=== PATIENT | male | born 1970 | race Caucasian/White ===

== ENCOUNTER 2019-05-23 19:36 | Inpatient (IN) ==
--- NOTE | 2019-05-23 20:34 | Emergency Department Note ---
ED Provider Note CHIEF COMPLAINT: Fall, left hip pain HISTORY OF PRESENT ILLNESS: This 49-year-old male patient presents to the emergency department by private vehicle complaining of pain in the left hip after a fall today around 5 PM. Patient states that he was [place] the [place] lost his footing and fell onto his left side. It was a ground-level fall. He denies hitting his head or loss of consciousness. He denies any other injuries from the fall. The pain has been getting gradually worse, is now constant and worse with movement. He is unable to put weight on the left leg without significant pain and states he has not been able to walk since the fall. The patient notes the pain as aching and throbbing and a 5/10. The patient has taken no medications for relief of the pain. The patient denies any loss of control of their bowel or bladder functions. There has been no leg numbness or weakness, and no change in sensation. No nausea or vomiting or abdominal pain. No chest pain or shortness of breath. No back pain. No dysuria or increased urinary frequency. REVIEW OF SYSTEMS: A complete 10 point review of systems was reviewed with the patient with pertinent positives and negatives as per history of present illness. All else were negative. ALLERGIES: Reviewed in chart MEDICATIONS: Reviewed in chart PMH: DVT, ulcerative colitis, reports total colectomy SOCIAL HISTORY: Lives at home, he denies tobacco use PHYSICAL EXAM: VITALS: Vitals are noted on the nurse's note and reviewed by myself. Vital signs stable. GENERAL: Pleasant and cooperative, in no acute distress, non-diaphoretic, well-developed well-nourished. SKIN: The skin was without rashes, erythema, edema, or bruising. Capillary re fill less than 2 seconds. NECK: Supple without nuchal rigidity. No cervical spine tenderness. No paraspinous muscle tenderness. HEART: Regular rate and rhythm without murmurs gallops or rubs. LUNGS: Clear to auscultation bilaterally without wheezes, rales or rhonchi. ABDOMEN: Positive bowel sounds x 4. Normal tympanic percussion. Soft, nontender, without masses or organomegaly. Mejia sign negative. MUSCULOSKELETAL: Tenderness to palpation directly over the left hip joint in the left lateral hip. No significant ecchymosis or swelling noted. Pain with internal and external rotation of the hip. No obvious shortening of the left leg, normal anatomic position. 2+ distal pulses. Sensation intact to light touch distally. NEURO: Patient was alert and oriented to person place and time. Strength 5/5 and equal in the bilateral lower extremities. ED COURSE AND MEDICAL DECISION MAKING: CC: Patient presenting with complaint of fall, left hip pain DIFFERENTIAL DIAGNOSIS: Includes, but not limited to hip contusion, abrasion, hematoma, sprain/strain, fracture, dislocation, among others. IMAGING: XR hip LT 2-3V w pelvis CLINICAL HISTORY: fall, hip pain COMPARISON: None FINDINGS: There is subtle cortical irregularity of the superior aspect of the left femoral neck within the subcapital region. The sacroiliac joints and symphysis pubis are intact. IMPRESSION: Possible acute nondisplaced left femoral neck fracture. A CT is recommended. ----- CT hip LT wo con CLINICAL HISTORY: eval poss left femoral neck fx COMPARISON STUDY: Pelvis and left femur radiographs performed earlier today. TECHNIQUE: Axial images of the left hip were obtained without IV contrast. Sagittal and coronal reconstructions were viewed. Automated exposure control was utilized for the study. A dose lowering technique was utilized adhering to the principles of ALARA. FINDINGS: Note is made of an acute impacted nondisplaced subcapital left femoral neck fracture. Fracture extends inferiorly through the anterior aspect of the femoral neck to the lesser trochanter. No fracture is identified within visualized portions of the left hemipelvis. This extensive vascular calcificatio n. IMPRESSION: Acute impacted nondisplaced subcapital left femoral neck fracture. Fracture extends inferiorly through the femoral neck into the intertrochanteric region with involvement of the lesser trochanter. MEDICATION RECONCILIATION: I attest that I have personally reviewed the patient's current medication list. INITIAL VITAL SIGNS REVIEW: I reviewed the patient's initial vital signs and interpret them as follows: T: Afebrile; BP: Normotensive; HR: Within normal limits; RR: Within normal limit; Pulse Ox: Within normal limits on room air. Blood pressure screening: The patient was found to have normal blood pressure on screening and does not require follow-up for repeat blood pressure check. MDM SUMMARY: Patient was evaluated at bedside, history and physical exam performed. Patient is alert and oriented, in no acute distress, resting in a wheelchair. The patient declined to get out of the wheelchair or to disrobe for exam. The patient's exam was limited due to his poor cooperation. Patient did have tenderness to palpation over the left hip joint and pain with internal and external rotation of the hip. Orders were placed at bedside for x-ray of the left hip with pelvis and left femur to evaluate for trauma. The patient was offered medication for pain, he declined at this time. Patient discussed with Dr. Patricia, who agrees with my assessment, plan, and disposition. X-ray imaging reviewed as above, concerning for a possible femoral neck fracture, CT recommended. CT imaging was performed of the left hip, reviewed as above and noting an acute impacted nondisplaced left femoral neck fracture. I spoke on the phone with Dr. Massey, orthopedic surgery, regarding the patient's injury. He recommended the patient be admitted to medicine and the patient will be evaluated by orthopedics tomorrow morning for surgical planning. I spoke with Dr. Gray, [facility]ist, who agrees to admit the patient. Patient reassessed multiple times throughout ED stay, he has remained stable and his pain is well controlled. The patient was updated on all results and plan for admission, he verbalized understanding and was agreeable to this plan. The patient was stable at time of admission. The chart was completed utilizing [employer] Speech voice recognition software. Grammatical errors, random word insertions, pronoun errors, and incomplete sentences are an occasional consequence of this system due to software limitations, ambient noise, and hardware issues. Any formal questions or concerns about the content, text, or information contained within the body of this dictation should be directly addressed to the nurse practitioner for clarification. Impression & Plan Closed fracture of neck of left femur Past Med/Surg History Medical History Deep vein thrombosis in leg 15yrs ago On anticoagulant therapy eliquis daily Ulcerative colitis Surgical History History of colectomy History of colonoscopy History of hernia repair Family History Other No family history of adverse response to anesthesia Social History Preferred Language: Omani Communication Ability: Effective Beliefs That Will Affect Care: None Current Living Situation: Spouse Feels Safe at Home: Yes Smoking Status: Never smoker Second Hand Exposure: No Hx Alcohol Use: Yes Alcohol type: beer Hx Substance Use: No Results & Data Vital Signs Vital Signs - 24 hr 05/23/19 19:59 05/23/19 21:55 05/24/19 00:02 Temperature 36.9 C Temperature Source Oral Sepsis Recent Fever Within 48 Hours No Sepsis New/Unexplained Change in Mental Status No Sepsis Action Taken by Nursing No Action Required Pulse Rate 85 Pulse Rate [Right Finger] 84 70 Pulse Rhythm Regular Pulse Rhythm [Right Finger] Regular Pulse Strength Normal Pulse Strength [Right Finger] Normal Respiratory Rate 20 20 18 Respiratory Effort / Characteristics Non-Labored Spontaneous Non-Labored Non-Labored Spontaneous Respiratory Depth Normal Normal Normal Respiratory Pattern Regular Regular Blood Pressure 120/73 Blood Pressure [Right Arm] 94/75 L 126/79 Blood Pressure Mean 88 Blood Pressure Mean [Right Arm] 81 94 Blood Pressure Position Sitting Blood Pressure Position [Right Arm] Lying Pulse Oximetry 98 98 98 Oxygen Delivery Method Room Air Room Air Room Air Laboratory Data Result diagrams: 05/24/19 08:09 05/24/19 08:09 Administered Medications Sodium Chloride (Nss 1000ml) 1,000 mls @ 80 mls/hr IV .[id number] LIDIA Stop: 06/23/19 01:59 Last Admin: 05/24/19 02:49 Dose: 80 mls/hr Documented by: [id number] Discontinued Medications Bupivacaine HCl/Epinephrine Bitart (Sensorcaine/Epinephrine 0.5% Mpf 1:200,000) Confirm Administered Dose 30 ml .ROUTE .STK-MED ONE Stop: 05/24/19 11:54 Last Admin: 05/24/19 14:38 Dose: 30 ml Documented by: [id number] Cefazolin Sodium (Ancef 2000mg) 2,000 mg in 15 mls @ 3.75 mls/min IV PREOP LIDIA Stop: 05/24/19 12:00 Last Admin: 05/24/19 13:35 Dose: 3.75 mls/min Documented by: [id number] Discharge Plan Visit Data *Final* Discharge Date/Time: 05/24/19 01:44 Chief Complaint: Hip Pain Stated Complaint: LEFT HIP PAIN ED Provider: Jason Patricia ED Midlevel Provider: Alisia Cerna Discharge Problem: Closed fracture of neck of left femur Patient Disposition: Admitted As Inpatient Condition: Good Discharge Instructions Interventions: ED Discharge Assessment Last Done: 05/24/19 01:44 Discharge Problem: Closed fracture of neck of left femur Qualifiers: Encounter type: initial encounter Qualified Code(s): S72.002A - Fracture of unspecified part of neck of left femur, initial encounter for closed fracture
--- NOTE | 2019-05-23 21:13 | XRay Report ---
XR hip LT 2-3V w pelvis CLINICAL HISTORY: fall, hip pain COMPARISON: None FINDINGS: There is subtle cortical irregularity of the superior aspect of the left femoral neck with in the subcapital region. The sacroiliac joints and symphysis pubis are intact. IMPRESSION: Possible acute nondisplaced left femoral neck fracture. A CT is recommended. Electronically signed by: Kyle Steve M.D. 05/23/2019 9:11 PM
--- NOTE | 2019-05-23 21:13 | XRay Report ---
XR femur LT 2V routine CLINICAL HISTORY: fall, pain COMPARISON: None FINDINGS: There is subtle cortical irregularity of the left femoral neck within the subcapital regio n. No additional fractures are noted within the left femur. There is extensive vascular calcification . Alignment of the left knee is anatomic. IMPRESSION: Possible acute subcapital left femoral neck fracture. A CT is recommended. Electronically signed by: Kyle Steve M.D. 05/23/2019 9:12 PM
--- NOTE | 2019-05-23 22:22 | CT Scan Report ---
CT hip LT wo con CLINICAL HISTORY: eval poss left femoral neck fx COMPARISON STUDY: Pelvis and left femur radiographs performed earlier today. TECHNIQUE: Axial images of the left hip were obtained without IV contrast. Sagittal and coronal recon structions were viewed. Automated exposure control was utilized for the study. A dose lowering techn ique was utilized adhering to the principles of ALARA. FINDINGS: Note is made of an acute impacted nondisplaced subcapital left femoral neck fracture. Fract ure extends inferiorly through the anterior aspect of the femoral neck to the lesser trochanter. No f racture is identified within visualized portions of the left hemipelvis. This extensive vascular calc ification. IMPRESSION: Acute impacted nondisplaced subcapital left femoral neck fracture. Fracture extends infe riorly through the femoral neck into the intertrochanteric region with involvement of the lesser troc hanter. Electronically signed by: Kyle Steve M.D. 05/23/2019 10:21 PM
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
[2019-05-24] MEDS ORDERED: DICYCLOMINE HCL 10 MG CAP PO PRN (01:58)
[2019-05-24] MEDS ORDERED: DOCUSATE SODIUM 100 MG CAP PO PRN (01:58)
[2019-05-24] MEDS: SODIUM CHLORIDE 0.9% 1000ML 1,000 ML IV SCH ×2 (02:49→18:11)
[2019-05-24 03:12] LABS: Magnesium 2.1 mg/dl (1.8-2.4); Phosphorus 3.2 mg/dl (2.5-4.9)
[2019-05-24] MEDS ORDERED: CEFAZOLIN 2000MG 2,000 MG/15 ML SYR IV SCH (06:00)
[2019-05-24 06:18] LABS: Appearance Urine Clear (Clear); Bilirubin Urine Negative (Negative); Blood Urine Negative (Negative); Color Urine Yellow; Glucose Urine UA Negative (Negative); Ketones Urine Negative (Negative); Leukocyte Esterase Urine Negative (Negative); Nitrite Urine Negative (Negative); Protein Urine Negative (Negative); Specific Gravity Urine 1.023 (1.000-1.030); Urobilinogen Urine Negative (Negative)
--- NOTE | 2019-05-24 08:00 | Anesthesiology Consultation ---
Date of Service May 24, 2019 Assessment & Plan Chart Review Chart Review: Acceptable Risk for Surgery and Patient NOT seen in Pre Admission Testing Consults Requested none History Surgery Operation Date: 05/24/19 14:00 Proposed Procedures p Left Short Troch Nail - Delfino Ordoñez DO Height/Weight Height: 5 ft 10 in Weight: 90 kg Allergies Allergy/AdvReac Type Severity Reaction Status Date / Time infliximab AdvReac Severe body Verified 05/24/19 12:00 aches;couldn't sleep Medications Home Medications Medication Instructions Recorded Confirmed Last Taken Eliquis 2.5 mg PO BID 12/16/18 05/24/19 05/23/19 dicyclomine 10 mg PO TID PRN 12/16/18 05/24/19 12/20/18 ferrous sulfate [iron] 2 tab PO QPM 12/16/18 05/24/19 05/23/19 cholecalciferol (vitamin D3) 2,000 unit PO DAILY 05/24/19 05/24/19 05/24/19 [Vitamin D3] Active Medications Generic Name Dose Route Start Last Admin Trade Name Freq PRN Reason Stop Dose Admin Sodium Chloride 1,000 mls @ 80 mls/hr 05/24/19 02:00 05/24/19 02:49 Nss 1000ml IV 06/23/19 01:59 80 mls/hr .[id number] LIDIA Administration NPO Date Last Intake of Fluids: 05/24/19 Time Last Intake of Fluids: 01:50 Date Last Intake of Solids: 05/24/19 Time Last Intake of Solids: 01:50 Past Medical History Medical History Deep vein thrombosis in leg 15yrs ago On anticoagulant therapy eliquis daily Ulcerative colitis Past Family History Family History Other No family history of adverse response to anesthesia Past Surgical History Surgical History History of colectomy History of colonoscopy History of hernia repair Past Anesthesia History No Hx of Anesthesia Complications and No Family Hx of Anesthesia Complications History of PONV No Hx of PONV and No Hx of Motion Sickness Social History Smoking Status: Never smoker Do You Dip or Chew Tobacco: No Hx Alcohol Use: Yes Alcohol type: beer alcohol intake frequency: holidays/special occasions only Hx Substance Use: No substance use type: does not use Physical Exam Vital Signs Last Vital Signs Temp 36.9 C 05/24/19 07:22 Pulse 84 05/24/19 11:37 Resp 18 05/24/19 11:37 BP 113/77 05/24/19 11:37 Pulse Ox 99 05/24/19 11:37 Testing Laboratory Results 05/24/19 08:09 05/24/19 08:09 PT 11.0 Seconds (9.0-12.0) 05/24/19 08:09 INR 1.1 (0.9-1.1) 05/24/19 08:09 Urine Color Yellow 05/24/19 06:03 Urine Appearance Clear (Clear) 05/24/19 06:03 Urine pH 5.0 (4.5-7.5) 05/24/19 06:03 Ur Specific [place] 1.023 (1.000-1.030) 05/24/19 06:03 Urine Protein Negative (Negative) 05/24/19 06:03 Urine Glucose (UA) Negative (Negative) 05/24/19 06:03 Urine Ketones Negative (Negative) 05/24/19 06:03 Urine Nitrite Negative (Negative) 05/24/19 06:03 Ur Leukocyte Esterase Negative (Negative) 05/24/19 06:03 Electrocardiogram Date: 05/24/19 Findings: + NSR @ (76 bpm)
[2019-05-24 08:21] LABS: Hematocrit (blood only) 36.4 % (42-52); Mean Corpuscular Volume 86.9 fL (80-100); Mean Platelet Volume 9.9 fL (7.4-10.4); Platelet Count 280 K/uL (130-400); RDW Coefficient of Variation 15.1 % (11.5-14.5); RDW Standard Deviation 48.3 fL (36.4-46.3); Red Blood Count 4.19 M/uL (4.7-6.1); White Blood Count 6.94 K/uL (4.8-10.8)
[2019-05-24 08:29] LABS: INR 1.1 (0.9-1.1)
[2019-05-24 08:46] LABS: BUN Creatinine Ratio 15.8 (10-20); Calcium 8.4 mg/dl (8.5-10.1); Creatinine Clr Calc Pharmacy 161.9 ml/min; Est GFR (African American) 135.1; Est GFR (Non-African American) 116.5; Potassium 3.7 mmol/L (3.5-5.1)
--- NOTE | 2019-05-24 11:20 | History & Physical Bridge Note ---
Date of Service May 24, 2019 History & Physical Bridge Note I have examined the patient, reviewed the History & Physical and in the interval since the performance of the History & Physical I have noted the following changes of clinical significance: no changes noted
--- NOTE | 2019-05-24 11:20 | Orthopedic Consultation ---
Date of Consultation May 24, 2019 Assessment & Plan (1) Closed left hip fracture: The patient is a 41yo male with nondisplaced left femoral neck fracture with extension into the lesser trochanter sustained after a fall from standing height. The patient was medically stabilized on 05/24/2019. I indicated the patient for left hip cephalomedullary nail. The patient was informed of the risks and benefits of surgery, which include but not limited to infection, bleeding, blood clots, damage to nerves, vessels, bone and soft tissue, dislocation, leg length discrepancy, malunion, nonunion, failure of the implants, need for additional surgery and . The patient chose to proceed with surgical intervention and informed consent was obtained. N.p.o. Nonweightbearing left lower extrema Hold anticoagulation Antibiotics traffic control signaler the OR History of Present Illness Reason for Consultation: Left hip fracture Attending Physician: Caitlyn Millard MD History of Present Illness The patient is a 49-year-old male who presents to [facility] secondary to left hip pain from a fall from standing height he sustained on 05/23/2019. He reports he was" wrestling with a steer"' subsequently fell onto his left side. Denies hitting head, denies loss of consciousness, denies numbness tingling to left lower extremity. At [facility] he was subsequently diagnosed with left nondisplaced hip fracture and admitted for further inpatient treatments. Allergies Allergy/AdvReac Type Severity Reaction Status Date / Time infliximab AdvReac Severe body Verified 05/24/19 00:04 aches;couldn't sleep Home Medications Home Medications Medication Instructions Recorded Confirmed Type Eliquis 2.5 mg PO BID 12/16/18 05/24/19 History dicyclomine 10 mg PO TID PRN 12/16/18 05/24/19 History ferrous sulfate [iron] 2 tab PO QPM 12/16/18 05/24/19 History cholecalciferol (vitamin D3) 2,000 unit PO DAILY 05/24/19 05/24/19 History [Vitamin D3] Patient History Medical History Deep vein thrombosis in leg 15yrs ago On anticoagulant therapy eliquis daily Ulcerative colitis Surgical History History of colectomy History of colonoscopy History of hernia repair Family History Other No family history of adverse response to anesthesia Social History Preferred Language: Bulgarian Communication Ability: Effective Beliefs That Will Affect Care: None Current Living Situation: Spouse Feels Safe at Home: Yes Smoking Status: Never smoker Second Hand Exposure: No Hx Alcohol Use: Yes Alcohol type: beer Hx Substance Use: No Review of Systems Review of Systems: All systems reviewed & are unremarkable except as noted in HPI & below Constitutional: as per Subjective / HPI Physical Exam Physical Exam: LLE NVSI +EHL/FHL/TA/GS SILT grossly, +2 DP pulse, compartments soft NT, painful logroll. Constitutional: WD/WN, vitals as above Results & Data Vital Signs (Past 12 Hours) Vital Signs Temp Pulse Resp BP Pulse Ox 05/24/19 07:22 36.9 C 70 18 122/82 96 05/24/19 01:50 36.6 C 78 16 135/85 94 05/24/19 01:30 64 18 108/70 98 05/24/19 00:02 70 18 126/79 98 Diagnostic Findings XR hip LT 2-3V w pelvis CLINICAL HISTORY: fall, hip pain COMPARISON: None FINDINGS: There is subtle cortical irregularity of the superior aspect of the left femoral neck within the subcapital region. The sacroiliac joints and symphysis pubis are intact. IMPRESSION: Possible acute nondisplaced left femoral neck fracture. A CT is recommended. XR femur LT 2V routine CLINICAL HISTORY: fall, pain COMPARISON: None FINDINGS: There is subtle cortical irregularity of the left femoral neck within the subcapital region. No additional fractures are noted within the left femur. There is extensive vascular calcification. Alignment of the left knee is anatomic. IMPRESSION: Possible acute subcapital left femoral neck fracture. A CT is recommended. CT hip LT wo con CLINICAL HISTORY: eval poss left femoral neck fx COMPARISON STUDY: Pelvis and left femur radiographs performed earlier today. TECHNIQUE: Axial images of the left hip were obtained without IV contrast. Sagittal and coronal reconstructions were viewed. Automated exposure control was utilized for the study. A dose lowering technique was utilized adhering to the principles of ALARA. FINDINGS: Note is made of an acute impacted nondisplaced subcapital left femoral neck fracture. Fracture extends inferiorly through the anterior aspect of the femoral neck to the lesser trochanter. No fracture is identified within visualized portions of the left hemipelvis. This extensive vascular calcification. IMPRESSION: Acute impacted nondisplaced subcapital left femoral neck fracture. Fracture extends inferiorly through the femoral neck into the intertrochanteric region with involvement of the lesser trochanter. (1) Closed left hip fracture Encounter type: initial encounter Qualified Code(s): S72.002A - Fracture of unspecified part of neck of left femur, initial encounter for closed fracture
[2019-05-24] MEDS ORDERED: MIDAZOLAM HCL 1 MG/ML 2ML VIAL ONE (11:34)
[2019-05-24] MEDS ORDERED: PROPOFOL IV EMULSION 10 MG/ML 20 ML VIAL IV ONE (11:34)
[2019-05-24] MEDS ORDERED: DEXAMETHASONE SOD INJ 4 MG/ML VIAL ONE (11:34)
[2019-05-24] MEDS ORDERED: LIDOCAINE HCL 2% 2 ML VIAL/AMP(20MG/ML) INFIL ONE (11:34)
[2019-05-24] MEDS ORDERED: fentaNYL citrate 100 MCG/2 ML VIAL ONE (11:34)
[2019-05-24] MEDS ORDERED: ONDANSETRON INJ 2 MG/ML 2 ML VIAL ONE (11:34)
[2019-05-24] MEDS ORDERED: CEFAZOLIN 2,000 MG/15 ML IV PUSH IV ONE (11:52)
[2019-05-24] MEDS ORDERED: BUPIVACAINE/EPINEPHRINE 0.5% MPF 1:200,000 30 ML VIAL ONE (11:53)
--- NOTE | 2019-05-24 12:33 | Hospitalist Progress Note ---
Date of Service May 24, 2019 Assessment & Plan (1) Closed left hip fracture: - Acute impacted nondisplaced subcapital left femoral neck fracture with extension into the intertrochanteric region involving the lesser trochanter. - Orthopedics consulted, appreciate input. - Nonweightbearing LLE; plan to go to the OR, currently NPO except meds. - Has not required pain medication. (2) Ulcerative colitis: - S/p laparoscopic colectomy with ileostomy in place. - Planning to have another operation in the future to attach ileum to rectum. - Continue Bentyl prn. (3) History of DVT (deep vein thrombosis): - H/o unprovoked DVT ~15 years ago; had presumed hypercoagulable state in setting of UC. - Currently on Eliquis 2.5 mg BID -- was scheduled for heme referral to discuss d/c'ing anticoagulation. - Holding Eliquis for procedure -- consider inpt heme consult for evaluation. Dispo: Med/surg for ortho consult, will need PT/OT evaluation prior to discharge. Supervising Physician Co-Signing Physician Notes PA Supervision Note: I did not personally see or examine the patient today, but I verified all santillan points of NICHOLE Pacheco's assessment and plan with the following exceptions/additions: None Subjective Pt. is doing well overall. Denies significant left hip pain, chest pain, SOB. Has good colostomy output, denies urinary retention. Orthopedics consulted, appreciate input. Review of Systems Review of Systems: All systems reviewed & are unremarkable except as noted in HPI & below Constitutional: no fever, no chills, no fatigue, no weakness and no anorexia Respiratory: no cough, no dyspnea and no dyspnea on exertion Cardiovascular: no chest pain, no palpitations and no edema Gastrointestinal: no abdominal pain, no nausea, no vomiting and no constipation Genitourinary: no difficulty urinating Musculoskeletal: no back pain and no joint pain Integumentary: no non-healing lesions Physical Exam Physical Exam: General: Resting comfortably in no apparent distress HEENT: NC/AT; PERRLA with EOMI; [place] conjunctiva, MMM. No erythema of posterior pharynx Neck: Supple and nontender Cardiac: RRR Lungs: CTA bilaterally Abdomen: Bowel normoactive X 4; Nontender to palpation Extremities: Warm. No edema present Neuro: No focal weakness Skin: No rash Results & Data Vital Signs (Past 12 Hours) Vital Signs Temp Pulse Resp BP Pulse Ox 05/24/19 11:37 84 18 113/77 99 05/24/19 07:22 36.9 C 70 18 122/82 96 05/24/19 01:50 36.6 C 78 16 135/85 94 05/24/19 01:30 64 18 108/70 98 Laboratory Results 05/24/19 05/24/19 05/24/19 Range/Units 08:09 08:09 08:09 WBC 6.94 (4.8-10.8) K/uL RBC 4.19 L (4.7-6.1) M/uL Hgb 12.0 L (14.0-18.0) g/dL Hct 36.4 L (42-52) % MCV 86.9 (80-100) fL MCH 28.6 (25-34) pg MCHC 33.0 (32-36) g/dL RDW Std Deviation 48.3 H (36.4-46.3) fL RDW Coeff of Asha 15.1 H (11.5-14.5) % Plt Count 280 (130-400) K/uL MPV 9.9 (7.4-10.4) fL PT 11.0 (9.0-12.0) Seconds INR 1.1 (0.9-1.1) Sodium 141 (136-145) mmol/L Potassium 3.7 (3.5-5.1) mmol/L Chloride 112 H (98-107) mmol/L Carbon Dioxide 23 (21-32) mmol/L Anion Gap 6.0 (3-11) BUN 10 (7-18) mg/dl Creatinine 0.63 (0.6-1.4) mg/dl Est Cr Clr Drug Dosing 161.9 ml/min Est GFR ( Amer) 135.1 Est GFR (Non-Af Amer) 116.5 BUN/Creatinine Ratio 15.8 (10-20) Glucose 96 (70-99) mg/dl Calcium 8.4 L (8.5-10.1) mg/dl Phosphorus (2.5-4.9) mg/dl Magnesium (1.8-2.4) mg/dl Urine Color Urine Appearance (Clear) Urine pH (4.5-7.5) Ur Specific Craig (1.000-1.030) Urine Protein (Negative) Urine Glucose (UA) (Negative) Urine Ketones (Negative) Urine Blood (Negative) Urine Nitrite (Negative) Urine Bilirubin (Negative) Urine Urobilinogen (Negative) Ur Leukocyte Esterase (Negative) 05/24/19 05/24/19 Range/Units 06:03 02:25 WBC (4.8-10.8) K/uL RBC (4.7-6.1) M/uL Hgb (14.0-18.0) g/dL Hct (42-52) % MCV (80-100) fL MCH (25-34) pg MCHC (32-36) g/dL RDW Std Deviation (36.4-46.3) fL RDW Coeff of Asha (11.5-14.5) % Plt Count (130-400) K/uL MPV (7.4-10.4) fL PT (9.0-12.0) Seconds INR (0.9-1.1) Sodium (136-145) mmol/L Potassium (3.5-5.1) mmol/L Chloride (98-107) mmol/L Carbon Dioxide (21-32) mmol/L Anion Gap (3-11) BUN (7-18) mg/dl Creatinine (0.6-1.4) mg/dl Est Cr Clr Drug Dosing ml/min Est GFR ( Amer) Est GFR (Non-Af Amer) BUN/Creatinine Ratio (10-20) Glucose (70-99) mg/dl Calcium (8.5-10.1) mg/dl Phosphorus 3.2 (2.5-4.9) mg/dl Magnesium 2.1 (1.8-2.4) mg/dl Urine Color Yellow Urine Appearance Clear (Clear) Urine pH 5.0 (4.5-7.5) Ur Specific Craig 1.023 (1.000-1.030) Urine Protein Negative (Negative) Urine Glucose (UA) Negative (Negative) Urine Ketones Negative (Negative) Urine Blood Negative (Negative) Urine Nitrite Negative (Negative) Urine Bilirubin Negative (Negative) Urine Urobilinogen Negative (Negative) Ur Leukocyte Esterase Negative (Negative) PG Care Time/CCT Total # of Minutes Spent Total Time Spent with Patient: Total time spent is greater than 50% in coordination of care (as documented) at patient's floor/unit and/or counseling patient: (1) Ulcerative colitis Digestive disease complication type: without complication Ulcerative colitis location: ulcerative pancolitis Qualified Code(s): K51.00 - Ulcerative (chronic) pancolitis without complications (2) Closed left hip fracture Encounter type: initial encounter Qualified Code(s): S72.002A - Fracture of unspecified part of neck of left femur, initial encounter for closed fracture
[2019-05-24] MEDS ORDERED: ROCURONIUM BROMIDE 10 MG/ML 5 ML VIAL ONE (12:36)
[2019-05-24] MEDS ORDERED: LARYING-O-JET KIT (LTA) ONE (12:36)
[2019-05-24] MEDS ORDERED: HYDROmorphone INJ 2 MG/ML SYR/VIAL IV PRN (12:37)
[2019-05-24] MEDS ORDERED: ATROPINE SULFATE 0.1 MG/ML 10ML SYR IV PRN (12:37)
[2019-05-24] MEDS ORDERED: ePHEDrine sulfate 50 MG/ML AMP IV PRN (12:37)
[2019-05-24] MEDS ORDERED: fentaNYL citrate 100 MCG/2 ML VIAL IV PRN (12:37)
[2019-05-24] MEDS ORDERED: HYDROmorphone INJ 2 MG/ML SYR/VIAL ONE (13:51)
[2019-05-24] MEDS ORDERED: NEOSTIGMINE METHYLSULFATE 5 MG/5 ML SYR ONE (14:42)
[2019-05-24] MEDS ORDERED: GLYCOPYRROLATE 0.2 MG/ML VIAL ONE (14:42)
[2019-05-24] MEDS ORDERED: COUGH DROP (SUGAR FREE) LOZ 24 LOZ/1 BOX BUCCAL PRN (14:57)
[2019-05-24] MEDS ORDERED: OXYCODONE HCL IR 5 MG TAB (IMMEDIATE RELEASE) PO PRN (14:57)
[2019-05-24] MEDS ORDERED: NALOXONE HCL 0.4 MG/1 ML VIAL/CARP IV PRN (14:57)
[2019-05-24] MEDS ORDERED: HYDROmorphone INJ 0.5 MG/0.5 ML SYR IV PRN (14:57)
--- NOTE | 2019-05-24 15:24 | Fluoroscopy Report ---
FL hip LT 2-3V CLINICAL HISTORY: LEFT TROCH NAIL COMPARISON STUDY: Left hip/femur radiographs and CT of the left hip May 23, 2019. FLUOROSCOPY TIME: 1 minute and 1 second. FLUOROSCOPIC IMAGES: 4 FINDINGS: These images demonstrate placement of a trochanteric nail which fixates the femoral neck/in tertrochanteric fracture. Hardware is intact. Alignment appears anatomic. There are no unexpected rad iopaque foreign bodies. IMPRESSION: Expected findings following internal fixation of the proximal left femoral fracture. Electronically signed by: Kyle Steve M.D. 05/24/2019 3:23 PM
--- NOTE | 2019-05-24 15:42 | Post Operative Brief Note ---
Immediate Post Op Note v1 Date of Surgery May 24, 2019 Pre & Post Diagnosis Operation Date: 05/24/19 14:00 Pre-Op Diagnosis: LEFT HIP FRACTURE Post-Op Diagnosis: LEFT HIP FRACTURE Procedure Operation Date: 05/24/19 14:00 Actual Procedures p Closed Reduction, Left Short Troch Nail(Left) - Delfino Ordoñez DO Surgeon Delfino Ordoñez DO Strategic Sourcing Manager none Estimated Blood Loss 45 Findings Consistent with Post-Op Diagnosis Specimens none Anesthesia Type General Complications none Disposition Disposition: Recovery Room Overlapping Procedure I was present for: the critical portions of procedure. I was immediately available: during the entire case. Back up surgeon: was not required during procedure.
--- NOTE | 2019-05-24 15:42 | Orthopedic Progress Note ---
Date of Service May 24, 2019 Assessment & Plan (1) Closed left hip fracture: Status post left hip short cephalo-medullary nail -Ancef x24 -DVT prophylaxis: SCDs, teds, Lovenox daily -Toe-touch weightbearing left lower extremity -PT /OT -Postoperative x-ray pending -A.m. labs Subjective Post Operative Progress Note Patient seen laying in PACU, comfortable, denies complaints, pain well controlled, no acute issues. Review of Systems Review of Systems: All systems reviewed & are unremarkable except as noted in HPI & below Constitutional: as per Subjective / HPI Physical Exam Physical Exam: LLE NVSI +EHL/FHL/TA/GS SILT grossly, +2 DP pulse, compartments soft NT, dressing cdi. Constitutional: WD/WN, vitals as above Results & Data Vital Signs (Past 12 Hours) Vital Signs Temp Pulse Pulse Resp BP Pulse Ox 05/24/19 15:30 85 124/91 98 05/24/19 15:20 77 14 118/81 100 05/24/19 15:10 88 12 124/83 100 05/24/19 15:03 37.1 C 87 18 128/82 100 05/24/19 11:37 84 18 113/77 99 05/24/19 07:22 36.9 C 70 18 122/82 96 (1) Closed left hip fracture Encounter type: initial encounter Qualified Code(s): S72.002A - Fracture of unspecified part of neck of left femur, initial encounter for closed fracture
--- NOTE | 2019-05-24 15:44 | Operative Report ---
Post Operative Report Pre & Post Diagnosis Operation Date: 05/24/19 14:00 Pre-Op Diagnosis: LEFT HIP FRACTURE Post-Op Diagnosis: LEFT HIP FRACTURE Procedure Operation Date: 05/24/19 14:00 Actual Procedures p Closed Reduction, Left Short Troch Nail(Left) - Delfino Ordoñez DO Surgeon Delfino Ordoñez DO Signal Repairer none Estimated Blood Loss 45 Findings Consistent with Post-Op Diagnosis Specimens none Anesthesia Type General Disposition Disposition: Recovery Room Indications The patient is a 49yo male with nondisplaced femoral neck fracture with extension into the lesser trochanteric region sustained after a fall from standing height. The patient was medically stabilized on 05/24/2019. I indicated the patient for left hip cephalomedullary nail. The patient was informed of the risks and benefits of surgery, which include but not limited to infection, bleeding, blood clots, damage to nerves, vessels, bone and soft tissue, dislocation, leg length discrepancy, malunion, nonunion, failure of the implants, need for additional surgery and . The patient chose to proceed with surgical intervention and informed consent was obtained. Description of Procedure Following induction of adequate general anesthesia, the patient was placed on the fracture table. The right leg was placed in the well leg quinn and the left leg in the traction leg quinn. All bony prominences were protected. Utilizing c-arm fluoroscopy closed reduction of the fracture was performed. Once satisfied with fracture reduction the left hip was prepped and draped in the usual sterile manner. A time out was performed and site verified. The incision was made from the tip of the greater trochanter proximally. Subcutaneous tissue was sharply dissected to the tip of the greater trochanter, electrocautery used for hemostasis. Under fluoroscopic guidance the drill tipped guidewire was inserted at the tip of the greater trochanter and advanced into the medullary canal. Utilizing the intramedullary drill the guidewire was overdrilled with tissue protector attached. A 11 mm short Synthes TFN was inserted and impacted into position and confirmed by c-arm fluoroscopy. Next the aiming arm was attached to the insertion handle. A incision was made and carried down through subcutaneous tissues to bone. The blade guide sleeve was inserted and secured down to bone. The guide wire was passed across the fracture site to the tip of the femoral head, position was confirmed in the AP and lateral planes utilizing c-arm fluoroscopy. The guide pin was measured and the 11.0mm drill bit passed over the guide pin to open lateral cortex followed by a 6.0mm/10.0mm cannulated reamer to a depth of 100 mm. Next the helical blade was inserted and locked proximally. Traction was released and interfragmentary compression applied. Distally a stab incision was made in the skin and carried down to bone. The triple trocar assembly was inserted into the aiming guide to bone. Utilizing a 4.0mm drill, both cortices were drilled. The nail was locked distally using a single 4.9mm x 40 mm locking bolt. The aiming guide was removed at this time and final radiographs were obtained utilizing c-arm fluoroscopy to confirm overall position and fracture reduction. Incisions were irrigated with copious amounts of sterile saline solution. Subcutaneous tissue were injected utilizing .5% marcaine with epi. Deep closure was performed using #1 Vicryl followed by 2-0 Vicryl for subcutaneous tissues and glory in the skin. Sterile dressing, Xeroform gauze, 4x4s and tegaderm were applied. The patient tolerated the procedure well and was transported to the PACU in stable condition. I attest to the content of the Intraoperative Record and any orders documented therein. Any exceptions are noted below.
--- NOTE | 2019-05-24 15:57 | Anesthesiology Progress Note ---
Date of Service May 24, 2019 Anesthesia Post Procedure Vital Signs Vital Signs: Temp Pulse Pulse Pulse Resp BP BP 05/24/19 15:49 37 C 73 16 139/93 05/24/19 15:40 37 C 80 16 123/86 05/24/19 15:30 85 16 124/91 05/24/19 15:20 77 14 118/81 05/24/19 15:10 88 12 124/83 05/24/19 15:03 37.1 C 87 18 128/82 05/24/19 11:37 84 18 113/77 05/24/19 07:22 36.9 C 70 18 122/82 05/24/19 01:50 36.6 C 78 16 135/85 05/24/19 01:30 64 18 108/70 05/24/19 00:02 70 18 126/79 05/23/19 21:55 84 20 94/75 L 05/23/19 19:59 36.9 C 85 20 120/73 Pulse Ox 05/24/19 15:49 95 05/24/19 15:40 97 05/24/19 15:30 98 05/24/19 15:20 100 05/24/19 15:10 100 05/24/19 15:03 100 05/24/19 11:37 99 05/24/19 07:22 96 05/24/19 01:50 94 05/24/19 01:30 98 05/24/19 00:02 98 05/23/19 21:55 98 05/23/19 19:59 98 Pain Intensity Left Hip: Pain Intensity: 0 Transfer of Care Handoff Completed per policy Notes Mental Status: alert / awake / arousable Patient Amnestic to Procedure: Yes Nausea / Vomiting: adequately controlled Pain: adequately controlled Airway Patency, RR, SpO2: stable & adequate BP & HR: stable & adequate Hydration State: stable & adequate Anesthetic Complications: no major complications apparent
--- NOTE | 2019-05-24 15:59 | XRay Report ---
XR hip LT min 2V CLINICAL HISTORY: Post-Operative implant position COMPARISON STUDY: Left hip 05/23/2019. FINDINGS: Patient is status post internal fixation of the left femoral neck fracture with a proximal short intramedullary kamala and interlocking femoral neck pin. The hardware appears intact. The alignmen t appears anatomic. No dislocation. Skin glory are in place. IMPRESSION: Status post internal fixation of a left femoral neck fracture. The hardware appears inta ct. Electronically signed by: Richard Desouza M.D. 05/24/2019 3:58 PM
[2019-05-24] MEDS: FERROUS SULFATE 325 MG TAB PO SCH (18:05)
[2019-05-24] MEDS: CEFAZOLIN 2000MG 2,000 MG/15 ML SYR IV SCH (20:28)
[2019-05-24] MEDS: SENNA 8.6 MG TAB PO SCH (20:28)
[2019-05-25] MEDS: CEFAZOLIN 2000MG 2,000 MG/15 ML SYR IV SCH (03:52)
[2019-05-25] MEDS: SODIUM CHLORIDE 0.9% 1000ML 1,000 ML IV SCH (04:29)
[2019-05-25 07:12] LABS: Basophils # (auto) 0.01 K/uL (0-0.2); Basophils % (auto) 0.1 %; Hematocrit (blood only) 37.2 % (42-52); Hemoglobin 12.2 g/dL (14.0-18.0); Immature Granulocytes # (auto) 0.02 K/uL (0.00-0.02); Immature Granulocytes % (auto) 0.2 %; Lymphocytes % (auto) 6.8 %; Mean Corpuscular Hgb Conc 32.8 g/dL (32-36); Mean Corpuscular Volume 88.4 fL (80-100); Mean Platelet Volume 9.9 fL (7.4-10.4); Monocytes # (auto) 1.41 K/uL (0.11-0.59); Monocytes % (auto) 11.9 %; Neutrophils # (auto) 9.59 K/uL (1.4-6.5); Platelet Count 257 K/uL (130-400); RDW Standard Deviation 48.8 fL (36.4-46.3); Red Blood Count 4.21 M/uL (4.7-6.1); White Blood Count 11.83 K/uL (4.8-10.8)
[2019-05-25 07:46] LABS: BUN Creatinine Ratio 13.1 (10-20); Calcium 8.3 mg/dl (8.5-10.1); Creatinine Clr Calc Pharmacy 132.4 ml/min; Est GFR (African American) 124.4; Est GFR (Non-African American) 107.3; Potassium 4.1 mmol/L (3.5-5.1)
[2019-05-25] MEDS: ENOXAPARIN INJ 40 MG/0.4 ML SYR SQ SCH (08:25)
--- NOTE | 2019-05-25 08:32 | Orthopedic Progress Note ---
Date of Service May 25, 2019 Assessment & Plan (1) Closed left hip fracture: Status post left hip short cephalo-medullary nail POD#1 -Ancef x24 -DVT prophylaxis: SCDs, teds, Lovenox daily -Toe-touch weightbearing left lower extremity -PT /OT -Postoperative x-ray pending -A.m. labs - hgb 12.2 Subjective Post Operative Progress Note Patient seen laying in bed, comfortable, denies complaints, pain well controlled, no acute issues. Review of Systems Review of Systems: All systems reviewed & are unremarkable except as noted in HPI & below Constitutional: as per Subjective / HPI Physical Exam Physical Exam: LLE NVSI +EHL/FHL/TA/GS SILT grossly, +2 DP pulse, compartments soft NT, dressing cdi. Constitutional: WD/WN, vitals as above Results & Data Vital Signs (Past 12 Hours) Vital Signs Temp Pulse Resp BP Pulse Ox 05/25/19 07:29 36.7 C 68 16 117/76 96 05/25/19 03:51 36.7 C 63 14 127/82 96 05/24/19 23:32 36.8 C 73 14 111/70 96 (1) Closed left hip fracture Encounter type: initial encounter Qualified Code(s): S72.002A - Fracture of unspecified part of neck of left femur, initial encounter for closed fracture
--- NOTE | 2019-05-25 12:11 | Hospitalist Progress Note ---
Date of Service May 25, 2019 Assessment & Plan (1) Closed left hip fracture: - Acute impacted nondisplaced subcapital left femoral neck fracture with extension into the intertrochanteric region involving the lesser trochanter. - Orthopedics consulted, appreciate input. S/p left short troch nail on 05/24/19 -- POD#1. - DVT ppx: Lovenox daily. Holding home Eliquis. - PT/OT evaluation for discharge planning. TTWB on LLE. - Monitor CBC qAM to evaluate for acute blood loss. (2) Ulcerative colitis: - S/p laparoscopic colectomy with ileostomy in place. - Planning to have another operation in the future to attach ileum to rectum. - Continue Bentyl prn. (3) Anemia: - Chronic anemia, baseline hgb ~12; may be related to iron deficiency anemia, continue home iron supplementation. - Monitor CBC qAM. (4) History of DVT (deep vein thrombosis): - H/o unprovoked DVT ~15 years ago; had presumed hypercoagulable state in setting of UC. - Currently on Eliquis 2.5 mg BID -- was scheduled for heme referral to discuss d/c'ing anticoagulation. - Holding Eliquis per ortho, currently receiving Lovenox 40 mg subQ q24hr. Dispo: Discharge to home likely on 05/26/19. Supervising Physician Co-Signing Physician Notes PA Supervision Note: I did not personally see or examine the patient today, but I verified all santillan points of NICHOLE Pacheco's assessment and plan with the following exceptions/additions: None Subjective Pt. is doing extremely well post op. He denies pain in left hip, urinary retention, chest pain, SOB. Has not had a BM but is passing gas. Review of Systems Review of Systems: All systems reviewed & are unremarkable except as noted in HPI & below Constitutional: no fever, no chills, no fatigue, no weakness and no anorexia Respiratory: no cough, no dyspnea and no dyspnea on exertion Cardiovascular: no chest pain, no palpitations and no edema Gastrointestinal: + constipation; no abdominal pain, no nausea and no vomiting Genitourinary: no difficulty urinating Musculoskeletal: no back pain and no joint pain Integumentary: no non-healing lesions Physical Exam Physical Exam: General: Resting comfortably in no apparent distress HEENT: NC/AT; PERRLA with EOMI; [place] conjunctiva, MMM. No erythema of posterior pharynx Neck: Supple and nontender Cardiac: RRR Lungs: CTA bilaterally Abdomen: +Ostomy with good output; Bowel normoactive X 4; Nontender to palpation Extremities: Warm. No edema present Neuro: No focal weakness Skin: No rash Results & Data Vital Signs (Past 12 Hours) Vital Signs Temp Pulse Resp BP Pulse Ox 05/25/19 07:29 36.7 C 68 16 117/76 96 05/25/19 03:51 36.7 C 63 14 127/82 96 Laboratory Results 05/25/19 05/25/19 Range/Units 06:56 06:56 WBC 11.83 H (4.8-10.8) K/uL RBC 4.21 L (4.7-6.1) M/uL Hgb 12.2 L (14.0-18.0) g/dL Hct 37.2 L (42-52) % MCV 88.4 (80-100) fL MCH 29.0 (25-34) pg MCHC 32.8 (32-36) g/dL RDW Std Deviation 48.8 H (36.4-46.3) fL RDW Coeff of Asha 15.0 H (11.5-14.5) % Plt Count 257 (130-400) K/uL MPV 9.9 (7.4-10.4) fL Immature Gran % (Auto) 0.2 % Neut % (Auto) 81.0 % Lymph % (Auto) 6.8 % Rice % (Auto) 11.9 % Eos % (Auto) 0.0 % Baso % (Auto) 0.1 % Immature Gran # (Auto) 0.02 (0.00-0.02) K/uL Neut # (Auto) 9.59 H (1.4-6.5) K/uL Lymph # (Auto) 0.80 L (1.2-3.4) K/uL Rice # (Auto) 1.41 H (0.11-0.59) K/uL Eos # (Auto) 0.00 (0-0.5) K/uL Baso # (Auto) 0.01 (0-0.2) K/uL Sodium 139 (136-145) mmol/L Potassium 4.1 (3.5-5.1) mmol/L Chloride 108 H (98-107) mmol/L Carbon Dioxide 25 (21-32) mmol/L Anion Gap 6.0 (3-11) BUN 10 (7-18) mg/dl Creatinine 0.77 (0.6-1.4) mg/dl Est Cr Clr Drug Dosing 132.4 ml/min Est GFR ( Amer) 124.4 Est GFR (Non-Af Amer) 107.3 BUN/Creatinine Ratio 13.1 (10-20) Glucose 110 H (70-99) mg/dl Calcium 8.3 L (8.5-10.1) mg/dl PG Care Time/CCT Total # of Minutes Spent Total Time Spent with Patient: Total time spent is greater than 50% in coordination of care (as documented) at patient's floor/unit and/or counseling patient: (1) Ulcerative colitis Digestive disease complication type: without complication Ulcerative colitis location: ulcerative pancolitis Qualified Code(s): K51.00 - Ulcerative (chronic) pancolitis without complications (2) Closed left hip fracture Encounter type: initial encounter Qualified Code(s): S72.002A - Fracture of unspecified part of neck of left femur, initial encounter for closed fracture
[2019-05-25] MEDS: FERROUS SULFATE 325 MG TAB PO SCH (17:13)
[2019-05-25] MEDS: SENNA 8.6 MG TAB PO SCH (20:22)
[2019-05-26 06:29] LABS: Hematocrit (blood only) 37.5 % (42-52); Hemoglobin 12.1 g/dL (14.0-18.0); Mean Corpuscular Hgb Conc 32.3 g/dL (32-36); Mean Corpuscular Volume 89.1 fL (80-100); Mean Platelet Volume 9.9 fL (7.4-10.4); Platelet Count 246 K/uL (130-400); RDW Coefficient of Variation 15.5 % (11.5-14.5); RDW Standard Deviation 50.4 fL (36.4-46.3); Red Blood Count 4.21 M/uL (4.7-6.1); White Blood Count 7.37 K/uL (4.8-10.8)
[2019-05-26 06:37] LABS: Prothrombin Time 10.6 Seconds (9.0-12.0)
[2019-05-26 07:04] LABS: Albumin Level 2.6 gm/dl (3.4-5.0); Bilirubin Direct 0.1 mg/dl (0-0.2); Bilirubin,Total 0.5 mg/dl (0.2-1); Total Protein 6.7 gm/dl (6.4-8.2)
[2019-05-26] MEDS: ENOXAPARIN INJ 40 MG/0.4 ML SYR SQ SCH (07:25)
--- NOTE | 2019-05-26 07:49 | Orthopedic Progress Note ---
Date of Service May 26, 2019 Assessment & Plan (1) Closed left hip fracture: Status post left hip short cephalo-medullary nail POD#2 -Ancef x24 -DVT prophylaxis: SCDs, teds, Lovenox daily -Toe-touch weightbearing left lower extremity -PT /OT -A.m. labs - hgb 12.1 The patient will need to follow-up in the office in 2 weeks time, [id number]. Discharge recommendations placed. Will sign off. Supervising Physician Co-Signing Physician Notes Patient seen and examined, agree with above assessment plan. Subjective Patient is POD #2. Patient seen up ambulating in room with crutches, comfortable, denies complaints, pain well controlled, no acute issues. Denies chest pain shortness of breath dizziness. Review of Systems Review of Systems: All systems reviewed & are unremarkable except as noted in HPI & below Constitutional: as per Subjective / HPI Physical Exam Physical Exam: Patient A/O x3, dressings are clean dry and intact. No calf tenderness. Toes are mobile. Constitutional: WD/WN, vitals as above Results & Data Vital Signs (Past 12 Hours) Vital Signs Temp Pulse Resp BP Pulse Ox 05/26/19 07:01 36.9 C 70 18 124/74 98 05/25/19 22:21 37.1 C 71 16 120/76 96 (1) Closed left hip fracture Encounter type: initial encounter Qualified Code(s): S72.002A - Fracture of unspecified part of neck of left femur, initial encounter for closed fracture
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
== END 2019-05-26 12:08 | disposition home health service (06) | DRG 536 ==
LOC: ED 19:36 → SUATTDRO 05-24 01:18 → 3E 05-24 01:18
DX: K51.90 Ulcerative colitis, unspecified, without complications; Z86.718 Personal history of other venous thrombosis and embolism; D64.9 Anemia, unspecified; Z79.01 Long term (current) use of anticoagulants; Z90.49 Acquired absence of other specified parts of digestive tract; W55.29XA Other contact with cow, initial encounter; S72.002A Fracture of unspecified part of neck of left femur, initial encounter for closed fracture

== ENCOUNTER 2020-02-04 15:50 | Inpatient (IN) ==
[2020-02-04] MEDS ORDERED: METOCLOPRAMIDE HCL INJ 5 MG/ML 2 ML VIAL IV STA (16:12)
[2020-02-04] MEDS ORDERED: DiphenhydrAMINE HCL 50 MG/ML VIAL IV ONE (16:13)
[2020-02-04] MEDS ORDERED: FAMOTIDINE 20MG/5ML IV PUSH IV STA (16:14)
[2020-02-04] MEDS ORDERED: SODIUM CHLORIDE 0.9% 1000ML 1,000 ML IV ONE (16:14)
--- NOTE | 2020-02-04 16:22 | Emergency Department Note ---
History of Present Illness General Chief complaint: Illness Stated complaint: VOMITING, NOT EATING, NOT DRINKING History of Present Illness Maximum Pain Intensity: 0 HPI Narrative: This patient is a pleasant 49-year-old male who presents to the emergency department with ongoing nausea and vomiting for the last 5 days. The patient reports some dark brown emesis. No hematemesis. He also reports decreased output from his ostomy. The patient has a history of adenocarcinoma in addition to ulcerative colitis. He was given an ileostomy approximately 1 year ago. He follows locally with Dr. Dukes. He denies any fever or chills. No abdominal pain. No sick contacts. No other systemic symptoms such as cough. The patient was seen in the emergency department yesterday. He was feeling better after his emergency department stay. He was discharged home with Asa, which she has been taking with no relief. Home Medications Home Medications Medication Instructions Recorded Confirmed Type apixaban 2.5 mg tablet 2.5 mg PO BID #180 tab 05/31/19 02/04/20 Rx ondansetron 4 mg PO Q6 PRN #14 tab 02/03/20 02/04/20 Rx Allergies Allergy/AdvReac Type Severity Reaction Status Date / Time infliximab AdvReac Severe body Verified 02/04/20 16:54 aches;couldn't sleep Past Med/Surg History Medical History Deep vein thrombosis in leg 15yrs ago DVT (deep venous thrombosis) Dysplastic nevus (Chronic) Hyperlipidemia (Chronic) On anticoagulant therapy eliquis daily Pulmonary embolism Secondary hypercoagulable state (Chronic) Ulcerative colitis Vitamin D deficiency Surgical History History of colectomy History of colonoscopy History of hernia repair Family History Mother Hypertension Bone cancer Amputation below knee Other No family history of adverse response to anesthesia Social History Preferred Language: Sinhala Communication Ability: Effective Cytology Technologist Required: No Beliefs That Will Affect Care: None marital status: Current Living Situation: Spouse Feels Safe at Home: Yes Smoking Status: Never smoker Second Hand Exposure: No ; Hx Alcohol Use: Yes Alcohol type: beer Hx Substance Use: No Review of Systems A total of 10 systems reviewed and were otherwise negative Physical Exam Vital Signs: Vital Signs - 24 hr 02/04/20 15:52 02/04/20 16:43 02/04/20 16:46 Temperature 36.3 C L Temperature Source Oral Pulse Rate 98 H 82 82 Pulse Rate from Sp O2 Sensor 81 83 Respiratory Rate 18 18 18 Respiratory Effort / Characteristics Non-Labored Respiratory Depth Normal Blood Pressure 128/92 142/103 H 147/108 H Blood Pressure Tammy n 104 112 112 Pulse Oximetry 93 93 96 Oxygen Delivery Me thod Room Air Sepsis Recent Feve r Within 48 Hours No Sepsis New/Unexpla ined Change in Men mitesh Status No Sepsis Action Take n by Nursing No Action Required 02/04/20 17:00 02/04/20 17:30 02/04/20 18:00 Temperature Temperature Source Pulse Rate 79 78 91 H Pulse Rate from Sp O2 Sensor 80 80 89 Respiratory Rate 19 19 21 Respiratory Effort / Characteristics Respiratory Depth Blood Pressure 143/104 H 148/112 H 147/103 H Blood Pressure Tammy n 118 131 114 Pulse Oximetry 95 96 97 Oxygen Delivery Me thod Sepsis Recent Feve r Within 48 Hours Sepsis New/Unexpla ined Change in Men mitesh Status Sepsis Action Take n by Nursing 02/04/20 19:26 02/04/20 19:30 Temperature Temperature Source Pulse Rate 86 86 Pulse Rate from Sp O2 Sensor 86 86 Respiratory Rate 19 20 Respiratory Effort / Characteristics Respiratory Depth Blood Pressure 151/92 H 136/93 Blood Pressure Tammy n 107 102 Pulse Oximetry 96 95 Oxygen Delivery Me thod Sepsis Recent Feve r Within 48 Hours Sepsis New/Unexpla ined Change in Men mitesh Status Sepsis Action Take n by Nursing Constitutional: WD/WN, vitals as above Eyes: EOM intact bilaterally ENMT: external ear and nose normal, oropharynx normal Oral mucosa slightly dry. Neck: trachea midline Respiratory: normal respiratory effort, lungs clear to auscultation Cardiovascular: RRR, no murmur, no edema Gastrointestinal (Abdomen): Small amount of stool in a very small amount of gas noted in the ostomy. No abdominal tenderness appreciated. Bowel sounds present, but hypoactive. Guaiac positive. No external hemorrhoids noted. Good sphincter tone. Musculoskeletal: no cyanosis or clubbing, extremities motor strength 5/5 Skin: no rashes, warm and dry Neurologic: Alert and oriented x3. No focal motor deficits. Psychiatric: Acting appropriately Course Course Patient was seen and examined Vital signs including blood pressure were reviewed medications list was verified with patient Labs were obtained, and a saline lock was established Meds and imaging ordered. Case was discussed with the ed case manager and the hospitalist group Pt updated and feeling slightly better Pt will be evaluated for likely inpt management Consultations Consultation #1: hospitalist team Administered Medications Discontinued Medications Apixaban (Eliquis) 2.5 mg PO BID LIDIA Stop: 03/05/20 21:54 Last Admin: 02/05/20 08:00 Dose: 2.5 mg Documented by: [id number] Admin: 02/04/20 22:31 Dose: 2.5 mg Documented by: [id number] Diphenhydramine HCl (Benadryl) 12.5 mg IV ONE ONE Stop: 02/04/20 16:14 Last Admin: 02/04/20 16:39 Dose: 12.5 mg Documented by: [id number] Famotidine (Pepcid 20mg Iv Push) 20 mg IV ONE STA Stop: 02/04/20 16:15 Last Admin: 02/04/20 16:39 Dose: 20 mg Documented by: [id number] Hydromorphone HCl (Dilaudid) Confirm Administered Dose 1 mg .ROUTE .STK-MED ONE Stop: 02/05/20 11:49 Last Admin: 02/05/20 12:38 Dose: 1 mg Documented by: [id number] Sodium Chloride (Nss 1000ml) 1,000 mls @ 999 mls/hr IV .Q1H1M ONE Stop: 02/04/20 17:14 Last Infusion: 02/04/20 17:54 Dose: 0 mls/hr Documented by: [id number] Admin: 02/04/20 16:41 Dose: 999 mls/hr Documented by: [id number] Sodium Chloride (Nss 1000ml) 1,000 mls @ 125 mls/hr IV .Q8H LIDIA Stop: 03/05/20 21:59 Last Infusion: 02/05/20 14:15 Dose: 0 mls/hr Documented by: [id number] Admin: 02/05/20 06:02 Dose: 125 mls/hr Documented by: [id number] Infusion: 02/05/20 06:02 Dose: 125 mls/hr Documented by: [id number] Infusion: 02/05/20 00:31 Dose: 125 mls/hr Documented by: [id number] Admin: 02/04/20 22:06 Dose: 125 mls/hr Documented by: [id number] Potassium Chloride (K Froilan / Wtr) 10 meq in 100 mls @ 100 mls/hr IV Q1H LIDIA Stop: 02/05/20 00:14 Last Infusion: 02/05/20 00:31 Dose: 0 mls/hr Documented by: [id number] Admin: 02/04/20 23:31 Dose: 100 mls/hr Documented by: [id number] Infusion: 02/04/20 23:28 Dose: 100 mls/hr Documented by: [id number] Admin: 02/04/20 22:28 Dose: 100 mls/hr Documented by: [id number] Ioversol (Optiray 320 100ml) 94 ml IV ONCE PRN PRN Reason: Interaction Checking Stop: 02/08/20 19:21 Last Admin: 02/04/20 19:22 Dose: 94 ml Documented by: [id number] Metoclopramide HCl (Reglan) 10 mg IV NOW STA Stop: 02/04/20 16:13 Last Admin: 02/04/20 16:39 Dose: 10 mg Documented by: [id number] Ondansetron HCl (Zofran) 4 mg IV NOW STA Stop: 02/04/20 19:51 Last Admin: 02/04/20 20:00 Dose: 4 mg Documented by: [id number] Ondansetron HCl (Zofran) 4 mg IV Q6H PRN PRN Reason: Nausea Stop: 03/05/20 21:54 Last Admin: 02/05/20 13:49 Dose: 4 mg Documented by: [id number] Admin: 02/05/20 05:03 Dose: 4 mg Documented by: [id number] Vitamin D (Vitamin D3) 2,000 units PO DAILY LIDIA Stop: 03/06/20 08:59 Last Admin: 02/05/20 08:00 Dose: 2,000 units Documented by: [id number] Medical Decision Making Differential Diagnosis Differential diagnosis: GI bleed, viral versus bacterial GI illness, bowel obst ruction, pancreatitis, gallbladder pathology, ischemic bowel disease, inflammatory bowel disease, other viral syndrome such as influenza. Among others Medical Records Attestation: I reviewed the patient's medical records. Home Medications Current Medication List: was personally reviewed by me Laboratory Data Attestation: I reviewed the patient's lab results. Result diagrams: 02/05/20 12:16 02/05/20 12:16 Lab Results 02/04/20 02/04/20 02/04/20 Range/Units 16:25 16:25 16:25 WBC 12.12 H (4.8-10.8) K/uL RBC 5.79 (4.7-6.1) M/uL Hgb 18.4 H (14.0-18.0) g/dL Hct 51.3 (42-52) % MCV 88.6 (80-100) fL MCH 31.8 (25-34) pg MCHC 35.9 (32-36) g/dL RDW Std Deviation 42.8 (36.4-46.3) fL RDW Coeff of Asha 13.2 (11.5-14.5) % Plt Count 331 (130-400) K/uL MPV 10.7 H (7.4-10.4) fL Immature Gran % (Auto) 0.3 % Neut % (Auto) 68.8 % Lymph % (Auto) 18.7 % Pine % (Auto) 12.0 % Eos % (Auto) 0.0 % Baso % (Auto) 0.2 % Immature Gran # (Auto) 0.04 H (0.00-0.02) K/uL Neut # (Auto) 8.34 H (1.4-6.5) K/uL Lymph # (Auto) 2.27 (1.2-3.4) K/uL Pine # (Auto) 1.45 H (0.11-0.59) K/uL Eos # (Auto) 0.00 (0-0.5) K/uL Baso # (Auto) 0.02 (0-0.2) K/uL PT (9.0-12.0) Seconds INR (0.9-1.1) Sodium 132 L (136-145) mmol/L Potassium 3.6 (3.5-5.1) mmol/L Chloride 96 L (98-107) mmol/L Carbon Dioxide 26 (21-32) mmol/L Anion Gap 10.0 (3-11) BUN 52 H D (7-18) mg/dl Creatinine 1.42 H D (0.6-1.4) mg/dl Est Cr Clr Drug Dosing 73.0 ml/min Est GFR ( Amer) 67.2 Est GFR (Non-Af Amer) 58.0 BUN/Creatinine Ratio 36.4 H (10-20) Glucose 140 H (70-99) mg/dl Lactate 1.7 (0.4-2.0) mmol/L Calcium 9.3 (8.5-10.1) mg/dl Phosphorus 4.2 (2.5-4.9) mg/dl Magnesium 2.7 H (1.8-2.4) mg/dl Total Bilirubin 2.1 H (0.2-1) mg/dl AST 34 (15-37) U/L ALT 88 H (12-78) U/L Alkaline Phosphatase 94 (45-117) U/L Total Protein 8.9 H (6.4-8.2) gm/dl Albumin 4.0 (3.4-5.0) gm/dl Globulin 4.9 H (2.5-4.0) gm/dl Albumin/Globulin Ratio 0.8 L (0.9-2) Lipase 73 (73-393) U/L 03/14/20 Range/Units 16:25 WBC (4.8-10.8) K/uL RBC (4.7-6.1) M/uL Hgb (14.0-18.0) g/dL Hct (42-52) % MCV (80-100) fL MCH (25-34) pg MCHC (32-36) g/dL RDW Std Deviation (36.4-46.3) fL RDW Coeff of Asha (11.5-14.5) % Plt Count (130-400) K/uL MPV (7.4-10.4) fL Immature Gran % (Auto) % Neut % (Auto) % Lymph % (Auto) % Pine % (Auto) % Eos % (Auto) % Baso % (Auto) % Immature Gran # (Auto) (0.00-0.02) K/uL Neut # (Auto) (1.4-6.5) K/uL Lymph # (Auto) (1.2-3.4) K/uL Pine # (Auto) (0.11-0.59) K/uL Eos # (Auto) (0-0.5) K/uL Baso # (Auto) (0-0.2) K/uL PT 11.7 (9.0-12.0) Seconds INR 1.1 (0.9-1.1) Sodium (136-145) mmol/L Potassium (3.5-5.1) mmol/L Chloride (98-107) mmol/L Carbon Dioxide (21-32) mmol/L Anion Gap (3-11) BUN (7-18) mg/dl Creatinine (0.6-1.4) mg/dl Est Cr Clr Drug Dosing ml/min Est GFR ( Amer) Est GFR (Non-Af Amer) BUN/Creatinine Ratio (10-20) Glucose (70-99) mg/dl Lactate (0.4-2.0) mmol/L Calcium (8.5-10.1) mg/dl Phosphorus (2.5-4.9) mg/dl Magnesium (1.8-2.4) mg/dl Total Bilirubin (0.2-1) mg/dl AST (15-37) U/L ALT (12-78) U/L Alkaline Phosphatase (45-117) U/L Total Protein (6.4-8.2) gm/dl Albumin (3.4-5.0) gm/dl Globulin (2.5-4.0) gm/dl Albumin/Globulin Ratio (0.9-2) Lipase (73-393) U/L Imaging Data Attestation: I personally reviewed and interpreted this imaging study as follows: Radiologist's Impression: CT abd/pelvis Operative changes consistent with a near complete colectomy with a right anterior ostomy. 2. Immediately proximal to the ostomy is a slightly thickened loop of small bowel with surrounding inflammatory change. 3. This appears to be the leading edge of what is a distal small bowel obstructive pattern. 4. Etiology is unknown, although the inflammatory and/or infiltrative change surrounding the distal small bowel proximal to the ostomy raises the possibility of an inflammatory process 5. The ostomy site itself shows a redundant loop of small bowel within the sub cutaneous fat although this specific site shows no evidence for an obstructive pattern. 6. The overall impression of the study, however is of the distal small bowel obstructive change. ACT 112: Negative or not required by law. The above report was generated using voice recognition software. It may contain grammatical, syntax or spelling errors. Electronically signed by: Demetris Rivera M.D. 02/04/2020 7:38 PM Dictated: 02/04/201932 Transcribed: 02/04/20 193 [facility] Narrative This pt is a 49 y/o male that presents to the ED with persistent vomiting and decreased output from his ostomy. Brown emesis reported. Guaiac positive. H&H stable now. He was still nauseated in the ED. Failed outpt therapy with zofran. Concern for a GI bleed; therefore, hospitalist consultation was felt to be appropriate. He will likely be managed as an inpatient. Impression & Plan GI bleed, Vomiting Discharge Plan Visit Data *Final* Discharge Date/Time: 02/04/20 21:46 Chief Complaint: Illness Stated Complaint: VOMITING, NOT EATING, NOT DRINKING ED Provider: Jose Frank ED Midlevel Provider: Agustina Fisher Discharge Problem: GI bleed, Vomiting Patient Disposition: Admitted As Inpatient Condition: Fair Discharge Instructions Interventions: ED Discharge Assessment Last Done: 02/04/20 21:46
[2020-02-04 16:42] LABS: Hematocrit (blood only) 51.3 % (42-52); Hemoglobin 18.4 g/dL (14.0-18.0); Mean Corpuscular Hemoglobin 31.8 pg (25-34); Mean Corpuscular Hgb Conc 35.9 g/dL (32-36); Mean Corpuscular Volume 88.6 fL (80-100); Mean Platelet Volume 10.7 fL (7.4-10.4); Platelet Count 331 K/uL (130-400); RDW Coefficient of Variation 13.2 % (11.5-14.5); RDW Standard Deviation 42.8 fL (36.4-46.3); Red Blood Count 5.79 M/uL (4.7-6.1); White Blood Count 12.12 K/uL (4.8-10.8)
[2020-02-04 16:52] LABS: INR 1.1 (0.9-1.1); Prothrombin Time 11.7 Seconds (9.0-12.0)
[2020-02-04 17:00] LABS: BUN Creatinine Ratio 36.4 (10-20); Calcium 9.3 mg/dl (8.5-10.1); Est GFR (African American) 67.2; Potassium 3.6 mmol/L (3.5-5.1)
[2020-02-04 17:02] LABS: Albumin Globulin Ratio 0.8 (0.9-2); Bilirubin,Total 2.1 mg/dl (0.2-1); Globulin 4.9 gm/dl (2.5-4.0); Total Protein 8.9 gm/dl (6.4-8.2)
[2020-02-04 17:08] LABS: Basophils # (auto) 0.02 K/uL (0-0.2); Basophils % (auto) 0.2 %; Immature Granulocytes # (auto) 0.04 K/uL (0.00-0.02); Immature Granulocytes % (auto) 0.3 %; Lymphocytes # (auto) 2.27 K/uL (1.2-3.4); Lymphocytes % (auto) 18.7 %; Monocytes # (auto) 1.45 K/uL (0.11-0.59); Neutrophils # (auto) 8.34 K/uL (1.4-6.5); Neutrophils % (auto) 68.8 %
[2020-02-04] MEDS ORDERED: IOVERSOL 100ml IV PRN (19:22)
--- NOTE | 2020-02-04 19:39 | CT Scan Report ---
CT abd pelvis oral and IV con CT DOSE: 947.11 mGy.cm HISTORY: Nausea. Vomiting. n/v hx sx TECHNIQUE: Multiaxial CT images of the abdomen and pelvis were performed following the use of intrave nous and oral contrast. A dose lowering technique was utilized adhering to the principles of ALARA. COMPARISON STUDY: None. FINDINGS: Bibasilar atelectasis. The liver spleen and pancreas appear unremarkable. Stomach is disten ded. The small bowel is distended. There is a right anterior ostomy site. There appears to be evidenc e for a near-total colectomy. The small bowel is again distended throughout. There appears to be a change in lumen immediately prox imal to the right anterior ostomy site. There is infiltrative changes surrounding the distal small esteban wel at this site raising the possibility of an inflammatory process. A well-defined mass is not seen. There is a short segment of redundant small bowel within the subcutaneous fat. It shows no evidence f or distention. Kidneys negative for hydronephrosis. There does not appear to be significant component of abdominal o r pelvic adenopathy. IMPRESSION: 1. Operative changes consistent with a near complete colectomy with a right anterior ostomy. 2. Immediately proximal to the ostomy is a slightly thickened loop of small bowel with surrounding in flammatory change. 3. This appears to be the leading edge of what is a distal small bowel obstructive pattern. 4. Etiology is unknown, although the inflammatory and/or infiltrative change surrounding the distal s mall bowel proximal to the ostomy raises the possibility of an inflammatory process 5. The ostomy site itself shows a redundant loop of small bowel within the subcutaneous fat although this specific site shows no evidence for an obstructive pattern. 6. The overall impression of the study, however is of the distal small bowel obstructive change. ACT 112: Negative or not required by law. The above report was generated using voice recognition software. It may contain grammatical, syntax or spelling errors. Electronically signed by: Demetris Rivera M.D. 02/04/2020 7:38 PM
[2020-02-04] MEDS ORDERED: ONDANSETRON INJ 2 MG/ML 2 ML VIAL IV STA (19:50)
--- NOTE | 2020-02-04 20:20 | History & Physical Report ---
Date of Service February 04, 2020 Assessment & Plan (1) Small bowel obstruction: Ollie Mittal is a 49-year-old gentleman with past medical history ulcerative colitis led to DVT and adenocarcinoma, who is status post complete colectomy who presents today with repeated episodes of nonbloody nonbilious vomiting and evidence of small bowel obstruction Vomiting Non bloody non bilious Appears to be secondary to small bowel obstruction with obstruction located just proximal to ileus With patient's history of UC and evidence of inflammatory changes on CT, this could be secondary to inflammation, though patient's history of colectomy for adenocarcinoma adhesions or surgical changes well Patient comfortable and only mildly distended at present we will make n.p.o. and defer NG tube at this time Gastroenterology consulted for further recommendations on whether or not we need to treat UC versus whether or not this might be a surgical problem Magnesium and phosphorus levels ordered Zofran IV as needed as maintenance fluids ordered After bowel rest if patient is doing better we will slowly resume diet if patient not doing well, may need to decompress by inserting NG tube Elevated hemoglobin Secondary to hemoconcentration and profound dehydration Received one liter of fluid in ED, will continue IV fluid for maintenance. History of VTE disease Patient chronically on apixaban, was diagnosed with DVT shortly after diagnosis several years ago. Will continue patient's apixaban, no evidence of bleeding currently F/E/N: Normal saline at 120 mils per hour and 20 mEq KCl DVT prophylaxis: Apixaban Dispo: MedSurg for bowel rest rehydration, will consult GI for further recommendations this patient with a history of UC (2) Dehydration: History of Present Illness Primary Care Provider: Harsha Omer MD Mr. Levin is a 49 year old man who has a history of UC and DVT on eliquis has been feeling sick for the last 3.5 days. Has been trying to drink just water, just ice chips but continues to vomit. Started Thursday morning with mild abdominal pain and vomiting since then. Everything he eats or drinks he tells me he throws up including water Within a few hours of eating or drinking he will vomit. He thinks he has had at least ten episodes of vomiting. Vomit is typically brown, no blood nonbilious. Patient with history of UC, has ostomy in place. He hasn't had any output in his ostomy today. He has only had ice chips and a freeze pop since he was in ED yesterday. Has been taking zofran, but as soon as he puts it in his mouth he throws up about 20 minutes later. Denies any abdominal pain currently, no fevers, no chills, no diaphoresis. no chest pain, no breathing difficulties, no ostomy output. Non smoker, drinks alochol occasionally maybe three drinks a week, No drug use. On admission to emergency department patient was afebrile vital signs within normal limits, no longer having any abdominal pain elevated white count and elevated hemoglobin patient with elevated creatinine and BUN as well as hyponatremia. Abdominal CT ordered showing likely small bowel obstruction with distended small bowel and distended stomach with slightly thickened loop of small bowel immediately proximal to his ostomy with surrounding inflammatory change unknown etiology though concerning for inflammatory process Allergies Allergy/AdvReac Type Severity Reaction Status Date / Time infliximab AdvReac Severe body Verified 02/04/20 16:54 aches;couldn't sleep Home Medications Home Medications Medication Instructions Recorded Confirmed Type ferrous sulfate [iron] 2 tab PO QPM 12/16/18 02/04/20 History cholecalciferol (vitamin D3) 2,000 unit PO DAILY 05/24/19 02/04/20 History [Vitamin D3] apixaban 2.5 mg tablet 2.5 mg PO BID #180 tab 05/31/19 02/04/20 Rx miscellaneous medical supply #1 ea 10/05/19 10/05/19 Rx ondansetron 4 mg PO Q6 PRN #14 tab 02/03/20 02/04/20 Rx Past Med/Surg History Medical History (Updated 02/04/20 @ 22:27 by Juan Bee MD) Deep vein thrombosis in leg 15yrs ago DVT (deep venous thrombosis) Dysplastic nevus (Chronic) Hyperlipidemia (Chronic) On anticoagulant therapy eliquis daily Pulmonary embolism Secondary hypercoagulable state (Chronic) Ulcerative colitis Vitamin D deficiency Surgical History History of colectomy History of colonoscopy History of hernia repair Family History Mother Hypertension Bone cancer Amputation below knee Other No family history of adverse response to anesthesia Social History Preferred Language: Citizen Of [place] Communication Ability: Effective Head Baker Required: No Beliefs That Will Affect Care: None marital status: Current Living Situation: Spouse Feels Safe at Home: Yes Safety Concerns: Feels Safe At This Time Smoking Status: Never smoker Second Hand Exposure: No ; Hx Alcohol Use: Yes Alcohol type: beer Hx Substance Use: No Review of Systems Review of Systems: Constitutional: No fevers chills sweats Eyes: No vision changes ENMT: No rhinorrhea, no sore throat, no URI symptoms Respiratory: No breathing difficulty no cough Cardiology: No chest pain no shortness of breath no leg swelling GI: Patient has had off-and-on abdominal pain though none now, patient has noticed markedly decreased ostomy output, multiple episodes of nonbloody nonbilious vomiting as above Physical Exam Physical Exam: Constitutional: Slightly uncomfortable 49-year-old gentleman lying in bed in no acute distress, Eyes: Pupils equal round reactive to light, extraocular muscle motion intact bilaterally ENMT: External appearance normal Neck: External appearance normal, no visible JVP Respiratory: Lung sounds equal and vesicular bilaterally chest expansion normal, no increased work of breathing Cardiovascular: Regular rate regular rhythm, S1-S2 normal, no murmurs rubs skips or gallops, no lower limb edema peripheral pulses intact and equal GI: Abdomen soft nontender ostomy in place on right side, minimal ostomy output patient says he has not changed back since yesterday normal-appearing ostomy output, no blood no mucus Skin: Skin around ostomy appears intact, no rashes or lesions detected, surgical scars on abdomen from colectomy Results & Data Vital Signs (Past 12 Hours) Vital Signs Temp Pulse Resp BP Pulse Ox 02/04/20 20:00 89 17 138/92 95 02/04/20 19:30 86 20 136/93 95 02/04/20 19:26 86 19 151/92 H 96 02/04/20 18:00 91 H 21 147/103 H 97 02/04/20 17:30 78 19 148/112 H 96 02/04/20 17:00 79 19 143/104 H 95 02/04/20 16:46 82 18 147/108 H 96 02/04/20 16:43 82 18 142/103 H 93 03/14/20 15:52 36.3 C L 98 H 18 128/92 93 Supervising Physician Co-Signing Physician Notes 49yo C male with history of UC s/p colectomy presenting with SBO - abdominal pain, nausea/vomiting, ongoing for the last 3-4 days. PO intolerant On exam he is afebrile, HD stable, NAD HEENT - NC/AT, PERRL, EOMI, Dry MM Heart - +S1/S2, regular, no m/r/g Lungs - CTA Abd - +BS diminished, soft, NT/ND, ostomy in place with healthy appearing stoma, no output at present Ext - warm, 2+ pulses, no edema Labs and images reviewed. Significant for WBC=12.12, Hgb elevated at 18.4, Oc=265, Cl=96, BUN=52, Cr=1.42, T-bili =2.1 CT Abd with post-op changes consistent with near complete colectomy with right anterior ostomy. Thickened loop of small bowel with inflammatory changes, distal SBO Assessment/Plan -Symptomatic care with IVF, Zofran -GI consultation. -IV hydration -Remainder of plan as above Resident Activity Tracking Resident Involvement: Resident Care Provided Care Provided: Adult Hospital Medicine
[2020-02-04] MEDS ORDERED: ACETAMINOPHEN 325 MG TAB PO PRN (21:55)
[2020-02-04] MEDS: SODIUM CHLORIDE 0.9% 1000ML 1,000 ML IV SCH (22:06)
[2020-02-04 22:18] LABS: Magnesium 2.7 mg/dl (1.8-2.4); Phosphorus 4.2 mg/dl (2.5-4.9)
[2020-02-04] MEDS: POTASSIUM CHLORIDE / WTR 10 MEQ/100 ML PLCT IV SCH ×2 (22:28→23:31)
[2020-02-04] MEDS: APIXABAN 2.5 MG TAB PO SCH (22:31)
--- NOTE | 2020-02-05 01:16 | Billing Data ---
Date of Service February 05, 2020 Coding Level of Care Code 65400 Initial Inpt Care Lvl 3
[2020-02-05] MEDS: ONDANSETRON INJ 2 MG/ML 2 ML VIAL IV PRN ×2 (05:03→13:49)
[2020-02-05] MEDS: SODIUM CHLORIDE 0.9% 1000ML 1,000 ML IV SCH (06:02)
[2020-02-05] MEDS: APIXABAN 2.5 MG TAB PO SCH (08:00)
[2020-02-05] MEDS ORDERED: CHOLECALCIFEROL 1,000 UNITS 25 MCG TAB PO SCH (09:00)
[2020-02-05] MEDS ORDERED: HYDROmorphone INJ 1 MG/ML SYRINGE ONE (11:48)
[2020-02-05] MEDS ORDERED: HYDROmorphone INJ 1 MG/ML SYRINGE IV STA (11:49)
--- NOTE | 2020-02-05 12:06 | Surgery Consultation ---
Date of Consultation February 05, 2020 Assessment & Plan (1) Small bowel obstruction: pt is a 49 year-old male who is S/ P colectomy with ostomy, vomiting for 4 days, Plan, I try to place NG tube in, but pt could not tolerated it, consult GI, I recommend to transfer to [facility] for further diagnosis and treatment, I do not recommend to place NG tube under sedation, it is high risk for aspiration. Supervising Physician Co-Signing Physician Notes 49yo C male with history of UC s/p colectomy presenting with SBO - abdominal pain, nausea/vomiting, ongoing for the last 3-4 days. PO intolerant On exam he is afebrile, HD stable, NAD HEENT - NC/AT, PERRL, EOMI, Dry MM Heart - +S1/S2, regular, no m/r/g Lungs - CTA Abd - +BS diminished, soft, NT/ND, ostomy in place with healthy appearing stoma, no output at present Ext - warm, 2+ pulses, no edema Labs and images reviewed. Significant for WBC=12.12, Hgb elevated at 18.4, Jg=695, Cl=96, BUN=52, Cr=1.42, T-bili =2.1 CT Abd with post-op changes consistent with near complete colectomy with right anterior ostomy. Thickened loop of small bowel with inflammatory changes, distal SBO Assessment/Plan -Symptomatic care with IVF, Zofran -GI consultation. -IV hydration -Remainder of plan as above History of Present Illness Attending Physician: Edwige Melton MD History of Present Illness Primary Care Provider: Harsha Omer MD Mr. Levin is a 49 year old man who has a history of UC and DVT on eliquis has been feeling sick for the last 3.5 days. Has been trying to drink just water, just ice chips but continues to vomit. Started Thursday morning with mild abdominal pain and vomiting since then. Everything he eats or drinks he tells me he throws up including water Within a few hours of eating or drinking he will vomit. He thinks he has had at least ten episodes of vomiting. Vomit is typically brown, no blood nonbilious. Patient with history of UC, has ostomy in place. He hasn't had any output in his ostomy today. He has only had ice chips and a freeze pop since he was in ED yesterday. Has been taking zofran, but as soon as he puts it in his mouth he throws up about 20 minutes later. Denies any abdominal pain currently, no fevers, no chills, no diaphoresis. no chest pain, no breathing difficulties, no ostomy output. Non smoker, drinks alcohol occasionally maybe three drinks a week, No drug use. On admission to emergency department patient was afebrile vital signs within normal limits, no longer having any abdominal pain elevated white count and elevated hemoglobin patient with elevated creatinine and BUN as well as hyponatremia. Abdominal CT ordered showing likely small bowel obstruction with distended small bowel and distended stomach with slightly thickened loop of small bowel immediately proximal to his ostomy with surrounding inflammatory change unknown etiology though concerning for inflammatory process I ( Christy Sims MD ) reviewed pt's H/P labs, CT scan with pt, pt denies abdominal pain, only vomiting, pt had colectomy ileostomy for UC/colon cancer in 03/2019 at [facility]. pt saw his surgeon last week, surgeon plan to remove pt's rectum next month. Allergies Allergy/AdvReac Type Severity Reaction Status Date / Time infliximab AdvReac Severe body Verified 02/04/20 16:54 aches;couldn't sleep Home Medications Home Medications Medication Instructions Recorded Confirmed Type ferrous sulfate [iron] 2 tab PO QPM 12/16/18 02/04/20 History cholecalciferol (vitamin D3) 2,000 unit PO DAILY 05/24/19 02/04/20 History [Vitamin D3] apixaban 2.5 mg tablet 2.5 mg PO BID #180 tab 05/31/19 02/04/20 Rx miscellaneous medical supply #1 ea 10/05/19 10/05/19 Rx ondansetron 4 mg PO Q6 PRN #14 tab 02/03/20 02/04/20 Rx Past Med/Surg History Medical History (Updated 02/04/20 @ 22:27 by Juan Bee MD) Deep vein thrombosis in leg 15yrs ago DVT (deep venous thrombosis) Dysplastic nevus (Chronic) Hyperlipidemia (Chronic) On anticoagulant therapy eliquis daily Pulmonary embolism Secondary hypercoagulable state (Chronic) Ulcerative colitis Vitamin D deficiency Surgical History History of colectomy History of colonoscopy History of hernia repair Family History Mother Hypertension Bone cancer Amputation below knee Other No family history of adverse response to anesthesia Social History Preferred Language: Togolese Communication Ability: Effective Legal Administrative Secretary Required: No Beliefs That Will Affect Care: None marital status: Current Living Situation: Spouse Feels Safe at Home: Yes Safety Concerns: Feels Safe At This Time Smoking Status: Never smoker Second Hand Exposure: No ; Hx Alcohol Use: Yes Alcohol type: beer Hx Substance Use: No Review of Systems Review of Systems: Constitutional: No fevers chills sweats Eyes: No vision changes ENMT: No rhinorrhea, no sore throat, no URI symptoms Respiratory: No breathing difficulty no cough Cardiology: No chest pain no shortness of breath no leg swelling GI: Patient has had off-and-on abdominal pain though none now, patient has noticed markedly decreased ostomy output, multiple episodes of nonbloody nonbilious vomiting as above Allergies Allergy/AdvReac Type Severity Reaction Status Date / Time infliximab AdvReac Severe body Verified 02/04/20 16:54 aches;couldn't sleep Home Medications Home Medications Medication Instructions Recorded Confirmed Type ferrous sulfate [iron] 2 tab PO QPM 12/16/18 02/04/20 History cholecalciferol (vitamin D3) 2,000 unit PO DAILY 05/24/19 02/04/20 History [Vitamin D3] apixaban 2.5 mg tablet 2.5 mg PO BID #180 tab 05/31/19 02/04/20 Rx miscellaneous medical supply #1 ea 10/05/19 10/05/19 Rx ondansetron 4 mg PO Q6 PRN #14 tab 02/03/20 02/04/20 Rx Patient History Medical History (Updated 02/04/20 @ 22:27 by Juan Bee MD) Deep vein thrombosis in leg 15yrs ago DVT (deep venous thrombosis) Dysplastic nevus (Chronic) Hyperlipidemia (Chronic) On anticoagulant therapy eliquis daily Pulmonary embolism Secondary hypercoagulable state (Chronic) Ulcerative colitis Vitamin D deficiency Surgical History History of colectomy History of colonoscopy History of hernia repair Family History Mother Hypertension Bone cancer Amputation below knee Other No family history of adverse response to anesthesia Social History Preferred Language: Togolese Communication Ability: Effective Legal Administrative Secretary Required: No Beliefs That Will Affect Care: None marital status: Current Living Situation: Spouse Feels Safe at Home: Yes Smoking Status: Never smoker Second Hand Exposure: No ; Hx Alcohol Use: Yes Alcohol type: beer Hx Substance Use: No Physical Exam Constitutional: WD/WN, vitals as above well developed and well nourished Eyes: PERRL, conjunctivae normal, anicteric sclerae ENMT: external ear and nose normal, oropharynx normal Neck: trachea midline, no thyromegaly Respiratory: normal respiratory effort, lungs clear to auscultation normal respiratory effort Cardiovascular: RRR, no murmur, no edema Rate/Rhythm: regular rate and regular rhythm Heart Sounds: normal S1 and normal S2 Gastrointestinal (Abdomen): normal bowel sounds, soft, nontender, no hepatosplenomegaly Percussion/Palpation: abdomen soft NT, ND BS +ostomy- minimal stool in bag, Musculoskeletal: no cyanosis or clubbing, extremities motor strength 5/5 Skin: no rashes, warm and dry Neurologic: patellar DTR's 2+ bilat, sensation intact Psychiatric: A+Ox3, euthymic affect Orientation: alert and oriented x 3 Results & Data Vital Signs (Past 12 Hours) Vital Signs Pulse Resp BP Pulse Ox 02/05/20 07:16 84 18 135/95 94 Laboratory Results Abnormal lab results 02/04/20 02/04/20 Range/Units 16:25 16:25 WBC 12.12 H (4.8-10.8) K/uL Hgb 18.4 H (14.0-18.0) g/dL MPV 10.7 H (7.4-10.4) fL Immature Gran # (Auto) 0.04 H (0.00-0.02) K/uL Neut # (Auto) 8.34 H (1.4-6.5) K/uL Slope # (Auto) 1.45 H (0.11-0.59) K/uL Sodium 132 L (136-145) mmol/L Chloride 96 L (98-107) mmol/L BUN 52 H D (7-18) mg/dl Creatinine 1.42 H D (0.6-1.4) mg/dl BUN/Creatinine Ratio 36.4 H (10-20) Glucose 140 H (70-99) mg/dl Magnesium 2.7 H (1.8-2.4) mg/dl Total Bilirubin 2.1 H (0.2-1) mg/dl ALT 88 H (12-78) U/L Total Protein 8.9 H (6.4-8.2) gm/dl Globulin 4.9 H (2.5-4.0) gm/dl Albumin/Globulin Ratio 0.8 L (0.9-2) Diagnostic Findings CT abd pelvis oral and IV con CT DOSE: 947.11 mGy.cm HISTORY: Nausea. Vomiting. n/v hx sx TECHNIQUE: Multiaxial CT images of the abdomen and pelvis were performed following the use of intravenous and oral contrast. A dose lowering technique was utilized adhering to the principles of ALARA. COMPARISON STUDY: None. FINDINGS: Bibasilar atelectasis. The liver spleen and pancreas appear unremarkable. Stomach is distended. The small bowel is distended. There is a right anterior ostomy site. There appears to be evidence for a near-total colectomy. The small bowel is again distended throughout. There appears to be a change in lumen immediately proximal to the right anterior ostomy site. There is infiltrative changes surrounding the distal small bowel at this site raising the possibility of an inflammatory process. A well-defined mass is not seen. There is a short segment of redundant small bowel within the subcutaneous fat. It shows no evidence for distention. Kidneys negative for hydronephrosis. There does not appear to be significant component of abdominal or pelvic adenopathy. IMPRESSION: 1. Operative changes consistent with a near complete colectomy with a right anterior ostomy. 2. Immediately proximal to the ostomy is a slightly thickened loop of small bowel with surrounding inflammatory change. 3. This appears to be the leading edge of what is a distal small bowel obstructive pattern. 4. Etiology is unknown, although the inflammatory and/or infiltrative change surrounding the distal small bowel proximal to the ostomy raises the possibility of an inflammatory process 5. The ostomy site itself shows a redundant loop of small bowel within the subcutaneous fat although this specific site shows no evidence for an obstructive pattern. 6. The overall impression of the study, however is of the distal small bowel obstructive change.
[2020-02-05 12:29] LABS: Hematocrit (blood only) 49.2 % (42-52); Hemoglobin 17.6 g/dL (14.0-18.0); Mean Corpuscular Hemoglobin 31.7 pg (25-34); Mean Corpuscular Hgb Conc 35.8 g/dL (32-36); Mean Corpuscular Volume 88.5 fL (80-100); Mean Platelet Volume 10.7 fL (7.4-10.4); Platelet Count 343 K/uL (130-400); RDW Coefficient of Variation 13.1 % (11.5-14.5); RDW Standard Deviation 42.4 fL (36.4-46.3); Red Blood Count 5.56 M/uL (4.7-6.1); White Blood Count 13.82 K/uL (4.8-10.8)
--- NOTE | 2020-02-05 12:45 | Discharge Summary ---
Date of Service February 05, 2020 Admission HPI Per Admitting Provider Mr. Levin is a 49 year old man who has a history of UC and DVT on eliquis has been feeling sick for the last 3.5 days. Has been trying to drink just water, just ice chips but continues to vomit. Started Thursday morning with mild abdominal pain and vomiting since then. Everything he eats or drinks he tells me he throws up including water Within a few hours of eating or drinking he will vomit. He thinks he has had at least ten episodes of vomiting. Vomit is typically brown, no blood nonbilious. Patient with history of UC, has ostomy in place. He hasn't had any output in his ostomy today. He has only had ice chips and a freeze pop since he was in ED yesterday. Has been taking zofran, but as soon as he puts it in his mouth he throws up about 20 minutes later. Denies any abdominal pain currently, no fevers, no chills, no diaphoresis. no chest pain, no breathing difficulties, no ostomy output. Non smoker, drinks alochol occasionally maybe three drinks a week, No drug use. On admission to emergency department patient was afebrile vital signs within normal limits, no longer having any abdominal pain elevated white count and elevated hemoglobin patient with elevated creatinine and BUN as well as hypo natremia. Abdominal CT ordered showing likely small bowel obstruction with distended small bowel and distended stomach with slightly thickened loop of small bowel immediately proximal to his ostomy with surrounding inflammatory change unknown etiology though concerning for inflammatory process Admission Exam Per Admitting Provider Constitutional: Slightly uncomfortable 49-year-old gentleman lying in bed in no acute distress, Eyes: Pupils equal round reactive to light, extraocular muscle motion intact bilaterally ENMT: External appearance normal Neck: External appearance normal, no visible JVP Respiratory: Lung sounds equal and vesicular bilaterally chest expansion normal, no increased work of breathing Cardiovascular: Regular rate regular rhythm, S1-S2 normal, no murmurs rubs skips or gallops, no lower limb edema peripheral pulses intact and equal GI: Abdomen soft nontender ostomy in place on right side, minimal ostomy output patient says he has not changed back since yesterday normal-appearing ostomy output, no blood no mucus Skin: Skin around ostomy appears intact, no rashes or lesions detected, surgical scars on abdomen from colectomy Principal Diagnosis Small bowel Obstruction Discharge Exam General: Alert, oriented. Skin: No noted rashes or bruises Psych: Appropriate mood and affect Neuro: No gross deficits HEENT: NC/AT Chest: Nontender to palpation. CV: RRR, Normal s1, s2. No murmurs appreciated Resp: Breath sounds clear bilaterally, no increased effort of breathing. No crackles/rhonchi/rales. Abdomen: nontender, distended. No guarding. No organomegaly appreciated. Extremities: No edema in lower extremities bilaterally. Discharge Data Allergies Allergy/AdvReac Type Severity Reaction Status Date / Time infliximab AdvReac Severe body Verified 02/04/20 16:54 aches;couldn't sleep Consultations 02/04/20 20:00 ED Decision to Admit Stat 02/04/20 21:55 Consult Gastroenterology Routine 02/05/20 11:08 Consult General Surgery Routine Ordered Studies 02/04/20 16:12 CT abd pelvis oral and IV con Stat Hospital Course (1) Small bowel obstruction: Ollie Mittal is a 49-year-old gentleman with past medical history of ulcerative colitis with adenocarcinoma of the colon, who is s/p total abdominal colectomy with ileostomy who presented with repeated episodes of nonbloody nonbilious vomiting and evidence of small bowel obstruction. Small bowel obstruction - thickened loop of small bowel and surrounding inflammation. -Appears to be secondary to small bowel obstruction with obstruction located just proximal to ileus -CT 02/03: "Operative changes consistent with a near complete colectomy with a right anterior ostomy. 2. Immediately proximal to the ostomy is a slightly thickened loop of small bowel with surrounding inflammatory change. 3. This appears to be the leading edge of what is a distal small bowel obstructive pattern. 4. Etiology is unknown, although the inflammatory and/or infiltrative change surrounding the distal small bowel proximal to the ostomy raises the possibility of an inflammatory process 5. The ostomy site itself shows a redundant loop of small bowel within the subcutaneous fat although this specific site shows no evidence for an obstructive pattern. 6. The overall impression of the study, however is of the distal small bowel obstructive change -With patient's history of UC and evidence of inflammatory changes on CT, this could be secondary to inflammation -NPO, IVF. -Persistent emesis - Non bloody non bilious, currently smells like stool. -Unable to place NGT. Difficulty by general surgery placing NG tube -Gastroenterology consulted for further recommendations-recommended transfer to original surgeon at [facility] -Pt transferred to [facility] for further evaluation by his original surgeon Dr. Agrawal. History of VTE disease -Patient chronically on apixaban, was diagnosed with DVT shortly after diagnosis several years ago. -Will continue patient's apixaban, no evidence of bleeding currently F/E/N: Normal saline at 120 mls per hour and 20 mEq KCl DVT prophylaxis: Apixaban Dispo: Transferred to [facility] for further evaluation by his colorectal surgeon Dr. Agrawal. (2) Dehydration: Total Time Total Time Spent Total Time Spent (In Minutes): See attending attestation Discharge Plan Discharge Items Patient Disposition: Transfer Acute [facility] Reason For Visit: SMALL BOWEL OBSTRUCTION Discharge Diagnosis: SBO Activity: Per Instructions section Non-emergency contact: Primary Care Provider and Surgeon Call non-emergency contact if: your symptoms worsen Follow-up/Referrals: Harsha Omer MD [Primary Care Provider] - Diet: Other - See Diet Comment Diet Comment: NPO Addtl Attending Provider Instructions: Facility discharge instructions Ollie Mittal is a 49-year-old gentleman with past medical history of ulcerative colitis with adenocarcinoma of the colon, who is s/p total abdominal colectomy with ileostomy who presented with repeated episodes of nonbloody nonbilious vomiting and evidence of small bowel obstruction. Emesis has now become foul-smelling and an NG tube could not be placed. Transferred to [facility] [place] for further evaluation by his colorectal surgeon Dr. Agrawal and his team. Emesis -Non bloody non bilious, currently smells like stool. -Appears to be secondary to small bowel obstruction with obstruction located just proximal to ileus -CT 02/03: "Operative changes consistent with a near complete colectomy with a right anterior ostomy. 2. Immediately proximal to the ostomy is a slightly thickened loop of small bowel with surrounding inflammatory change. 3. This appears to be the leading edge of what is a distal small bowel obstructive pattern. 4. Etiology is unknown, although the inflammatory and/or infiltrative change surrounding the distal small bowel proximal to the ostomy raises the possibility of an inflammatory process 5. The ostomy site itself shows a redundant loop of small bowel within the subcutaneous fat although this specific site shows no evidence for an obstructive pattern. 6. The overall impression of the study, however is of the distal small bowel obstructive change -With patient's history of UC and evidence of inflammatory changes on CT, this could be secondary to inflammation -Patient comfortable and only mildly distended at present we will keep n.p.o. -Difficulty by general surgery placing NG tube-recommended transfer to [facility] to be evaluated by his colorectal surgeon -Gastroenterology consulted for further recommendations-recommended transfer to original surgeon at [facility] -Zofran IV as needed -was on maintenance fluids -Transferred to [facility] for further evaluation by Dr. Agrawal and his team. History of VTE disease -Patient chronically on apixaban, was diagnosed with DVT shortly after diagnosis several years ago. -Will continue patient's apixaban, no evidence of bleeding currently Pending Studies at Discharge: No Stand-Alone Forms: My [facility] Skilled Items Patient informed of condition?: Yes DNR: No Discharge Level of Care: Other Communicable Disease: No Discharge Prognosis: Stable Lines: None Urinary Catheter: No Medications and DC Order Prescriptions: Continued Eliquis 2.5 mg tablet 2.5 mg PO BID Qty: 180 RF: 2 ondansetron 4 mg tablet,disintegrating 4 mg PO Q6 PRN (Reason: nausea and vomiting) Qty: 14 RF: 0 Discontinued (DME) Cock-Up Wrist Splint Misc See Rx Instructions .ROUTE .MEDSUPPLY Qty: 1 RF: 0 cholecalciferol (vitamin D3) [Vitamin D3] 2,000 unit Tablet 2,000 unit PO DAILY RF: 0 ferrous sulfate [iron] 325 mg (65 mg iron) Tablet 2 tab PO QPM RF: 0 Discharge Orders: Discharge Order (Routine); Ordered 02/05/20 Ordered By: Cindy Leblanc Admission Data Admit Date/Time: 02/04/20 21:21 Attending Provider: Edwige Melton Admit Provider: Silvia Gray Primary Care Provider: Harsha Omer Other Providers: Waldemar Dukes ; Silvia Gray ; Liseth Carroll Supervising Physician Co-Signing Physician Notes Resident Physician Supervision Note: I independently interviewed and examined the patient and verified the santillan history and physical, reviewed labs and image studies, discussed the case with the resident Dr. Leblanc and agree with the findings and care plan. Time spent in discharge 40 min Resident Activity Tracking Resident Involvement: Resident Care Provided Care Provided: Adult Hospital Medicine
[2020-02-05 12:52] LABS: BUN Creatinine Ratio 43.6 (10-20); Calcium 8.6 mg/dl (8.5-10.1); Creatinine Clr Calc Pharmacy 84.7 ml/min; Potassium 3.7 mmol/L (3.5-5.1)
[2020-02-05 13:03] LABS: Basophils # (auto) 0.02 K/uL (0-0.2); Basophils % (auto) 0.1 %; Immature Granulocytes # (auto) 0.06 K/uL (0.00-0.02); Immature Granulocytes % (auto) 0.4 %; Lymphocytes # (auto) 2.72 K/uL (1.2-3.4); Lymphocytes % (auto) 19.7 %; Monocytes # (auto) 1.53 K/uL (0.11-0.59); Monocytes % (auto) 11.1 %; Neutrophils # (auto) 9.49 K/uL (1.4-6.5); Neutrophils % (auto) 68.7 %
--- NOTE | 2020-02-05 13:05 | Gastrointestinal Consultation ---
Date of Consultation February 05, 2020 Assessment & Plan (1) Small bowel obstruction: (2) Abnormal CT scan: hx UC, but this in fact could have been Crohns disease all along. now with SBO and inflammatory change Recs: 1. NPO 2. [facility] ([facility]) for further care 3. replete lytes prn supportive care thank you for allowing me to participate in the care of this patient History of Present Illness Attending Physician: Edwige Melton MD 49 yo male with hx UC previously on remicade and entyvio and failed them, s/p colectomy here with SBO. Notes persistent n/v last few days with some small volume liquid stool in his ostomy. normally has 3-4 solid BMs daily. Notes abdominal distention as well. Denies fevers. both primary team and surgery unable to place NG tube. CT showed: 1. Operative changes consistent with a near complete colectomy with a right anterior ostomy. 2. Immediately proximal to the ostomy is a slightly thickened loop of small bowel with surrounding inflammatory change. 3. This appears to be the leading edge of what is a distal small bowel obstructive pattern. 4. Etiology is unknown, although the inflammatory and/or infiltrative change surrounding the distal small bowel proximal to the ostomy raises the possibility of an inflammatory process 5. The ostomy site itself shows a redundant loop of small bowel within the subcutaneous fat although this specific site shows no evidence for an obstructive pattern. 6. The overall impression of the study, however is of the distal small bowel obstructive change. Labs reviewed. Allergies Allergy/AdvReac Type Severity Reaction Status Date / Time infliximab AdvReac Severe body Verified 02/04/20 16:54 aches;couldn't sleep Home Medications Home Medications Medication Instructions Recorded Confirmed Type ferrous sulfate [iron] 2 tab PO QPM 12/16/18 02/04/20 History cholecalciferol (vitamin D3) 2,000 unit PO DAILY 05/24/19 02/04/20 History [Vitamin D3] apixaban 2.5 mg tablet 2.5 mg PO BID #180 tab 05/31/19 02/04/20 Rx miscellaneous medical supply #1 ea 10/05/19 10/05/19 Rx ondansetron 4 mg PO Q6 PRN #14 tab 02/03/20 02/04/20 Rx Patient History Medical History (Updated 02/05/20 @ 13:06 by Timmy Murray MD) Deep vein thrombosis in leg 15yrs ago DVT (deep venous thrombosis) Dysplastic nevus (Chronic) Hyperlipidemia (Chronic) On anticoagulant therapy eliquis daily Pulmonary embolism Secondary hypercoagulable state (Chronic) Ulcerative colitis Vitamin D deficiency Surgical History History of colectomy History of colonoscopy History of hernia repair Family History Mother Hypertension Bone cancer Amputation below knee Other No family history of adverse response to anesthesia Social History Preferred Language: Bulgarian Communication Ability: Effective [employer]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 Beliefs That Will Affect Care: None marital status: Current Living Situation: Spouse Feels Safe at Home: Yes Smoking Status: Never smoker Second Hand Exposure: No ; Hx Alcohol Use: Yes Alcohol type: beer Hx Substance Use: No Review of Systems Constitutional: no fever, no chills and no weight loss Eyes: as per Subjective / HPI Ear, Nose, Mouth, Throat: as per Subjective / HPI Respiratory: no dyspnea and no dyspnea on exertion Cardiovascular: no chest pain and no palpitations Gastrointestinal: as per Subjective / HPI Musculoskeletal: no joint pain and no swelling Integumentary: no rash and no lesions Neurologic: no numbness and no paresthesia Psychiatric: no depression and no anxiety Endocrine: no fatigue Hematologic / Lymphatic: no easy bleeding and no easy bruising Physical Exam Constitutional: WD/WN, vitals as above Eyes: EOM intact bilaterally Neck: normal visual inspection Respiratory: normal respiratory effort, lungs clear to auscultation Cardiovascular: RRR, no murmur, no edema Gastrointestinal (Abdomen): Inspection/Auscultation: abdomen normal to inspection; abdomen not distended Percussion/Palpation: abdomen soft; abdomen nontender and no hepatosplenomegaly Musculoskeletal: Extremities: no cyanosis Gait: normal gait Skin: no rashes, warm and dry Neurologic: moves all extremities Psychiatric: A+Ox3, euthymic affect Results & Data ([facility]) Vital Signs (Past 12 Hours) Vital Signs Pulse Resp BP Pulse Ox 02/05/20 07:16 84 18 135/95 94 PG Care Time/CCT Total # of Minutes Spent Total Time Spent with Patient: Total time spent is greater than 50% in coordination of care (as documented) at patient's floor/unit and/or counseling patient: Coding Level of Care Code 19506 Inpt Consult Level 3 Diagnoses Small bowel obstruction K56.[address] scan R93.89
[2020-02-05] MEDS ORDERED: FERROUS SULFATE 325 MG TAB PO SCH (17:00)
== END 2020-02-05 15:37 | disposition short-term general hospital (02) | DRG 390 ==
LOC: ED 15:50 → SUATTDRO 21:21 → 3N 21:21

== ENCOUNTER 2021-05-22 13:18 | Inpatient (IN) ==
[2021-05-22] MEDS ORDERED: CALCIUM GLUCONATE 1,000 MG/60 ML BAG IV STA ×2 (13:46)
[2021-05-22] MEDS ORDERED: SODIUM CHLORIDE 0.9% 1000ML 1,000 ML IV ONE (13:47)
[2021-05-22 14:10] LABS: Basophils # (auto) 0.04 K/uL (0-0.2); Basophils % (auto) 0.6 %; Eosinophils # (auto) 0.29 K/uL (0-0.5); Eosinophils % (auto) 4.1 %; Hemoglobin 8.9 g/dL (14.0-18.0); Immature Granulocytes # (auto) 0.01 K/uL (0.00-0.02); Immature Granulocytes % (auto) 0.1 %; Lymphocytes # (auto) 1.19 K/uL (1.2-3.4); Lymphocytes % (auto) 16.7 %; Mean Corpuscular Hemoglobin 30.1 pg (25-34); Mean Corpuscular Volume 91.2 fL (80-100); Mean Platelet Volume 10.2 fL (7.4-10.4); Monocytes # (auto) 1.15 K/uL (0.11-0.59); Monocytes % (auto) 16.2 %; Neutrophils # (auto) 4.44 K/uL (1.4-6.5); Neutrophils % (auto) 62.3 %; Platelet Count 265 K/uL (130-400); RDW Coefficient of Variation 14.2 % (11.5-14.5); RDW Standard Deviation 47.5 fL (36.4-46.3); Red Blood Count 2.96 M/uL (4.7-6.1); White Blood Count 7.12 K/uL (4.8-10.8)
[2021-05-22 14:26] LABS: Magnesium 1.6 mg/dl (1.8-2.4); Phosphorus 4.8 mg/dl (2.5-4.9)
[2021-05-22 14:28] LABS: INR 3.8 (0.9-1.1); Prothrombin Time 34.8 Seconds (9.0-12.0)
[2021-05-22] MEDS ORDERED: MAGNESIUM SULFATE / D5W 1 GM/100 ML BAG IV STA (14:51)
--- NOTE | 2021-05-22 14:51 | Emergency Department Note ---
Impression & Plan MARK (acute kidney injury), Anemia, Hypocalcemia, Hypomagnesemia, Electrolyte abnormality ED Provider Note NAME: LYNETTE CEDILLO II AGE: 51 SEX: M : 1970 ARRIVES VIA: Walk-In INFORMANT: Patient ED PROVIDER(S): Liam Hebert DO CHIEF COMPLAINT: abnormal labs HPI: Patient is a 51-year-old male with a past medical history of A. fib on Coumadin, DVTs, renal failure on dialysis previously as well as adenocarcinoma of the colon with resection and ileostomy. 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 He had a blood work performed as an outpatient was found to have acute kidney injury with elevation in his creatinine as well as a significantly low calcium. He does feel little weak and tired. He denies any headache or change in vision. No chest pain or shortness of breath. No nausea vomiting diarrhea. Admits to having normal output through the ostomy. Denies any dysuria urgency or frequency. 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 ROS: See above HPI for pertinent positives & negatives. A total of 10 systems reviewed and were otherwise negative. PAST MEDICAL HISTORY:See Below PAST SURGICAL HISTORY:See Below FAMILY HISTORY:See Below SOCIAL HISTORY:See Below HOME MEDICATIONS:See Below ALLERGIES:See Below VITALS:See Below PHYSICAL EXAMINATION: GENERAL: Sitting up in bed, alert, covered in cough/pain EYE EXAM: normal conjunctiva. PERRL and EOM's grossly intact. OROPHARYNX: mucous membranes are dry NECK: supple, no nuchal rigidity, no adenopathy, non-tender LUNGS: Clear to auscultation. Normal chest wall mechanics HEART: no murmurs, S1 normal and S2 normal ABDOMEN: abdomen soft, non-tender, normo-active bowel sounds, no masses, no rebound or guarding. Ostomy in right lower quadrant with brown stool UPPER EXTREMITIES: upper extremities are grossly normal. LOWER EXTREMITIES: No pitting edema. NEURO EXAM: Normal sensorium, cranial nerves II-XII grossly intact, normal speech, no gross weakness of arms, no gross weakness of legs. MEDICAL DECISION MAKING: Patient is a 51-year-old male who presents ER for the above-stated complaint. IV was established blood work was obtained. Labs were reviewed. CBC was drawn today in the ER and showed no significant leukocytosis and mild anemia at 8.9 down from baseline about 9.5. INR was slightly elevated at 3.8 and magnesium was low at 1.6. Phosphorus normal at 4.8. BMP performed as an outpatient showed a calcium of 5.6 and creatinine of 4.5 up from a baseline of which appears to be 3.3-3.5. Patient was given IV fluids while in the ER. Patient was given IV magnesium and IV calcium x2 g. He was updated bedside. Discussed with the hospitalist Dr. Caitlyn Millard patient will be admitted for further work-up. He denies all other complaints. Triage Nursing notes reviewed. Limited review of prior medical records performed Vital Signs: reviewed and remarkable for HTN Differential diagnosis: Infection, dehydration, metabolic abnormality, hypo/hyperglycemia, electrolyte disturbance, anemia, hypoxia, cardiac sources, intracerebral event, toxicologic, neurologic, as well as other pathologies. ER treatment provided: See below Diagnostics interpreted by me: ECG: none Cardiac Monitoring: An order was placed for continuous cardiac monitoring. The monitor shows a rate of 72 with sinus rhythm. Laboratory studies: As stated above and show below. Imaging studies: See below Consultation(s): Discussed with Dr. Caitlyn Millard for further evaluation Procedures: none Critical Care: None Past Med/Surg History Medical History Carpal tunnel syndrome on both sides Closed fracture of neck of left femur Closed left hip fracture Deep vein thrombosis DVT (deep venous thrombosis) Dysplastic nevus GI bleed History of DVT (deep vein thrombosis) Hyperlipidemia On anticoagulant therapy Pulmonary embolism Secondary hypercoagulable state Small bowel obstruction Ulcerative colitis Vitamin D deficiency Surgical History History of colectomy History of colonoscopy History of hernia repair Family History Mother Hypertension Bone cancer Amputation below knee Other No family history of adverse response to anesthesia Social History Smoking Status: Never smoker Second Hand Exposure: No; Hx Alcohol Use: Yes Alcohol type: beer Hx Substance Use: No Preferred Language: Egyptian Communication Ability: Effective Visual Impairment: No Limitations Hearing Ability: Normal 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 Beliefs That Will Affect Care: None marital status: Current Living Situation: Spouse current occupational status: employed Feels Safe at Home: Yes Childhood Exposure to Second-Hand Smoke: Yes caffeine: Yes Dental Care, Regularly: Yes Seatbelt Use: always Sunscreen Use: No Assistive Devices: None Allergies Allergies Allergy/AdvReac Type Severity Reaction Status Date / Time infliximab AdvReac Severe body Verified 05/22/21 14:10 aches;couldn't sleep Home Meds Home Medications Medication Instructions Recorded Confirmed amlodipine 5 mg PO QAM 05/22/21 05/22/21 ferrous sulfate 325 mg PO QAM 05/22/21 05/22/21 warfarin 10 mg PO 5XWK 05/22/21 05/22/21 warfarin 15 mg PO WK 05/22/21 05/22/21 warfarin [Coumadin] 6 mg PO WK 05/22/21 05/22/21 Previous Rx's Medication Instructions Recorded fluocinonide 0.05 % topical 1 applic TOPICAL BID #15 g 04/11/21 ointment Results & Data (ED) Vital Signs Vital Signs - 24 hr 05/22/21 13:21 05/22/21 14:14 05/22/21 14:15 Temperature 37.1 C Temperature Source Temporal Artery Scan Pulse Rate 91 H 73 Pulse Rate from SpO2 Sensor 73 Respiratory Rate 18 20 Respiratory Effort / Characteristics Non-Labored Respiratory Depth Normal Blood Pressure 143/82 H Blood Pressure Mean 102 Pulse Oximetry 97 99 Oxygen Delivery Method Room Air Room Air Sepsis Recent Fever Within 48 Hours No Sepsis New/Unexplained Change in Mental Status No Sepsis Action Taken by Nursing No Action Required 05/22/21 14:30 Temperature Temperature Source Pulse Rate 76 Pulse Rate from SpO2 Sensor 76 Respiratory Rate 16 Respiratory Effort / Characteristics Respiratory Depth Blood Pressure Blood Pressure Mean Pulse Oximetry 100 Oxygen Delivery Method Sepsis Recent Fever Within 48 Hours Sepsis New/Unexplained Change in Mental Status Sepsis Action Taken by Nursing Laboratory Data Result diagrams: 05/22/21 13:57 Lab Results 05/22/21 05/22/21 05/22/21 Range/Units 13:57 13:57 13:57 WBC 7.12 (4.8-10.8) K/uL RBC 2.96 L (4.7-6.1) M/uL Hgb 8.9 L (14.0-18.0) g/dL Hct 27.0 L (42-52) % MCV 91.2 (80-100) fL MCH 30.1 (25-34) pg MCHC 33.0 (32-36) g/dL RDW Std Deviation 47.5 H (36.4-46.3) fL RDW Coeff of Asha 14.2 (11.5-14.5) % Plt Count 265 (130-400) K/uL MPV 10.2 (7.4-10.4) fL Immature Gran % (Auto) 0.1 % Neut % (Auto) 62.3 % Lymph % (Auto) 16.7 % Geary % (Auto) 16.2 % Eos % (Auto) 4.1 % Baso % (Auto) 0.6 % Neut # (Auto) 4.44 (1.4-6.5) K/uL Lymph # (Auto) 1.19 L (1.2-3.4) K/uL Geary # (Auto) 1.15 H (0.11-0.59) K/uL Eos # (Auto) 0.29 (0-0.5) K/uL Baso # (Auto) 0.04 (0-0.2) K/uL Immature Gran # (Auto) 0.01 (0.00-0.02) K/uL PT 34.8 H (9.0-12.0) Seconds INR 3.8 H (0.9-1.1) Phosphorus 4.8 (2.5-4.9) mg/dl Magnesium 1.6 L (1.8-2.4) mg/dl COVID-19 Eval Order 05/22/21 Range/Units 14:23 WBC (4.8-10.8) K/uL RBC (4.7-6.1) M/uL Hgb (14.0-18.0) g/dL Hct (42-52) % MCV (80-100) fL MCH (25-34) pg MCHC (32-36) g/dL RDW Std Deviation (36.4-46.3) fL RDW Coeff of Asha (11.5-14.5) % Plt Count (130-400) K/uL MPV (7.4-10.4) fL Immature Gran % (Auto) % Neut % (Auto) % Lymph % (Auto) % Geary % (Auto) % Eos % (Auto) % Baso % (Auto) % Neut # (Auto) (1.4-6.5) K/uL Lymph # (Auto) (1.2-3.4) K/uL Geary # (Auto) (0.11-0.59) K/uL Eos # (Auto) (0-0.5) K/uL Baso # (Auto) (0-0.2) K/uL Immature Gran # (Auto) (0.00-0.02) K/uL PT (9.0-12.0) Seconds INR (0.9-1.1) Phosphorus (2.5-4.9) mg/dl Magnesium (1.8-2.4) mg/dl COVID-19 Eval Order Covid19 at [facility] Administered Medications Sodium Chloride (Nss 1000ml) 1,000 mls @ 999 mls/hr IV .Q1H1M ONE Stop: 05/22/21 14:47 Last Admin: 05/22/21 14:08 Dose: 999 mls/hr Documented by: [id number] Discontinued Medications Calcium Gluconate () 1,000 mg in 60 mls @ 240 mls/hr IV NOW STA Stop: 05/22/21 14:00 Last Infusion: 05/22/21 14:22 Dose: 0 mls/hr Documented by: [id number] Admin: 05/22/21 14:07 Dose: 240 mls/hr Documented by: [id number] Calcium Gluconate () 1,000 mg in 60 mls @ 240 mls/hr IV NOW STA Stop: 05/22/21 14:00 Last Admin: 05/22/21 14:08 Dose: 240 mls/hr Documented by: [id number] Discharge Plan Visit Data Chief Complaint: Abnormal Labs/Diagnostic Testing Stated Complaint: ABN LAB WORK,CALCIUM LOW,REF BY DOC FOR IV ED Provider: Liam Hebert Discharge Problem: MARK (acute kidney injury), Anemia, Hypocalcemia, Hypomagnesemia, Electrolyte abnormality Forms Stand Alone Forms: My [facility] Prescriptions Prescriptions: No Action fluocinonide 0.05 % ointment 1 applic topical BID Qty: 15 RF: 0 warfarin 10 mg tablet 15 mg PO WK RF: 0 warfarin 10 mg tablet 10 mg PO 5XWK RF: 0 warfarin [Coumadin] 6 mg Tablet 6 mg PO WK RF: 0 ferrous sulfate 325 mg (65 mg iron) tablet 325 mg PO QAM RF: 0 amlodipine 5 mg tablet 5 mg PO QAM RF: 0 Discharge Problem: Anemia Qualifiers: Anemia type: unspecified type Qualified Code(s): D64.9 - Anemia, unspecified
--- NOTE | 2021-05-22 15:30 | History & Physical Report ---
Date of Service May 22, 2021 Assessment & Plan (1) MARK (acute kidney injury): With acute kidney injury in the setting of CKD stage V, with a previous history of need for hemodialysis after a critical care stay in [facility] 01/2020. He has been off hemodialysis since 07/2020. Creatinine 4.47 upon admission up from baseline of 3.5, with significant hypocalcemia, also with hypomagnesemia, and nonanion gap metabolic acidosis He is making urine, blood pressures are only mildly elevated. He has chronic lower extremity edema which he says is no worse than usual, potassium is normal, and with chronic metabolic acidosis which is not worse than previous. Could be secondary to some mild dehydration, but also need to rule out obstruction Urinalysis with trace blood but 0 RBCs, 2+ leukocyte esterase, greater than 30 WBCs, but also with 20-30 epithelial cells and negative for bacteria -Admit to medical floor telemetry -Check renal ultrasound and Place Silverman catheter if signs of obstruction -Start sodium bicarbonate drip and monitor serial BMP -Consult nephrology -Monitor volume status, blood pressures -Renal diet (2) Hypocalcemia: Severely low at 5.6 on admission but corrected calcium 6.2. Was given IV calcium gluconate 2 g in the ER Vitamin D level normal at 56.5, intact PTH elevated at 374 This is most likely secondary to renal failure He is prescribed vitamin D2 50,000 units once a week although this is not on his home medication reconciliation-unclear if he is taking this? His phosphorus level here is normal -Recommend starting calcitriol, however will defer to nephrology in the morning -Follow ionized calcium this evening and replace with more IV calcium gluconate as needed Follow ionized calcium in the morning (3) Hypomagnesemia: Replaced with IV magnesium Follow levels in the morning (4) Metabolic acidosis: As above, secondary to chronic kidney disease Started on bicarbonate drip as above Follow BMP (5) Anemia: Almost certainly secondary to anemia of chronic kidney disease Continue ferrous sulfate Hemoglobin is down to 8.9 Is on Coumadin but no evidence of bleeding from anywhere Follow CBC Check iron studies as well as B12 and folate in the morning-replace as needed, may need erythropoietin (6) Episodic atrial fibrillation: With a history of such setting of critical illness as per history Monitor on telemetry here, is in sinus rhythm Is on Coumadin for history of DVT-holding for supratherapeutic INR (7) Ulcerative colitis: Status post colectomy and was also found to have adenocarcinoma of the colon at the time of colectomy With ileostomy with good output (8) HTN (hypertension), benign: Blood pressure is mildly elevated Continue home amlodipine (9) DVT, bilateral lower limbs: With a history of lower extremity DVT on Coumadin INR is supratherapeutic today at 3.8 Hold Coumadin Follow INR in the morning Also with severe hypocalcemia which makes him more likely to bleed Disposition-admit to medical floor with telemetry History of Present Illness Chief Complaint: Abnormal labs Primary Care Provider: Harsha Omer MD This patient is a 51-year-old male with a history of colon cancer and ulcerative colitis status post total colectomy, anemia of chronic kidney disease, left lower extremity DVT on Coumadin, paroxysmal atrial fibrillation on the setting of septic shock and renal failure requiring hemodialysis after an ICU stay for small bowel obstruction in 01/2020. He has been off hemodialysis since 07/2020 and follows with nephrology Dr. Rodriguez cOampo in [place]. He presents to the ER today after being called by his special order jeweler office after having blood work which showed acute kidney injury with elevation in his creatinine as well as hypocalcemia. He feels little bit weak and tired but denies any nausea/v omiting/diarrhea. He has been having normal output through his ostomy. Denies any urinary symptoms and reports he has been making good urine. 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 He did have some cramping in his calf last night but otherwise no muscle pains. His denies any seizure activity or tremors. He denies any recent changes in medications. He denies bleeding from anywhere. His creatinine upon arrival was 4.47 up from 3.58 two months ago. His corrected calcium was 6.2 and he was given 2 g of IV calcium gluconate and IV fluids in the ER as well as 1 g of IV magnesium. Allergies Allergy/AdvReac Type Severity Reaction Status Date / Time infliximab AdvReac Severe body Verified 05/22/21 14:10 aches;couldn't sleep Home Medications Medication Instructions Recorded Confirmed Type fluocinonide 0.05 % topical 1 applic TOPICAL BID #15 g 04/11/21 05/22/21 Rx ointment amlodipine 5 mg PO QAM 05/22/21 05/22/21 History ferrous sulfate 325 mg PO QAM 05/22/21 05/22/21 History warfarin 10 mg PO 5XWK 05/22/21 05/22/21 History warfarin 15 mg PO WK 05/22/21 05/22/21 History warfarin [Coumadin] 6 mg PO WK 05/22/21 05/22/21 History Past Med/Surg History Medical History (Updated 05/22/21 @ 23:18 by Caitlyn Millard MD) Carpal tunnel syndrome on both sides Closed fracture of neck of left femur Closed left hip fracture Deep vein thrombosis in leg 15yrs ago DVT (deep venous thrombosis) Dysplastic nevus GI bleed History of DVT (deep vein thrombosis) HTN (hypertension), benign Hyperlipidemia On anticoagulant therapy eliquis daily Pulmonary embolism Secondary hypercoagulable state Small bowel obstruction Ulcerative colitis Vitamin D deficiency Surgical History History of colectomy History of colonoscopy History of hernia repair Family History Mother Hypertension Bone cancer Amputation below knee Other No family history of adverse response to anesthesia Social History Smoking Status: Never smoker Second Hand Exposure: No; Hx Alcohol Use: No Hx Substance Use: No Preferred Language: Tristanian Communication Ability: Effective Visual Impairment: No Limitations Hearing Ability: Normal Production Machine Tender Required: No Beliefs That Will Affect Care: None marital status: Current Living Situation: Spouse current occupational status: employed Feels Safe at Home: Yes Safety Concerns: Feels Safe At This Time Childhood Exposure to Second-Hand Smoke: Yes caffeine: Yes Dental Care, Regularly: Yes Seatbelt Use: always Sunscreen Use: No Assistive Devices: Glasses Review of Systems Review of Systems: All systems reviewed & are unremarkable except as noted in HPI & below Has chronic lower extremity edema left greater than right No fevers or chills No cough or shortness of breath No chest pain No nausea or vomiting, no abdominal pains, no diarrhea or constipation Physical Exam Constitutional: WD/WN, vitals as above Eyes: PERRL, conjunctivae normal, anicteric sclerae ENMT: external ear and nose normal, oropharynx normal Neck: trachea midline, no thyromegaly Respiratory: normal respiratory effort, lungs clear to auscultation Cardiovascular: Rate/Rhythm: regular rate and regular rhythm Heart Sounds: no murmur Extremities: + edema (2+ pitting edema of the legs to the knees bilaterally) Chest (Breasts): Chest: normal inspection of chest Gastrointestinal (Abdomen): Inspection/Auscultation: normal bowel sounds; + abdomen abnormal to inspection (With ileostomy bag full of stool and gas) and abdomen not distended Percussion/Palpation: abdomen soft; abdomen nontender Musculoskeletal: Extremities: extremities normal to inspection; no cyanosis and no clubbing Skin: no rashes, warm and dry Neurologic: moves all extremities and awake; no focal motor deficits Psychiatric: A+Ox3, euthymic affect Results & Data Results & Data ([facility]) Vital Signs (Past 12 Hours) Vital Signs Temp Pulse Resp BP Pulse Ox 05/22/21 14:30 76 16 100 05/22/21 14:15 73 20 99 05/22/21 13:21 37.1 C 91 H 18 143/82 H 97 Laboratory Results 05/22/21 05/22/21 05/22/21 Range/Units 14:23 14:23 13:57 WBC (4.8-10.8) K/uL RBC (4.7-6.1) M/uL Hgb (14.0-18.0) g/dL Hct (42-52) % MCV (80-100) fL MCH (25-34) pg MCHC (32-36) g/dL RDW Std Deviation (36.4-46.3) fL RDW Coeff of Asha (11.5-14.5) % Plt Count (130-400) K/uL MPV (7.4-10.4) fL Immature Gran % (Auto) % Neut % (Auto) % Lymph % (Auto) % Meigs % (Auto) % Eos % (Auto) % Baso % (Auto) % Neut # (Auto) (1.4-6.5) K/uL Lymph # (Auto) (1.2-3.4) K/uL Meigs # (Auto) (0.11-0.59) K/uL Eos # (Auto) (0-0.5) K/uL Baso # (Auto) (0-0.2) K/uL Immature Gran # (Auto) (0.00-0.02) K/uL PT (9.0-12.0) Seconds INR (0.9-1.1) Phosphorus 4.8 (2.5-4.9) mg/dl Magnesium 1.6 L (1.8-2.4) mg/dl COVID-19 Eval Order Covid19 at [facility] SARS-CoV-2 (PCR) NEGATIVE (Negative) 05/22/21 05/22/21 Range/Units 13:57 13:57 WBC 7.12 (4.8-10.8) K/uL RBC 2.96 L (4.7-6.1) M/uL Hgb 8.9 L (14.0-18.0) g/dL Hct 27.0 L (42-52) % MCV 91.2 (80-100) fL MCH 30.1 (25-34) pg MCHC 33.0 (32-36) g/dL RDW Std Deviation 47.5 H (36.4-46.3) fL RDW Coeff of Asha 14.2 (11.5-14.5) % Plt Count 265 (130-400) K/uL MPV 10.2 (7.4-10.4) fL Immature Gran % (Auto) 0.1 % Neut % (Auto) 62.3 % Lymph % (Auto) 16.7 % Meigs % (Auto) 16.2 % Eos % (Auto) 4.1 % Baso % (Auto) 0.6 % Neut # (Auto) 4.44 (1.4-6.5) K/uL Lymph # (Auto) 1.19 L (1.2-3.4) K/uL Meigs # (Auto) 1.15 H (0.11-0.59) K/uL Eos # (Auto) 0.29 (0-0.5) K/uL Baso # (Auto) 0.04 (0-0.2) K/uL Immature Gran # (Auto) 0.01 (0.00-0.02) K/uL PT 34.8 H (9.0-12.0) Seconds INR 3.8 H (0.9-1.1) Phosphorus (2.5-4.9) mg/dl Magnesium (1.8-2.4) mg/dl COVID-19 Eval Order SARS-CoV-2 (PCR) (Negative) Code Status & VTE Plan Code Status Full code VTE Prophylaxis Plan VTE Prophylaxis will be ordered: Yes PG Care Time/CCT Total # of Minutes Spent Total Time Spent with Patient: Total time spent is greater than 50% in emergency medical service coordinator rdination of care (as documented) at patient's floor/unit and/or counseling patient: Coding Level of Care Code 94740 Initial Inpt Care Lvl 3 Diagnoses MARK (acute kidney injury) N17.9 Hypocalcemia E83.51 Hypomagnesemia E83.42 Metabolic acidosis E87.2 Anemia D64.9 Episodic atrial fibrillation I48.0 Ulcerative colitis K51.00 Digestive disease complication type: without complication Ulcerative colitis location: ulcerative pancolitis HTN (hypertension), benign I10 DVT, bilateral lower limbs I82.403 (1) Ulcerative colitis Digestive disease complication type: without complication Ulcerative colitis location: ulcerative pancolitis Qualified Code(s): K51.00 - Ulcerative (chronic) pancolitis without complications
[2021-05-22] MEDS ORDERED: ACETAMINOPHEN 325 MG TAB PO PRN (16:43)
[2021-05-22] MEDS: SODIUM BICARBONATE 8.4% 100 MEQ in DEXTROSE 5% 1,000 ML IV SCH (17:31)
[2021-05-22 19:18] LABS: BUN Creatinine Ratio 12.5 (10-20); Creatinine Clr Calc Pharmacy 22.9 ml/min; Est GFR (African American) 15.7 ml/min; Est GFR (Non-African American) 13.5 ml/min; Potassium 4.3 mmol/L (3.5-5.1)
[2021-05-22] MEDS ORDERED: CALCIUM GLUCONATE 10% 2,000 MG in SODIUM CHLORIDE 0.9% 50 ML IV ONE (19:30)
--- NOTE | 2021-05-22 20:31 | Ultrasound Report ---
ULTRASOUND KIDNEYS AND BLADDER CLINICAL HISTORY: Acute renal insufficiency. COMPARISON STUDY: Abdominal CT dated 02/04/2020. TECHNIQUE: Real-time, grayscale, and color flow sonography of the kidneys and bladder is performed. I mages are reviewed in the transverse and longitudinal planes. FINDINGS: Kidneys: The kidneys are normal in size and echotexture. The right kidney measures 12.2 cm in length and the left kidney measures 13.8 cm in length. There is severe bilateral hydroureteronephrosis. Uret ers are distended to the level of the bladder. No shadowing renal calculi are identified. There is no sonographic evidence of contour deforming renal mass lesion. No perinephric fluid is identified. Bladder: Bladder is markedly distended and contains intraluminal debris. Only the right ureteral jet was identified. IMPRESSION: 1. The bladder is markedly distended and there is moderate to severe bilateral hydroureteronephrosis. The appearance suggests bladder outlet obstruction. 2. Intraluminal debris is noted within the bladder. Correlate with urinalysis. ACT 112: Negative or not required by law. Electronically signed by: Tevin Lozada M.D. 05/22/2021 8:30 PM
[2021-05-22] MEDS ORDERED: LORazepam 0.5 MG/1 ML VIAL IV STA (23:24)
[2021-05-23] MEDS: TAMSULOSIN HCL 0.4 MG CAP PO SCH ×2 (00:16→20:48)
--- NOTE | 2021-05-23 01:51 | Communication Note ---
Date of Service: May 23, 2021 Night team was asked to return a stat page from nursing regarding patient at 12:37 am. I spoke with nurse who stated renal ultrasound returned showing a kimi dder outlet obstruction. Patient was voiding on his own, but only minimally. First bladder scan showed > 1900ml. Next scan showed > 2100ml. Two floor nurses had already attempted to place a beltran catheter but were unsuccessful. I asked an ICU nurse to attempt placement - he used a coude tip and was unsuccessful as well. I placed a stat urology consult and spoke with Dr. Remy about the patient. He stated that he would begin by reviewing imaging studies.
[2021-05-23 06:32] LABS: Basophils # (auto) 0.04 K/uL (0-0.2); Basophils % (auto) 0.6 %; Eosinophils # (auto) 0.27 K/uL (0-0.5); Eosinophils % (auto) 4.4 %; Hematocrit (blood only) 26.7 % (42-52); Hemoglobin 8.8 g/dL (14.0-18.0); Immature Granulocytes # (auto) 0.01 K/uL (0.00-0.02); Immature Granulocytes % (auto) 0.2 %; Lymphocytes # (auto) 0.99 K/uL (1.2-3.4); Mean Corpuscular Hemoglobin 30.1 pg (25-34); Mean Corpuscular Volume 91.4 fL (80-100); Mean Platelet Volume 10.1 fL (7.4-10.4); Monocytes # (auto) 0.99 K/uL (0.11-0.59); Neutrophils # (auto) 3.87 K/uL (1.4-6.5); Neutrophils % (auto) 62.8 %; Platelet Count 240 K/uL (130-400); RDW Coefficient of Variation 14.1 % (11.5-14.5); RDW Standard Deviation 47.6 fL (36.4-46.3); Red Blood Count 2.92 M/uL (4.7-6.1); White Blood Count 6.17 K/uL (4.8-10.8)
[2021-05-23 06:40] LABS: INR 3.4 (0.9-1.1); Prothrombin Time 31.5 Seconds (9.0-12.0)
[2021-05-23] MEDS: SODIUM BICARBONATE 8.4% 100 MEQ in DEXTROSE 5% 1,000 ML IV SCH ×2 (06:45→20:52)
[2021-05-23 07:28] LABS: Albumin Globulin Ratio 0.7 (0.9-2); Albumin Level 3.1 gm/dl (3.4-5.0); BUN Creatinine Ratio 12.3 (10-20); Bilirubin,Total 0.8 mg/dl (0.2-1); Calcium 5.9 mg/dl (8.5-10.1); Creatinine Clr Calc Pharmacy 22.6 ml/min; Est GFR (African American) 15.7 ml/min; Est GFR (Non-African American) 13.5 ml/min; Ferritin 220.6 ng/ml (8-388); Globulin 4.3 gm/dl (2.5-4.0); Magnesium 1.7 mg/dl (1.8-2.4); Phosphorus 5.3 mg/dl (2.5-4.9); Potassium 4.2 mmol/L (3.5-5.1); Total Protein 7.4 gm/dl (6.4-8.2)
--- NOTE | 2021-05-23 07:52 | Hospitalist Progress Note ---
Date of Service May 23, 2021 Assessment & Plan (1) MARK (acute kidney injury): With acute kidney injury in the setting of CKD stage V, with a previous history of need for hemodialysis after a critical care stay in [facility] 01/2020. He has been off hemodialysis since 07/2020. Creatinine 4.47 upon admission up from baseline of 3.5, with significant hypocalcemia, also with hypomagnesemia, and non-anion gap metabolic acidosis He is making urine, blood pressures are only mildly elevated. He has chronic lower extremity edema which he says is no worse than usual, potassium is normal, and with chronic metabolic acidosis which is not worse than previous. Could be secondary to some mild dehydration, but also need to rule out obstruction Urinalysis with trace blood but 0 RBCs, 2+ leukocyte esterase, greater than 30 WBCs, but also with 20-30 epithelial cells and negative for bacteria 05/23 Renal US c/w bladder outlet obstruction CTAP c/w the same, bilateral hydroureteronephrosis (severe) Cr 4.67 from 4.47 on admission (baseline 3.5) -- secondary to outlet obstruction On bicarb gtt Replacing calcium -- additional 2gm IV this morning and repeating labs at noon to see if additional needed (bicarb will move Ca intracellularly and suspect needs further replacement. could hold bicarb gtt until replacement complete but will wait for repeat labs) --> Additional 3gm ordered for this afternoon for Ca 6.6 from 5.9 Mag 1.7 -- ordered 2gm IV. Repeat afternoon -- wnl 2.4 Nephrology on consult Urology on consult Urine cx pending -- afebrile, no WBC Silverman attempted x 3 Remains NPO for possible Silverman in OR vs at bedside this afternoon with Dr. Jeremias blevins. 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 Given 2gm IV Vit D wnl 56.5 but intact PTH elevated to 374 -- likely secondary to renal failure To be on D2 50,000 weekly although not on home med rec. Will start calcitriol 0.25mcg daily Phos elevated 5.3 -- repeat 5.1 and will continue to trend Repeat Ca 5.9 and given 3gm IV this morning Repeat 6.6 and will give additional 3mg IV and hold bicarb gtt until replacement given Bicarb 18 (not worse that prior values) Will repeat BMP, Albumin, Mag, Phos this evening --> additional electrolyte replacement as needed Nephrology on consult -- appreciate recs (3) Hypomagnesemia: Replaced with IV magnesium Repeat 1.7 this AM and given additional 2gm IV and will follow labs evening (4) Metabolic acidosis: As above, secondary to chronic kidney disease Non-anion gap Nephrology consult as above Started on bicarbonate drip as above -- bicarb same on repeat (will hold, replace calcium and then resume gtt) Follow BMP (5) Anemia: Almost certainly secondary to anemia of chronic kidney disease Continue ferrous sulfate Hemoglobin is down to 8.8 Is on Coumadin but no evidence of bleeding from anywhere Iron studies c/w chronic disease --> Iron 49 wnl, TIBC low 166, Transferrin 140L, trans % sat 25, ferritin 220 B12, Folate pending Nephrology on consult -- ?consider epo Follow CBC (6) Episodic atrial fibrillation: With a history of such setting of critical illness as per history Monitor on telemetry here, is in sinus rhythm Is on Coumadin for history of DVT-holding for supratherapeutic INR (7) Ulcerative colitis: Status post colectomy and was also found to have adenocarcinoma of the colon at the time of colectomy With ileostomy with good output (8) HTN (hypertension), benign: Blood pressure is mildly elevated 147/81 Continue home amlodipine (9) DVT, bilateral lower limbs: With a history of lower extremity DVT on Coumadin INR is supratherapeutic today at 3.4 (from 3.8) Continue to hold Coumadin Follow INR in the morning Also with severe hypocalcemia which makes him more likely to bleed Disposition- continued inpatient stay Admission and Anticipated Discharge Date Admission Date: May 22, 2021 Subjective Patient evaluated this afternoon. Feeling alright but getting hungry. Attempted at Silverman x 3 unsuccessful. Seen by [employer] by Urology and Dr Remy to possibly place at bedside vs OR this afternoon. He states he would prefer OR and to be put out. No other issues, no fever, chills, chest pain, shortness of breath, abdominal pain, nausea or vomiting. Does continue to urinate but not much. Has had a Silverman in the past when he had a TURP done and is aware he may need this at discharge and we would arrange for home health in that event. Questions/concerns. Review of Systems Review of Systems: All systems reviewed & are unremarkable except as noted in HPI & below Physical Exam Constitutional: WD/WN, vitals as above Eyes: PERRL, conjunctivae normal, anicteric sclerae ENMT: external ear and nose normal, oropharynx normal Neck: trachea midline, no thyromegaly Respiratory: normal respiratory effort, lungs clear to auscultation Cardiovascular: Rate/Rhythm: regular rate and regular rhythm Heart Sounds: no murmur Extremities: + edema (2+ pitting edema of the legs to the knees b/l L>R) Chest (Breasts): Chest: normal inspection of chest Gastrointestinal (Abdomen): Inspection/Auscultation: + abdomen distended and normal bowel sounds; + abdomen abnormal to inspection (With ileostomy bag full of stool and gas) Percussion/Palpation: abdomen soft; abdomen nontender Musculoskeletal: Extremities: extremities normal to inspection; no cyanosis and no clubbing Skin: no rashes, warm and dry Neurologic: moves all extremities and awake; no focal motor deficits Psychiatric: Orientation: alert and oriented x 3 Results & Data Results & Data ([facility]) Vital Signs (Past 12 Hours) Vital Signs Temp Pulse Pulse Resp BP Pulse Ox 05/23/21 03:46 36.5 C 76 16 129/80 98 05/23/21 01:23 71 05/22/21 22:39 36.6 C 72 18 150/84 H 97 05/22/21 20:34 36.9 C 67 18 157/83 H 93 Laboratory Results 05/23/21 05/23/21 05/23/21 Range/Units 06:02 06:02 06:02 WBC (4.8-10.8) K/uL RBC (4.7-6.1) M/uL Hgb (14.0-18.0) g/dL Hct (42-52) % MCV (80-100) fL MCH (25-34) pg MCHC (32-36) g/dL RDW Std Deviation (36.4-46.3) fL RDW Coeff of Asha (11.5-14.5) % Plt Count (130-400) K/uL MPV (7.4-10.4) fL Immature Gran % (Auto) % Neut % (Auto) % Lymph % (Auto) % [place] % (Auto) % Eos % (Auto) % Baso % (Auto) % Neut # (Auto) (1.4-6.5) K/uL Lymph # (Auto) (1.2-3.4) K/uL [place] # (Auto) (0.11-0.59) K/uL Eos # (Auto) (0-0.5) K/uL Baso # (Auto) (0-0.2) K/uL Immature Gran # (Auto) (0.00-0.02) K/uL PT 31.5 H (9.0-12.0) Seconds INR 3.4 H (0.9-1.1) Sodium 140 (136-145) mmol/L Potassium 4.2 (3.5-5.1) mmol/L Chloride 115 H (98-107) mmol/L Carbon Dioxide 18 L (21-32) mmol/L Anion Gap 7.0 (3-11) BUN 57 H (7-18) mg/dl Creatinine 4.68 H* (0.6-1.4) mg/dl Est Cr Clr Drug Dosing 22.6 ml/min Est GFR ( Amer) 15.7 ml/min Est GFR (Non-Af Amer) 13.5 ml/min BUN/Creatinine Ratio 12.3 (10-20) Glucose 88 (70-99) mg/dl Calcium 5.9 L* (8.5-10.1) mg/dl Ionized Calcium (1.12-1.32) mmol/L Phosphorus 5.3 H (2.5-4.9) mg/dl Magnesium 1.7 L (1.8-2.4) mg/dl Iron 49 (35-175) mcg/dl TIBC 166 L (250-450) mcg/dl Transferrin 140 L (200-360) mg/dl Transferrin % Sat 25 (20-50) % Ferritin 220.6 (8-388) ng/ml Total Bilirubin 0.8 (0.2-1) mg/dl AST 20 (15-37) U/L ALT 23 (12-78) U/L Alkaline Phosphatase 65 (45-117) U/L Total Protein 7.4 (6.4-8.2) gm/dl Albumin 3.1 L (3.4-5.0) gm/dl Globulin 4.3 H (2.5-4.0) gm/dl Albumin/Globulin Ratio 0.7 L (0.9-2) Vitamin B12 Pending Folate Pending COVID-19 Eval Order SARS-CoV-2 (PCR) (Negative) 05/23/21 05/23/21 05/22/21 Range/Units 06:02 06:02 18:36 WBC 6.17 (4.8-10.8) K/uL RBC 2.92 L (4.7-6.1) M/uL Hgb 8.8 L (14.0-18.0) g/dL Hct 26.7 L (42-52) % MCV 91.4 (80-100) fL MCH 30.1 (25-34) pg MCHC 33.0 (32-36) g/dL RDW Std Deviation 47.6 H (36.4-46.3) fL RDW Coeff of Asha 14.1 (11.5-14.5) % Plt Count 240 (130-400) K/uL MPV 10.1 (7.4-10.4) fL Immature Gran % (Auto) 0.2 % Neut % (Auto) 62.8 % Lymph % (Auto) 16.0 % [place] % (Auto) 16.0 % Eos % (Auto) 4.4 % Baso % (Auto) 0.6 % Neut # (Auto) 3.87 (1.4-6.5) K/uL Lymph # (Auto) 0.99 L (1.2-3.4) K/uL [place] # (Auto) 0.99 H (0.11-0.59) K/uL Eos # (Auto) 0.27 (0-0.5) K/uL Baso # (Auto) 0.04 (0-0.2) K/uL Immature Gran # (Auto) 0.01 (0.00-0.02) K/uL PT (9.0-12.0) Seconds INR (0.9-1.1) Sodium 139 (136-145) mmol/L Potassium 4.3 (3.5-5.1) mmol/L Chloride 112 H (98-107) mmol/L Carbon Dioxide 18 L (21-32) mmol/L Anion Gap 9.0 (3-11) BUN 59 H (7-18) mg/dl Creatinine 4.68 H* (0.6-1.4) mg/dl Est Cr Clr Drug Dosing 22.9 ml/min Est GFR ( Amer) 15.7 ml/min Est GFR (Non-Af Amer) 13.5 ml/min BUN/Creatinine Ratio 12.5 (10-20) Glucose 88 (70-99) mg/dl Calcium 6.0 L (8.5-10.1) mg/dl Ionized Calcium 0.75 L* (1.12-1.32) mmol/L Phosphorus (2.5-4.9) mg/dl Magnesium (1.8-2.4) mg/dl Iron (35-175) mcg/dl TIBC (250-450) mcg/dl Transferrin (200-360) mg/dl Transferrin % Sat (20-50) % Ferritin (8-388) ng/ml Total Bilirubin (0.2-1) mg/dl AST (15-37) U/L ALT (12-78) U/L Alkaline Phosphatase (45-117) U/L Total Protein (6.4-8.2) gm/dl Albumin (3.4-5.0) gm/dl Globulin (2.5-4.0) gm/dl Albumin/Globulin Ratio (0.9-2) Vitamin B12 Folate COVID-19 Eval Order SARS-CoV-2 (PCR) (Negative) 05/22/21 05/22/21 05/22/21 Range/Units 18:36 14:23 14:23 WBC (4.8-10.8) K/uL RBC (4.7-6.1) M/uL Hgb (14.0-18.0) g/dL Hct (42-52) % MCV (80-100) fL MCH (25-34) pg MCHC (32-36) g/dL RDW Std Deviation (36.4-46.3) fL RDW Coeff of Asha (11.5-14.5) % Plt Count (130-400) K/uL MPV (7.4-10.4) fL Immature Gran % (Auto) % Neut % (Auto) % Lymph % (Auto) % [place] % (Auto) % Eos % (Auto) % Baso % (Auto) % Neut # (Auto) (1.4-6.5) K/uL Lymph # (Auto) (1.2-3.4) K/uL [place] # (Auto) (0.11-0.59) K/uL Eos # (Auto) (0-0.5) K/uL Baso # (Auto) (0-0.2) K/uL Immature Gran # (Auto) (0.00-0.02) K/uL PT (9.0-12.0) Seconds INR (0.9-1.1) Sodium (136-145) mmol/L Potassium (3.5-5.1) mmol/L Chloride (98-107) mmol/L Carbon Dioxide (21-32) mmol/L Anion Gap (3-11) BUN (7-18) mg/dl Creatinine (0.6-1.4) mg/dl Est Cr Clr Drug Dosing ml/min Est GFR ( Amer) ml/min Est GFR (Non-Af Amer) ml/min BUN/Creatinine Ratio (10-20) Glucose (70-99) mg/dl Calcium (8.5-10.1) mg/dl Ionized Calcium 0.74 L* (1.12-1.32) mmol/L Phosphorus (2.5-4.9) mg/dl Magnesium (1.8-2.4) mg/dl Iron (35-175) mcg/dl TIBC (250-450) mcg/dl Transferrin (200-360) mg/dl Transferrin % Sat (20-50) % Ferritin (8-388) ng/ml Total Bilirubin (0.2-1) mg/dl AST (15-37) U/L ALT (12-78) U/L Alkaline Phosphatase (45-117) U/L Total Protein (6.4-8.2) gm/dl Albumin (3.4-5.0) gm/dl Globulin (2.5-4.0) gm/dl Albumin/Globulin Ratio (0.9-2) Vitamin B12 Folate COVID-19 Eval Order Covid19 at [facility] SARS-CoV-2 (PCR) NEGATIVE (Negative) 05/22/21 05/22/21 05/22/21 Range/Units 13:57 13:57 13:57 WBC 7.12 (4.8-10.8) K/uL RBC 2.96 L (4.7-6.1) M/uL Hgb 8.9 L (14.0-18.0) g/dL Hct 27.0 L (42-52) % MCV 91.2 (80-100) fL MCH 30.1 (25-34) pg MCHC 33.0 (32-36) g/dL RDW Std Deviation 47.5 H (36.4-46.3) fL RDW Coeff of Asha 14.2 (11.5-14.5) % Plt Count 265 (130-400) K/uL MPV 10.2 (7.4-10.4) fL Immature Gran % (Auto) 0.1 % Neut % (Auto) 62.3 % Lymph % (Auto) 16.7 % [place] % (Auto) 16.2 % Eos % (Auto) 4.1 % Baso % (Auto) 0.6 % Neut # (Auto) 4.44 (1.4-6.5) K/uL Lymph # (Auto) 1.19 L (1.2-3.4) K/uL [place] # (Auto) 1.15 H (0.11-0.59) K/uL Eos # (Auto) 0.29 (0-0.5) K/uL Baso # (Auto) 0.04 (0-0.2) K/uL Immature Gran # (Auto) 0.01 (0.00-0.02) K/uL PT 34.8 H (9.0-12.0) Seconds INR 3.8 H (0.9-1.1) Sodium (136-145) mmol/L Potassium (3.5-5.1) mmol/L Chloride (98-107) mmol/L Carbon Dioxide (21-32) mmol/L Anion Gap (3-11) BUN (7-18) mg/dl Creatinine (0.6-1.4) mg/dl Est Cr Clr Drug Dosing ml/min Est GFR ( Amer) ml/min Est GFR (Non-Af Amer) ml/min BUN/Creatinine Ratio (10-20) Glucose (70-99) mg/dl Calcium (8.5-10.1) mg/dl Ionized Calcium (1.12-1.32) mmol/L Phosphorus 4.8 (2.5-4.9) mg/dl Magnesium 1.6 L (1.8-2.4) mg/dl Iron (35-175) mcg/dl TIBC (250-450) mcg/dl Transferrin (200-360) mg/dl Transferrin % Sat (20-50) % Ferritin (8-388) ng/ml Total Bilirubin (0.2-1) mg/dl AST (15-37) U/L ALT (12-78) U/L Alkaline Phosphatase (45-117) U/L Total Protein (6.4-8.2) gm/dl Albumin (3.4-5.0) gm/dl Globulin (2.5-4.0) gm/dl Albumin/Globulin Ratio (0.9-2) Vitamin B12 Folate COVID-19 Eval Order SARS-CoV-2 (PCR) (Negative) Diagnostic Findings Renal Ultrasound 05/22/21 16:43 ULTRASOUND KIDNEYS AND BLADDER CLINICAL HISTORY: Acute renal insufficiency. COMPARISON STUDY: Abdominal CT dated 02/04/2020. TECHNIQUE: Real-time, grayscale, and color flow sonography of the kidneys and bladder is performed. Images are reviewed in the transverse and longitudinal planes. FINDINGS: Kidneys: The kidneys are normal in size and echotexture. The right kidney measures 12.2 cm in length and the left kidney measures 13.8 cm in length. There is severe bilateral hydroureteronephrosis. Ureters are distended to the level of the bladder. No shadowing renal calculi are identified. There is no sonographic evidence of contour deforming renal mass lesion. No perinephric fluid is identified. Bladder: Bladder is markedly distended and contains intraluminal debris. Only the right ureteral jet was identified. IMPRESSION: 1. The bladder is markedly distended and there is moderate to severe bilateral hydroureteronephrosis. The appearance suggests bladder outlet obstruction. 2. Intraluminal debris is noted within the bladder. Correlate with urinalysis. ACT 112: Negative or not required by law. Electronically signed by: Tevin Lozada M.D. 05/22/2021 8:30 PM Abdomen/Pelvis CT 05/23/21 07:04 CT SCAN OF THE ABDOMEN AND PELVIS WITHOUT IV CONTRAST CLINICAL HISTORY: Urinary retention. Acute renal insufficiency. COMPARISON STUDY: Abdominal CT dated 02/04/2020. Renal ultrasound dated 05/22/2021. TECHNIQUE: CT scan of the abdomen and pelvis is performed from the lung bases to the proximal femora. Images are reviewed in the axial, sagittal, and coronal planes. IV contrast was not administered for this examination. A dose lowering technique was utilized adhering to the principles of ALARA. CT DOSE: 952.90 mGycm FINDINGS: Lung bases: The heart is normal in size and without pericardial effusion. The lung bases are clear noting bibasilar atelectasis. Liver: The unenhanced liver is normal in size, contour, and attenuation. There is no intrahepatic biliary ductal dilatation. Gallbladder: Unremarkable. Spleen: Normal in size and attenuation. Pancreas: Unremarkable. Adrenal glands: Unremarkable. Kidneys: The unenhanced kidneys are normal in size. There is severe bilateral hydroureteronephrosis. The ureters are dilated to the level of the markedly distended bladder, with no obstructing stone or mass lesion identified. No renal calculi are seen in. There is no evidence of contour deforming renal mass lesion. There is bilateral perinephric stranding and trace fluid. Abdominal vasculature: The abdominal aorta is normal in course and caliber. Bowel: There is postoperative change from right-sided colon resection with right lower quadrant ileostomy. A parastomal hernia contains nonobstructed small bowel. No obstruction is identified. A colonic stump terminates in the ventral pelvis. Peritoneum: There is no intraperitoneal free air or abdominal ascites. There is a small fat-containing umbilical hernia. Lymphadenopathy: None. Pelvic viscera: The bladder is markedly distended measuring 27 cm in length. There is no gallbladder wall thickening. The prostate gland is mildly enlarged and heterogeneous. A central defect suggests previous TURP. The seminal vesicles are normal as imaged. Skeletal structures: The skeletal structures appear osteopenic. Mild to moderate lumbosacral spondylosis is observed. There is a subacute/healing left transverse process fracture of L3. No lytic or blastic lesions are seen. Postoperative change is noted in the left proximal femur. IMPRESSION: 1. Markedly distended and mildly thick-walled bladder, with severe bilateral hydroureteronephrosis. The appearance is typical for bladder outlet obstruction and this is unchanged from yesterday's ultrasound. 2. There is postoperative change from right colon resection with right lower quadrant ileostomy. No bowel obstruction is seen. 3. A parastomal hernia contains nonobstructed small bowel. 4. There is a subacute/healing left transverse process fracture of L3. 5. Additional findings as above. ACT 112: Negative or not required by law. Electronically signed by: Tevin Lozada M.D. 05/23/2021 8:22 AM PG Care Time/CCT Total # of Minutes Spent Total Time Spent with Patient: Total time spent is greater than 50% in coordination of care (as documented) at patient's floor/unit and/or counseling patient: Coding Level of Care Code 89480 Subseq Hosp Care Lvl 3 Diagnoses MARK (acute kidney injury) N17.9 Hypocalcemia E83.51 Hypomagnesemia E83.42 Metabolic acidosis E87.2 Anemia D64.9 Episodic atrial fibrillation I48.0 Ulcerative colitis K51.00 Digestive disease complication type: without complication Ulcerative colitis location: ulcerative pancolitis HTN (hypertension), benign I10 DVT, bilateral lower limbs I82.403 (1) Ulcerative colitis Digestive disease complication type: without complication Ulcerative colitis location: ulcerative pancolitis Qualified Code(s): K51.00 - Ulcerative (chronic) pancolitis without complications
[2021-05-23] MEDS ORDERED: CALCIUM GLUCONATE 10% 3,000 MG in 0.9 % SODIUM CHLORIDE 100 ML IV ONE ×2 (08:00→13:30)
[2021-05-23 08:18] LABS: Folate (Folic Acid) 18.9 ng/ml (>5.38)
--- NOTE | 2021-05-23 08:23 | CT Scan Report ---
CT SCAN OF THE ABDOMEN AND PELVIS WITHOUT IV CONTRAST CLINICAL HISTORY: Urinary retention. Acute renal insufficiency. COMPARISON STUDY: Abdominal CT dated 02/04/2020. Renal ultrasound dated 05/22/2021. TECHNIQUE: CT scan of the abdomen and pelvis is performed from the lung bases to the proximal femora. Images are reviewed in the axial, sagittal, and coronal planes. IV contrast was not administered for this examination. A dose lowering technique was utilized adhering to the principles of ALARA. CT DOSE: 952.90 mGycm FINDINGS: Lung bases: The heart is normal in size and without pericardial effusion. The lung bases are clear no ting bibasilar atelectasis. Liver: The unenhanced liver is normal in size, contour, and attenuation. There is no intrahepatic leia iary ductal dilatation. Gallbladder: Unremarkable. Spleen: Normal in size and attenuation. Pancreas: Unremarkable. Adrenal glands: Unremarkable. Kidneys: The unenhanced kidneys are normal in size. There is severe bilateral hydroureteronephrosis. The ureters are dilated to the level of the markedly distended bladder, with no obstructing stone or mass lesion identified. No renal calculi are seen in. There is no evidence of contour deforming renal mass lesion. There is bilateral perinephric stranding and trace fluid. Abdominal vasculature: The abdominal aorta is normal in course and caliber. Bowel: There is postoperative change from right-sided colon resection with right lower quadrant ileos siak. A parastomal hernia contains nonobstructed small bowel. No obstruction is identified. A colonic stump terminates in the ventral pelvis. Peritoneum: There is no intraperitoneal free air or abdominal ascites. There is a small fat-containin g umbilical hernia. Lymphadenopathy: None. Pelvic viscera: The bladder is markedly distended measuring 27 cm in length. There is no gallbladder wall thickening. The prostate gland is mildly enlarged and heterogeneous. A central defect suggests p revious TURP. The seminal vesicles are normal as imaged. Skeletal structures: The skeletal structures appear osteopenic. Mild to moderate lumbosacral spondylo sis is observed. There is a subacute/healing left transverse process fracture of L3. No lytic or lalo tic lesions are seen. Postoperative change is noted in the left proximal femur. IMPRESSION: 1. Markedly distended and mildly thick-walled bladder, with severe bilateral hydroureteronephrosis. T he appearance is typical for bladder outlet obstruction and this is unchanged from yesterday's ultras ound. 2. There is postoperative change from right colon resection with right lower quadrant ileostomy. No b owel obstruction is seen. 3. A parastomal hernia contains nonobstructed small bowel. 4. There is a subacute/healing left transverse process fracture of L3. 5. Additional findings as above. ACT 112: Negative or not required by law. Electronically signed by: Tevin Lozada M.D. 05/23/2021 8:22 AM
[2021-05-23] MEDS: MAGNESIUM SULFATE / D5W 1 GM/100 ML BAG IV SCH ×2 (08:41→11:00)
--- NOTE | 2021-05-23 08:48 | Urology Consultation ---
Date of Consultation May 23, 2021 Assessment & Plan (1) MARK (acute kidney injury): (2) Bilateral hydronephrosis: 51 year-old male patient, with multiple comorbidities, admitted with MARK and hypocalcemia, found to have b/l hydronephrosis secondary to bladder outlet obstruction. - Plan of care reviewed with Dr. Remy. - Patient afebrile. - Labs reviewed - wbc normal, hgb 8.8, creatinine 4.68. - Urine culture ordered. - Imaging reviewed - consistent with bladder distention and bilateral hydroureteronephrosis typical for bladder outlet obstruction. - Prior attempts for beltran insertion by nursing staff x3 were unsuccessful. - Plan for Dr. Remy to attempt beltran catheter insertion at bedside. - Keep NPO for now in the event catheter insertion requires placement in OR. - Continue supportive care and close monitoring. - Will continue to follow while inpatient. ATTENDING NOTE: Agree with note as above. Independently evaluated, examined, and discussed at length with different options and concerns. Also attempted catheter placement. Patient to be prepped and draped in the usual sterile fashion and a 16 [place] coud catheter was attempted to be placed. Patient had a considerable blockage within the region of the bulbar urethra. As it was quite uncomfortable a attempt was made but once it was clear he was not going to pass this was ceased. Patient has previously had strictures and had undergone intervention with the surgical team in [place] in the past for severe stricture disease and inability to pass catheter. Risks and benefits discussed at length for procedure. These include bleeding, infection, injury to surrounding tissues or organs, and risks associated with anesthesia. Patient states understanding and agrees to proceed. Will sign consent and proceed. Plan cysto, dilation, and catheter placement. We will likely plan to maintain catheter for few weeks and then remove after adequate time for healing. History of Present Illness Reason for Consultation: MARK, bilateral hydro, bladder outlet obstruction Attending Physician: Ivan De Leon MD History of Present Illness 51-year-old male patient, with history of colon cancer and ulcerative colitis status post colectomy, anemia of chronic kidney disease, left lower extremity DVT on Coumadin, paroxysmal atrial fibrillation, and renal failure requiring hemodialysis after an ICU stay for small bowel obstruction in 01/2020, presented to the ER due to being referred from his business education instructor due to MARK and hypocalcemia. Patient reports he has been off hemodialysis since 07/2020 and follows with nephrology Dr. Rodriguez Ocampo in [place]. Was admitted by hospital team for continued intervention. Urology consulted for bilateral hydronephrosis, MARK, and bladder outlet obstruction. Patient reports he followed with Dr. Lizarraga roughly 15 years ago. Does have a remote history of urethral stricture, requiring surgical procedure. He is currently not on any home medications for urinary pattern. Chart review: Afebrile Wbc 6.17 Hgb 8.8 Creatinine 4.68 (per chart, was 3.58 two months ago) Urinalysis +2 leukocytes, >30 wbc, 0-4 rbc, negative bacteria, negative nitrates Renal ultrasound - IMPRESSION: 1. The bladder is markedly distended and there is moderate to severe bilateral hydroureteronephrosis. The appearance suggests bladder outlet obstruction. 2. Intraluminal debris is noted within the bladder. Correlate with urinalysis CT abd/pelvis - IMPRESSION: 1. Markedly distended and mildly thick-walled bladder, with severe bilateral hydroureteronephrosis. The appearance is typical for bladder outlet obstruction and this is unchanged from yesterday's ultrasound. 2. There is postoperative change from right colon resection with right lower quadrant ileostomy. No bowel obstruction is seen. 3. A parastomal hernia contains non-obstructed small bowel. 4. There is a subacute/healing left transverse process fracture of L3. Patient examined at bedside. He is alert, awake, and comfortable. Reports he feels "fine". Currently denies abdominal or flank pain. Denies bladder pain or pressure. Denies dysuria or hematuria. Baseline urination includes urinary frequency/urgency. Daytime frequency every 2-3 hours on average. Nocturia 3 times per night. As previously mentioned, no prior history of hematuria at baseline. Does note he does not feel like he empties his bladder well. No incontinence. Denies fevers or chills. Denies nausea or vomiting. Has been NPO since midnight. Denies additional urologic concerns today. Allergies Allergy/AdvReac Type Severity Reaction Status Date / Time infliximab AdvReac Severe body Verified 05/23/21 17:38 aches;couldn't sleep Home Medications Medication Instructions Recorded Confirmed Type fluocinonide 0.05 % topical 1 applic TOPICAL BID #15 g 04/11/21 05/22/21 Rx ointment amlodipine 5 mg PO QAM 05/22/21 05/22/21 History ferrous sulfate 325 mg PO QAM 05/22/21 05/22/21 History warfarin 10 mg PO 5XWK 05/22/21 05/22/21 History warfarin 15 mg PO WK 05/22/21 05/22/21 History warfarin [Coumadin] 6 mg PO WK 05/22/21 05/22/21 History Patient History Medical History Carpal tunnel syndrome on both sides Closed fracture of neck of left femur Closed left hip fracture Deep vein thrombosis in leg 15yrs ago DVT (deep venous thrombosis) Dysplastic nevus GI bleed History of DVT (deep vein thrombosis) HTN (hypertension), benign Hyperlipidemia On anticoagulant therapy eliquis daily Pulmonary embolism Secondary hypercoagulable state Small bowel obstruction Ulcerative colitis Vitamin D deficiency Surgical History History of colectomy History of colonoscopy History of hernia repair Family History Mother Hypertension Bone cancer Amputation below knee Other No family history of adverse response to anesthesia Social History Smoking Status: Never smoker Second Hand Exposure: No; Hx Alcohol Use: No Hx Substance Use: No Preferred Language: Maldivian Communication Ability: Effective Visual Impairment: No Limitations Hearing Ability: Normal Pt Escort Required: No Beliefs That Will Affect Care: None marital status: Current Living Situation: Spouse current occupational status: employed Feels Safe at Home: Yes Safety Concerns: Feels Safe At This Time Childhood Exposure to Second-Hand Smoke: Yes caffeine: Yes Dental Care, Regularly: Yes Seatbelt Use: always Sunscreen Use: No Assistive Devices: None Review of Systems Constitutional: as per Subjective / HPI; no fever and no chills Eyes: no problem reported Ear, Nose, Mouth, Throat: no dizziness Respiratory: no cough and no dyspnea Cardiovascular: no chest pain and no edema Gastrointestinal: as per Subjective / HPI Genitourinary: + as per Subjective / HPI Musculoskeletal: as per Subjective / HPI Neurologic: no dizziness Endocrine: no fatigue Hematologic / Lymphatic: no easy bleeding and no easy bruising Physical Exam Constitutional: well developed and well nourished; no acute distress and not ill appearing ENMT: Ears: no external ear abnormality Nose: no external nose abnormality Neck: normal visual inspection and trachea midline Respiratory: normal respiratory effort and able to speak in complete sentences; no respiratory distress and no audible wheezes Cardiovascular: Extremities: + edema (+1 pitting edema to b/l lower extremities.); no calf tenderness Gastrointestinal (Abdomen): Inspection/Auscultation: abdomen normal to inspection and + abdomen distended (Mildly distended ) Percussion/Palpation: abdomen soft; abdomen nontender and no guarding Ileostomy intact and functioning to RLQ. Musculoskeletal: Moves all extremities without difficulty. Skin: No visible rashes, lesions, or wounds noted. Neurologic: moves all extremities and awake Psychiatric: Orientation: alert, oriented x 3 and cooperative Genitourinary: no CVA tenderness Urine in urinal clear yellow. Results & Data ([facility] [place]) Vital Signs (Past 12 Hours) Vital Signs Temp Pulse Pulse Resp BP Pulse Ox 05/23/21 07:41 36.7 C 67 18 152/70 H 93 05/23/21 03:46 36.5 C 76 16 129/80 98 05/23/21 01:23 71 05/22/21 22:39 36.6 C 72 18 150/84 H 97 PG Care Time/CCT Total # of Minutes Spent Total Time Spent with Patient: Total time spent is greater than 50% in coordination of care (as documented) at patient's floor/unit and/or counseling patient: Coding Level of Care Code 05199 Inpt Consult Level 4 Diagnoses MARK (acute kidney injury) N17.9 Bilateral hydronephrosis N13.30
--- NOTE | 2021-05-23 12:41 | Nephrology Consultation ---
Date of Consultation May 23, 2021 Assessment & Plan (1) MARK (acute kidney injury): * MARK related to bilateral ureteral obstruction (2) Hypocalcemia: * Asymptomatic. Agree w/ IV Ca supplementation (3) Metabolic acidosis: * Recommend correcting serum Ca before adding NaHCO3 to IVF. Ca will shift intracellular as serum pH rises (4) Hypomagnesemia: * Agree w/ cautious supplementation (2 g IV x1) * Monitor serum Mg levels (5) Bilateral hydronephrosis: * Likely BPH * Await Urology evaluation * Recommend checking PSA History of Present Illness Reason for Consultation: MARK/CKD Attending Physician: Ivan De Leon MD History of Present Illness Mr. Ortiz is a 51 year old white male (resident of [place], [place] near [place]) who is seen at the request of Dr. Millard for evaluation of MARK/CKD. Medical records in the EMR were reviewed today and are summarized as follows: Mr. Ortiz denies any h/o CKD. His baseline Cr had been 0.9. His medical history is significant for inflammatory bowel disease. 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 This was performed at [facility]. 140 lymph nodes were removed and found to be negative for metastatic disease. In 02/09 Mr Ortiz was again hospitalized at [facility] for management of SBO. 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 At the time of discharge his kidneys did not recover and he was maintained on HD at [facility] in [place], [place]. In 08/12 Mr. Ortiz reports that he regained sufficient kidney function to stop dialysis. His Cr stabilized at ~ 3.[address] Barker recommended initiating transplant evaluation. Recently Mr. Ortiz completed blood work for Dr. Barker. Cr had risen to 4.4. [facility] ED evaluation was advised. Renal US revealed bladder distention w/ moderate to severe bilateral hydronephrosis. staff readiness officer was unable to place Silverman catheter. Urology has been consulted. Allergies Allergy/AdvReac Type Severity Reaction Status Date / Time infliximab AdvReac Severe body Verified 05/22/21 14:10 aches;couldn't sleep Home Medications Medication Instructions Recorded Confirmed Type fluocinonide 0.05 % topical 1 applic TOPICAL BID #15 g 04/11/21 05/22/21 Rx ointment amlodipine 5 mg PO QAM 05/22/21 05/22/21 History ferrous sulfate 325 mg PO QAM 05/22/21 05/22/21 History warfarin 10 mg PO 5XWK 05/22/21 05/22/21 History warfarin 15 mg PO WK 05/22/21 05/22/21 History warfarin [Coumadin] 6 mg PO WK 05/22/21 05/22/21 History Patient History Medical History Carpal tunnel syndrome on both sides Closed fracture of neck of left femur Closed left hip fracture Deep vein thrombosis in leg 15yrs ago DVT (deep venous thrombosis) Dysplastic nevus GI bleed History of DVT (deep vein thrombosis) HTN (hypertension), benign Hyperlipidemia On anticoagulant therapy eliquis daily Pulmonary embolism Secondary hypercoagulable state Small bowel obstruction Ulcerative colitis Vitamin D deficiency Surgical History History of colectomy History of colonoscopy History of hernia repair Family History Mother Hypertension Bone cancer Amputation below knee Other No family history of adverse response to anesthesia Social History Smoking Status: Never smoker Second Hand Exposure: No; Hx Alcohol Use: No Hx Substance Use: No Preferred Language: Nigerien Communication Ability: Effective Visual Impairment: No Limitations Hearing Ability: Normal 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 Beliefs That Will Affect Care: None marital status: Current Living Situation: Spouse current occupational status: employed Feels Safe at Home: Yes Safety Concerns: Feels Safe At This Time Childhood Exposure to Second-Hand Smoke: Yes caffeine: Yes Dental Care, Regularly: Yes Seatbelt Use: always Sunscreen Use: No Assistive Devices: None Review of Systems Constitutional: no fever Eyes: no problem reported Ear, Nose, Mouth, Throat: no problem reported Respiratory: no dyspnea Cardiovascular: no chest pain Gastrointestinal: no abdominal pain and no nausea Genitourinary: + urinary hesitancy Musculoskeletal: no back pain Integumentary: no rash Neurologic: no falls and no confusion Physical Exam Constitutional: not in distress Eyes: PERRL, conjunctivae normal, anicteric sclerae ENMT: external ear and nose normal, oropharynx normal Neck: trachea midline, no thyromegaly Respiratory: normal respiratory effort, lungs clear to auscultation Cardiovascular: RRR, no murmur, no edema Gastrointestinal (Abdomen): normal bowel sounds, soft, nontender, no hepatosplenomegaly (RLQ ileostomy) Musculoskeletal: Extremities: no cyanosis Skin: no rashes, warm and dry Neurologic: awake; not confused Results & Data ([facility]) Vital Signs (Past 12 Hours) Vital Signs Temp Pulse Pulse Resp BP Pulse Ox 05/23/21 11:08 36.5 C 65 18 147/81 H 99 05/23/21 07:41 36.7 C 67 18 152/70 H 93 05/23/21 03:46 36.5 C 76 16 129/80 98 05/23/21 01:23 71 Laboratory Tests 05/22/21 05/23/21 05/23/21 07:04 06:02 06:02 WBC 6.17 Hgb 8.8 L Hct 26.7 L Plt Count 240 Sodium 140 Potassium 4.2 Chloride 115 H Carbon Dioxide 18 L BUN 57 H Creatinine 4.68 H* Calcium 5.9 L* Magnesium 1.7 L Albumin 3.1 L Urine Color Yellow Urine Appearance Clear Urine pH 5.5 Ur Specific [place] 1.008 Urine Protein Negative Urine Glucose (UA) Negative Urine Blood Trace H Urine RBC (Auto) 0-4 PG Care Time/CCT Total # of Minutes Spent Total Time Spent with Patient: Total time spent is greater than 50% in coordination of care (as documented) at patient's floor/unit and/or counseling patient: Coding Level of Care Code 20956 Inpt Consult Level 5 Diagnoses MARK (acute kidney injury) N17.9 Hypocalcemia E83.51 Metabolic acidosis E87.2 Hypomagnesemia E83.42 Bilateral hydronephrosis N13.30
[2021-05-23 13:01] LABS: BUN Creatinine Ratio 11.8 (10-20); Calcium 6.6 mg/dl (8.5-10.1); Creatinine Clr Calc Pharmacy 22.6 ml/min; Est GFR (African American) 15.7 ml/min; Est GFR (Non-African American) 13.6 ml/min; Magnesium 2.4 mg/dl (1.8-2.4); Phosphorus 5.1 mg/dl (2.5-4.9); Potassium 4.2 mmol/L (3.5-5.1)
[2021-05-23] MEDS: amLODIPine BESYLATE 5 MG TAB PO SCH (13:15)
[2021-05-23] MEDS: FERROUS SULFATE 325 MG TAB PO SCH (13:15)
--- NOTE | 2021-05-23 14:40 | Electrocardiogram Report ---
Test Reason : Blood Pressure : / mmHG Vent. Rate : 077 BPM Atrial Rate : 077 BPM P-R Int : 178 ms QRS Dur : 098 ms QT Int : 400 ms P-R-T Axes : 031 016 031 degrees QTc Int : 453 ms Normal sinus rhythm Normal ECG When compared with ECG of 24-MAY-2019 02:21, No significant change was found Confirmed by Santiago Romero ([id number]) on 05/23/2021 2:40:03 PM Referred By: Rodriguez Ocampo Confirmed By:Santiago Romero
[2021-05-23] MEDS: CALCITRIOL 0.25 MCG CAPSULE PO SCH (14:52)
[2021-05-23] MEDS ORDERED: DEXAMETHASONE SOD INJ 4 MG/ML VIAL ONE (17:22)
[2021-05-23] MEDS ORDERED: LIDOCAINE 2% 2 ML VIAL/AMP(20MG/ML) INFIL ONE (17:22)
[2021-05-23] MEDS ORDERED: ONDANSETRON INJ 2 MG/ML 2 ML VIAL ONE (17:22)
[2021-05-23] MEDS ORDERED: PROPOFOL IV EMULSION 10 MG/ML 20 ML VIAL IV ONE (17:22)
[2021-05-23] MEDS ORDERED: fentaNYL citrate 100 MCG/2 ML VIAL ONE (17:23)
[2021-05-23] MEDS ORDERED: MIDAZOLAM HCL 1 MG/ML 2ML VIAL ONE (17:23)
--- NOTE | 2021-05-23 17:44 | Anesthesiology Consultation ---
Date of Service May 23, 2021 Assessment & Plan (1) Encounter for pre-operative examination: Chart Review Chart Review: Acceptable Risk for Surgery and Patient NOT seen in Pre Admission Testing Consults Requested none History Surgery Operation Date: 05/23/21 14:30 Proposed Procedures p Cystoscopy Uretheral Dilation , Catheter Placement - Bradley Remy DO Height/Weight Height: 5 ft 11 in Weight: 98.5 kg Allergies Allergy/AdvReac Type Severity Reaction Status Date / Time infliximab AdvReac Severe body Verified 05/23/21 17:38 aches;couldn't sleep Medications Home Medications Medication Instructions Recorded Confirmed Last Taken fluocinonide 0.05 % topical 1 applic TOPICAL BID #15 g 04/11/21 05/22/21 Unknown ointment amlodipine 5 mg PO QAM 05/22/21 05/22/21 05/22/21 ferrous sulfate 325 mg PO QAM 05/22/21 05/22/21 05/22/21 warfarin 10 mg PO 5XWK 05/22/21 05/22/21 05/21/21 warfarin 15 mg PO WK 05/22/21 05/22/21 05/19/21 warfarin [Coumadin] 6 mg PO WK 05/22/21 05/22/21 05/18/21 Active Medications Generic Name Dose Route Start Last Admin Trade Name Freq PRN Reason Stop Dose Admin Amlodipine Besylate 5 mg 05/23/21 09:00 05/23/21 13:15 Amlodipine Besylate 5 Mg Tab PO 06/22/21 08:59 Not Given QAM LIDIA Calcitriol 0.25 mcg 05/23/21 14:00 05/23/21 14:52 Calcitriol 0.25 Mcg Capsule PO 06/22/21 13:59 0.25 mcg QAM LIDIA Administration Ferrous Sulfate 325 mg 05/23/21 09:00 05/23/21 13:15 Ferrous Sulfate 325 Mg Tab PO 06/22/21 08:59 Not Given QAM LIDIA Sodium Bicarbonate 100 meq/ 1,100 mls @ 80 mls/hr 05/22/21 17:15 05/23/21 15:04 Dextrose IV 06/21/21 17:14 Infused .[id number] LIDIA Infusion Tamsulosin HCl 0.4 mg 05/22/21 23:40 05/23/21 00:16 Tamsulosin Hcl 0.4 Mg Cap PO 06/21/21 23:39 0.4 mg HS LIDIA Administration NPO Date Last Intake of Fluids: 05/22/21 Date Last Intake of Solids: 05/22/21 Past Medical History Medical History Carpal tunnel syndrome on both sides Closed fracture of neck of left femur Closed left hip fracture Deep vein thrombosis in leg 15yrs ago DVT (deep venous thrombosis) Dysplastic nevus GI bleed History of DVT (deep vein thrombosis) HTN (hypertension), benign Hyperlipidemia On anticoagulant therapy eliquis daily Pulmonary embolism Secondary hypercoagulable state Small bowel obstruction Ulcerative colitis Vitamin D deficiency Past Family History Family History Mother Hypertension Bone cancer Amputation below knee Other No family history of adverse response to anesthesia Past Surgical History Surgical History History of colectomy History of colonoscopy History of hernia repair Social History Smoking Status: Never smoker Hx Alcohol Use: No Alcohol type: beer alcohol intake frequency: holidays/special occasions only Hx Substance Use: No substance use type: does not use Physical Exam Vital Signs Last Vital Signs Temp 36.6 C 05/23/21 17:39 Pulse 77 05/23/21 17:39 Resp 18 05/23/21 17:39 BP 159/95 H 05/23/21 17:39 Pulse Ox 100 05/23/21 17:39 Testing Laboratory Results 05/23/21 06:02 PT 31.5 Seconds (9.0-12.0) H 05/23/21 06:02 INR 3.4 (0.9-1.1) H 05/23/21 06:02 05/22/21 16:47 POC Glucose 88
[2021-05-23] MEDS ORDERED: ONDANSETRON INJ 2 MG/ML 2 ML VIAL IV PRN (17:46)
[2021-05-23] MEDS ORDERED: LABETALOL HCL IV 5 MG/ML 20ML IV PRN (17:46)
[2021-05-23] MEDS ORDERED: PHENYLEPHRINE 100MCG/ML 5ML SYR IV PRN (17:46)
[2021-05-23] MEDS ORDERED: ATROPINE SULFATE 0.1 MG/ML 10ML SYR IV PRN (17:46)
[2021-05-23] MEDS ORDERED: ePHEDrine sulfate 50 MG/ML AMP IV PRN (17:46)
[2021-05-23] MEDS ORDERED: fentaNYL citrate 100 MCG/2 ML VIAL IV PRN (17:46)
[2021-05-23] MEDS ORDERED: KETAMINE 50 MG/5 ML SYRINGE ONE (17:56)
[2021-05-23 18:17] LABS: BUN Creatinine Ratio 11.7 (10-20); Calcium 7.4 mg/dl (8.5-10.1); Creatinine Clr Calc Pharmacy 22.8 ml/min; Est GFR (African American) 15.8 ml/min; Est GFR (Non-African American) 13.7 ml/min; Potassium 4.1 mmol/L (3.5-5.1)
--- NOTE | 2021-05-23 18:25 | Operative Report ---
PG Post Operative Report Pre & Post Diagnosis Operation Date: 05/23/21 14:30 Pre-Op Diagnosis: urethral stricture, acute on chronic retention, MARK Post-Op Diagnosis: urethral stricture, acute on chronic retention, MARK I identified the patient and participated in the time-out.: Yes Procedure Operation Date: 05/23/21 14:30 Actual Procedures p Cystoscopy, Urethral Dilation , Catheter Placement(Not Applicable) - Bradley Remy DO Surgeon Bradley Remy, II, DO Broadcast Systems Engineer None Estimated Blood Loss 1 Findings Consistent with Post-Op Diagnosis Pinpoint urethral stricture of the bulbar urethra. Area was cannulated, dilated, and bypassed. Specimens None Drains 22 Fr [place] Tip Anesthesia Type MAC Complications none Disposition Disposition: Recovery Room Indications Patient with concern for urethral stricture. Acute on chronic retention with severe MARK. Risks and benefits discussed at length. Description of Procedure Patient was consented and brought back to the operating room. Patient was placed under anesthesia in the supine position and moved to the dorsal lithotomy position. Patient was prepped and draped in the regular sterile fashion. A time out was completed. A 30 degree Cystoscope was placed into the urethra. The scope was advanced and a significant narrowing/stricture was discovered in the urethra. A pinpoint stricture at the bulbar urethra. A flexible wire was able to be manipulated into the opening. Sequentially with Akin Dilators, the stricture was dilated from 14 fr to 24 fr. This opened the stricture significantly. The scope was then advanced past the stricture. The area was inspected. The scope was then advanced to the bladder and the entire bladder was examined. The bladder was immediately emptied. Over 3600cc of urine was drained from the bladder on initial placement of the scope in the bladder. The UO's were identified as well as the bladder neck, trigone, dome, and the other important landmarks. No lesions/suspicious areas were identified. Moderate irritation throughout. Blood clots in bladder were irrigated and removed. No significant bleeding at sight of dilation. The bladder was inspected a final time. The scope was removed. No considerable bleeding from the dilated area. The wire remained in placed. A 22 Fr alutiiq tip catheter was placed over the wire and positioned into the bladder and set to drainage. The patient was cleaned, aroused from anesthesia, and transferred to the pacu in stable condition having tolerated the procedure well with no complications. I was present and participated in all aspects of the procedure. The patient will be monitored in the PACU until transferred. Catheter will remain until followup for removal. Likely 2-3 weeks. Will monitor for improvement. Will check blood work in 1-2 hours and may need to work with hospitalist/medicine to monitor electrolytes with possibility of post-obstructive diuresis. I attest to the content of the Intraoperative Record and any orders documented therein. Any exceptions are noted below.
[2021-05-23] MEDS ORDERED: CALCIUM GLUCONATE 10% 1,000 MG in SODIUM CHLORIDE 0.9% 50 ML IV ONE (19:00)
--- NOTE | 2021-05-23 19:01 | Anesthesiology Progress Note ---
Date of Service May 23, 2021 Anesthesia Post Procedure Vital Signs Vital Signs: Temp Pulse Pulse Pulse Resp BP Pulse Ox 05/23/21 18:45 36.4 C L 82 17 149/84 H 99 05/23/21 18:35 79 13 152/86 H 100 05/23/21 18:26 36.4 C L 82 12 145/88 H 100 05/23/21 17:39 36.6 C 77 18 159/95 H 100 05/23/21 15:05 36.6 C 63 18 148/82 H 99 05/23/21 11:08 36.5 C 65 18 147/81 H 99 05/23/21 07:41 36.7 C 67 18 152/70 H 93 05/23/21 03:46 36.5 C 76 16 129/80 98 05/23/21 01:23 71 05/22/21 22:39 36.6 C 72 18 150/84 H 97 05/22/21 20:34 36.9 C 67 18 157/83 H 93 Transfer of Care Handoff Completed per policy Notes Mental Status: alert / awake / arousable Patient Amnestic to Procedure: Yes Nausea / Vomiting: adequately controlled Pain: adequately controlled Airway Patency, RR, SpO2: stable & adequate BP & HR: stable & adequate Hydration State: stable & adequate Anesthetic Complications: no major complications apparent and Pt Satisfied with anesthetic care
[2021-05-23 20:14] LABS: Albumin Globulin Ratio 0.7 (0.9-2); Albumin Level 3.2 gm/dl (3.4-5.0); BUN Creatinine Ratio 12.2 (10-20); Bilirubin,Total 0.9 mg/dl (0.2-1); Calcium 7.3 mg/dl (8.5-10.1); Creatinine Clr Calc Pharmacy 23.4 ml/min; Est GFR (African American) 16.4 ml/min; Est GFR (Non-African American) 14.1 ml/min; Globulin 4.5 gm/dl (2.5-4.0); Magnesium 2.2 mg/dl (1.8-2.4); Phosphorus 5.2 mg/dl (2.5-4.9); Potassium 3.9 mmol/L (3.5-5.1); Total Protein 7.7 gm/dl (6.4-8.2)
[2021-05-24] MEDS ORDERED: CALCIUM GLUCONATE 10% 1,000 MG in SODIUM CHLORIDE 0.9% 50 ML IV ONE (06:30)
[2021-05-24] MEDS: amLODIPine BESYLATE 5 MG TAB PO SCH (07:24)
[2021-05-24] MEDS: FERROUS SULFATE 325 MG TAB PO SCH (07:24)
[2021-05-24] MEDS: CALCITRIOL 0.25 MCG CAPSULE PO SCH (07:24)
[2021-05-24 07:38] LABS: BUN Creatinine Ratio 12.1 (10-20); Calcium 6.8 mg/dl (8.5-10.1); Creatinine Clr Calc Pharmacy 24.5 ml/min; Est GFR (Non-African American) 15.5 ml/min; Magnesium 2.1 mg/dl (1.8-2.4); Potassium 4.2 mmol/L (3.5-5.1)
--- NOTE | 2021-05-24 07:56 | Urology Progress Note ---
Date of Service May 24, 2021 Assessment & Plan (1) MARK (acute kidney injury): (2) Bilateral hydronephrosis: 51 year-old male patient, with multiple comorbidities, admitted with MARK and hypocalcemia, found to have b/l hydronephrosis secondary to bladder outlet obstruction. - POD#1 cystoscopy, urethral dilation, and beltran catheter placement - found to have urethral stricture of the bulbar urethra. - Patient doing well post procedure. - Remains afebrile. - Labs reviewed - creatinine remains elevated however improved to 4.18 (previously 4.51). - Urine culture pending, treat if indicated. - Recommend maintaining beltran catheter for a total of 2-3 weeks. - Continue supportive care and monitoring of electrolytes given possibility of post-obstructive diuresis. - Will arrange outpatient follow-up with urology service for continued follow-up and voiding trial. - Expected clinical course reviewed with patient, all questions answered. - Will continue to follow peripherally. Please contact us with any additional questions/concerns. Admission and Anticipated Discharge Date Admission Date: May 22, 2021 Subjective POD#1 cystoscopy, urethral dilation, and beltran catheter placement with Dr. Remy - found to have urethral stricture of the bulbar urethra. Patient feeling well this morning. Feels his abdomen is less distended. Tolerating beltran catheter which is patent and draining clear yellow/pink urine. Denies dysuria. Denies abdominal/flank pain. Denies nausea or vomiting. Denies fevers or chills. He would like to go home today. Chart review: Afebrile. Labs 05/23 reviewed - Wbc 6.17 Hgb 8.8 Creatinine today 4.18 (previously 4.51) Urine culture pending. Denies additional urologic concerns today. Review of Systems Constitutional: as per Subjective / HPI; no fever and no chills Gastrointestinal: as per Subjective / HPI; no nausea and no vomiting Genitourinary: + as per Subjective / HPI Physical Exam Constitutional: well developed and well nourished; no acute distress and not ill appearing Respiratory: normal respiratory effort and able to speak in complete sentences; no respiratory distress and no audible wheezes Gastrointestinal (Abdomen): Inspection/Auscultation: abdomen normal to inspection; abdomen not distended Percussion/Palpation: abdomen soft; abdomen nontender and no guarding Colostomy intact and functioning to RLQ. Psychiatric: Orientation: alert, oriented x 3 and cooperative Affect: euthymic affect Genitourinary: no CVA tenderness Beltran catheter intact, draining clear ye llow/pink urine. Results & Data ([facility]) Vital Signs (Past 12 Hours) Vital Signs Temp Pulse Pulse Resp BP Pulse Ox 05/23/21 23:47 72 05/23/21 22:55 36.5 C 81 18 126/75 99 05/23/21 20:22 36.4 C L 67 18 133/75 99 PG Care Time/CCT Total # of Minutes Spent Total Time Spent with Patient: Total time spent is greater than 50% in coordination of care (as documented) at patient's floor/unit and/or counseling patient: Coding Level of Care Code 46583 Subseq Hosp Care Lvl 2 Diagnoses MARK (acute kidney injury) N17.9 Bilateral hydronephrosis N13.30
[2021-05-24] MEDS ORDERED: CALCIUM GLUCONATE 10% 2,000 MG in SODIUM CHLORIDE 0.9% 50 ML IV ONE (08:15)
--- NOTE | 2021-05-24 08:49 | Discharge Summary ---
Date of Service May 24, 2021 Admission HPI Per Admitting Provider This patient is a 51-year-old male with a history of colon cancer and ulcerative colitis status post total colectomy, anemia of chronic kidney disease, left lower extremity DVT on Coumadin, paroxysmal atrial fibrillation on the setting of septic shock and renal failure requiring hemodialysis after an ICU stay for small bowel obstruction in 01/2020. He has been off hemodialysis since 07/2020 and follows with nephrology Dr. Rodriguez Ocampo in [place]. He presents to the ER today after being called by his fixed income portfolio manager office after having blood work which showed acute kidney injury with elevation in his creatinine as well as hypocalcemia. He feels little bit weak and tired but denies any nausea/vomiting/diarrhea. He has been having normal output through his ostomy. Denies any urinary symptoms and reports he has been making good urine. He does work outside as a construction supervisor/carpenter and has been very hot and may be a little bit dehydrated he reports. He did have some cramping in his calf last night but otherwise no muscle pains. His denies any seizure activity or tremors. He denies any recent changes in medications. He denies bleeding from anywhere. His creatinine upon arrival was 4.47 up from 3.58 two months ago. His corrected calcium was 6.2 and he was given 2 g of IV calcium gluconate and IV fluids in the ER as well as 1 g of IV magnesium. Admission Exam Per Admitting Provider Constitutional: WD/WN, vitals as above Eyes: PERRL, conjunctivae normal, anicteric sclerae ENMT: external ear and nose normal, oropharynx normal Neck: trachea midline, no thyromegaly Respiratory: normal respiratory effort, lungs clear to auscultation Cardiovascular: Rate/Rhythm: regular rate and regular rhythm Heart Sounds: no murmur Extremities: + edema (2+ pitting edema of the legs to the knees bilaterally) Chest (Breasts): Chest: normal inspection of chest Gastrointestinal (Abdomen): Inspection/Auscultation: normal bowel sounds; + abdomen abnormal to inspection (With ileostomy bag full of stool and gas) and abdomen not distended Percussion/Palpation: abdomen soft; abdomen nontender Musculoskeletal: Extremities: extremities normal to inspection; no cyanosis and no clubbing Skin: no rashes, warm and dry Neurologic: moves all extremities and awake; no focal motor deficits Psychiatric: A+Ox3, euthymic affect Principal Diagnosis MARK, Bladder Outlet Obstruction Discharge Exam Constitutional WD/WN, vitals as above Eyes PERRL, conjunctivae normal, anicteric sclerae ENMT external ear and nose normal, oropharynx normal Neck trachea midline, no thyromegaly Respiratory normal respiratory effort, lungs clear to auscultation Cardiovascular Rate/Rhythm: regular rate and regular rhythm Heart Sounds: no murmur Extremities: + edema (2+ pitting edema of the legs to the knees b/l L>R) Chest (Breasts) Chest: normal inspection of chest Gastrointestinal (Abdomen) Inspection/Auscultation: normal bowel sounds; + abdomen abnormal to inspection (With ileostomy bag full of stool and gas) Percussion/Palpation: abdomen soft; abdomen nontender Musculoskeletal Extremities: extremities normal to inspection; no cyanosis and no clubbing Skin no rashes, warm and dry Neurologic moves all extremities and awake; no focal motor deficits Psychiatric A+Ox3, euthymic affect Orientation: alert and oriented x 3 Genitourinary Beltran draining blood tinged urine Discharge Data Allergies Allergy/AdvReac Type Severity Reaction Status Date / Time infliximab AdvReac Severe body Verified 05/23/21 17:38 aches;couldn't sleep Consultations 05/22/21 13:47 ED Decision to Admit Stat 05/22/21 16:04 Consult Nephrology Routine 05/22/21 22:41 Consult Urology Routine 05/23/21 01:12 Consult Urology Stat Procedures Performed Operation Date: 05/23/21 14:30 Actual Procedures p Cystoscopy,. Urethral Dilation , Catheter Placement(Not Applicable) - Bradley Remy DO Ordered Studies 05/22/21 16:43 US renal/blad retro comp Urgent 05/23/21 07:04 CT abd pelvis wo con Stat Hospital Course (1) MARK (acute kidney injury): With acute kidney injury in the setting of CKD stage V, with a previous history of need for hemodialysis after a critical care stay in [facility] 01/2020. He has been off hemodialysis since 07/2020. Creatinine 4.47 upon admission up from baseline of 3.5, with significant hypocalcemia, also with hypomagnesemia, and non-anion gap metabolic acidosis He is making urine, blood pressures are only mildly elevated. He has chronic lower extremity edema which he says is no worse than usual, potassium is normal, and with chronic metabolic acidosis which is not worse than previous. Could be secondary to some mild dehydration, but also need to rule out obstruction Urinalysis with trace blood but 0 RBCs, 2+ leukocyte esterase, greater than 30 WBCs, but also with 20-30 epithelial cells and negative for bacteria Renal US c/w bladder outlet obstruction CTAP c/w the same, bilateral hydroureteronephrosis (severe) Was placed on bicarb gtt and electrolyte replacement for most notable for hypocalcemia and hypomagnesemia Nephrology on consult -- felt stable for d/c and to have close f/u with usual [employer] in [place]. Call to office and they will be ordering repeat labs prior to f/u appt next week and plans to get him set up for transplant list Beltran attempted x 3, unsuccessful Urology consulted s/p cystoscopy and urethral dilation for stricture (had one in past) and placement of Beltran which drained >3000mL urine per OP report as they were unable to place one at bedside Placed and continued on flomax and to have f/u with Urology in 2-3 weeks for voiding trial. Prior hx TURP. PSA was normal at 3.54 UA without obv infection, no elevation in WBC or fevers. Urine cx without growth at time of discharge but pin-point on recheck re-incubating and will need follow up Cr improved to 4.18 prior to discharge and making LOTS of urine Repeat labs outpt as above (2) Hypocalcemia: Severely low at 5.6 on admission but corrected calcium 6.2. Copious calcium replacement with repeat Ca 6.8 and albumin 3.2 with corrected Ca 7.6 and given additional IV replacement prior to d/c (noted can increase risk of bleeding and likely combination of blood tinged urine from this in combination with dilation for stricture as above) Vit D wnl 56.5 but intact PTH elevated to 374 -- likely secondary to renal failure/disease To be on Vit D 50,000 weekly but does not appear to have been taking this --> added to med rec and instructed to continue this. Can consider calcitriol as was placed while inpatient but will leave up to primary fixed income portfolio manager per conversation with Dr. Roly Thompson elevated 5.1 but per nephro, likely to acute issue with obstruction and no medications at this time Bicarb wnl at dc F/u Nephrology as above (3) Hypomagnesemia: 1.6 on admission --> IV replacement and stayed stable on repeat x3 (4) Metabolic acidosis: As above, secondary to chronic kidney disease Non-anion gap Nephrology consult as above Bicarb gtt, electrolyte replacement Bicarb wnl prior to d/c F/u nephro as above (5) Anemia: Almost certainly secondary to anemia of chronic kidney disease Continued ferrous sulfate Hemoglobin is down to 8.8 Is on Coumadin but no evidence of bleeding from anywhere (except post-op with dilation of stricture but decreased since placement) Iron studies c/w chronic disease --> Iron 49 wnl, TIBC low 166, Transferrin 140L, trans % sat 25, ferritin 220 B12/folate wnl Nephrology on consult -- no need for EPO during hospitalization noted and he can f/u with primary nephro as above (6) Episodic atrial fibrillation: With a history of such setting of critical illness as per history Monitor on telemetry here, is in sinus rhythm Is on Coumadin for history of DVT-holding for supratherapeutic INR which was 3.4 prior to d/c and coumadin continued to be held but expect to decrease as was held for prior 2 days and was 3.7 on admission (7) Ulcerative colitis: Status post colectomy and was also found to have adenocarcinoma of the colon at the time of colectomy With ileostomy with good output (8) HTN (hypertension), benign: Blood pressure is elevated 153/76 but anxious to leave Continue home amlodipine (9) DVT, bilateral lower limbs: With a history of lower extremity DVT on Coumadin INR is supratherapeutic but decreased and coumadin was held. pink tinged urine decreasing since placement Also with severe hypocalcemia which makes him more likely to bleed To resume coumadin tomorrow if bleeding decreases Discharged home. He declined any home health for beltran as he has had one int he past and did not need any help per patient and confirmed with CM that he did not want HH services Total Time Total Time Spent Total Time Spent (In Minutes): 65 Discharge Plan Discharge Items Patient Disposition: Home - Self-Care Reason For Visit: MARK, HYPOCALCEMIA Discharge Diagnosis: MARK, Hypocalcemia, Bladder Outlet Obstruction, Urethral Stricture Goals: You have been hospitalized for an urgent problem which required surgery. During your stay at [facility], we have made an effort to correct the problem that brought you to the hospital while keeping you as comfortable as possible. Surgery and medications were used to bring your condition under control and your discharge instructions will include directions for any medications you should take after leaving the hospital. Please make sure to follow the advice of your surgeon regarding follow up with the surgeon and with your primary care provider. Activity: Resume your previous activity Non-emergency contact: Primary Care Provider, [employer] and Urologist Call non-emergency contact if: you have any medication questions, your symptoms worsen and your pain is not controlled Follow-up/Referrals: Harsha Omer MD [Primary Care Provider] - 05/29/21 3:30 pm (If you have any questions or need to change this appointment, please call [phone].) Bradley Remy DO [Physician] - (Appointment for with 2-3 weeks. Please call the Urology office and make an appointment if they do not contact you within the next few days, their number is [phone]. ) Arianna Ocampo MD [Outside Practitioners] - 05/31/21 10:00 am (Your appointment with Dr Ocampo is in the [place] office. They will mail you a lab order with instructions to be done May 29 or . If you have any questions or need to change this appointment, please call [phone].) Rodriguez Ocampo MD [Staff Physician] - (within 1 week) Diet: Heart Healthy and Low Potassium (2gm) Ambulatory Orders: Basic Metabolic Panel (Routine) Timeframe: 2 Days Location: Determined by Patient Ordered By: Yareli Jimenes Phosphorus (Routine) Timeframe: 2 Days Location: Determined by Patient Ordered By: Yareli Jimenes Addtl Attending Provider Instructions: You have been hospitalized for elevated creatinine and electrolyte abnormalities. Imaging was performed and was consistent with a bladder outlet obstruction, secondary to urethral stricture. Urology was consulted and you were taken to the OR for dilation of stricture and placement of Beltran catheter, which allowed urine to be drained from your urine and your kidney function has improved. We expect continued improvement given obstruction has been addressed. Per Urology, you will continue to have catheter for 2-3 weeks until seen in follow up and should continue Flomax daily until that time, which may be continued further once Beltran is removed. Your urine was collected but you did not have elevated white count and no feve rs, and likely not infected, but you will be called if culture grows any bacteria. Nephrology was consulted and your electrolytes were corrected however some derangements due to acute obstruction and should improve as above. You should continue your vitamin D supplementation and discuss possible need for phosphate binder or calcitriol for low calcium at follow up, which should be with your usual fixed income portfolio manager within the next week as he plans on getting you set up for possible transplant in the future. You should continue your Vitamin D2 as prescribed by Dr. Ocampo's office. You should have repeat labs prior to your appointment. Nephrology office is sending in labs to be drawn before your appointment. Please follow up with Urology, Nephrology, and your primary care provider to monitor your progress post-hospitalization. Please return to the emergency department with any increased bleeding, decreased urine output, fever, chills, or for any other symptoms that are concerning for you. Pending Studies at Discharge: Yes Studies:: Urine culture Stand-Alone Forms: My [facility] [employer], Smoking Cessation Medications and DC Order Prescriptions: New tamsulosin 0.4 mg Capsule 0.4 mg PO HS Qty: 30 RF: 0 Continued fluocinonide 0.05 % ointment 1 applic topical BID Qty: 15 RF: 0 warfarin 10 mg tablet 15 mg PO WK RF: 0 warfarin 10 mg tablet 10 mg PO 5XWK RF: 0 warfarin 6 mg Tablet 6 mg PO WK RF: 0 ferrous sulfate 325 mg (65 mg iron) tablet 325 mg PO QAM RF: 0 amlodipine 5 mg tablet 5 mg PO QAM RF: 0 Changed ergocalciferol (vitamin D2) 1,250 mcg (50,000 unit) capsule 1,250 mcg PO Q7D Qty: 4 RF: 0 Discharge Orders: Discharge Order (Routine); Ordered 05/24/21 Ordered By: Yareli Jimenes Admission Data Admit Date/Time: 05/22/21 16:04 Attending Provider: Ivan De Leon Admit Provider: Caitlyn Millard Primary Care Provider: Harsha Omer Other Providers: Caitlyn Millard ; Dayne Juan ; Shar Chopra ; Bradley Remy Other Interventions: Discharge Summary Assessment (RN) Last Done: 05/24/21 10:34 Coding Level of Care Code D/C Day Management >30 mins Diagnoses MARK (acute kidney injury) N17.9 Hypocalcemia E83.51 Hypomagnesemia E83.42 Metabolic acidosis E87.2 Anemia D64.9 Episodic atrial fibrillation I48.0 Ulcerative colitis K51.00 Digestive disease complication type: without complication Ulcerative colitis location: ulcerative pancolitis HTN (hypertension), benign I10 DVT, bilateral lower limbs I82.403
--- NOTE | 2021-05-24 10:05 | Nephrology Progress Note ---
Date of Service May 24, 2021 Assessment & Plan (1) MARK (acute kidney injury): * MARK related to bilateral ureteral obstruction * Cr has improved from 4.68 to 4.1 following Silverman catheter insertion * Volume status and electrolyte balance are acceptable * If discharge is planned, patient has established Nephrology care w/ Dr. Barker in [place], [place] . Please schedule Nephrology follow up w/ Dr. Barker within the next 7 days (2) Hypocalcemia: * Corrected Ca 7.6. Patient is asymptomatic (3) Metabolic acidosis: * Resolved (4) Hypomagnesemia: * Corrected (5) Bilateral hydronephrosis: * BPH. PSA within acceptable limits * Keep Silverman in and await Urology recommendations Admission and Anticipated Discharge Date Admission Date: May 22, 2021 Subjective Mr. Ortiz was seen & examined in his hospital room this morning. He has a Silverman catheter in place draining bloody urine. He reports that he has been eating well, moving his bowels and ambulating without difficulty. He is anxious to return home. Review of Systems Constitutional: no fever Eyes: no problem reported Ear, Nose, Mouth, Throat: no problem reported Respiratory: no dyspnea Cardiovascular: no chest pain Gastrointestinal: no abdominal pain and no nausea Genitourinary: + urinary hesitancy Musculoskeletal: no back pain Integumentary: no rash Neurologic: no falls and no confusion Physical Exam Constitutional: not in distress Eyes: PERRL, conjunctivae normal, anicteric sclerae ENMT: external ear and nose normal, oropharynx normal Neck: trachea midline, no thyromegaly Respiratory: normal respiratory effort, lungs clear to auscultation Cardiovascular: RRR, no murmur, no edema Gastrointestinal (Abdomen): normal bowel sounds, soft, nontender, no hepatosplenomegaly (RLQ ileostomy) Musculoskeletal: Extremities: no cyanosis Skin: no rashes, warm and dry Neurologic: awake; not confused Results & Data ([facility]) Vital Signs (Past 12 Hours) Vital Signs Temp Pulse Pulse Pulse Resp BP Pulse Ox 05/24/21 07:38 36.6 C 73 20 153/76 H 97 05/23/21 23:47 72 05/23/21 22:55 36.5 C 81 18 126/75 99 Laboratory Tests 05/23/21 05/23/21 05/24/21 19:00 Unknown 05:59 Sodium 143 Potassium 4.2 Chloride 115 H Carbon Dioxide 22 BUN 51 H Creatinine 4.18 H D Glucose 145 H Calcium 6.8 L Magnesium 2.1 Albumin 3.2 L Prostate Specific Ag 3.570 PG Care Time/CCT Total # of Minutes Spent Total Time Spent with Patient: Total time spent is greater than 50% in coordination of care (as documented) at patient's floor/unit and/or counseling patient: Coding Level of Care Code 07924 Subseq Hosp Care Lvl 3 Diagnoses MARK (acute kidney injury) N17.9 Hypocalcemia E83.51 Metabolic acidosis E87.2 Hypomagnesemia E83.42 Bilateral hydronephrosis N13.30
== END 2021-05-24 11:35 | disposition home or self-care (01) | DRG 699 ==
LOC: ED 13:18 → 2N 16:04 → SUATTDRO 16:04 → 2N 16:20

== ENCOUNTER 2022-04-18 16:28 | Inpatient (IN) ==
[2022-04-18 17:14] LABS: Basophils # (auto) 0.02 K/uL (0-0.2); Basophils % (auto) 0.1 %; Eosinophils # (auto) 0.01 K/uL (0-0.5); Eosinophils % (auto) 0.1 %; Hematocrit (blood only) 41.1 % (42-52); Hemoglobin 14.2 g/dL (14.0-18.0); Immature Granulocytes # (auto) 0.05 K/uL (0.00-0.02); Immature Granulocytes % (auto) 0.3 %; Lymphocytes # (auto) 1.61 K/uL (1.2-3.4); Lymphocytes % (auto) 9.8 %; Mean Corpuscular Hemoglobin 31.3 pg (25-34); Mean Corpuscular Hgb Conc 34.5 g/dL (32-36); Mean Corpuscular Volume 90.5 fL (80-100); Mean Platelet Volume 10.4 fL (7.4-10.4); Monocytes # (auto) 2.37 K/uL (0.11-0.59); Monocytes % (auto) 14.4 %; Neutrophils # (auto) 12.41 K/uL (1.4-6.5); Neutrophils % (auto) 75.3 %; Platelet Count 423 K/uL (130-400); RDW Coefficient of Variation 14.8 % (11.5-14.5); RDW Standard Deviation 49.5 fL (36.4-46.3); Red Blood Count 4.54 M/uL (4.7-6.1); White Blood Count 16.47 K/uL (4.8-10.8)
[2022-04-18] MEDS ORDERED: PROMETHAZINE 6.25 MG/50.25 ML BAG IV STA (17:20)
[2022-04-18] MEDS ORDERED: SODIUM CHLORIDE 0.9% 1000ML 2,000 ML IV ONE (17:20)
[2022-04-18] MEDS ORDERED: ONDANSETRON INJ 2 MG/ML 2 ML VIAL IV STA (17:20)
--- NOTE | 2022-04-18 17:32 | Emergency Department Note ---
Impression & Plan Diffuse abdominal pain, SBO (small bowel obstruction), Vomiting, Leukocytosis ED Provider Note NAME: LYNETTE CEDILLO II AGE: 51 SEX: M : 1970 ARRIVES VIA: Walk-In INFORMANT: [Patient] ED PROVIDER(S): [Tevin Mcelroy MD] CHIEF COMPLAINT: Vomiting HISTORY OF PRESENT ILLNESS: The patient is a 51-year-old male with an ileostomy. He presents with 2 days of vomiting and some loose, watery stool into the ileostomy bag. He has no abdominal pain, he has not had fever, cough, congestion or shortness of breath. He thought he might have food poisoning. The patient admits that last week, his entire family had the "stomach bug. They got better much faster than he. Patient is worried about the possibility of dehydration as well as bowel obstruction, he has had a bowel obstruction before. REVIEW OF SYSTEMS: See HPI for pertinent positives and negatives. A total of ten systems were reviewed and were otherwise negative. PMHx/PSHx: See Below SOCIAL HISTORY: See Below. PHYSICAL EXAM: GENERAL: Patient is in no acute distress. HEENT: No acute trauma, normocephalic atraumatic, mucous membranes moist, no nasal congestion, no scleral icterus. NECK: No stridor, no adenopathy, no meningismus, trachea is midline. LUNGS: Clear to auscultation bilaterally, no wheeze, no rhonchi, breath sounds equal. HEART: Without murmurs gallops or rubs, regular rate and rhythm. ABDOMEN: Soft, nontender, bowel sounds positive, no peritonitis. There is ileostomy on the right, there is liquidy stool in the bag. EXTREMITIES: No cyanosis or edema, full range of motion of all the joints without pain or difficulty, no signs for acute trauma. NEUROLOGIC: Oriented x 3, no acute motor or sensory deficits, no focal weakness. SKIN: No rash, no jaundice, no diaphoresis. DIFFERENTIAL DIAGNOSIS: Dehydration, electrolyte imbalance, anemia, GI bleeding, foodborne or viral illness, bacterial intestinal infection, viral intestinal infection, bowel obstruction, among others. EMERGENCY DEPARTMENT COURSE/PROCEDURES: MEDICAL DECISION MAKING: There is a moderate leukocytosis, this could be consistent with infection or just his vomiting. There was a normal hemoglobin. Platelet count very slightly elevated. INR was 1.8 consistent with his Coumadin use. Creatinine was above his baseline at 3.02, this is consistent with some dehydration. No concerning liver enzyme elevation. No evidence for pancreatitis. Stool testing via [facility] returned completely negative. COVID test returned negative. Abdominal series suggest a small bowel obstruction. Abdominal CT does show a small bowel obstruction. On exam, there is no peritonitis. The patient was not toxic or febrile. Patient received IV saline, 2 L. He was given IV Phenergan and IV Zofran, he did not require anything for pain. I talked the patient about his findings. I discussed his case with on-call general surgery, Dr. Lugo. The patient is to be admitted to the medical service as emergent surgery is not indicated. I discussed placing an NG tube, the patient refused the tube, he has not been able to have a NG tube passed before, he had to be put asleep before the tube could be placed. I spoke with the on-call medical service. The patient is resting comfortably. I did speak with case management. The patient has been kept NPO. Past Med/Surg History Medical History Carpal tunnel syndrome on both sides Closed fracture of neck of left femur Closed left hip fracture Deep vein thrombosis in leg 15yrs ago DVT (deep venous thrombosis) Dysplastic nevus GI bleed History of DVT (deep vein thrombosis) HTN (hypertension), benign Hyperlipidemia On anticoagulant therapy eliquis daily Pulmonary embolism Secondary hypercoagulable state Small bowel obstruction Ulcerative colitis Vitamin D deficiency Surgical History History of colectomy History of colonoscopy History of hernia repair Family History (Updated 04/10/22 @ 10:22 by José Manuel May LPN) Mother Hypertension Bone cancer Amputation below knee Other No family history of adverse response to anesthesia Denies family history of Ovarian cancer Prostate cancer Myocardial infarction Breast cancer Colorectal cancer Social History Smoking Status: Never smoker Second Hand Exposure: No; Hx Alcohol Use: Yes Alcohol type: beer Alcohol Intake Frequency: Monthly or Less Hx Substance Use: No Preferred Language: Norwegian Communication Ability: Effective Visual Impairment: Limited Hearing Ability: Normal [employer] Specialist Required: No Beliefs That Will Affect Care: None marital status: Current Living Situation: Spouse current occupational status: employed How many Children do You have: 1 How many Children do You have Comment: step daughter Feels Safe at Home: Yes Childhood Exposure to Second-Hand Smoke: No caffeine: Yes (soda sometimes ) Dental Care, Regularly: Yes Physical Activity Frequency: Daily 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 Use: always Sunscreen Use: Yes (sometimes) Assistive Devices: None Allergies Allergies Allergy/AdvReac Type Severity Reaction Status Date / Time infliximab AdvReac Severe body Verified 04/18/22 17:40 aches;couldn't sleep Home Meds Home Medications Medication Instructions Recorded Confirmed ferrous sulfate 325 mg (65 mg 325 mg PO QAM 05/22/21 04/18/22 iron) tablet cholecalciferol (vitamin D3) 50 50 mcg PO DAILY 12/11/21 04/18/22 mcg (2,000 unit) capsule calcitriol 0.5 mcg capsule 0.5 mcg PO DAILY 04/18/22 04/18/22 losartan 25 mg tablet 25 mg PO DAILY 04/18/22 04/18/22 warfarin 1 mg tablet 0.5 mg PO 3XWK 04/18/22 04/18/22 warfarin 10 mg tablet 10 mg PO 4XWK 04/18/22 04/18/22 warfarin 6 mg tablet 12 mg PO 3XWK 04/18/22 04/18/22 Results & Data (ED) Vital Signs Vital Signs - 24 hr 04/18/22 16:34 04/18/22 17:14 04/18/22 17:30 Temperature 36.6 C Temperature Source Temporal Artery Scan Pulse Rate 94 H 79 77 Pulse Rate from SpO2 Sensor 79 77 Respiratory Rate 16 Blood Pressure 118/77 130/82 Blood Pressure Mean 90 98 Pulse Oximetry 96 94 95 Oxygen Delivery Method Room Air Sepsis Recent Fever Within 48 Hours No Sepsis New/Unexplained Change in Mental Status No Sepsis Action Taken by Nursing No Action Required 04/18/22 18:00 04/18/22 18:30 04/18/22 19:00 Temperature Temperature Source Pulse Rate 75 73 Pulse Rate from SpO2 Sensor 75 72 80 Respiratory Rate 15 23 Blood Pressure Blood Pressure Mean Pulse Oximetry 98 98 98 Oxygen Delivery Method Sepsis Recent Fever Within 48 Hours Sepsis New/Unexplained Change in Mental Status Sepsis Action Taken by Nursing 04/18/22 19:51 04/18/22 19:52 04/18/22 20:00 Temperature Temperature Source Pulse Rate 81 86 Pulse Rate from SpO2 Sensor 73 81 85 Respiratory Rate 14 17 14 Blood Pressure 124/81 124/81 Blood Pressure Mean 95 95 Pulse Oximetry 95 96 95 Oxygen Delivery Method Sepsis Recent Fever Within 48 Hours Sepsis New/Unexplained Change in Mental Status Sepsis Action Taken by Nursing 04/18/22 21:00 04/18/22 21:30 04/18/22 22:00 Temperature Temperature Source Pulse Rate 71 80 73 Pulse Rate from SpO2 Sensor 71 81 73 Respiratory Rate 13 Blood Pressure Blood Pressure Mean Pulse Oximetry 97 94 97 Oxygen Delivery Method Sepsis Recent Fever Within 48 Hours Sepsis New/Unexplained Change in Mental Status Sepsis Action Taken by Nursing 04/18/22 22:30 04/18/22 22:59 04/18/22 23:00 Temperature Temperature Source Pulse Rate 72 77 Pulse Rate from SpO2 Sensor 70 76 Respiratory Rate Blood Pressure 117/80 114/77 Blood Pressure Mean 92 89 Pulse Oximetry 97 97 Oxygen Delivery Method Sepsis Recent Fever Within 48 Hours Sepsis New/Unexplained Change in Mental Status Sepsis Action Taken by Half-Way Medications Current Medication List: was personally reviewed by me Laboratory Data Attestation: I reviewed the patient's lab results. Result diagrams: 04/18/22 16:55 04/18/22 16:55 Lab Results 04/18/22 04/18/22 04/18/22 Range/Units 16:55 16:55 16:55 WBC 16.47 H (4.8-10.8) K/uL RBC 4.54 L (4.7-6.1) M/uL Hgb 14.2 (14.0-18.0) g/dL Hct 41.1 L (42-52) % MCV 90.5 (80-100) fL MCH 31.3 (25-34) pg MCHC 34.5 (32-36) g/dL RDW Std Deviation 49.5 H (36.4-46.3) fL RDW Coeff of Asha 14.8 H (11.5-14.5) % Plt Count 423 H (130-400) K/uL MPV 10.4 (7.4-10.4) fL Immature Gran % (Auto) 0.3 % Neut % (Auto) 75.3 % Lymph % (Auto) 9.8 % [place] % (Auto) 14.4 % Eos % (Auto) 0.1 % Baso % (Auto) 0.1 % Neut # (Auto) 12.41 H (1.4-6.5) K/uL Lymph # (Auto) 1.61 (1.2-3.4) K/uL [place] # (Auto) 2.37 H (0.11-0.59) K/uL Eos # (Auto) 0.01 (0-0.5) K/uL Baso # (Auto) 0.02 (0-0.2) K/uL Immature Gran # (Auto) 0.05 H (0.00-0.02) K/uL PT 18.8 H (9.0-12.0) Seconds INR 1.8 H (0.9-1.1) Sodium 136 (136-145) mmol/L Potassium 3.9 (3.5-5.1) mmol/L Chloride 102 (98-107) mmol/L Carbon Dioxide 23 (21-32) mmol/L Anion Gap 11 (3-11) BUN 62 H (6-23) mg/dl Creatinine 3.02 H (0.6-1.4) mg/dl Est Cr Clr Drug Dosing 32.7 ml/min Est GFR ( Amer) 26.6 ml/min Est GFR (Non-Af Amer) 23.0 ml/min BUN/Creatinine Ratio 20.5 H (10-20) Glucose 128 H (70-99(Fasting)) mg/dl Calcium 9.8 (8.5-10.1) mg/dl Total Bilirubin 1.0 (0.2-1.0) mg/dl AST 15 (13-39) U/L ALT 16 (7-52) U/L Alkaline Phosphatase 55 (34-104) U/L Total Protein 9.3 H (6.0-8.3) gm/dl Albumin 4.6 (3.4-5.0) gm/dl Globulin 4.7 H (2.5-4.0) gm/dl Albumin/Globulin Ratio 1.0 (0.9-2) Lipase 16 (11-82) U/L Stl C. cayetanensis PCR (NotDetected) Stool Rotavirus A PCR (NotDetected) Stl Adenov F 40/41 PCR (NotDetected) Stool Astrovirus (PCR) (NotDetected) Stool Campylobacter PCR (NotDetected) Stl C. diff Tox A/B PCR (NotDetected) Stool Cryptosporidium PCR (NotDetected) Stl E.coli Shiga Tox PCR (NotDetected) Stl Enterotoxigenic E PCR (NotDetected) Stool EPEC (PCR) (NotDetected) Stool EAEC (PCR) (NotDetected) Stl E. histolytica PCR (NotDetected) Stool Giardia Lamblia PCR (NotDetected) Stool Salmonella PCR (NotDetected) Stool Sapovirus (PCR) (NotDetected) Stl P. shigelloides PCR (NotDetected) Stl Shigella/EIEC PCR (NotDetected) St Y.enterocolitica PCR (NotDetected) Stool Vibrio (PCR) (NotDetected) Stl Vibrio cholerae PCR (NotDetected) Stl Norovirus GI/GII PCR (NotDetected) SARS-CoV-2, RNA, NAAT (NEGATIVE) 04/18/22 04/18/22 Range/Units 18:43 Unknown WBC (4.8-10.8) K/uL RBC (4.7-6.1) M/uL Hgb (14.0-18.0) g/dL Hct (42-52) % MCV (80-100) fL MCH (25-34) pg MCHC (32-36) g/dL RDW Std Deviation (36.4-46.3) fL RDW Coeff of Asha (11.5-14.5) % Plt Count (130-400) K/uL MPV (7.4-10.4) fL Immature Gran % (Auto) % Neut % (Auto) % Lymph % (Auto) % [place] % (Auto) % Eos % (Auto) % Baso % (Auto) % Neut # (Auto) (1.4-6.5) K/uL Lymph # (Auto) (1.2-3.4) K/uL [place] # (Auto) (0.11-0.59) K/uL Eos # (Auto) (0-0.5) K/uL Baso # (Auto) (0-0.2) K/uL Immature Gran # (Auto) (0.00-0.02) K/uL PT (9.0-12.0) Seconds INR (0.9-1.1) Sodium (136-145) mmol/L Potassium (3.5-5.1) mmol/L Chloride (98-107) mmol/L Carbon Dioxide (21-32) mmol/L Anion Gap (3-11) BUN (6-23) mg/dl Creatinine (0.6-1.4) mg/dl Est Cr Clr Drug Dosing ml/min Est GFR ( Amer) ml/min Est GFR (Non-Af Amer) ml/min BUN/Creatinine Ratio (10-20) Glucose (70-99(Fasting)) mg/dl Calcium (8.5-10.1) mg/dl Total Bilirubin (0.2-1.0) mg/dl AST (13-39) U/L ALT (7-52) U/L Alkaline Phosphatase (34-104) U/L Total Protein (6.0-8.3) gm/dl Albumin (3.4-5.0) gm/dl Globulin (2.5-4.0) gm/dl Albumin/Globulin Ratio (0.9-2) Lipase (11-82) U/L Stl C. cayetanensis PCR Not Detected (NotDetected) Stool Rotavirus A PCR Not Detected (NotDetected) Stl Adenov F 40/41 PCR Not Detected (NotDetected) Stool Astrovirus (PCR) Not Detected (NotDetected) Stool Campylobacter PCR Not Detected (NotDetected) Stl C. diff Tox A/B PCR Not Detected (NotDetected) Stool Cryptosporidium PCR Not Detected (NotDetected) Stl E.coli Shiga Tox PCR Not Detected (NotDetected) Stl Enterotoxigenic E PCR Not Detected (NotDetected) Stool EPEC (PCR) Not Detected (NotDetected) Stool EAEC (PCR) Not Detected (NotDetected) Stl E. histolytica PCR Not Detected (NotDetected) Stool Giardia Lamblia PCR Not Detected (NotDetected) Stool Salmonella PCR Not Detected (NotDetected) Stool Sapovirus (PCR) Not Detected (NotDetected) Stl P. shigelloides PCR Not Detected (NotDetected) Stl Shigella/EIEC PCR Not Detected (NotDetected) St Y.enterocolitica PCR Not Detected (NotDetected) Stool Vibrio (PCR) Not Detected (NotDetected) Stl Vibrio cholerae PCR Not Detected (NotDetected) Stl Norovirus GI/GII PCR Not Detected (NotDetected) SARS-CoV-2, RNA, NAAT NEGATIVE (NEGATIVE) Administered Medications Discontinued Medications Sodium Chloride (Nss 1000ml) 2,000 mls @ 999 mls/hr IV .Q2H1M ONE Stop: 04/18/22 19:20 Last Infusion: 04/18/22 19:27 Dose: 0 mls/hr Documented by: [id number] Admin: 04/18/22 17:46 Dose: 999 mls/hr Documented by: [id number] Promethazine HCl (Phenergan) 6.25 mg in 50.25 mls @ 201 mls/hr IV NOW STA Stop: 04/18/22 17:34 Last Infusion: 04/18/22 18:48 Dose: 0 mls/hr Documented by: [id number] Admin: 04/18/22 17:44 Dose: 201 mls/hr Documented by: [id number] Ondansetron HCl (Ondansetron Inj 2 Mg/Ml 2 Ml Vial) 4 mg IV NOW STA Stop: 04/18/22 17:21 Last Admin: 04/18/22 17:44 Dose: 4 mg Documented by: [id number] Imaging Data Radiologist's Impression: Chest/Abdomen X-ray 04/18/22 17:20 PA CHEST RADIOGRAPH AND UPRIGHT AND SUPINE AP RADIOGRAPHS OF THE ABDOMEN CLINICAL HISTORY: Nausea, vomiting and diarrhea. COMPARISON STUDY: Chest radiograph February 19, 2009. CT of the abdomen and pelvis May 23, 2021. FINDINGS: Lung volumes are mildly diminished. There is no pneumothorax or pleural effusion. There is no evidence for pulmonary edema. No consolidation to suggest pneumonia is present. Minimal left basilar opacity favors atelectasis. Cardiac size is within normal limits. No free air is present. Multiple loops of markedly dilated small bowel are noted. Small bowel loops measure up to 7.8 cm in caliber. There is a right lower quadrant ostomy. Left femoral internal fixation is partially imaged. IMPRESSION: 1. Findings suggestive of a high-grade small bowel obstruction. 2. No free air. 3. No acute cardiopulmonary findings. ACT 112: Negative or not required by law. Electronically signed by: Kyle Steve M.D. 04/18/2022 6:25 PM Abdomen/Pelvis CT 04/18/22 18:32 CT OF THE ABDOMEN AND PELVIS WITHOUT CONTRAST CLINICAL HISTORY: sbo, noted on plain film COMPARISON STUDY: CT of the abdomen and pelvis May 23, 2021. Abdominal series performed earlier today. TECHNIQUE: Axial images of the abdomen and pelvis were obtained without IV contrast. Images were reviewed in the axial, sagittal, and coronal planes. Automated exposure control was utilized for the study. A dose lowering technique was utilized adhering to the principles of ALARA. FINDINGS: No pneumatosis, free air or portal venous gas is present. Evaluation of the abdomen and pelvis is suboptimal on this unenhanced exam. Unenhanced images of liver, spleen, adrenal glands and pancreas are unremarkable. There is no biliary or pancreatic ductal dilatation. There is mild bilateral collecting system dilatation, significantly improved when compared to CT of May 23, 2021. Urothelial thickening is noted within the collecting systems. Bladder wall thickening is noted. This is probably chronic. No abdominal or pelvic lymphaden opathy is present. Left femoral internal fixation is partially imaged. Partial colonic resection is noted with right lower quadrant ileostomy. There is a parastomal hernia which contains multiple small bowel loops. Note is made of multiple loops of moderately dilated fluid-filled proximal to mid small bowel. Transition point is within the right upper quadrant on axial image 165 of 471. Distal small bowel is decompressed. Parastomal hernia does not appear to result in the bowel obstruction. Submucosal fat deposition within the rectum is chronic. There is possible mucosal lesion within the right lateral wall of the rectum on axial image 367 of 471. Submucosal fat appears disrupted. This could be artifactual. IMPRESSION: 1. Findings consistent with a small bowel obstruction. Moderately dilated fluid- filled proximal to mid small bowel with transition point within the right upper quadrant. Decompressed distal small bowel. 2. Status post partial colectomy with right lower quadrant ileostomy. Parastomal hernia contains multiple small bowel loops which does not appear to result in a bowel obstruction. 3. Possible mucosal lesion within the right lateral wall the rectum, as described above. GI consultation for consideration for colonoscopy is recommended. 4. Mild bilateral collecting system dilatation, significantly improved since prior CT. Urothelial thickening. Although nonspecific, this is likely chronic. Bladder wall thickening, likely chronic. ACT 112: Positive. There are findings on this exam that require communication between the performing entity and the patient following Patient Test Result Information Act ([place] Act 112) guidelines. Electronically signed by: Kyle Steve M.D. 04/18/2022 7:45 PM Discharge Plan Visit Data Chief Complaint: Vomiting Stated Complaint: VOMITING, SUSPECT POISIONING ED Provider: Tevin Mcelroy Patient Disposition: Admitted As Inpatient Condition: Fair Prescriptions Prescriptions: No Action cholecalciferol (vitamin D3) 50 mcg (2,000 unit) capsule 50 mcg PO DAILY RF: 0 ferrous sulfate 325 mg (65 mg iron) tablet 325 mg PO QAM RF: 0 warfarin 10 mg tablet 10 mg PO 4XWK RF: 0 warfarin 6 mg tablet 12 mg PO 3XWK RF: 0 warfarin 1 mg tablet 0.5 mg PO 3XWK RF: 0 calcitriol 0.5 mcg capsule 0.5 mcg PO DAILY RF: 0 losartan 25 mg tablet 25 mg PO DAILY RF: 0
[2022-04-18 17:52] LABS: Albumin Level 4.6 gm/dl (3.4-5.0); BUN Creatinine Ratio 20.5 (10-20); Calcium 9.8 mg/dl (8.5-10.1); Creatinine Clr Calc Pharmacy 32.7 ml/min; Est GFR (African American) 26.6 ml/min; Globulin 4.7 gm/dl (2.5-4.0); Potassium 3.9 mmol/L (3.5-5.1); Total Protein 9.3 gm/dl (6.0-8.3)
--- NOTE | 2022-04-18 18:26 | XRay Report ---
PA CHEST RADIOGRAPH AND UPRIGHT AND SUPINE AP RADIOGRAPHS OF THE ABDOMEN CLINICAL HISTORY: Nausea, vomiting and diarrhea. COMPARISON STUDY: Chest radiograph February 19, 2009. CT of the abdomen and pelvis May 23, 2021. FINDINGS: Lung volumes are mildly diminished. There is no pneumothorax or pleural effusion. There is no evidence for pulmonary edema. No consolidation to suggest pneumonia is present. Minimal left basi lar opacity favors atelectasis. Cardiac size is within normal limits. No free air is present. Multipl e loops of markedly dilated small bowel are noted. Small bowel loops measure up to 7.8 cm in caliber. There is a right lower quadrant ostomy. Left femoral internal fixation is partially imaged. IMPRESSION: 1. Findings suggestive of a high-grade small bowel obstruction. 2. No free air. 3. No acute cardiopulmonary findings. ACT 112: Negative or not required by law. Electronically signed by: Kyle Steve M.D. 04/18/2022 6:25 PM
--- NOTE | 2022-04-18 19:48 | CT Scan Report ---
CT OF THE ABDOMEN AND PELVIS WITHOUT CONTRAST CLINICAL HISTORY: sbo, noted on plain film COMPARISON STUDY: CT of the abdomen and pelvis May 23, 2021. Abdominal series performed earlier toda y. TECHNIQUE: Axial images of the abdomen and pelvis were obtained without IV contrast. Images were revi ewed in the axial, sagittal, and coronal planes. Automated exposure control was utilized for the starla dy. A dose lowering technique was utilized adhering to the principles of ALARA. FINDINGS: No pneumatosis, free air or portal venous gas is present. Evaluation of the abdomen and pel vis is suboptimal on this unenhanced exam. Unenhanced images of liver, spleen, adrenal glands and rodney creas are unremarkable. There is no biliary or pancreatic ductal dilatation. There is mild bilateral collecting system dilatation, significantly improved when compared to CT of May 23, 2021. Urothelial thickening is noted within the collecting systems. Bladder wall thickening is noted. This is probably chronic. No abdominal or pelvic lymphadenopathy is present. Left femoral internal fixation is partia lly imaged. Partial colonic resection is noted with right lower quadrant ileostomy. There is a parast omal hernia which contains multiple small bowel loops. Note is made of multiple loops of moderately d ilated fluid-filled proximal to mid small bowel. Transition point is within the right upper quadrant on axial image 165 of 471. Distal small bowel is decompressed. Parastomal hernia does not appear to r esult in the bowel obstruction. Submucosal fat deposition within the rectum is chronic. There is poss ible mucosal lesion within the right lateral wall of the rectum on axial image 367 of 471. Submucosal fat appears disrupted. This could be artifactual. IMPRESSION: 1. Findings consistent with a small bowel obstruction. Moderately dilated fluid-filled proximal to mi d small bowel with transition point within the right upper quadrant. Decompressed distal small bowel. 2. Status post partial colectomy with right lower quadrant ileostomy. Parastomal hernia contains mult iple small bowel loops which does not appear to result in a bowel obstruction. 3. Possible mucosal lesion within the right lateral wall the rectum, as described above. GI consultat ion for consideration for colonoscopy is recommended. 4. Mild bilateral collecting system dilatation, significantly improved since prior CT. Urothelial thi ckening. Although nonspecific, this is likely chronic. Bladder wall thickening, likely chronic. ACT 112: Positive. There are findings on this exam that require communication between the performing entity and the patient following Patient Test Result Information Act ([place] Act 112) guidelines. Electronically signed by: Kyle Steve M.D. 04/18/2022 7:45 PM
--- NOTE | 2022-04-18 20:59 | History & Physical Report ---
Date of Service April 18, 2022 Assessment & Plan (1) Small bowel obstruction: Plan: This is a 51-year-old male with a history of ulcerative colitis w/ invasive well differentiated adenocarcinoma status post colectomy with ileostomy 03/2019 ([facility]), history of hernia repair, CKD III/IV, nephrolithiasis, severe stricture of bulbar urethra c/b bilateral hydronephrosis requiring intermittent self- catheterization, hypertension, atrial fibrillation on warfarin who presented to [facility] for evaluation of vomiting, subsequently found to have evidence of SBO on CT-A/P. Small Bowel Obstruction Patient with surgical history including colectomy and ileostomy placement in setting of previous well-differentiated colonic adenocarcinoma, previous hernia repair Patient has history of SBO in 2019 requiring transfer to [place]; NG tube placement was very difficult during that time With good ileostomy output, suspect this is likely a partial small bowel obstruction CT: "Findings consistent with a small bowel obstruction. Moderately dilated fluid-filled proximal to mid small bowel with transition point within the right upper quadrant. Decompressed distal small bowel ... 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 Consult general surgery: Appreciate input on need for NG tube, indications for surgery --> On further discussion with patient, he is not amenable at this time to placing NG tube. We will continue discussion. Manage nausea with Zofran and Phenergan as needed Acetaminophen for pain, morphine for breakthrough No indication for antibiotics at this time -- will monitor. (2) MARK (acute kidney injury): Plan: 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 3. Follows with Anabell Johnson, and [facility] Baseline appears to be 1.9 - 2.3 BUN 62/creatinine 3.02 on arrivalsuspect acute changes due to prerenal changes in setting of poor p.o. intake and frequent vomiting Status post receipt of 2 L normal saline in the ED Careful hydration with history of CKD, post renal issues -- Reassess labs in a.m. and consider initiation of IV fluids if inappropriate for PO trial (3) Urethral stenosis: Plan: Ureteral Stenosis / Bilateral Hydronephrosis History noted. History of severe stricture bulbar urethra that has been complicated by bilateral hydronephrosis (voids freely, intermittent cath once a week) Follows with [facility] -- most recent not reviewed, bilateral hydronephrosis has been improving on serial imaging CT abdomen pelvis demonstrating "mild bilateral collecting system dilation, significantly improved compared to prior CT." Continue hydration as appropriate (4) HTN (hypertension), benign: Plan: Hold home losartan in the setting of MARK on CKD (5) Episodic atrial fibrillation: Plan: Noted history of episodic atrial fibrillation, previously in setting of critical illness In sinus rhythm on arrival. On Coumadin chronically for history of VTE. Continue anticoagulation (6) Adenocarcinoma, colon: Plan: History of ulcerative colitis w/ invasive well differentiated adenocarcinoma status post colectomy with ileostomy 03/2019 ([facility]) Adhesions likely playing a role with current SBO (7) DVT, bilateral lower limbs: Plan: History of DVT and PEs requiring lifelong anticoagulation Home Coumadin: T-F 10mg/d, Sa-Mon 12.5mg/day INR goal 2-3 -- monitor Initiate low-dose heparin gtt while NPO (8) Ulcerative colitis: Plan: s/p colectomy (during colectomy, found to have adenocarcinoma) Ileostomy draining appropriately. Monitor. No sxs of flare at present -- hold on immunosuppressants / steroids (9) Diarrhea: Plan: In context of SBO and recent h/o "family stomach flu" at home over the last week Patient reporting more watery ileostomy output on arrival -- suspect secondary to enteritis, also noted in context of SBO Await stool PCR (10) Rectal lesion: Plan: Admission CT demonstrating incidentally noted "possible mucosal lesion within the right lateral wall of the rectum." Will require consideration of colonoscopy as outpatient Plan: Code: Full code Dispo: MS PPX: Heparin gtt for h/o DVTs when subtherapeutic Diet: NPO History of Present Illness Primary Care Provider: Harsha Omer MD This is a 51-year-old male with a history of ulcerative colitis w/ invasive well differentiated adenocarcinoma status post colectomy with ileostomy 03/2019 ([facility]), history of hernia repair, CKD III/IV, nephrolithiasis, severe stricture of bulbar urethra c/b bilateral hydronephrosis requiring intermittent self- catheterization, hypertension, atrial fibrillation on warfarin who presented to [facility] for evaluation of vomiting. Per report, patient has been vomiting over the last 2 days alongside loose, watery stools in ileostomy bag. He says that last week, he and his family got some sort of gastroenteritis but resolved quite quickly. He denies any pain over this time. He does say that he has had poor p.o. intake as a result of the frequent nausea.Denies any fever, chills, night sweats. At baseline, patient does report being able to void freely, but does self catheterize once a week. He denies any changes with this recently or issues with this. Medications reviewed and include calcitriol, vitamin D, ferrous sulfate, losartan 25 daily, warfarin 10mg T-F, 12.5mg Sa/Sun/M. In the ED, patient was found to have largely normal vital signs and was afebrile. Labs revealing of leukocytosis to 16.5 with left shift, BUN 62/creatinine 3.02 (baseline appears to be 1.9 - 2.3), largely normal electrolytes. CT demonstrating Findings consistent with small bowel obstruction (moderately dilated fluid-filled proximal to mid small bowel with transition point in the right upper quadrant), Status post partial colectomy with parastomal hernia (contains multiple small bowel loops and radiologically does not appear to be resulting in bowel obstruction), possible mucosal lesion within the right lateral wall of the rectum, mild bilateral collecting system dilation, significantly improved compared to prior CT. In the ED, patient was given 2L NSS, Zofran, Phenergan. ED physician spoke w/ on-call general surgeon to discuss case - no acute indication for surgical intervention. Patient declined NGT placement. Allergies Allergy/AdvReac Type Severity Reaction Status Date / Time infliximab AdvReac Severe body Verified 04/18/22 17:40 aches;couldn't sleep Home Medications Medication Instructions Recorded Confirmed Type ferrous sulfate 325 mg (65 mg 325 mg PO QAM 05/22/21 04/18/22 History iron) tablet cholecalciferol (vitamin D3) 50 50 mcg PO DAILY 12/11/21 04/18/22 History mcg (2,000 unit) capsule calcitriol 0.5 mcg capsule 0.5 mcg PO DAILY 04/18/22 04/18/22 History losartan 25 mg tablet 25 mg PO DAILY 04/18/22 04/18/22 History warfarin 1 mg tablet 0.5 mg PO 3XWK 04/18/22 04/18/22 History warfarin 10 mg tablet 10 mg PO 4XWK 04/18/22 04/18/22 History warfarin 6 mg tablet 12 mg PO 3XWK 04/18/22 04/18/22 History Past Med/Surg History Medical History Carpal tunnel syndrome on both sides Closed fracture of neck of left femur Closed left hip fracture Deep vein thrombosis in leg 15yrs ago DVT (deep venous thrombosis) Dysplastic nevus GI bleed History of DVT (deep vein thrombosis) HTN (hypertension), benign Hyperlipidemia On anticoagulant therapy eliquis daily Pulmonary embolism Secondary hypercoagulable state Small bowel obstruction Ulcerative colitis Vitamin D deficiency Surgical History History of colectomy History of colonoscopy History of hernia repair Family History Mother Hypertension Bone cancer Amputation below knee Other No family history of adverse response to anesthesia Denies family history of Ovarian cancer Prostate cancer Myocardial infarction Breast cancer Colorectal cancer Social History Smoking Status: Never smoker Second Hand Exposure: No; Do You Dip or Chew Tobacco: No; Hx Alcohol Use: Yes Alcohol type: beer Alcohol Intake Frequency: Monthly or Les s Hx Substance Use: No Preferred Language: Czech Communication Ability: Effective Visual Impairment: Limited Hearing Ability: Normal It Infrastructure Engineer Required: No Beliefs That Will Affect Care: None marital status: Current Living Situation: Spouse current occupational status: employed How many Children do You have: 1 How many Children do You have Comment: step daughter Other Information That Helps Us Care for You: No Feels Safe at Home: Yes Safety Concerns: Feels Safe At This Time Childhood Exposure to Second-Hand Smoke: No caffeine: Yes (soda sometimes ) Dental Care, Regularly: Yes Physical Activity Frequency: Daily 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 HEENT: NCAT. - Eyes - Sclera are white, anicteric, and without injection. - Mouth - MMM - Neck - supple, no appreciable JVD Cardiac: Normal rate and regular rhythm; S1 and S2 present with no murmurs, rubs, or gallops. Pulmonary: Good respiratory effort with symmetric expansion of the chest. No use of accessory muscles. Lungs were clear to auscultation bilaterally with no crackles or wheezes. Abdominal: Normoactive bowel sounds. Abdomen was soft, nondistended, and non- tender to palpation. Ileostomy bag noted and in-place. Extremities: Upper and lower extremities are warm and well perfused. No peripheral edema in the lower extremities bilaterally Psych: Well-developed, well-nourished, appropriately dressed for occasion. Behavior is cooperative and appropriate. Affect is WNL. Insight is appropriate. Results & Data Results & Data ([facility]) Vital Signs (Past 12 Hours) Vital Signs Temp Pulse Resp BP Pulse Ox 04/18/22 19:51 14 124/81 95 04/18/22 19:00 98 04/18/22 18:30 73 23 98 04/18/22 18:00 75 15 98 04/18/22 17:30 77 95 04/18/22 17:14 79 130/82 94 04/18/22 16:34 36.6 C 94 H 16 118/77 96 Supervising Physician Co-Signing Physician Notes Attending addendum: I have physically seen this patient, have supervised the medical residents activities, and agree with the H&P unless as otherwise noted. Assessment and Plan: Small bowel obstruction- NPO Transition point right upper quadrant Zofran 4 mg IV every 6 hours as needed Phenergan 12.5 mg IV every 6 hours as needed Famotidine 20 mg IV every 12 hours IV fluids Pain management as noted Consult gastroenterology Ureteral stenosis/bilateral hydronephrosis- Follows with urology as outpatient Remaining orders and notations as noted Resident Activity Tracking Resident Involvement: Resident Care Provided Care Provided: Adult Hospital Medicine (1) Ulcerative colitis Digestive disease complication type: without complication Ulcerative colitis location: ulcerative pancolitis Qualified Code(s): K51.00 - Ulcerative (chronic) pancolitis without complications
[2022-04-18 21:46] LABS: INR 1.8 (0.9-1.1); Prothrombin Time 18.8 Seconds (9.0-12.0)
[2022-04-18 21:52] LABS: Adenovirus F 40/41 PCR Not Detected (NotDetected); Astrovirus PCR Not Detected (NotDetected); Campylobacter PCR Not Detected (NotDetected); Clostridium diff Toxin A/B PCR Not Detected (NotDetected); Cryptosporidium PCR Not Detected (NotDetected); Cyclospora cayetanensis PCR Not Detected (NotDetected); Entamoeba histolytica PCR Not Detected (NotDetected); Enteroaggregative E.coli(EAEC) Not Detected (NotDetected); Enteropathogenic E.coli (EPEC) Not Detected (NotDetected); Enterotoxigenic E.coli (ETEC) Not Detected (NotDetected); Giardia lamblia PCR Not Detected (NotDetected); Norovirus GI/GII PCR Not Detected (NotDetected); Plesiomonas shigelloides PCR Not Detected (NotDetected); Rotavirus A PCR Not Detected (NotDetected); Salmonella PCR Not Detected (NotDetected); Sapovirus PCR Not Detected (NotDetected); Shiga-like Toxin E.coli (STEC) Not Detected (NotDetected); Shigella/Enteroinvasive E.coli Not Detected (NotDetected); Vibrio cholerae PCR Not Detected (NotDetected); Vibrio species PCR Not Detected (NotDetected); Yersinia enterocolitica PCR Not Detected (NotDetected)
[2022-04-18] MEDS ORDERED: WARFARIN SOD 10 MG TAB PO SCH (23:27)
[2022-04-19] MEDS ORDERED: Heparin IV Adult Wt-Based Low-Dose *NO* Bolus Protocol ONE (00:41)
[2022-04-19] MEDS ORDERED: HEPARIN SODIUM/DEXTROSE 25,000 UNITS/500 ML BAG IV SCH (00:45)
[2022-04-19] MEDS: Heparin IV Adult Wt-Based Low-Dose *NO* Bolus Protocol IV SCH ×2 (02:12→02:13)
[2022-04-19 07:11] LABS: Basophils # (auto) 0.01 K/uL (0-0.2); Basophils % (auto) 0.1 %; Eosinophils # (auto) 0.06 K/uL (0-0.5); Eosinophils % (auto) 0.5 %; Hematocrit (blood only) 38.8 % (42-52); Hemoglobin 12.9 g/dL (14.0-18.0); Immature Granulocytes # (auto) 0.04 K/uL (0.00-0.02); Immature Granulocytes % (auto) 0.3 %; Lymphocytes # (auto) 1.64 K/uL (1.2-3.4); Lymphocytes % (auto) 13.8 %; Mean Corpuscular Hgb Conc 33.2 g/dL (32-36); Mean Corpuscular Volume 90.2 fL (80-100); Mean Platelet Volume 10.3 fL (7.4-10.4); Monocytes # (auto) 2.16 K/uL (0.11-0.59); Monocytes % (auto) 18.2 %; Neutrophils # (auto) 7.94 K/uL (1.4-6.5); Neutrophils % (auto) 67.1 %; Platelet Count 372 K/uL (130-400); RDW Standard Deviation 49.2 fL (36.4-46.3); White Blood Count 11.85 K/uL (4.8-10.8)
[2022-04-19] MEDS: CHOLECALCIFEROL 1,000 UNITS 25 MCG TAB PO SCH (07:12)
[2022-04-19] MEDS: CALCITRIOL 0.25 MCG CAPSULE PO SCH (07:12)
[2022-04-19] MEDS: FERROUS SULFATE 325 MG TAB PO SCH (07:13)
[2022-04-19 07:18] LABS: INR 1.6 (0.9-1.1); Prothrombin Time 16.7 Seconds (9.0-12.0)
[2022-04-19 07:38] LABS: BUN Creatinine Ratio 22.4 (10-20); Bilirubin,Total 1.1 mg/dl (0.2-1.0); Calcium 8.7 mg/dl (8.5-10.1); Creatinine Clr Calc Pharmacy 39.1 ml/min; Est GFR (African American) 32.8 ml/min; Est GFR (Non-African American) 28.3 ml/min; Globulin 3.9 gm/dl (2.5-4.0); Total Protein 7.9 gm/dl (6.0-8.3)
[2022-04-19] MEDS ORDERED: LOSARTAN POTASSIUM 25 MG TAB PO SCH (09:00)
--- NOTE | 2022-04-19 09:59 | Surgery Consultation ---
Date of Consultation April 19, 2022 Assessment & Plan (1) Small bowel obstruction: 51 yr old man with complicated abdominal history and symptoms/ imaging suggestive of partial small bowel obstruction. Clinically, this appears to be resolving with improvement of his symptoms. He has a parastomal hernia but this is not causing the obstruction. Would recommend checking abdominal xray. If improved, can start clear liquids today and advance diet as tolerated. No indication for surgical intervention as he is likely to have a complicated abdomen. (2) Ulcerative colitis: s/p total colectomy. Rectum still in place - declined proctectomy. F/u with his surgeon as outpatient for screening. (3) On anticoagulant therapy: on coumadin. History of Present Illness Reason for Consultation: small bowel obstruction Requesting Physician: Donnie Diamond Attending Physician: Donnie Diamond History of Present Illness 51 yr old man with complicated abdominal history here with partial small bowel obstruction presenting as nausea and vomiting, minimal abdominal pain. Developed nausea and vomiting 2 days ago. No change in ostomy output that he noted, except stool was looser than typical. Vomiting was only if ate anything. Entire family had a "stomach bug". He thinks it may have been food poisoning. Came to ER as he was worried about dehydration or obstruction. Notes no further vomiting since in the ER. Feels back to normal without any nausea. Has been sipping on water. Ostomy has gas and stool in bag. Patient with longstanding history ulcerative colitis refractory to therapy. On multiple medications without improvement. Eventually underwent total abdominal colectomy 04/11/2019 at [facility]. Pathology revealed active ulcerative colitis but also an area of invasive well differentiated adenocarcinoma (T2N0) in the ascending colon. His rectum was left in place and proctectomy has been recommended - he has declined. In January 2020, presented to [facility] with complete bowel obstruction. States he was seen in the ER on two occasions and sent home. Ultimately, admitted and required transfer to [facility] where he required intubation for aspiration pneumonia. Was critically ill with septic shock, darin course, renal failure on dialysis. Needed tracheostomy, removed 03/13/2020. NG placement was unsuccessful. Had a fib with rvr. SBO resolved on its own. Needed rehab. He also has a hypercoagulable state presumably secondary to ulcerative colitis suffering pulmonary embolism 11/2004. Initially treated for 1 year with anticoagulation. Off of anticoagulation he had recurrent DVT and was placed on anticoagulation for life. Allergies Allergy/AdvReac Type Severity Reaction Status Date / Time infliximab AdvReac Severe body Verified 04/18/22 17:40 aches;couldn't sleep Home Medications Medication Instructions Recorded Confirmed Type ferrous sulfate 325 mg (65 mg 325 mg PO QAM 05/22/21 04/18/22 History iron) tablet cholecalciferol (vitamin D3) 50 50 mcg PO DAILY 12/11/21 04/18/22 History mcg (2,000 unit) capsule calcitriol 0.5 mcg capsule 0.5 mcg PO DAILY 04/18/22 04/18/22 History losartan 25 mg tablet 25 mg PO DAILY 04/18/22 04/18/22 History warfarin 1 mg tablet 0.5 mg PO 3XWK 04/18/22 04/18/22 History warfarin 10 mg tablet 10 mg PO 4XWK 04/18/22 04/18/22 History warfarin 6 mg tablet 12 mg PO 3XWK 04/18/22 04/18/22 History Patient History Medical History Carpal tunnel syndrome on both sides Closed fracture of neck of left femur Closed left hip fracture Deep vein thrombosis in leg 15yrs ago DVT (deep venous thrombosis) Dysplastic nevus GI bleed History of DVT (deep vein thrombosis) HTN (hypertension), benign Hyperlipidemia On anticoagulant therapy eliquis daily Pulmonary embolism Secondary hypercoagulable state Small bowel obstruction Ulcerative colitis Vitamin D deficiency Surgical History History of colectomy History of colonoscopy History of hernia repair Family History Mother Hypertension Bone cancer Amputation below knee Other No family history of adverse response to anesthesia Denies family history of Ovarian cancer Prostate cancer Myocardial infarction Breast cancer Colorectal cancer Social History Smoking Status: Never smoker Second Hand Exposure: No; Do You Dip or Chew Tobacco: No; Hx Alcohol Use: Yes Alcohol type: beer Alcohol Intake Frequency: Monthly or Less Hx Substance Use: No Preferred Language: Norwegian Communication Ability: Effective Visual Impairment: Limited Hearing Ability: Normal Night Shift Supervisor Required: No Beliefs That Will Affect Care: None marital status: Current Living Situation: Spouse current occupational status: employed How many Children do You have: 1 How many Children do You have Comment: step daughter Other Information That Helps Us Care for You: No Feels Safe at Home: Yes Safety Concerns: Feels Safe At This Time Childhood Exposure to Second-Hand Smoke: No caffeine: Yes (soda sometimes ) Dental Care, Regularly: Yes Physical Activity Frequency: Daily 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 Use: always Sunscreen Use: Yes (sometimes) Assistive Devices: Contacts Review of Systems Review of Systems: All systems reviewed & are unremarkable except as noted in HPI & below Genitourinary: + problem reported (off dialysis now) Physical Exam Constitutional: WD/WN, vitals as above Eyes: PERRL, conjunctivae normal, anicteric sclerae ENMT: external ear and nose normal, oropharynx normal Neck: normal visual inspection and trachea midline Respiratory: normal respiratory effort, lungs clear to auscultation Cardiovascular: RRR, no murmur, no edema Gastrointestinal (Abdomen): normal bowel sounds, soft, nontender, no hepatosplenomegaly Percussion/Palpation: no guarding ostomy with gas and stool in bag, well healed midline incision Musculoskeletal: no cyanosis or clubbing, extremities motor strength 5/5 Neurologic: moves all extremities and awake Psychiatric: A+Ox3, euthymic affect Results & Data ([facility]) Vital Signs (Past 12 Hours) Vital Signs Temp Pulse Pulse Resp BP BP Pulse Ox 04/19/22 07:24 36.6 C 75 14 117/78 95 04/18/22 23:30 36.8 C 72 16 136/75 95 04/18/22 23:00 114/77 04/18/22 22:59 77 117/80 97 04/18/22 22:30 72 97 04/18/22 22:00 73 97 Laboratory Results Abnormal lab results 04/18/22 04/18/22 04/18/22 Range/Units 16:55 16:55 16:55 WBC 16.47 H (4.8-10.8) K/uL RBC 4.54 L (4.7-6.1) M/uL Hgb (14.0-18.0) g/dL Hct 41.1 L (42-52) % RDW Std Deviation 49.5 H (36.4-46.3) fL RDW Coeff of Asha 14.8 H (11.5-14.5) % Plt Count 423 H (130-400) K/uL Neut # (Auto) 12.41 H (1.4-6.5) K/uL Waldo # (Auto) 2.37 H (0.11-0.59) K/uL Immature Gran # (Auto) 0.05 H (0.00-0.02) K/uL PT 18.8 H (9.0-12.0) Seconds INR 1.8 H (0.9-1.1) Chloride (98-107) mmol/L Carbon Dioxide (21-32) mmol/L BUN 62 H (6-23) mg/dl Creatinine 3.02 H (0.6-1.4) mg/dl BUN/Creatinine Ratio 20.5 H (10-20) Glucose 128 H (70-99(Fasting)) mg/dl Total Bilirubin (0.2-1.0) mg/dl Total Protein 9.3 H (6.0-8.3) gm/dl Globulin 4.7 H (2.5-4.0) gm/dl 04/19/22 04/19/22 04/19/22 Range/Units 06:27 06:27 06:27 WBC 11.85 H (4.8-10.8) K/uL RBC 4.30 L (4.7-6.1) M/uL Hgb 12.9 L (14.0-18.0) g/dL Hct 38.8 L (42-52) % RDW Std Deviation 49.2 H (36.4-46.3) fL RDW Coeff of Asha 15.0 H (11.5-14.5) % Plt Count (130-400) K/uL Neut # (Auto) 7.94 H (1.4-6.5) K/uL Waldo # (Auto) 2.16 H (0.11-0.59) K/uL Immature Gran # (Auto) 0.04 H (0.00-0.02) K/uL PT 16.7 H (9.0-12.0) Seconds INR 1.6 H (0.9-1.1) Chloride 109 H (98-107) mmol/L Carbon Dioxide 20 L (21-32) mmol/L BUN 57 H (6-23) mg/dl Creatinine 2.54 H D (0.6-1.4) mg/dl BUN/Creatinine Ratio 22.4 H (10-20) Glucose 103 H (70-99(Fasting)) mg/dl Total Bilirubin 1.1 H (0.2-1.0) mg/dl Total Protein (6.0-8.3) gm/dl Globulin (2.5-4.0) gm/dl Diagnostic Findings CT OF THE ABDOMEN AND PELVIS WITHOUT CONTRAST CLINICAL HISTORY: sbo, noted on plain film COMPARISON STUDY: CT of the abdomen and pelvis May 23, 2021. Abdominal series performed earlier today. TECHNIQUE: Axial images of the abdomen and pelvis were obtained without IV contrast. Images were reviewed in the axial, sagittal, and coronal planes. Automated exposure control was utilized for the study. A dose lowering technique was utilized adhering to the principles of ALARA. FINDINGS: No pneumatosis, free air or portal venous gas is present. Evaluation of the abdomen and pelvis is suboptimal on this unenhanced exam. Unenhanced images of liver, spleen, adrenal glands and pancreas are unremarkable. There is no biliary or pancreatic ductal dilatation. There is mild bilateral collecting system dilatation, significantly improved when compared to CT of May 23, 2021. Urothelial thickening is noted within the collecting systems. Bladder wall thickening is noted. This is probably chronic. No abdominal or pelvic lymphadenopathy is present. Left femoral internal fixation is partially imaged. Partial colonic resection is noted with right lower quadrant ileostomy. There is a parastomal hernia which contains multiple small bowel loops. Note is made of multiple loops of moderately dilated fluid-filled proximal to mid small bowel. Transition point is within the right upper quadrant on axial image 165 of 471. Distal small bowel is decompressed. Parastomal hernia does not appear to result in the bowel obstruction. Submucosal fat deposition within the rectum is chronic. There is possible mucosal lesion within the right lateral wall of the rectum on axial image 367 of 471. Submucosal fat appears disrupted. This could be artifactual. IMPRESSION: 1. Findings consistent with a small bowel obstruction. Moderately dilated fluid- filled proximal to mid small bowel with transition point within the right upper quadrant. Decompressed distal small bowel. 2. Status post partial colectomy with right lower quadrant ileostomy. Parastomal hernia contains multiple small bowel loops which does not appear to result in a bowel obstruction. 3. Possible mucosal lesion within the right lateral wall the rectum, as described above. GI consultation for consideration for colonoscopy is recommended. 4. Mild bilateral collecting system dilatation, significantly improved since prior CT. Urothelial thickening. Although nonspecific, this is likely chronic. Bladder wall thickening, likely chronic. (1) Ulcerative colitis Ulcerative colitis location: ulcerative pancolitis Digestive disease complication type: without complication Qualified Code(s): K51.00 - Ulcerative (chronic) pancolitis without complications
--- NOTE | 2022-04-19 10:57 | XRay Report ---
ABDOMEN 2 VIEWS HISTORY: assess obstruction, symptoms improved COMPARISON: Abdomen and pelvis CT 04/18/2022. FINDINGS: Multiple dilated gas-filled loops of small bowel are again noted within the upper abdomen. These have slightly improved in the interval. These measure up to 7 cm in diameter previous measuring 7.8 cm. This right lower quadrant ostomy. Postoperative changes again noted within the left hip. No pneumoperitoneum. No pneumatosis. Vascular calcifications are present. IMPRESSION: Redemonstration of a small bowel obstruction pattern. This has slightly improved in the interval. ACT 112: Negative or not required by law. Electronically signed by: Richard Desouza M.D. 04/19/2022 10:55 AM
--- NOTE | 2022-04-19 12:07 | Hospitalist Progress Note ---
Date of Service April 19, 2022 Assessment & Plan (1) Small bowel obstruction: Plan: partial SBO likely on basis of adhesions has a parastomal hernia but it does not appear to be the cause of his presentation pSBO improving stool via ostomy this am KUB x-ray improving albeit mildly ok from gen surg standpoint to start clears repeat exam, labs, etc in am appreciate gen surg consultation (2) MARK (acute kidney injury): Plan: improving s/p IV fluids overnight cont NS BMP am Baseline creatinine appears to be 1.9 - 2.3 (3) Urethral stenosis: Plan: Ureteral Stenosis / Bilateral Hydronephrosis History of severe stricture bulbar urethra that has been complicated by bilateral hydronephrosis (voids freely, intermittent cath at home) Follows with [facility] (4) HTN (hypertension), benign: Plan: Hold home losartan in the setting of MARK on CKD (5) Episodic atrial fibrillation: Plan: PAF examines in NSR at this time cont coumadin (6) Adenocarcinoma, colon: Plan: History of ulcerative colitis w/ invasive well differentiated colonic adenocarcinoma status post colectomy with ileostomy 03/[address]) (7) DVT, bilateral lower limbs: Plan: History of DVT and PEs requiring lifelong anticoagulation Home Coumadin regimen -- T-F 10mg/d, Sa-Mon 12.5mg/day INR goal 2-3 Cont coumadin; INR am (8) Ulcerative colitis: Plan: s/p colectomy (during colectomy, found to have adenocarcinoma) Ileostomy functioning well (9) Rectal lesion: Plan: Admission CT demonstrating incidentally noted "possible mucosal lesion within the right lateral wall of the rectum GI f/u post-d/c Will make patient aware (10) Chronic renal failure, stage 3b: Plan: 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 Follows with [facility], and [facility] Superimposed MARK but improving Cont IV fluids repeat BMP am Plan: progressing Admission and Anticipated Discharge Date Admission Date: April 18, 2022 Subjective pt feeling much better plenty of stool output via ileostomy "I feel normal" no nausea/emesis took some clear liquids this am - requests a formal clear liquid tray ambulating was at bedside - I updated her Review of Systems Review of Systems: gen - no fevers cv - no chest pain pulm - no cough, no dyspnea GI - no pain; bloating resolved Physical Exam Physical Exam: gen - looks well, NAD mouth - MMM neck - no JVD heart - RRR, s1 s2 lungs - CTA b/l abd - mild distension, BS+, NT, parastomal hernia present; ileostomy present with liquid stool in bag ext - no edema, pulses 2+ b/l psych - a/o x 3 Results & Data Results & Data ([facility]) Vital Signs (Past 12 Hours) Vital Signs Temp Pulse Resp BP Pulse Ox 04/19/22 07:24 36.6 C 75 14 117/78 95 Laboratory Results Laboratory Results - last 24 hr 04/18/22 04/18/22 04/18/22 16:55 16:55 16:55 WBC 16.47 H RBC 4.54 L Hgb 14.2 Hct 41.1 L MCV 90.5 MCH 31.3 MCHC 34.5 RDW Std Deviation 49.5 H RDW Coeff of Asha 14.8 H Plt Count 423 H MPV 10.4 Immature Gran % (Auto) 0.3 Neut % (Auto) 75.3 Lymph % (Auto) 9.8 [place] % (Auto) 14.4 Eos % (Auto) 0.1 Baso % (Auto) 0.1 Neut # (Auto) 12.41 H Lymph # (Auto) 1.61 [place] # (Auto) 2.37 H Eos # (Auto) 0.01 Baso # (Auto) 0.02 Immature Gran # (Auto) 0.05 H PT 18.8 H INR 1.8 H Sodium 136 Potassium 3.9 Chloride 102 Carbon Dioxide 23 Anion Gap 11 BUN 62 H Creatinine 3.02 H Est Cr Clr Drug Dosing 32.7 Est GFR ( Amer) 26.6 Est GFR (Non-Af Amer) 23.0 BUN/Creatinine Ratio 20.5 H Glucose 128 H Calcium 9.8 Total Bilirubin 1.0 AST 15 ALT 16 Alkaline Phosphatase 55 Total Protein 9.3 H Albumin 4.6 Globulin 4.7 H Albumin/Globulin Ratio 1.0 Lipase 16 Stl C. cayetanensis PCR Stool Rotavirus A PCR Stl Adenov F 40/41 PCR Stool Astrovirus (PCR) Stool Campylobacter PCR Stl C. diff Tox A/B PCR Stool Cryptosporidium PCR Stl E.coli Shiga Tox PCR Stl Enterotoxigenic E PCR Stool EPEC (PCR) Stool EAEC (PCR) Stl E. histolytica PCR Stool Giardia Lamblia PCR Stool Salmonella PCR Stool Sapovirus (PCR) Stl P. shigelloides PCR Stl Shigella/EIEC PCR St Y.enterocolitica PCR Stool Vibrio (PCR) Stl Vibrio cholerae PCR Stl Norovirus GI/GII PCR SARS-CoV-2, RNA, NAAT 04/18/22 04/18/22 04/19/22 18:43 Unknown 06:27 WBC 11.85 H RBC 4.30 L Hgb 12.9 L Hct 38.8 L MCV 90.2 MCH 30.0 MCHC 33.2 RDW Std Deviation 49.2 H RDW Coeff of Asha 15.0 H Plt Count 372 MPV 10.3 Immature Gran % (Auto) 0.3 Neut % (Auto) 67.1 Lymph % (Auto) 13.8 [place] % (Auto) 18.2 Eos % (Auto) 0.5 Baso % (Auto) 0.1 Neut # (Auto) 7.94 H Lymph # (Auto) 1.64 [place] # (Auto) 2.16 H Eos # (Auto) 0.06 Baso # (Auto) 0.01 Immature Gran # (Auto) 0.04 H PT INR Sodium Potassium Chloride Carbon Dioxide Anion Gap BUN Creatinine Est Cr Clr Drug Dosing Est GFR ( Amer) Est GFR (Non-Af Amer) BUN/Creatinine Ratio Glucose Calcium Total Bilirubin AST ALT Alkaline Phosphatase Total Protein Albumin Globulin Albumin/Globulin Ratio Lipase Stl C. cayetanensis PCR Not Detected Stool Rotavirus A PCR Not Detected Stl Adenov F 40/41 PCR Not Detected Stool Astrovirus (PCR) Not Detected Stool Campylobacter PCR Not Detected Stl C. diff Tox A/B PCR Not Detected Stool Cryptosporidium PCR Not Detected Stl E.coli Shiga Tox PCR Not Detected Stl Enterotoxigenic E PCR Not Detected Stool EPEC (PCR) Not Detected Stool EAEC (PCR) Not Detected Stl E. histolytica PCR Not Detected Stool Giardia Lamblia PCR Not Detected Stool Salmonella PCR Not Detected Stool Sapovirus (PCR) Not Detected Stl P. shigelloides PCR Not Detected Stl Shigella/EIEC PCR Not Detected St Y.enterocolitica PCR Not Detected Stool Vibrio (PCR) Not Detected Stl Vibrio cholerae PCR Not Detected Stl Norovirus GI/GII PCR Not Detected SARS-CoV-2, RNA, NAAT NEGATIVE 04/19/22 04/19/22 06:27 06:27 WBC RBC Hgb Hct MCV MCH MCHC RDW Std Deviation RDW Coeff of Asha Plt Count MPV Immature Gran % (Auto) Neut % (Auto) Lymph % (Auto) [place] % (Auto) Eos % (Auto) Baso % (Auto) Neut # (Auto) Lymph # (Auto) [place] # (Auto) Eos # (Auto) Baso # (Auto) Immature Gran # (Auto) PT 16.7 H INR 1.6 H Sodium 138 Potassium 4.0 Chloride 109 H Carbon Dioxide 20 L Anion Gap 9 BUN 57 H Creatinine 2.54 H D Est Cr Clr Drug Dosing 39.1 Est GFR ( Amer) 32.8 Est GFR (Non-Af Amer) 28.3 BUN/Creatinine Ratio 22.4 H Glucose 103 H Calcium 8.7 Total Bilirubin 1.1 H AST 13 ALT 13 Alkaline Phosphatase 49 Total Protein 7.9 Albumin 4.0 Globulin 3.9 Albumin/Globulin Ratio 1.0 Lipase Stl C. cayetanensis PCR Stool Rotavirus A PCR Stl Adenov F 40/41 PCR Stool Astrovirus (PCR) Stool Campylobacter PCR Stl C. diff Tox A/B PCR Stool Cryptosporidium PCR Stl E.coli Shiga Tox PCR Stl Enterotoxigenic E PCR Stool EPEC (PCR) Stool EAEC (PCR) Stl E. histolytica PCR Stool Giardia Lamblia PCR Stool Salmonella PCR Stool Sapovirus (PCR) Stl P. shigelloides PCR Stl Shigella/EIEC PCR St Y.enterocolitica PCR Stool Vibrio (PCR) Stl Vibrio cholerae PCR Stl Norovirus GI/GII PCR SARS-CoV-2, RNA, NAAT PG Care Time/CCT Total # of Minutes Spent Total Time Spent with Patient: Total time spent is greater than 50% in coordination of care (as documented) at patient's floor/unit and/or counseling patient: Coding Level of Care Code 33299 Subseq Hosp Care Lvl 2 Diagnoses Small bowel obstruction K56.609 MARK (acute kidney injury) N17.9 Urethral stenosis HTN (hypertension), benign I10 Episodic atrial fibrillation I48.0 Adenocarcinoma, colon C18.9 DVT, bilateral lower limbs I82.403 Ulcerative colitis K51.00 Ulcerative colitis location: ulcerative pancolitis Digestive disease complication type: without complication Rectal lesion K62.9 Chronic renal failure, stage 3b N18.32 (1) Ulcerative colitis Ulcerative colitis location: ulcerative pancolitis Digestive disease complication type: without complication Qualified Code(s): K51.00 - Ulcerative (chronic) pancolitis without complications
[2022-04-19] MEDS: SODIUM CHLORIDE 0.9% 1000ML 1,000 ML IV SCH ×2 (12:54→22:49)
[2022-04-19] MEDS ORDERED: WARFARIN SOD 6 MG TAB PO SCH (16:00)
[2022-04-19] MEDS ORDERED: WARFARIN SOD 0.5 MG TAB PO SCH (16:00)
[2022-04-19] MEDS ORDERED: WARFARIN SOD 2.5 MG TAB PO ONE (21:45)
[2022-04-19] MEDS ORDERED: WARFARIN SOD 10 MG TAB PO ONE (21:45)
--- NOTE | 2022-04-20 05:37 | Billing Data ---
Date of Service April 20, 2022 Coding Level of Care Code 71865 Initial Inpt Care Lvl 3
[2022-04-20 07:33] LABS: INR 1.9 (0.9-1.1); Prothrombin Time 19.5 Seconds (9.0-12.0)
[2022-04-20] MEDS: FERROUS SULFATE 325 MG TAB PO SCH (08:53)
[2022-04-20] MEDS: CALCITRIOL 0.25 MCG CAPSULE PO SCH (08:54)
[2022-04-20] MEDS: CHOLECALCIFEROL 1,000 UNITS 25 MCG TAB PO SCH (08:54)
[2022-04-20] MEDS: SODIUM CHLORIDE 0.9% 1000ML 1,000 ML IV SCH (08:58)
[2022-04-20 10:58] LABS: BUN Creatinine Ratio 21.6 (10-20); Calcium 8.4 mg/dl (8.5-10.1); Creatinine Clr Calc Pharmacy 43.8 ml/min; Est GFR (African American) 37.6 ml/min; Est GFR (Non-African American) 32.4 ml/min; Potassium 3.9 mmol/L (3.5-5.1)
--- NOTE | 2022-04-20 13:59 | Discharge Summary ---
Date of Service April 20, 2022 Admission HPI Per Admitting Provider This is a 51-year-old male with a history of ulcerative colitis w/ invasive well differentiated adenocarcinoma status post colectomy with ileostomy 03/2019 ([facility]), history of hernia repair, CKD III/IV, nephrolithiasis, severe stricture of bulbar urethra c/b bilateral hydronephrosis requiring intermittent self- catheterization, hypertension, atrial fibrillation on warfarin who presented to [facility] for evaluation of vomiting. Per report, patient has been vomiting over the last 2 days alongside loose, watery stools in ileostomy bag. He says that last week, he and his family got some sort of gastroenteritis but resolved quite quickly. He denies any pain over this time. He does say that he has had poor p.o. intake as a result of the frequent nausea.Denies any fever, chills, night sweats. At baseline, patient does report being able to void freely, but does self catheterize once a week. He denies any changes with this recently or issues with this. Medications reviewed and include calcitriol, vitamin D, ferrous sulfate, losartan 25 daily, warfarin 10mg T-F, 12.5mg Sa/Thu/M. In the ED, patient was found to have largely normal vital signs and was afebrile. Labs revealing of leukocytosis to 16.5 with left shift, BUN 62/creatinine 3.02 (baseline appears to be 1.9 - 2.3), largely normal electrolytes. CT demonstrating Findings consistent with small bowel obstruction (moderately dilated fluid-filled proximal to mid small bowel with transition point in the right upper quadrant), Status post partial colectomy with parastomal hernia (contains multiple small bowel loops and radiologically does not appear to be resulting in bowel obstruction), possible mucosal lesion within the right lateral wall of the rectum, mild bilateral collecting system dilation, significantly improved compared to prior CT. In the ED, patient was given 2L NSS, Zofran, Phenergan. ED physician spoke w/ on-call general surgeon to discuss case - no acute indication for surgical intervention. Patient declined NGT placement. Discharge Exam gen - looks well, NAD mouth - MMM neck - no JVD heart - RRR, s1 s2 lungs - CTA b/l abd - mild distension, BS+, NT, parastomal hernia present; ileostomy present with liquid stool in bag ext - no edema, pulses 2+ b/l psych - a/o x 3 Discharge Data Allergies Allergy/AdvReac Type Severity Reaction Status Date / Time infliximab AdvReac Severe body Verified 04/18/22 17:40 aches;couldn't sleep Consultations 04/18/22 20:07 ED Decision to Admit Stat 04/18/22 21:41 Consult General Surgery Routine Ordered Studies 04/18/22 18:32 CT abd pelvis wo con Stat Hospital Course (1) Small bowel obstruction: partial SBO likely on basis of adhesions has a parastomal hernia but it does not appear to be the cause of his presentation pSBO improving stool via ostomy this am KUB x-ray improving albeit mildly ok from gen surg standpoint to start clears repeat exam, labs, etc in am appreciate gen surg consultation (2) MARK (acute kidney injury): improving s/p IV fluids overnight cont NS BMP am Baseline creatinine appears to be 1.9 - 2.3 (3) Urethral stenosis: Ureteral Stenosis / Bilateral Hydronephrosis History of severe stricture bulbar urethra that has been complicated by bilateral hydronephrosis (voids freely, intermittent cath at home) Follows with [facility] (4) HTN (hypertension), benign: Hold home losartan in the setting of MARK on CKD (5) Episodic atrial fibrillation: PAF examines in NSR at this time cont coumadin (6) Adenocarcinoma, colon: History of ulcerative colitis w/ invasive well differentiated colonic adenocarcinoma status post colectomy with ileostomy 03/2019 ([facility]) (7) DVT, bilateral lower limbs: History of DVT and PEs requiring lifelong anticoagulation Home Coumadin regimen -- T-F 10mg/d, Sa-Mon 12.5mg/day INR goal 2-3 Cont coumadin; INR am (8) Ulcerative colitis: s/p colectomy (during colectomy, found to have adenocarcinoma) Ileostomy functioning well (9) Rectal lesion: Admission CT demonstrating incidentally noted "possible mucosal lesion within the right lateral wall of the rectum GI f/u post-d/c Will make patient aware (10) Chronic renal failure, stage 3b: 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 Follows with [facility], and [facility] Superimposed MARK but improving Cont IV fluids repeat BMP am progressing Discharge Plan Discharge Items Patient Disposition: Home - Self-Care Reason For Visit: SBO (SMALL BOWEL OBSTRUCTION) Discharge Diagnosis: SBO - resolving Activity: As commented below Activity Comment: take it easy the next 2-3 days then gradually resume normal activities Sexual Activity: Wait until after follow-up appointment Exercise/Sports: Wait until after follow-up appointment Driving/Machine Use: No limitations Non-emergency contact: Primary Care Provider Call non-emergency contact if: you have any medication questions, your symptoms worsen, your pain is worsening, your pain is concerning for you and you have a fever Follow-up/Referrals: Harsha Omer MD [Primary Care Provider] - (5-7 days ) Waldemar Dukes DO [Physician] - (Dr Dukes or one of his partners - 2-3 weeks - dx, rectal abnormality on CT scan ) Diet: Full liquid Addtl Attending Provider Instructions: Mr Ortiz, You were hospitalized for a small bowel obstruction (SBO). The most common cause of a SBO is scar tissue within the abdominal cavity. Scar tissue is also known as "adhesions." Most scar tissue is due to prior operations within the abdomen. The SBO quickly improved with IV fluids, bowel rest, and time. Your abdominal bloating/distension improved, and your ostomy output returned to normal. [facility] saw you in consult and was pleased with your improvement. A clear liquid diet was resumed on 04/19, and advanced to full liquids on 04/20. You are tolerating diet nicely at this time. Recommendations - 1. For another 24-36 hours please follow a "FULL LIQUIDS" diet (see handout). Full liquids is all liquids including dairy (milk, cream-based soup, yogurt, ice cream). 2. Starting late tomorrow night and into Thursday morning you can gradually transition over to a LOW FIBER diet (see handout). Try to avoid fast foods, fried foods, frozen goods. Go slowly with the low fiber diet. 3. Follow a LOW FIBER diet for at least 7-10 days. 4. Avoid alcohol over the next 1-2 weeks. 5. Your discharge INR is 1.9. Please continue your usual coumadin regimen upon return home. Follow-up with your coumadin provider as previously directed. 6. The CT scan of the abdomen that was taken in the ER showed an abnormality in the rectum. It is uncertain what this is. Please follow-up with [facility] as they may want to investigate this further with additional tests. Follow-up - see separate section Return to [facility] if - * you have a sudden drop off in ostomy output * you have worsening abdominal pain * you have worsening abdominal bloating/distension * you are vomiting * any other concerns It was our pleasure to care for you at [facility]! Dr Diamond Pending Studies at Discharge: No Stand-Alone Forms: My [facility], Smoking Cessation Medications and DC Order Prescriptions: Continued cholecalciferol (vitamin D3) 50 mcg (2,000 unit) capsule 50 mcg PO DAILY RF: 0 ferrous sulfate 325 mg (65 mg iron) tablet 325 mg PO QAM RF: 0 warfarin 10 mg tablet 10 mg PO 4XWK RF: 0 warfarin 6 mg tablet 12 mg PO 3XWK RF: 0 warfarin 1 mg tablet 0.5 mg PO 3XWK RF: 0 calcitriol 0.5 mcg capsule 0.5 mcg PO DAILY RF: 0 losartan 25 mg tablet 25 mg PO DAILY RF: 0 Discharge Orders: Discharge Order (Routine); Ordered 04/20/22 Ordered By: Donnie Lennon/Other Patient Handouts: Small Bowel Obstruction, Low-Fiber Diet, ED Full Liquid Diet Admission Data Admit Date/Time: 04/18/22 21:05 Attending Provider: Donnie Diamond Admit Provider: [place] Primary Care Provider: Harsha Omer Other Providers: [place] ; Ilya Chacon ; Peter Leonard ; Fahad Morales ; Michael Akbar Jr ; Abram Ga ; Luis Ge ; Swetha Murphy ; Mp Nesbitt ; Alexander Saldana Coding Diagnoses Small bowel obstruction K56.609 MARK (acute kidney injury) N17.9 Urethral stenosis HTN (hypertension), benign I10 Episodic atrial fibrillation I48.0 Adenocarcinoma, colon C18.9 DVT, bilateral lower limbs I82.403 Ulcerative colitis K51.00 Ulcerative colitis location: ulcerative pancolitis Digestive disease complication type: without complication Rectal lesion K62.9 Chronic renal failure, stage 3b N18.32
== END 2022-04-20 14:33 | disposition home or self-care (01) | DRG 389 ==
LOC: ED 16:28 → SUATTDRO 21:05 → 3W 21:05

== ENCOUNTER 2022-04-27 22:32 | Inpatient (IN) ==
[2022-04-27] MEDS ORDERED: SODIUM CHLORIDE 0.9% 1000ML 1,000 ML IV ONE (22:46)
--- NOTE | 2022-04-27 22:51 | Emergency Department Note ---
History of Present Illness General Chief complaint: Dehydration Stated complaint: DOESN'T FEEL WELL, DEHYDRATED Time Seen by Provider: 04/27/22 22:42 Source: patient History of Present Illness Provider complaint: Dehydration Onset (ago): day(s) 2 Location: abdomen Pain Consistency: + constant Quality: + other (Does not feel "peppy") Relieved By: + none Associated symptoms: no chest pain, no cough, no fever/chills, no nausea/vomit ing or no shortness of breath This is a 52-year-old male who presents with what he feels is dehydration for the past 2 days. He was just hospitalized for a partial bowel obstruction and w as discharged home. He felt fine but then over the past 2 days he started eating and as soon as he ate anything it went right through him into his colostomy bag. He states that he feels he is dehydrated and does not feel "peppy.". He denies any shortness of breath or chest pain. He has no abdominal pain. He denies fever, cough or cold symptoms, vomiting or black or bloody stools. He is urinating normally. He had spaghetti today and he felt like it just went right through him. Home Medications Medication Instructions Recorded Confirmed Type ferrous sulfate 325 mg (65 mg 325 mg PO QAM 05/22/21 04/27/22 History iron) tablet cholecalciferol (vitamin D3) 50 50 mcg PO DAILY 12/11/21 04/27/22 History mcg (2,000 unit) capsule calcitriol 0.5 mcg capsule 0.5 mcg PO DAILY 04/18/22 04/27/22 History losartan 25 mg tablet 25 mg PO DAILY 04/18/22 04/27/22 History warfarin 1 mg tablet 0.5 mg PO 3XWK 04/18/22 04/27/22 History warfarin 10 mg tablet 10 mg PO 4XWK 04/18/22 04/27/22 History warfarin 6 mg tablet 12 mg PO 3XWK 04/18/22 04/27/22 History Allergies Allergy/AdvReac Type Severity Reaction Status Date / Time infliximab [From Remicade] AdvReac Severe BODY Verified 04/27/22 23:23 ACHES, COULDN'T SLEEP Past Med/Surg History Medical History Carpal tunnel syndrome on both sides Closed fracture of neck of left femur Closed left hip fracture Deep vein thrombosis in leg 15yrs ago DVT (deep venous thrombosis) Dysplastic nevus GI bleed History of DVT (deep vein thrombosis) HTN (hypertension), benign Hyperlipidemia On anticoagulant therapy eliquis daily Pulmonary embolism Secondary hypercoagulable state Small bowel obstruction Ulcerative colitis Vitamin D deficiency Surgical History History of colectomy History of colonoscopy History of hernia repair Family History Mother Hypertension Bone cancer Amputation below knee Other No family history of adverse response to anesthesia Denies family history of Ovarian cancer Prostate cancer Myocardial infarction Breast cancer Colorectal cancer Social History Smoking Status: Never smoker Second Hand Exposure: No; Hx Alcohol Use: Yes Alcohol type: beer Alcohol Intake Frequency: Monthly or Less Hx Substance Use: No Preferred Language: Urdu Communication Ability: Effective Visual Impairment: Limited Hearing Ability: Normal 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 and A total of 10 systems reviewed and were otherwise negative Physical Exam Vital Signs Vital Signs - 24 hr 04/27/22 22:35 04/27/22 23:31 04/27/22 23:37 Temperature 36.7 C Temperature Source Temporal Artery Scan Pulse Rate 86 73 Pulse Rate [Finger] 79 Pulse Rhythm Regular Pulse Rhythm [Finger] Regular Pulse Strength Normal Pulse Strength [Finger] Normal Respiratory Rate 18 20 20 Respiratory Effort / Characteristics Non-Labored Spontaneous Respiratory Depth Normal Respiratory Pattern Regular Blood Pressure 89/59 L 87/57 L Blood Pressure [Right Arm] 87/57 L Blood Pressure Mean 69 67 Blood Pressure Mean [Right Arm] 67 Blood Pressure Position Sitting Blood Pressure Position [Right Arm] Sitting Pulse Oximetry 98 98 98 Oxygen Delivery Method Room Air Room Air Room Air Sepsis Recent Fever Within 48 Hours No Sepsis New/Unexplained Change in Mental Status N/A Sepsis Action Taken by Nursing No Action Required Constitutional: Vital signs reviewed. Eyes: Pupils are equal round reactive to light. Conjunctiva are noninjected. ENT: Pharynx is clear without erythema or exudate. Mucous membranes are dry. Neck supple without meningeal signs. Respiratory: Clear to auscultation bilaterally. Breath sounds are equal bilaterally. Cardiovascular: Regular rate and rhythm. No rubs or gallops. GI: Soft, nondistended colostomy right lower quadrant with brown liquidy stool. Bowel sounds are present. Musculoskeletal: No peripheral edema. No lower extremity tenderness. Integumentary: No cyanosis. or jaundice. Neurological: The patient is awake and alert. No focal deficits. Psychiatric: Normal affect. Not anxious appearing. Course Administered Medications Discontinued Medications Sodium Chloride (Nss 1000ml) 1,000 mls @ 999 mls/hr IV .Q1H1M ONE Stop: 04/27/22 23:46 Last Infusion: 04/27/22 23:58 Dose: 0 mls/hr Documented by: [id number] Admin: 04/27/22 23:02 Dose: 999 mls/hr Documented by: [id number] Sodium Chloride (Nss 1000ml) 500 mls @ 999 mls/hr IV .Q31M ONE Stop: 04/28/22 00:21 Last Admin: 04/27/22 23:58 Dose: 999 mls/hr Documented by: [id number] Critical Care Time Critical Care Time: Yes Total Critical Care Time: 35 I have personally spent approximately 35 minutes of critical care time in the direct management of this patient. This includes bedside care, interpretation of diagnostic studies, and testing, discussion with consultants, patient, and family members, and other required patient management activities. These minutes are in excess of all separately billable procedures. Medical Decision Making Differential Diagnosis Dehydration, diarrhea, dumping syndrome, hypotension, metabolic derangement, anemia, MARK Medical Records Attestation: I reviewed the patient's medical records. I did perform a limited focused review of portions of the patient's old chart on the electronic medical record. The patient was admitted to the hospital last month for partial small bowel obstruction as well as MARK. Home Medications Current Medication List: was personally reviewed by me Laboratory Data Attestation: I reviewed the patient's lab results. Result diagrams: 04/27/22 23:00 04/27/22 23:00 Lab Results 04/27/22 04/27/22 04/27/22 Range/Units 23:00 23:00 Unknown WBC 13.56 H (4.8-10.8) K/uL RBC 4.16 L (4.7-6.1) M/uL Hgb 12.8 L (14.0-18.0) g/dL Hct 36.9 L (42-52) % MCV 88.7 (80-100) fL MCH 30.8 (25-34) pg MCHC 34.7 (32-36) g/dL RDW Std Deviation 47.6 H (36.4-46.3) fL RDW Coeff of Asha 14.6 H (11.5-14.5) % Plt Count 396 (130-400) K/uL MPV 10.5 H (7.4-10.4) fL Immature Gran % (Auto) 1.1 % Neut % (Auto) 61.7 % Lymph % (Auto) 20.1 % [place] % (Auto) 15.0 % Eos % (Auto) 1.9 % Baso % (Auto) 0.2 % Neut # (Auto) 8.36 H (1.4-6.5) K/uL Lymph # (Auto) 2.73 (1.2-3.4) K/uL [place] # (Auto) 2.03 H (0.11-0.59) K/uL Eos # (Auto) 0.26 (0-0.5) K/uL Baso # (Auto) 0.03 (0-0.2) K/uL Immature Gran # (Auto) 0.15 H (0.00-0.02) K/uL Sodium 129 L (136-145) mmol/L Potassium 4.0 (3.5-5.1) mmol/L Chloride 100 (98-107) mmol/L Carbon Dioxide 16 L (21-32) mmol/L Anion Gap 13 H (3-11) BUN 57 H (6-23) mg/dl Creatinine 4.34 H (0.6-1.4) mg/dl Est Cr Clr Drug Dosing 22.4 ml/min Est GFR ( Amer) 17.0 ml/min Est GFR (Non-Af Amer) 14.7 ml/min BUN/Creatinine Ratio 13.1 (10-20) Glucose 91 (70-99(Fasting)) mg/dl Calcium 8.9 (8.5-10.1) mg/dl Total Bilirubin 0.7 (0.2-1.0) mg/dl AST 14 (13-39) U/L ALT 17 (7-52) U/L Alkaline Phosphatase 44 (34-104) U/L Troponin I High Sens 29.4 H (0-20) pg/ml Total Protein 7.7 (6.0-8.3) gm/dl Albumin 3.9 (3.4-5.0) gm/dl Globulin 3.8 (2.5-4.0) gm/dl Albumin/Globulin Ratio 1.0 (0.9-2) SARS-CoV-2, RNA, NAAT NEGATIVE (NEGATIVE) ECG Data Attestation: I personally reviewed and interpreted this ECG as follows: Indication: + weakness Rate (beats per minute): 79 Rhythm: + normal sinus ECG Intervals/blocks: + Normal QT ECG [place]: + Normal ECG ST segments: no ST elevation ECG Findings: no PVCs Comparison ECG Date: from (May 22, 2021) Change: no significant change MDM Narrative I did evaluate the patient as noted above. He is presenting with decreased energy and dehydration for the past 2 days. He is hypotensive in triage with a BP of 89/59. IV access was established. I did treat him with a liter normal saline IV. I did place an order for continuous cardiac monitoring. The monitor showed normal sinus rhythm at a rate of 78 bpm. I did order and personally review the patient's 12-lead EKG as described above. He has no acute ischemic changes. I did order a urine analysis. I did order and review the patient's blood work as noted in the electronic medical record. CBC demonstrates a white count of 13.5. He denies any fever or infectious symptoms. His hemoglobin is 12.8 with a platelet count of 396. Chemistries are remarkable for sodium of 129. His CO2 was 16 with an anion gap at 13. BUN and creatinine are elevated at 57 and 4.34. He has a minimal elevation of his high-sensitivity troponin at 29. This is likely due to his renal failure. He denies having any chest discomfort or shortness of breath. I did reassess the patient. His blood pressure is now 99/61. I did discuss the test results with him. He will be hospitalized for further care and evaluation. I did discuss case with Dr. Gray and the hospitalist. I did give an additional bolus of normal saline 500 cc. I did order a COVID test which is pending. Impression & Plan Acute hypotension, Acute kidney injury superimposed on chronic kidney disease, Acute hyponatremia, Chronic anemia Discharge Plan Visit Data Chief Complaint: Dehydration Stated Complaint: DOESN'T FEEL WELL, DEHYDRATED ED Provider: Ivan Morrissey Discharge Problem: Acute hypotension, Acute kidney injury superimposed on chronic kidney disease, Acute hyponatremia, Chronic anemia Patient Disposition: Being Evaluated by Hospitalist Forms Stand Alone Forms: My [facility] Prescriptions Prescriptions: No Action cholecalciferol (vitamin D3) 50 mcg (2,000 unit) capsule 50 mcg PO DAILY RF: 0 ferrous sulfate 325 mg (65 mg iron) tablet 325 mg PO QAM RF: 0 warfarin 10 mg tablet 10 mg PO 4XWK RF: 0 warfarin 6 mg tablet 12 mg PO 3XWK RF: 0 warfarin 1 mg tablet 0.5 mg PO 3XWK RF: 0 calcitriol 0.5 mcg capsule 0.5 mcg PO DAILY RF: 0 losartan 25 mg tablet 25 mg PO DAILY RF: 0 Referrals Referrals: Harsha Omer MD [Primary Care Provider] -
[2022-04-27 23:26] LABS: Basophils # (auto) 0.03 K/uL (0-0.2); Basophils % (auto) 0.2 %; Eosinophils # (auto) 0.26 K/uL (0-0.5); Eosinophils % (auto) 1.9 %; Hematocrit (blood only) 36.9 % (42-52); Hemoglobin 12.8 g/dL (14.0-18.0); Immature Granulocytes # (auto) 0.15 K/uL (0.00-0.02); Immature Granulocytes % (auto) 1.1 %; Lymphocytes # (auto) 2.73 K/uL (1.2-3.4); Lymphocytes % (auto) 20.1 %; Mean Corpuscular Hemoglobin 30.8 pg (25-34); Mean Corpuscular Hgb Conc 34.7 g/dL (32-36); Mean Corpuscular Volume 88.7 fL (80-100); Mean Platelet Volume 10.5 fL (7.4-10.4); Monocytes # (auto) 2.03 K/uL (0.11-0.59); Neutrophils # (auto) 8.36 K/uL (1.4-6.5); Neutrophils % (auto) 61.7 %; Platelet Count 396 K/uL (130-400); RDW Coefficient of Variation 14.6 % (11.5-14.5); RDW Standard Deviation 47.6 fL (36.4-46.3); Red Blood Count 4.16 M/uL (4.7-6.1); White Blood Count 13.56 K/uL (4.8-10.8)
[2022-04-27 23:44] LABS: Albumin Level 3.9 gm/dl (3.4-5.0); BUN Creatinine Ratio 13.1 (10-20); Bilirubin,Total 0.7 mg/dl (0.2-1.0); Calcium 8.9 mg/dl (8.5-10.1); Creatinine Clr Calc Pharmacy 22.4 ml/min; Est GFR (Non-African American) 14.7 ml/min; Globulin 3.8 gm/dl (2.5-4.0); Total Protein 7.7 gm/dl (6.0-8.3)
[2022-04-27 23:50] LABS: Troponin I High Sensitivity 29.4 pg/ml (0-20)
[2022-04-27] MEDS ORDERED: SODIUM CHLORIDE 0.9% 1000ML 500 ML IV ONE (23:51)
--- NOTE | 2022-04-28 00:26 | History & Physical Report ---
Date of Service April 28, 2022 Assessment & Plan (1) Acute kidney injury superimposed on chronic kidney disease: Plan: Ollie Ortiz II is a 51-year-old male with a history of ulcerative colitis w/ invasive well differentiated adenocarcinoma status post colectomy with ileostomy 03/[address]), history of hernia repair, CKD III/IV, nephrolithiasis, severe stricture of bulbar urethra c/b bilateral hydronephrosis requiring intermittent self-catheterization, hypertension, atrial fibrillation on warfarin who presented to [facility] for evaluation ofnonspecific generalized malaise and Gi symptoms. MARK on CKD creatinine 4.34 on admission with baseline creatinine of 1.9-2.3 Likely multifactorial due to combination of fluid losses with GI symptoms and poor oral intake; does take losartan as well Hold losartan, avoid nephrotoxins UA with reflex culture ordered and pending Check FENa, CK Renal ultrasound ordered Maintenance IV fluids Monitor I's and O's Monitor creatinine, BUN, electrolytes Consider nephrology consult if worsening kidney function Hyponatremia Likely secondary to above We will manage underlying etiology as above Monitor sodium levels and fluid status Ureteral Stenosis / Bilateral Hydronephrosis History noted. History of severe stricture bulbar urethra that has been complicated by bilateral hydronephrosis (voids freely, intermittent cath once a week) Follows with [facility] -- most recent not reviewed, bilateral hydronephrosis has been improving on serial imaging Continue hydration as appropriate HTN (hypertension) Hold home losartan in the setting of MARK on CKD Atrial fibrillation Noted history of episodic atrial fibrillation, previously in setting of critical illness In sinus rhythm on arrival. On Coumadin chronically for history of VTE. Continue anticoagulation Adenocarcinoma, colon History of ulcerative colitis w/ invasive well differentiated adenocarcinoma status post colectomy with ileostomy 03/[address]) DVT, bilateral lower limbs History of DVT and PEs requiring lifelong anticoagulation Home Coumadin: T-F 10mg/d, Sa-Mon 12.5mg/day INR goal 2-3 -- monitor CODE STATUS: Full Diet: Heart healthy Dispo: Med telemetry DVT prophylaxis: On warfarin due to history of DVT/PE (2) Acute hypotension: (3) Acute hyponatremia: (4) HTN (hypertension), benign: (5) On anticoagulant therapy: History of Present Illness Primary Care Provider: Harsha Omer MD Ollie Ortiz II is a 51-year-old male with a history of ulcerative colitis w/ invasive well differentiated adenocarcinoma status post colectomy with ileostomy 03/[address]), history of hernia repair, CKD III/IV, nephrolithiasis, severe stricture of bulbar urethra c/b bilateral hydronephrosis requiring intermittent self-catheterization, hypertension, atrial fibrillation on warfarin who presented to [facility] for evaluation ofnonspecific generalized malaise. He was admitted to [facility] from 04/18-04/20 for partial SBO, which was managed conservatively. At that time he also had what seemed to be a prerenal MARK on CKD His losartan was held at that time and creatinine improved back to baseline with IV hydration. On discharge losartan was restarted. Today, patient states that after discharge from the hospital, he did feel better for a few days but as of the past 2 days started to "not feel like himself". He also noticed loose, watery output through his ileostomy bag and states that food has been going "right through him". He states that at the time of his ileostomy procedure he was instructed to eat peanut butter if he ever had this happen. He had peanut butter on toast earlier today but felt no better afterwards. He does feel somewhat bloated as well. Denies any other associated symptoms, including fever, chills, nausea, vomiting, abdominal pain, chest pain, palpitations, shortness of breath, coughing, nasal congestion, rashes, headaches, dizziness or any known sick contacts. In the emergency department, patient was found to be hypotensive to 80s over 50s, for which he was given a total of 2 L NSS via bolus. His blood pressure did improve to low 100s over 60s. Lab work showed a white count of 13.56, hemoglobin of 12.8, hyponatremia of 129, anion gap of 13, BUN 57, creatinine 4.34, troponin of 29.4. Allergies Allergy/AdvReac Type Severity Reaction Status Date / Time infliximab [From Remicade] AdvReac Severe BODY Verified 04/27/22 23:23 ACHES, COULDN'T SLEEP Home Medications Medication Instructions Recorded Confirmed Type ferrous sulfate 325 mg (65 mg 325 mg PO QAM 05/22/21 04/27/22 History iron) tablet cholecalciferol (vitamin D3) 50 50 mcg PO DAILY 12/11/21 04/27/22 History mcg (2,000 unit) capsule calcitriol 0.5 mcg capsule 0.5 mcg PO DAILY 04/18/22 04/27/22 History losartan 25 mg tablet 25 mg PO DAILY 04/18/22 04/27/22 History warfarin 1 mg tablet 0.5 mg PO 3XWK 04/18/22 04/27/22 History warfarin 10 mg tablet 10 mg PO 4XWK 04/18/22 04/27/22 History warfarin 6 mg tablet 12 mg PO 3XWK 04/18/22 04/27/22 History Past Med/Surg History Medical History (Updated 04/28/22 @ 01:33 by Garfield Montes MD) Carpal tunnel syndrome on both sides Closed fracture of neck of left femur Closed left hip fracture Deep vein thrombosis in leg 15yrs ago DVT (deep venous thrombosis) Dysplastic nevus GI bleed History of DVT (deep vein thrombosis) HTN (hypertension), benign Hyperlipidemia On anticoagulant therapy on warfarin Pulmonary embolism Secondary hypercoagulable state Small bowel obstruction Ulcerative colitis Vitamin D deficiency Surgical History History of colectomy History of colonoscopy History of hernia repair Family History Mother Hypertension Bone cancer Amputation below knee Other No family history of adverse response to anesthesia Denies family history of Ovarian cancer Prostate cancer Myocardial infarction Breast cancer Colorectal cancer Social History Smoking Status: Never smoker Second Hand Exposure: No; Hx Alcohol Use: Yes Alcohol type: beer Alcohol Intake Frequency: Monthly or Less Hx Substance Use: No Preferred Language: British Communication Ability: Effective Visual Impairment: Limited Hearing Ability: Normal 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 Beliefs That Will Affect Care: None marital status: Current Living Situation: Spouse current occupational status: employed How many Children do You have: 1 How many Children do You have Comment: step daughter Feels Safe at Home: Yes Childhood Exposure to Second-Hand Smoke: No caffeine: Yes (soda sometimes ) Dental Care, Regularly: Yes Physical Activity Frequency: Daily 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 NAD. HEENT: PERRL, EOMI. Moist mucous membranes. NECK: No JVD. No lymphadenopathy. CHEST/LUNGS: CTAB A/P. No crackles, wheezes, rales, rhonchi. HEART: RRR. No m/g/r. No carotid bruits. ABDOMEN: NT/ND, soft. BS+ x4, ileostomy with brown liquid stool EXTREMITIES: No cyanosis, no clubbing, no edema SKIN: Warm and dry. No rashes or lesions. PSYCHIATRIC: Euthymic affect, no SI, no pressured speech, no hallucinations NEUROLOGIC: No FND. CN II-XII grossly intact. Results & Data Results & Data ([facility]) Vital Signs (Past 12 Hours) Vital Signs Temp Pulse Pulse Resp BP BP Pulse Ox 04/27/22 23:37 73 20 87/57 L 98 04/27/22 23:31 79 20 87/57 L 98 04/27/22 22:35 36.7 C 86 18 89/59 L 98 Supervising Physician Co-Signing Physician Notes Patient seen and examined, chart reviewed, case discussed with Dr. Rosmery Blanton and I agree with the assessment and plan. In brief, patient is a 51yo male with history of, HTN, HLP, hypercoagulability with prior VTE on Coumadin anticoagulation. Patient was recently admitted to [facility] from 04/18/22 - 04/20/22 with SBO which was managed conservatively. He has CKD with baseline Cr of 1.9- 2.3. Last hospitalization his Cr on presentation was 3. Losartan was held. His discharge Cr was 2.27 on 04/20/22. Patient resumed his Losartan as instructed on discharge. He reports copious watery ileostomy output over the last two days as well as poor appetite and decreased oral intake. His UOP has been normal until today when it decreased. He does self-catheterize weekly due to history of severe stricture of the bulbar urethra and did so yesterday without difficulty. Also with acute hyponatremia - Ha=326 - no symptoms Patient was briefly on HD in the past 01/2020 during a critical care hospitalization at [facility] On exam he is afebrile, hypotensive on arrival with BP of 87/57 now improved after IVF Skin - intact, no rash HEENT - MMM, neck supple Heart - +S1/S2, regular Lungs - CTA Abd- ileostomy with liquid output, BS normal, abdomen soft/NT/ND Ext - warm, well perfused Labs and images reviewed - significant for MARK on CKD with BUN of 57 and Cr of 4.34. HCO3 low at 16. K is within normal limits. Also with WBC=13.56 Assessment/Plan - 52yo male with history of HTN, HLP, Colon CA, recently admitted with SBO returning with MARK on CKD Suspect multifactorial etiology - volume depletion in setting of poor oral intake as well as GI losses. Patient on Losartan as well. -Check UA with culture as indicated -Check renal US -Bladder Scan PRN -Check FeNA and total CK -Continue IVF maintenance -Avoid nephrotoxic agents -Renal dosing where needed -Monitor BUN, Cr, electrolytes and UOP - if patient worsens would consult Nephrology -Bicarbonate drip if metabolic profile worsens -Monitor Na -Check INR - patient is on Coumadin for history of VTE, hypercoagulability -Repeat troponin x 1 - mild elevation at 29.4 in setting of MARK on CKD. No chest pain. No acute EKG changes suggestive of ischemia Resident Activity Tracking Resident Involvement: Resident Care Provided Care Provided: Adult [facility]
--- NOTE | 2022-04-28 01:06 | Billing Data ---
Date of Service April 28, 2022 Coding Level of Care Code 29590 Initial Inpt Care Lvl 3
[2022-04-28 01:26] LABS: INR 2.7 (0.9-1.1); Prothrombin Time 27.2 Seconds (9.0-12.0)
[2022-04-28] MEDS ORDERED: ACETAMINOPHEN 325 MG TAB PO PRN (01:57)
[2022-04-28] MEDS ORDERED: ONDANSETRON INJ 2 MG/ML 2 ML VIAL IV PRN (01:57)
[2022-04-28] MEDS: SODIUM CHLORIDE 0.9% 1000ML 1,000 ML IV SCH ×2 (02:06→09:54)
[2022-04-28 03:26] LABS: BUN Creatinine Ratio 14.5 (10-20); Calcium 7.7 mg/dl (8.5-10.1); Creatinine Clr Calc Pharmacy 25.5 ml/min; Est GFR (Non-African American) 17.3 ml/min; Potassium 4.3 mmol/L (3.5-5.1)
[2022-04-28 06:00] LABS: Appearance Urine Turbid (Clear); Bacteria Urine Automated 4+ (Negative); Bilirubin Urine Negative (Negative); Blood Urine 1+ (Negative); Color Urine Yellow; Glucose Urine UA Negative (Negative); Ketones Urine Trace (Negative); Leukocyte Esterase Urine 3+ (Negative); Nitrite Urine Negative (Negative); Protein Urine 1+ (Negative); RBC Urine Automated 0-4 /hpf (0-4); Specific Gravity Urine 1.011 (1.000-1.030); Urobilinogen Urine Negative (Negative); WBC Urine Automated >30 /hpf (0-5); pH Urine 5.5 (4.5-7.5)
[2022-04-28 07:07] LABS: BUN Creatinine Ratio 15.1 (10-20); Calcium 7.7 mg/dl (8.5-10.1); Creatinine Clr Calc Pharmacy 27.4 ml/min; Est GFR (African American) 21.6 ml/min; Est GFR (Non-African American) 18.6 ml/min; Potassium 3.7 mmol/L (3.5-5.1)
--- NOTE | 2022-04-28 07:47 | Ultrasound Report ---
US renal/blad retro comp CLINICAL HISTORY: acute kidney failure TECHNIQUE: Multiple sonographic real-time images of the kidneys and bladder were obtained. COMPARISON: Comparison is made to CT abdomen pelvis 04/18/2022 FINDINGS: The right kidney measures 11.4 cm in length, and the left kidney measures 10.2 cm in length. There is bilateral hydronephrosis. Questionable degenerative foci in the bilateral calyces. Right pro ximal ureter measures up to 9 mm. Multiple debris is noted in the bladder. Only the right jet is noted. The anterior wall measures 8 mm in diameter, thickened. IMPRESSION: Bilateral hydronephrosis with mobile debris in the bladder as well as questionable echogenic foci in the calyces. Bladder wall thickening. Findings may represent chronic obstruction, cystitis, and/or ch ronic nephrolithiasis. ACT 112: Negative or not required by law. Electronically signed by: Ponce Coello M.D. 04/28/2022 7:46 AM
[2022-04-28] MEDS: CALCITRIOL 0.25 MCG CAPSULE PO SCH (08:44)
[2022-04-28] MEDS: CHOLECALCIFEROL 1,000 UNITS 25 MCG TAB PO SCH (08:45)
[2022-04-28] MEDS: FERROUS SULFATE 325 MG TAB PO SCH (08:45)
[2022-04-28] MEDS ORDERED: WARFARIN SOD 6 MG TAB PO SCH (16:00)
[2022-04-28] MEDS ORDERED: WARFARIN SOD 0.5 MG TAB PO SCH (16:00)
[2022-04-28] MEDS: DIPHENOXYLATE/ATROPINE 2.5/0.025MG TAB PO SCH ×2 (17:18→20:15)
[2022-04-29] MEDS: DIPHENOXYLATE/ATROPINE 2.5/0.025MG TAB PO SCH ×4 (04:11→20:22)
[2022-04-29 07:28] LABS: BUN Creatinine Ratio 15.4 (10-20); Creatinine Clr Calc Pharmacy 37.5 ml/min; Est GFR (African American) 31.7 ml/min; Est GFR (Non-African American) 27.3 ml/min; Potassium 3.7 mmol/L (3.5-5.1)
[2022-04-29] MEDS: CALCITRIOL 0.25 MCG CAPSULE PO SCH (08:19)
[2022-04-29] MEDS: FERROUS SULFATE 325 MG TAB PO SCH (08:19)
[2022-04-29] MEDS: CHOLECALCIFEROL 1,000 UNITS 25 MCG TAB PO SCH (08:19)
[2022-04-29] MEDS ORDERED: WARFARIN SOD 10 MG TAB PO SCH (16:00)
--- NOTE | 2022-04-29 19:13 | Electrocardiogram Report ---
Test Reason : Blood Pressure : / mmHG Vent. Rate : 079 BPM Atrial Rate : 079 BPM P-R Int : 162 ms QRS Dur : 088 ms QT Int : 368 ms P-R-T Axes : 022 024 017 degrees QTc Int : 421 ms Normal sinus rhythm Normal ECG When compared with ECG of 22-MAY-2021 23:58, QT has shortened Confirmed by Power Hernandez ([id number]) on 04/29/2022 7:12:54 PM Referred By: REFERRED SELF Confirmed By:Power Hernandez
--- NOTE | 2022-04-29 19:19 | Hospitalist Progress Note ---
Date of Service April 29, 2022 Assessment & Plan (1) Acute kidney injury superimposed on chronic kidney disease: Plan: Ollie Ortiz II is a 51-year-old male with a history of ulcerative colitis w/ invasive well differentiated adenocarcinoma status post colectomy with ileostomy 03/2019 ([facility]), history of hernia repair, CKD III/IV, nephrolithiasis, severe stricture of bulbar urethra c/b bilateral hydronephrosis requiring intermittent self-catheterization, hypertension, atrial fibrillation on warfarin who presented to [facility] for evaluation ofnonspecific generalized malaise and Gi symptoms. MARK on CKD creatinine 4.34 on admission with baseline creatinine of 1.9-2.3, -Doing better today creatinine dropped to 2.6 yesterday was 3.57 Likely multifactorial due to combination of high output through the ileostomy which recently has been getting worse possibly secondary to viral infection and poor oral intake; and UTI does take losartan as well. 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 History of severe stricture bulbar urethra that has been complicated by bilateral hydronephrosis (voids freely, intermittent cath once a week) [place]s with [facility] -- most recent not reviewed, bilateral hydronephrosis has been improving on serial imaging Ultrasound of the kidneys shows bilateral hydronephrosis with mobile debris's in the bladder as well as questionable echogenic foci the finding may represent chronic obstruction, will proceed with bladder scan and if is necessar y urology consult HTN (hypertension) Hold home losartan in the setting of MARK on CKD Atrial fibrillation Noted history of episodic atrial fibrillation, previously in setting of critical illness In sinus rhythm on arrival. On Coumadin chronically for history of VTE. Continue anticoagulation Adenocarcinoma, colon History of ulcerative colitis w/ invasive well differentiated adenocarcinoma status post colectomy with ileostomy 03/2019 ([facility]) DVT, bilateral lower limbs History of DVT and PEs requiring lifelong anticoagulation Home Coumadin: T-F 10mg/d, Sa-Mon 12.5mg/day INR in therapeutic range CODE STATUS: Full Diet: Heart healthy Dispo: Med telemetry DVT prophylaxis: On warfarin due to history of DVT/PE (2) Acute hypotension: (3) Acute hyponatremia: (4) HTN (hypertension), benign: (5) On anticoagulant therapy: Admission and Anticipated Discharge Date Admission Date: April 28, 2022 Subjective Feels significantly better Review of Systems Review of Systems: General: No malaise no weakness Neck: No tenderness no pain HEENT: No eye discharge no ear discharge Chest: No chest pain, no palpitation GI: Not distended, no nausea no vomiting Extremities: No edema no tenderness Neurology: No headache no weakness Psychiatric: No depression no anxiety Physical Exam Physical Exam: GENERAL: A&Ox3. NAD. HEENT: PERRL, EOMI. Moist mucous membranes. NECK: No JVD. No lymphadenopathy. CHEST/LUNGS: CTAB A/P. No crackles, wheezes, rales, rhonchi. HEART: RRR. No m/g/r. No carotid bruits. ABDOMEN: NT/ND, soft. BS+ x4, ileostomy with brown liquid stool EXTREMITIES: No cyanosis, no clubbing, no edema SKIN: Warm and dry. No rashes or lesions. PSYCHIATRIC: Euthymic affect, no SI, no pressured speech, no hallucinations NEUROLOGIC: No FND. CN II-XII grossly intact. Results & Data Results & Data ([facility]) Vital Signs (Past 12 Hours) Vital Signs Temp Pulse Pulse Resp BP Pulse Ox 04/29/22 16:01 36.9 C 63 18 125/81 99 04/29/22 15:27 65 04/29/22 11:52 36.8 C 68 20 104/68 100 04/29/22 07:53 36.8 C 71 19 102/64 98 04/29/22 07:46 85 PG Care Time/CCT Total # of Minutes Spent Total Time Spent with Patient: Total time spent is greater than 50% in coordination of care (as documented) at patient's floor/unit and/or counseling patient: Coding Level of Care Code 71128 Subseq Hosp Care Lvl 3 Diagnoses Acute kidney injury superimposed on chronic kidney disease N17.9; N18.9 Acute hypotension I95.9 Acute hyponatremia E87.1 HTN (hypertension), benign I10 On anticoagulant therapy Z79.01
[2022-04-29] MEDS ORDERED: cefTRIAXone SODIUM 2,000 MG in DEXTROSE 5% 50 ML IV SCH (20:00)
[2022-04-30] MEDS: DIPHENOXYLATE/ATROPINE 2.5/0.025MG TAB PO SCH ×3 (03:03→16:27)
[2022-04-30 07:03] LABS: BUN Creatinine Ratio 15.1 (10-20); Calcium 8.4 mg/dl (8.5-10.1); Creatinine Clr Calc Pharmacy 45.8 ml/min; Est GFR (African American) 40.5 ml/min; Potassium 3.8 mmol/L (3.5-5.1)
[2022-04-30] MEDS: CALCITRIOL 0.25 MCG CAPSULE PO SCH (08:29)
[2022-04-30] MEDS: CHOLECALCIFEROL 1,000 UNITS 25 MCG TAB PO SCH (08:29)
[2022-04-30] MEDS: FERROUS SULFATE 325 MG TAB PO SCH (08:29)
[2022-04-30 11:37] LABS: Prothrombin Time 39.2 Seconds (9.0-12.0)
--- NOTE | 2022-04-30 14:34 | Hospitalist Progress Note ---
Date of Service April 30, 2022 Assessment & Plan (1) Partial small bowel obstruction: Plan: recent pSBO - clinically resolved, but radiographically still has such despite the CT today he is eating/drinking w/o difficulty, no GI symptoms, and ostomy output is normal I spoke both with GI and gen surg - both will consult hold off on d/c today to allow both consults to occur re-eval in am of note - CT today without signs of any IBD or other acute process (2) Acute kidney injury superimposed on chronic kidney disease: Plan: creatinine 4.34 on admission with baseline creatinine of 1.9-2.3 creatinine today now 2.1 repeat BMP in am (3) Acute hypotension: Plan: present on admission 2nd to volume depletion resolved (4) Acute hyponatremia: Plan: 135 today resolved was 2nd to volume depletion at time of admission (5) HTN (hypertension), benign: Plan: controlled (6) On anticoagulant therapy: Plan: INR 4 today hold coumadin repeat INR am (7) Abnormal CT scan, colon: Plan: see #1 above also with ?rectal lesion on previous CT - will need outpatient endoscopy to eval this patient is aware (8) Chronic renal failure, stage 3b: Plan: baseline CrCl 30-45 (9) Obstructive uropathy: (10) Urethral stenosis: Plan: patient self-caths once/week to maintain patency of urethra (11) Bilateral hydronephrosis: Plan: chronic (12) Episodic atrial fibrillation: Plan: none seen while here (13) DVT, bilateral lower limbs: Plan: on chronic coumadin INR high today - hold coumadin; repeat INR am (14) Ulcerative colitis: Plan: h/o colectomy due to such during colectomy discovered to have colon ca needs repeat colonoscopy due to ? rectal lesion on recent CT scan (15) Catheter-associated urinary tract infection: Plan: 2nd klebsiella change rocephin to keflex Rx 10-14 days prostate normal on CT scan today; would defer on Rx for prostatitis Plan: updated at bedside hopefully can d/c home tomorrow Admission and Anticipated Discharge Date Admission Date: April 28, 2022 Subjective pt feels very well asks for d/c home stool via ostomy is "forming up" - previously was pure liquid and copious usually empties his ostomy bag 4-5x's each day I saw him following breakfast - has only emptied the bag 1x since midnight CT enterography obtained this afternoon per GI recs shows possible ongoing pSBO despite eating and drinking, despite passing stool -- and no abd pain Review of Systems Review of Systems: gen - no fever cv - no cp pulm - no cough or dyspnea GI - denies pain or nausea or emesis Physical Exam Physical Exam: gen - looks good, nad mouth - MMM heart - RRR, s1 s2, no murmur lungs - CTA b/l abd - mildly distended but NT, BS+, parastomal hernia, ileostomy with slightly formed stool in ostomy bag, no HSM ext - no edema, pulses 2+ b/l psych - a/o x 3 Results & Data Results & Data ([facility]) Vital Signs (Past 12 Hours) Vital Signs Temp Pulse Pulse Resp BP Pulse Ox 04/30/22 11:44 36.7 C 74 20 107/64 95 04/30/22 07:49 36.8 C 79 18 124/76 100 04/30/22 07:28 81 04/30/22 03:21 36.6 C 74 16 108/69 96 Laboratory Results BMP with stable Cr 2.1 INR 4 Diagnostic Findings Abdomen/Pelvis CT 04/30/22 14:33 CT SCAN OF THE ABDOMEN AND PELVIS WITHOUT IV CONTRAST CLINICAL HISTORY: Recent small bowel obstruction. History of ulcerative colitis. COMPARISON STUDY: Abdominal CT dated 04/18/2022. TECHNIQUE: The small bowel was distended by having the patient consume negative enteric contrast. CT scan of the abdomen and pelvis is performed from the lung bases to the proximal femora. Images are reviewed in the axial, sagittal, and coronal planes. IV contrast was not administered for this examination. A dose lowering technique was utilized adhering to the principles of ALARA. CT DOSE: 689.31 mGy.cm FINDINGS: Lung bases: The heart is normal in size and without pericardial effusion. There is diminished attenuation of the cardiac blood pool as compared to the myocardium suggesting anemia. A small hiatal hernia is noted. The lung bases are clear noting bibasilar atelectasis. Liver: The unenhanced liver is normal in size, contour, and attenuation. There is no intrahepatic biliary ductal dilatation. There are scattered calcified hepatic granulomas. Gallbladder: Unremarkable. Spleen: Normal in size and attenuation. There are calcified splenic granulomas. Pancreas: The unenhanced pancreas is grossly unremarkable. Adrenal glands: Unremarkable. Kidneys: The unenhanced kidneys demonstrate cortical atrophy and are without hydronephrosis. There are no renal calculi identified. There is no evidence of contour deforming renal mass lesion. The right ureter appears patulous, which is similar to previous. Urothelial thickening is noted in both renal pelvises. Abdominal vasculature: The abdominal aorta is normal in course and caliber. Bowel: There is postoperative change from subtotal colectomy with Rivas pouch formation and right lower quadrant ileostomy. A parastomal hernia contains small bowel loops. The proximal small bowel loops are distended and fluid-filled measuring up to 4.3 cm in diameter. Several air-fluid levels are noted. A transition point is suggested in the right lower quadrant on axial image #265, and the distal small bowel is relatively decompressed to the ileostomy. The appearance suggests at least partial small bowel obstruction. No focally thick walled bowel loops are identified. There is no pneumatosis intestinalis or portal venous gas. No interloop fluid is identified. Peritoneum: There is no intraperitoneal free air or abdominal ascites. There is a fat-containing supraumbilical hernia. Lymphadenopathy: None. Pelvic viscera: The bladder wall is significantly thickened and trabeculated, similar in appearance to previous. The prostate gland end seminal vesicles are normal as visualized. Skeletal structures: The skeletal structures are osteopenic. No lytic or blastic lesions are seen. There is moderate lumbosacral spondylosis and mild scoliosis. Postoperative change is noted in the left proximal femur. IMPRESSION: 1. There is postoperative change from subtotal colectomy with right lower quadrant ileostomy and Rivas pouch formation. 2. Findings suggest at least partial small bowel obstruction with a transition point identified in the right lower quadrant. This may be related to adhesions and clinical correlation will be essential. 3. A parastomal hernia contains bowel loops. 4. The bladder wall is markedly thickened and trabeculated, which is similar appearance to previous. Correlate with clinical findings and urinalysis. 5. The right ureter is patulous, and this is also unchanged. Urothelial thickening is again seen in the renal pelvis bilaterally. 6. Additional findings as above. ACT 112: Negative or not required by law. Electronically signed by: Tevin Lozada M.D. 04/30/2022 4:26 PM PG Care Time/CCT Total # of Minutes Spent Total Time Spent with Patient: Total time spent is greater than 50% in coordination of care (as documented) at patient's floor/unit and/or counseling patient: Coding Level of Care Code 13471 Subseq Hosp Care Lvl 3 Diagnoses Acute kidney injury superimposed on chronic kidney disease N17.9; N18.9 Acute hypotension I95.9 Acute hyponatremia E87.1 HTN (hypertension), benign I10 On anticoagulant therapy Z79.01 Partial small bowel obstruction K56.[address] scan, colon R93.3 Chronic renal failure, stage 3b N18.32 Obstructive uropathy N13.9 Urethral stenosis Bilateral hydronephrosis N13.30 Episodic atrial fibrillation I48.0 DVT, bilateral lower limbs I82.403 Ulcerative colitis K51.00 Ulcerative colitis location: ulcerative pancolitis Digestive disease complication type: without complication Catheter-associated urinary tract infection T83.511A; N39.0 (1) Ulcerative colitis Ulcerative colitis location: ulcerative pancolitis Digestive disease complication type: without complication Qualified Code(s): K51.00 - Ulcerative (chronic) pancolitis without complications
--- NOTE | 2022-04-30 16:28 | CT Scan Report ---
CT SCAN OF THE ABDOMEN AND PELVIS WITHOUT IV CONTRAST CLINICAL HISTORY: Recent small bowel obstruction. History of ulcerative colitis. COMPARISON STUDY: Abdominal CT dated 04/18/2022. TECHNIQUE: The small bowel was distended by having the patient consume negative enteric contrast. CT scan of the abdomen and pelvis is performed from the lung bases to the proximal femora. Images are re viewed in the axial, sagittal, and coronal planes. IV contrast was not administered for this examinat ion. A dose lowering technique was utilized adhering to the principles of ALARA. CT DOSE: 689.31 mGy.cm FINDINGS: Lung bases: The heart is normal in size and without pericardial effusion. There is diminished attenua tion of the cardiac blood pool as compared to the myocardium suggesting anemia. A small hiatal hernia is noted. The lung bases are clear noting bibasilar atelectasis. Liver: The unenhanced liver is normal in size, contour, and attenuation. There is no intrahepatic leia iary ductal dilatation. There are scattered calcified hepatic granulomas. Gallbladder: Unremarkable. Spleen: Normal in size and attenuation. There are calcified splenic granulomas. Pancreas: The unenhanced pancreas is grossly unremarkable. Adrenal glands: Unremarkable. Kidneys: The unenhanced kidneys demonstrate cortical atrophy and are without hydronephrosis. There ar e no renal calculi identified. There is no evidence of contour deforming renal mass lesion. The right ureter appears patulous, which is similar to previous. Urothelial thickening is noted in both renal pelvises. Abdominal vasculature: The abdominal aorta is normal in course and caliber. Bowel: There is postoperative change from subtotal colectomy with Rivas pouch formation and right l ower quadrant ileostomy. A parastomal hernia contains small bowel loops. The proximal small bowel loo ps are distended and fluid-filled measuring up to 4.3 cm in diameter. Several air-fluid levels are no angela. A transition point is suggested in the right lower quadrant on axial image #265, and the distal small bowel is relatively decompressed to the ileostomy. The appearance suggests at least partial sma ll bowel obstruction. No focally thick walled bowel loops are identified. There is no pneumatosis int estinalis or portal venous gas. No interloop fluid is identified. Peritoneum: There is no intraperitoneal free air or abdominal ascites. There is a fat-containing supr aumbilical hernia. Lymphadenopathy: None. Pelvic viscera: The bladder wall is significantly thickened and trabeculated, similar in appearance t o previous. The prostate gland end seminal vesicles are normal as visualized. Skeletal structures: The skeletal structures are osteopenic. No lytic or blastic lesions are seen. Th ere is moderate lumbosacral spondylosis and mild scoliosis. Postoperative change is noted in the left proximal femur. IMPRESSION: 1. There is postoperative change from subtotal colectomy with right lower quadrant ileostomy and Fox man pouch formation. 2. Findings suggest at least partial small bowel obstruction with a transition point identified in th e right lower quadrant. This may be related to adhesions and clinical correlation will be essential. 3. A parastomal hernia contains bowel loops. 4. The bladder wall is markedly thickened and trabeculated, which is similar appearance to previous. Correlate with clinical findings and urinalysis. 5. The right ureter is patulous, and this is also unchanged. Urothelial thickening is again seen in t he renal pelvis bilaterally. 6. Additional findings as above. ACT 112: Negative or not required by law. Electronically signed by: Tevin Lozada M.D. 04/30/2022 4:26 PM
[2022-04-30] MEDS: cephALEXin 500 MG CAP PO SCH (20:17)
--- NOTE | 2022-04-30 20:19 | Surgery Consultation ---
Date of Consultation April 30, 2022 Assessment & Plan (1) Partial small bowel obstruction: Concerning patient's CT scan findings the patient has no clinical evidence of a partial small bowel obstruction as he has no abdominal pain, normal ileostomy output, and is tolerating solid food without any nausea or vomiting. From a surgical perspective the patient's diet can be advanced as tolerated. If patient develops symptomatology that would raise concern for recurrence of his small bowel obstruction additional imaging can be pursued Would recommend following the patient's ileostomy may output if concern continues for high output from his ileostomy. Supervising Physician Co-Signing Physician Notes I personally saw and evaluated the patient with Peter Leonard PA-C and agree with the assessment and plan. 52-year-old male with CT scan findings concerning for partial small bowel obstruction CT images and results reviewed personally by me, he does have some generalized dilated loops of small bowel However he is without abdominal pain and has been tolerating a diet without nausea and vomiting and has had continual ileostomy output so clinically he has no signs of any bowel obstruction No plans or reason for any surgical intervention He can be discharged home from a surgical standpoint Surgery will sign off at this time, please call with any questions or concerns History of Present Illness Reason for Consultation: Partial small bowel obstruction Attending Physician: Donnie Diamond History of Present Illness This is a 52-year-old male with a history of ulcerative colitis. Patient has had abdominal surgery in the form of a proctocolectomy in 2019 at [facility]. With this surgery the patient has had an ileostomy placed. There is no other mention that the patient does have a parastomal herni a noted following the surgery. In addition he has had to have a ventral herniorrhaphy after the surgery. The patient reported that he no longer follows with his surgical team but merely follows with his steffen house supervisor concerning his ulcerative colitis. He also notes that he does not take any medicines for this problem. Is also noted to mention that the patient does have a history of paroxysmal atrial fibrillation for which she takes Coumadin. Patient was admitted to [facility] on 04/18/2022 through 04/20/2022 secondary to nausea and vomiting and a small bowel obstruction. The patient was seen by general surgery during this admission and the patient's small bowel obstruction resolved without any surgical intervention. Patient was admitted to [facility] On 04/28/2022 secondary to generalized malaise.He was found to have acute kidney injury on chronic kidney disease. This is felt to be multifactorial due to combination of high ileostomy output with concomitant use of an ARB. 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 General surgery was asked to see this patient because there was concern that he may have a partial small bowel obstruction on CT scan performed today. The CT scan was performed as it was felt that the patient had some abdominal distention. The CT scan was performed today 04/30/2022 which showed postoperative changes consistent with a subtotal colectomy and a right lower quadrant ileostomy. There were findings suggestive of a partial small bowel obstruction with a transition point in the right lower quadrant. Parastomal hernia containing bowel loops was also noted. Patient's most recent labs were from today which revealed an INR of 4.0. His sodium was 135 with a potassium of 3.8. BUN and creatinine were 32 and 2.1. Question the patient about a possibility of a partial small bowel obstruction and he reports he feels fine. At the time of my interview the patient said that his abdomen was not distended. He says that his ileostomy output is normal. He notes that he is tolerating a diet. He did have a diet consisting of solid food approximately 2 hours prior to my visit with him. He denies any nausea or vomiting. He also denies any abdominal pain. At the time of my interview he was resting comfortably in bed and he was in no distress. Allergies Allergy/AdvReac Type Severity Reaction Status Date / Time infliximab [From Remicade] AdvReac Severe BODY Verified 04/27/22 23:23 ACHES, COULDN'T SLEEP Home Medications Medication Instructions Recorded Confirmed Type ferrous sulfate 325 mg (65 mg 325 mg PO QAM 05/22/21 04/27/22 History iron) tablet cholecalciferol (vitamin D3) 50 50 mcg PO DAILY 12/11/21 04/27/22 History mcg (2,000 unit) capsule calcitriol 0.5 mcg capsule 0.5 mcg PO DAILY 04/18/22 04/27/22 History losartan 25 mg tablet 25 mg PO DAILY 04/18/22 04/27/22 History warfarin 1 mg tablet 0.5 mg PO 3XWK 04/18/22 04/27/22 History warfarin 10 mg tablet 10 mg PO 4XWK 04/18/22 04/27/22 History warfarin 6 mg tablet 12 mg PO 3XWK 04/18/22 04/27/22 History Patient History Medical History Carpal tunnel syndrome on both sides Closed fracture of neck of left femur Closed left hip fracture Deep vein thrombosis in leg 15yrs ago DVT (deep venous thrombosis) Dysplastic nevus GI bleed History of DVT (deep vein thrombosis) HTN (hypertension), benign Hyperlipidemia On anticoagulant therapy on warfarin Pulmonary embolism Secondary hypercoagulable state Small bowel obstruction Ulcerative colitis Vitamin D deficiency Surgical History History of colectomy History of colonoscopy History of hernia repair Family History Mother Hypertension Bone cancer Amputation below knee Other No family history of adverse response to anesthesia Denies family history of Ovarian cancer Prostate cancer Myocardial infarction Breast cancer Colorectal cancer Social History Smoking Status: Never smoker Second Hand Exposure: No; Hx Alcohol Use: Yes Alcohol type: beer Alcohol Intake Frequency: Monthly or Less Hx Substance Use: No Preferred Language: German Communication Ability: Effective Visual Impairment: Limited Hearing Ability: Normal Manager Progressive Care Required: No Beliefs That Will Affect Care: None marital status: Current Living Situation: Spouse current occupational status: employed How many Children do You have: 1 How many Children do You have Comment: step daughter Feels Safe at Home: Yes Childhood Exposure to Second-Hand Smoke: No caffeine: Yes (soda sometimes ) Dental Care, Regularly: Yes Physical Activity Frequency: Daily 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 Use: always Sunscreen Use: Yes (sometimes) Assistive Devices: None Review of Systems Constitutional: no fever and no chills Eyes: no diplopia Ear, Nose, Mouth, Throat: no ear pain Respiratory: no cough and no dyspnea Cardiovascular: no chest pain Gastrointestinal: no abdominal pain, no nausea and no vomiting Genitourinary: no dysuria Musculoskeletal: no back pain Integumentary: no rash Neurologic: no localized weakness Physical Exam Constitutional: WD/WN, vitals as above Eyes: no conjunctival abnormality ENMT: Ears: no hearing impairment and no external ear abnormality Mouth: no oropharynx abnormality Neck: trachea midline Respiratory: normal respiratory effort; no respiratory distress and no labored breathing Cardiovascular: Rate/Rhythm: regular rate and regular rhythm Gastrointestinal (Abdomen): Abdomen is soft and nondistended. Bowel sounds are present. Patient has an ileostomy noted in the right lower quadrant of his abdomen. The ostomy appeared pink and viable. There is a small amount of liquid output in the collection bag. There is no pain with palpation of the abdomen. There is no rebound tenderness or guarding. Musculoskeletal: No calf tenderness Skin: no rashes Neurologic: moves all extremities Psychiatric: A+Ox3, euthymic affect Results & Data ([facility]) Vital Signs (Past 12 Hours) Vital Signs Temp Pulse Pulse Resp BP Pulse Ox 04/30/22 19:53 36.8 C 80 18 117/75 99 04/30/22 15:50 36.5 C 93 H 20 110/80 99 04/30/22 15:10 81 04/30/22 11:44 36.7 C 74 20 107/64 95 PG Care Time/CCT Total # of Minutes Spent Total Time Spent with Patient: Total time spent is greater than 50% in coordination of care (as documented) at patient's floor/unit and/or counseling patient: Coding Level of Care Code 70589 Inpt Consult Level 5 Diagnoses Partial small bowel obstruction K56.600
[2022-05-01 06:20] LABS: BUN Creatinine Ratio 12.6 (10-20); Creatinine Clr Calc Pharmacy 46.9 ml/min; Est GFR (African American) 41.7 ml/min
[2022-05-01 06:32] LABS: INR 3.1 (0.9-1.1)
--- NOTE | 2022-05-01 08:30 | Gastrointestinal Consultation ---
Date of Consultation May 01, 2022 Assessment & Plan (1) Partial small bowel obstruction: -Treatment per general surgery (2) Abnormal CT scan, colon: -Patient can have an outpatient colonoscopy for further assessment when acute issues resolve, though two separate CT scans have conflicting findings. Supervising Physician Co-Signing Physician Notes patient was discharged before I could see him. History of Present Illness Reason for Consultation: Ileostomy status, possible rectal lesion, partial small bowel obstruction Attending Physician: Donnie Diamond History of Present Illness Patient is a 52 yo male with PMH of Ulcerative Pancolitis with dysplasia s/p proctocolectomy with ileostomy at [facility] in [place]. Patient was admitted for malaise, but GI & surgery were consulted for concerns of partial small bowel obstruction based on imaging findings. There appeared to be a transition point in the RLQ. General surgery evaluated and noted that the patient is tolerating solid foods and can advance diet as tolerated. A CT scan on 04/18 questioned a rectal lesion, but a CT from 04/30/22 failed to redemonstrate this finding. Patient is feeling well. He denies abdominal pain. He moved his bowels yesterday and is passing gas. He is comfortable and without nausea/vomiting. Last colonoscopy was on 12/21/18 where he was noted to have dysplastic changes of the colon which prompted the proctocolectomy. Prior to this, the patient was a long-term patient of [facility]. Allergies Allergy/AdvReac Type Severity Reaction Status Date / Time infliximab [From Remicade] AdvReac Severe BODY Verified 04/27/22 23:23 ACHES, COULDN'T SLEEP Home Medications Medication Instructions Recorded Confirmed Type ferrous sulfate 325 mg (65 mg 325 mg PO QAM 05/22/21 04/27/22 History iron) tablet cholecalciferol (vitamin D3) 50 50 mcg PO DAILY 12/11/21 04/27/22 History mcg (2,000 unit) capsule calcitriol 0.5 mcg capsule 0.5 mcg PO DAILY 04/18/22 04/27/22 History warfarin 1 mg tablet 0.5 mg PO 3XWK 04/18/22 04/27/22 History warfarin 10 mg tablet 10 mg PO 4XWK 04/18/22 04/27/22 History warfarin 6 mg tablet 12 mg PO 3XWK 04/18/22 04/27/22 History cephalexin 500 mg capsule 500 mg PO BID 7 Days #14 cap 05/01/22 Rx Patient History Medical History Carpal tunnel syndrome on both sides Closed fracture of neck of left femur Closed left hip fracture Deep vein thrombosis in leg 15yrs ago DVT (deep venous thrombosis) Dysplastic nevus GI bleed History of DVT (deep vein thrombosis) HTN (hypertension), benign Hyperlipidemia On anticoagulant therapy on warfarin Pulmonary embolism Secondary hypercoagulable state Small bowel obstruction Ulcerative colitis Vitamin D deficiency Surgical History History of colectomy History of colonoscopy History of hernia repair Family History Mother Hypertension Bone cancer Amputation below knee Other No family history of adverse response to anesthesia Denies family history of Ovarian cancer Prostate cancer Myocardial infarction Breast cancer Colorectal cancer Social History Smoking Status: Never smoker Second Hand Exposure: No; Hx Alcohol Use: Yes Alcohol type: beer Alcohol Intake Frequency: Monthly or Less Hx Substance Use: No Preferred Language: Wallisian Communication Ability: Effective Visual Impairment: Limited Hearing Ability: Normal Weaver Hand Loom Required: No Beliefs That Will Affect Care: None marital status: Current Living Situation: Spouse current occupational status: employed How many Children do You have: 1 How many Children do You have Comment: step daughter Feels Safe at Home: Yes Childhood Exposure to Second-Hand Smoke: No caffeine: Yes (soda sometimes ) Dental Care, Regularly: Yes Physical Activity Frequency: Daily 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 Use: always Sunscreen Use: Yes (sometimes) Assistive Devices: None Review of Systems Constitutional: no fever and no chills Respiratory: no cough and no dyspnea Cardiovascular: no chest pain Gastrointestinal: no abdominal pain, no nausea and no vomiting Integumentary: no rash Psychiatric: no problem reported Hematologic / Lymphatic: no unexplained weight loss Physical Exam Constitutional: well developed Respiratory: normal respiratory effort Gastrointestinal (Abdomen): Inspection/Auscultation: + abdomen distended Percussion/Palpation: abdomen nontender Musculoskeletal: Head/Neck/Chest: normocephalic Psychiatric: Orientation: alert and oriented x 3 Results & Data ([facility]) Vital Signs (Past 12 Hours) Vital Signs Temp Pulse Pulse Resp BP Pulse Ox 05/01/22 07:33 36.5 C 70 17 115/68 99 05/01/22 07:29 68 05/01/22 02:53 36.7 C 66 16 110/70 96 04/30/22 23:43 70 04/30/22 23:24 36.7 C 75 18 108/69 96 PG Care Time/CCT Total # of Minutes Spent Total Time Spent with Patient: Total time spent is greater than 50% in coordination of care (as documented) at patient's floor/unit and/or counseling patient: Coding Level of Care Code 16963 Inpt Consult Level 4 Diagnoses Partial small bowel obstruction K56.[address] scan, colon R93.3
[2022-05-01] MEDS: FERROUS SULFATE 325 MG TAB PO SCH (08:59)
[2022-05-01] MEDS: CALCITRIOL 0.25 MCG CAPSULE PO SCH (08:59)
[2022-05-01] MEDS: cephALEXin 500 MG CAP PO SCH (08:59)
[2022-05-01] MEDS: CHOLECALCIFEROL 1,000 UNITS 25 MCG TAB PO SCH (08:59)
--- NOTE | 2022-05-01 12:00 | Discharge Summary ---
Date of Service date of admission - April 28, 2022 date of discharge - May 01, 2022 Admission HPI Per Admitting Provider Ollie Ortiz II is a 51-year-old male with a history of ulcerative colitis w/ invasive well differentiated adenocarcinoma status post colectomy with ileostomy creation 03/2019 ([facility]), history of hernia repair, CKD III/IV, nephrolithiasis, severe stricture of bulbar urethra c/b bilateral hydronephrosis requiring intermittent self-catheterization, hypertension, atrial fibrillation on warfarin who presented to [facility] for evaluation ofnonspecific generalized malaise. He was admitted to [facility] from 04/18-04/20 for partial SBO, which was managed conservatively. At that time he also had what seemed to be a prerenal MARK on CKD His losartan was held at that time and creatinine improved back to baseline with IV hydration. On discharge losartan was restarted. Today, patient states that after discharge from the hospital, he did feel better for a few days but as of the past 2 days started to "not feel like himself". He also noticed loose, watery output through his ileostomy bag and states that food has been going "right through him". He states that at the time of his ileostomy procedure he was instructed to eat peanut butter if he ever had this happen. He had peanut butter on toast earlier today but felt no better afterwards. He does feel somewhat bloated as well. Denies any other associated symptoms, including fever, chills, nausea, vomiting, abdominal pain, chest pain, palpitations, shortness of breath, coughing, nasal congestion, rashes, headaches, dizziness or any known sick contacts. In the emergency department, patient was found to be hypotensive to 80s over 50s, for which he was given a total of 2 L NSS via bolus. His blood pressure did improve to low 100s over 60s. Lab work showed a white count of 13.56, hemo globin of 12.8, hyponatremia of 129, anion gap of 13, BUN 57, creatinine 4.34, troponin of 29.4. Principal Diagnosis 1. acute kidney injury - resolved 2. catheter-associated klebsiella UTI 3. CKD stage 3a 4. ileostomy status 5. recent pSBO - resolved Discharge Exam gen - looks good, nad mouth - MMM heart - RRR, s1 s2, no murmur lungs - CTA b/l abd - mildly distended but NT, BS+, parastomal hernia, ileostomy with slightly formed stool in ostomy bag, no HSM ext - no edema, pulses 2+ b/l psych - a/o x 3 Discharge Data Allergies Allergy/AdvReac Type Severity Reaction Status Date / Time infliximab [From Remicade] AdvReac Severe BODY Verified 04/27/22 23:23 ACHES, COULDN'T SLEEP Consultations [facility] General Surgery [facility] Gastroenterology Ordered Studies Renal Ultrasound 04/28/22 00:59 US renal/blad retro comp CLINICAL HISTORY: acute kidney failure TECHNIQUE: Multiple sonographic real-time images of the kidneys and bladder were obtained. COMPARISON: Comparison is made to CT abdomen pelvis 04/18/2022 FINDINGS: The right kidney measures 11.4 cm in length, and the left kidney measures 10.2 cm in length. There is bilateral hydronephrosis. Questionable degenerative foci in the bilateral calyces. Right proximal ureter measures up to 9 mm. Multiple debris is noted in the bladder. Only the right jet is noted. The anterior wall measures 8 mm in diameter, thickened. IMPRESSION: Bilateral hydronephrosis with mobile debris in the bladder as well as questionable echogenic foci in the calyces. Bladder wall thickening. Findings may represent chronic obstruction, cystitis, and/or chronic nephrolithiasis. ACT 112: Negative or not required by law. Electronically signed by: Ponce Coello M.D. 04/28/2022 7:46 AM Abdomen/Pelvis CT 04/30/22 14:33 CT SCAN OF THE ABDOMEN AND PELVIS WITHOUT IV CONTRAST CLINICAL HISTORY: Recent small bowel obstruction. History of ulcerative colitis. COMPARISON STUDY: Abdominal CT dated 04/18/2022. TECHNIQUE: The small bowel was distended by having the patient consume negative enteric contrast. CT scan of the abdomen and pelvis is performed from the lung bases to the proximal femora. Images are reviewed in the axial, sagittal, and coronal planes. IV contrast was not administered for this examination. A dose lowering technique was utilized adhering to the principles of ALARA. CT DOSE: 689.31 mGy.cm FINDINGS: Lung bases: The heart is normal in size and without pericardial effusion. There is diminished attenuation of the cardiac blood pool as compared to the myocardium suggesting anemia. A small hiatal hernia is noted. The lung bases are clear noting bibasilar atelectasis. Liver: The unenhanced liver is normal in size, contour, and attenuation. There is no intrahepatic biliary ductal dilatation. There are scattered calcified hepatic granulomas. Gallbladder: Unremarkable. Spleen: Normal in size and attenuation. There are calcified splenic granulomas. Pancreas: The unenhanced pancreas is grossly unremarkable. Adrenal glands: Unremarkable. Kidneys: The unenhanced kidneys demonstrate cortical atrophy and are without hydronephrosis. There are no renal calculi identified. There is no evidence of contour deforming renal mass lesion. The right ureter appears patulous, which is similar to previous. Urothelial thickening is noted in both renal pelvises. Abdominal vasculature: The abdominal aorta is normal in course and caliber. Bowel: There is postoperative change from subtotal colectomy with Rivas pouch formation and right lower quadrant ileostomy. A parastomal hernia contains small bowel loops. The proximal small bowel loops are distended and fluid-filled measuring up to 4.3 cm in diameter. Several air-fluid levels are noted. A transition point is suggested in the right lower quadrant on axial image #265, and the distal small bowel is relatively decompressed to the ileostomy. The appearance suggests at least partial small bowel obstruction. No focally thick walled bowel loops are identified. There is no pneumatosis intestinalis or portal venous gas. No interloop fluid is identified. Peritoneum: There is no intraperitoneal free air or abdominal ascites. There is a fat-containing supraumbilical hernia. Lymphadenopathy: None. Pelvic viscera: The bladder wall is significantly thickened and trabeculated, similar in appearance to previous. The prostate gland end seminal vesicles are normal as visualized. Skeletal structures: The skeletal structures are osteopenic. No lytic or blastic lesions are seen. There is moderate lumbosacral spondylosis and mild scoliosis. Postoperative change is noted in the left proximal femur. IMPRESSION: 1. There is postoperative change from subtotal colectomy with right lower quadrant ileostomy and Rivas pouch formation. 2. Findings suggest at least partial small bowel obstruction with a transition point identified in the right lower quadrant. This may be related to adhesions and clinical correlation will be essential. 3. A parastomal hernia contains bowel loops. 4. The bladder wall is markedly thickened and trabeculated, which is similar appearance to previous. Correlate with clinical findings and urinalysis. 5. The right ureter is patulous, and this is also unchanged. Urothelial thickening is again seen in the renal pelvis bilaterally. 6. Additional findings as above. ACT 112: Negative or not required by law. Electronically signed by: Tevin Lozada M.D. 04/30/2022 4:26 PM Hospital Course (1) Acute kidney injury superimposed on chronic kidney disease: Creatinine 4.34 on admission with baseline creatinine of 1.9-2.3 (CKD stage 3b). Creatinine 2 on discharge. Creatinine improved with IV fluids & supportive care. MARK was 2nd to prerenal causes (poor oral intake, dumping of liquid stool via ileostomy). Given the patient's fluctuating creatinine and his relatively normal BPs throughout the stay his losartan was STOPPED during this hospitalization. (2) Partial small bowel obstruction: Recent hospitalization for pSBO - clinically resolved with no nausea/emesis and plenty of gas/stool via ileostomy. His CT scan during this stay, however, continued to show radiographic findings suggestive of low-grade pSBO. Again, despite the CT, he was eating/drinking w/o difficulty, no GI symptoms, and ostomy output was normal. Both [facility] GI and general surgery saw him in consult because of the abnormal CT scan. Both felt that indeed the recent pSBO was fully resolved clinically. We did advise ongoing use of low fiber diet. Of note - CT abd/pelvis did NOT show signs of any IBD or other inflammatory process. On CT scan during the previous hospitalization there was mention of a potential rectal lesion. We did not see this on this admission's CT. [id number] he will need to f/u with [facility] to have endoscopic evaluation of the rectum. (3) Acute hypotension: present on admission 2nd to volume depletion resolved losartan has been discontinued (4) Acute hyponatremia: Sodium level was 129 upon admission. 135 upon discharge. was 2nd to volume depletion at time of admission and resolved with IV fluids. (5) HTN (hypertension), benign: controlled without use of losartan during the stay. (6) On anticoagulant therapy: INR 3.1 at time of discharge. continue coumadin per previous dosing regimen (10mg four times/week; 12.5mg three times/week). recommended a repeat INR in about 3 days post-discharge to ensure INR remains 2 to 3 (as he will be on antibiotics at home for UTI). (7) Abnormal CT scan, colon: Patient with CT abd/pelvis on April 18 that showed ?rectal lesion. Will need outpatient endoscopy to evaluate this. [facility] to perform. (8) Chronic renal failure, stage 3b: baseline CrCl 30-45 (9) Obstructive uropathy: (10) Urethral stenosis: patient self-caths once/week to maintain patency of his urethra (11) Bilateral hydronephrosis: chronic follows with [facility]rology (12) Episodic atrial fibrillation: none seen while here on telemetry (13) DVT, bilateral lower limbs: on chronic coumadin INR at discharge 3.1 continue usual coumadin regimen (14) Ulcerative colitis: h/o colectomy due to such with ileostomy formation. during colectomy discovered to have colon ca. needs repeat colonoscopy due to ? rectal lesion as seen on CT abd/pelvis dated 04/18/22. (15) Catheter-associated urinary tract infection: 2nd klebsiella. received several days of rocephin IV, then changed to oral keflex. his prostate appeared normal on CT scan during the visit. thus, would defer on Rx for prostatitis. he will complete 7 days of keflex post-discharge. Total Time Total Time Spent Total Time Spent (In Minutes): 40 Discharge Plan Discharge Items Patient Disposition: Home - Self-Care Reason For Visit: Dehydration Discharge Diagnosis: 1. dehydration - resolved 2. recent partial small bowel obstruction - resolved; eating well, passing normal stool via ostomy 3. elevated creatinine (kidney) number to peak of 4.3 - resolved; creatinine at discharge 2 4. ileostomy 5. chronic coumadin use; discharge INR 3.1 6. question of abnormality of rectum - follow-up with [facility] needed for endoscopy 7. urinary tract infection Activity: Resume your previous activity Non-emergency contact: Primary Care Provider and Blanket Winder Helper Call non-emergency contact if: you have any medication questions and your symptoms worsen Follow-up/Referrals: Harsha Omer MD [Primary Care Provider] - 05/13/22 3:45 pm (see Dr Omer Thursday of this coming week; you will need a repeat INR at that time ) Timmy Murray MD [Physician] - Diet: Low Fiber Addtl Attending Provider Instructions: Mr Ortiz - You were hospitalized for the problems listed above in "discharge diagnoses." When you came back to [facility] you were dehydrated. This led to low blood pressure early on, and your creatinine (kidney number) was high. With IV fluids and time your dehydration resolved, your creatinine improved back to your typical level of about 2, and you felt better. A diet was resumed and you tolerated this without difficulty. A urine culture did show bacteria consistent with a urinary tract infection. This was treated with IV then oral antibiotics. Both general surgery and gastroenterology saw you in consult due to your recent partial small bowel obstruction (blockage). Although your CT scan on 04/30/22 showed some ongoing abnormalities related to the recent obstruction both felt that the blockage was resolved. Both felt you could continue to eat a low fiber diet as tolerated. No surgery was advised. On your prior CT scan on April 18 there was a question of an abnormality in the rectum. You will need to follow-up with [facility] - they plan to perform an endoscopy to look in the rectum. At this time please do not take any medication to either slow down or speed up the amount of stool in your ostomy. In the future, if you do have instances of large amounts of stool via the ostomy, you can take [id number] imodium as needed. If you ever have to take imodium please let your doctors know. Recommendations - 1. cephalexin 500mg twice daily x 7 days - this is for your urinary tract infection; first dose TONIGHT 2. resume your usual coumadin regimen upon return home today 3. have your INR checked THIS 05/05/22, by Dr Omer's office 4. STOP your losartan at this time; your blood pressures have been normal without it 5. follow-up with [facility] for the endoscopy 6. follow a low-fiber diet for at least 10 days; it is ok to continue low fiber beyond that time period if desired - see handout Return to [facility] if - * you have fevers over 100 degrees * you have severe, large amounts of stool output via the ostomy * you have severe abdominal pain * you have vomiting * your ostomy stops working - that is, the amount of stool via the ostomy either slows down considerably or stops entirely * any other concerns It was our pleasure to care for you! Dr Diamond Pending Studies at Discharge: No Stand-Alone Forms: My [facility] Eachbaby, Smoking Cessation Medications and DC Order Prescriptions: New cephalexin 500 mg Capsule 500 mg PO BID 7 Days Qty: 14 RF: 0 Continued cholecalciferol (vitamin D3) 50 mcg (2,000 unit) capsule 50 mcg PO DAILY RF: 0 ferrous sulfate 325 mg (65 mg iron) tablet 325 mg PO QAM RF: 0 warfarin 10 mg tablet 10 mg PO 4XWK RF: 0 warfarin 6 mg tablet 12 mg PO 3XWK RF: 0 warfarin 1 mg tablet 0.5 mg PO 3XWK RF: 0 calcitriol 0.5 mcg capsule 0.5 mcg PO DAILY RF: 0 Discontinued losartan 25 mg tablet 25 mg PO DAILY RF: 0 Discharge Orders: Discharge Order (Routine); Ordered 05/01/22 Ordered By: Donnie Lennon/Other Patient Handouts: Keflex Oral Capsule 500 mg, Low-Fiber Diet Admission Data Admit Date/Time: 04/28/22 00:59 Attending Provider: Donnie Diamond Admit Provider: Garfield Montes Primary Care Provider: Harsha Omer Other Providers: Silvia Gray ; Mp Nesbitt ; Timmy Murray Other Interventions: Discharge Summary Assessment (RN) Last Done: 05/01/22 09:50 Coding Level of Care Code D/C DAY MANAGEMENT >30 MINS Diagnoses Partial small bowel obstruction K56.600 Acute kidney injury superimposed on chronic kidney disease N17.9; N18.9 Acute hypotension I95.9 Acute hyponatremia E87.1 HTN (hypertension), benign I10 On anticoagulant therapy Z79.[address] scan, colon R93.3 Chronic renal failure, stage 3b N18.32 Obstructive uropathy N13.9 Urethral stenosis Bilateral hydronephrosis N13.30 Episodic atrial fibrillation I48.0 DVT, bilateral lower limbs I82.403 Ulcerative colitis K51.00 Digestive disease complication type: without complication Ulcerative colitis location: ulcerative pancolitis Catheter-associated urinary tract infection T83.511A; N39.0
== END 2022-05-01 13:00 | disposition home or self-care (01) | DRG 699 ==
LOC: ED 22:32 → 2S 04-28 00:59 → SUATTDRO 04-28 00:59 → 2S 04-28 01:44
DX: I95.9 Hypotension, unspecified; E86.9 Volume depletion, unspecified; D63.1 Anemia in chronic kidney disease; I82.503 Chronic embolism and thrombosis of unspecified deep veins of lower extremity, bilateral; E78.5 Hyperlipidemia, unspecified; Z90.49 Acquired absence of other specified parts of digestive tract; Z79.01 Long term (current) use of anticoagulants; E87.1 Hypo-osmolality and hyponatremia; I48.91 Unspecified atrial fibrillation; N13.1 Hydronephrosis with ureteral stricture, not elsewhere classified; I12.9 Hypertensive chronic kidney disease with stage 1 through stage 4 chronic kidney disease, or unspecified chronic kidney disease; N17.9 Acute kidney failure, unspecified; K51.00 Ulcerative (chronic) pancolitis without complications; B96.1 Klebsiella pneumoniae [K. pneumoniae] as the cause of diseases classified elsewhere; N18.32 Chronic kidney disease, stage 3b; Y84.6 Urinary catheterization as the cause of abnormal reaction of the patient, or of later complication, without mention of misadventure at the time of the procedure; Z86.711 Personal history of pulmonary embolism; K56.600 Partial intestinal obstruction, unspecified as to cause; N39.0 Urinary tract infection, site not specified; Z85.038 Personal history of other malignant neoplasm of large intestine; T83.511A Infection and inflammatory reaction due to indwelling urethral catheter, initial encounter; Z88.8 Allergy status to other drugs, medicaments and biological substances; K43.5 Parastomal hernia without obstruction or gangrene

== ENCOUNTER 2022-12-12 19:19 | Inpatient (IN) ==
[2022-12-12] MEDS ORDERED: SODIUM CHLORIDE 0.9% 1000ML 1,000 ML IV ONE (19:58)
--- NOTE | 2022-12-12 20:35 | Emergency Department Note ---
Impression & Plan Small bowel obstruction Admit to the [facility] ED Provider Note NAME: LYNETTE CEDILLO II AGE: 52 SEX: M ARRIVES VIA: Walk-In INFORMANT: Patient and his ED PROVIDER(S): Angelica Colunga DO CHIEF COMPLAINT: Fever and vomiting PLAN: Disposition: Admit to the [facility] with plans to transfer to [place] Condition: Guarded MEDICAL DECISION MAKING: This is a 52-year-old male patient who presents to the emergency department tonight with fever and vomiting. The patient underwent a peristomal hernia repair on Thursday at [place]. He had a normal postsurgical course and was discharged today at 11 AM. Approximately 20 minutes after leaving the hospital, he had an episode of vomiting while driving home and then developed a fever shortly thereafter. He continued to vomit throughout the day and his fever went higher. He presents back here to the local emergency department for evaluation. CT scan of the abdomen/pelvis shows evidence of a high-grade small bowel obstruction. I discussed the case with the colorectal surgeon on-call in [place] who reviewed the patient's case and has accepted the patient back there but they are unable to take him until Thursday at the earliest and asked that we admit him here until that time with an NG tube in place. I discussed the case with the [facility] Hospitalist as well as the surgeon on-call. The NG tube was placed and the stomach was decompressed. Patient's pain is controlled with IV analgesia. Patient's white blood cell count had increased from 8 earlier yesterday to 17 at this time. Patient was treated with IV Zosyn. Patient's BUN creatinine ratio went from 16/1.7-24/1.9. Patient received IV crystalloid therapy here in the ER. I was able to access some outside records from [place] for review. Patient's fever came down while here in the emergency department. His tachycardia resolved after the IV fluids. He was hemodynamically stable. Triage Nursing notes reviewed and agree with them. Additional history obtained from the patient's who is at the bedside Prior medical records reviewed from [place] Vital Signs: reviewed and remarkable for fever and tachycardia Differential diagnosis: Sepsis, intra-abdominal abscess, perforated viscus, small bowel obstruction, postsurgical complication ER treatment provided: director of physiotherapy services IV normal saline IV Dilaudid IV normal saline bolus IV normal saline drip NG tube placement Diagnostics interpreted by me: ECG: Sinus tachycardia at a rate of [address] segment elevation or signs of ischemia. There is no ectopy. Cardiac Monitoring: Sinus tachycardia at a rate of 122 Laboratory studies: See below Imaging studies: As per radiology CT scan of the abdomen pelvis: See radiology report Consultants: Dr. Glasgow -colorectal surgery [place] Dr. Ge-General surgery [facility] HPI: 52/M arrives for evaluation of fever and vomiting. Patient underwent a parastomal hernia repair at [facility] on Thursday. He was discharged from the hospital at 11 AM this morning and upon returning here to [place], he developed a fever and vomiting. The fever continued throughout the evening and he presents to this emergency department for evaluation. He denies any abdominal pain throughout the day and was concerned only because he was directed here that if he developed a fever he should seek care. PAST MEDICAL HISTORY:See Below PAST SURGICAL HISTORY:See Below FAMILY HISTORY:See Below SOCIAL HISTORY:See Below HOME MEDICATIONS: See list ALLERGIES: See list VITALS:See Below PHYSICAL EXAMINATION: HEENT: Head - normocephalic and atraumatic. Pupils are equal, round, and reactive to light. Extraocular eye muscles are intact, and sclera are anicteric. Nose - moist nasal mucosa without discharge. Mouth - moist buccal mucosa. Oropharynx is nonerythematous and there is no tonsillar exudate or edema noted. Neck: Supple; no JVD or cervical lymphadenopathy Heart: Regular rate and rhythm. There is a normal S1 and S2 with no murmurs, clicks, or gallops appreciated. Lungs: Clear to auscultation bilaterally with no wheezes, rales, or rhonchi. Abdomen: Soft, surgical incisions are intact. Dermabond in place. Colostomy in place and unremarkable. Only mild tenderness to palpation left lower quadrant of the abdomen. There are no palpable pulsatile masses or hepatosplenomegaly. There is no guarding, rigidity, or rebound noted. Extremities: No evidence of cyanosis, clubbing, or edema. There are easily palpable peripheral pulses. Skin: warm and dry with good turgor and no rashes. ED COURSE: Times/Reassessments: 745: Patient was evaluated in room B 12. A complete history and physical was performed. An IV lock was initiated and labs were drawn as above. An order was placed for continuous cardiac monitoring. The p atient was in a sinus tachycardia at a rate of 122. A twelve-lead EKG was obtained as described above. The patient was bolused with IV normal saline solution. Patient went for CT scan of the abdomen/pelvis. Patient was given a dose of IV Zosyn. Patient was given a dose of IV Zofran for nausea The patient developed increasing abdominal pain and nausea and was given a dose of IV Dilaudid. I discussed the case with the colorectal surgeon at [place]. An NG tube was placed. I discussed the case with the [facility] Hospitalist and they will evaluate the patient for further inpatient care. He recommended discussed the case with the on-call surgeon here at [facility]. Angelica Colunga DO Past Med/Surg History Medical History (Updated 12/14/22 @ 17:19 by Angelica Colunga DO) Adenocarcinoma, colon MARK (acute kidney injury) RECENT [facility] ADMISSION 04/28/22 Carpal tunnel syndrome on both sides Closed fracture of neck of left femur Closed left hip fracture Deep vein thrombosis in leg 15yrs ago DVT (deep venous thrombosis) Dysplastic nevus GI bleed HX History of DVT (deep vein thrombosis) Hyperlipidemia Pulmonary embolism Rectal cancer Secondary hypercoagulable state Small bowel obstruction Ulcerative colitis Vitamin D deficiency Surgical History (Updated 12/13/22 @ 13:02 by Luis Ge DO, FACS) History of colectomy (2018) Total Abdominal Colectomy with End Ileostomy at [facility] [place] History of colonoscopy 12/27/2018 02/11/2019 ([facility]) 05/28/2022 ([facility]) 06/17/2022 ([facility]) History of hernia repair History of ileostomy revision and parastomal hernia repair [address] Cheema, [facility] Family History Mother Hypertension Bone cancer Amputation below knee Father No problems noted. Brother No problems noted. Other Has no children No family history of adverse response to anesthesia Denies family history of Ovarian cancer Prostate cancer Myocardial infarction Breast cancer Colorectal cancer Social History Smoking Status: Never smoker Second Hand Exposure: No; Hx Alcohol Use: No Hx Substance Use: No Preferred Language: Brazilian Communication Ability: Effective Visual Impairment: Limited Hearing Ability: Normal Coater Hand Required: No Beliefs That Will Affect Care: None marital status: Current Living Situation: Spouse current occupational status: employed current occupation: [employer] How many Children do You have: 1 How many Children do You have Comment: step daughter Feels Safe at Home: Yes Childhood Exposure to Second-Hand Smoke: No caffeine: Yes (soda sometimes ) Dental Care, Regularly: Yes Physical Activity Frequency: Daily 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 Use: always Assistive Devices: None Allergies Allergies Allergy/AdvReac Type Severity Reaction Status Date / Time infliximab [From Remicade] AdvReac Severe BODY Verified 12/12/22 20:43 ACHES, COULDN'T SLEEP Home Meds Home Medications Medication Instructions Recorded Confirmed ferrous sulfate 325 mg (65 mg 325 mg PO QAM 05/22/21 12/12/22 iron) tablet cholecalciferol (vitamin D3) 50 50 mcg PO QPM 12/11/21 12/12/22 mcg (2,000 unit) capsule losartan 25 mg tablet 25 mg PO QAM 05/21/22 12/12/22 calcitriol 0.25 mcg capsule 0.25 mcg PO 3XWK 12/12/22 12/12/22 Previous Rx's Medication Instructions Recorded warfarin 10 mg tablet 10 mg PO 4XWK #60 tabs 06/20/22 warfarin 1 mg tablet 0.5 mg PO 3XWK #30 tabs 08/11/22 warfarin 6 mg tablet 12 mg PO 3XWK #24 tabs 08/21/22 Results & Data (ED) Vital Signs Vital Signs - 24 hr 12/12/22 19:29 12/12/22 20:30 12/12/22 20:34 Temperature 38.1 C H Temperature Source Temporal Artery Scan Pulse Rate 122 H 102 H Pulse Rate [Apical] 102 H Pulse Rate from SpO2 Sensor Pulse Rhythm Regular Pulse Rhythm [Apical] Pulse Strength [Apical] Respiratory Rate 20 18 20 Respiratory Effort / Characteristics Respiratory Depth Respiratory Pattern Blood Pressure 121/73 Blood Pressure [Right Arm] 123/90 Blood Pressure Mean 89 Blood Pressure Mean [Right Arm] 101 Blood Pressure Position [Right Arm] Pulse Oximetry 94 94 95 Oxygen Delivery Method Room Air Room Air Sepsis Recent Fever Within 48 Hours No Sepsis New/Unexplained Change in Mental Status N/A Sepsis Action Taken by Nursing No Action Required 12/12/22 21:00 12/12/22 20:51 12/12/22 21:00 Temperature Temperature Source Pulse Rate 95 H Pulse Rate [Apical] 98 H Pulse Rate from SpO2 Sensor 96 H Pulse Rhythm Pulse Rhythm [Apical] Pulse Strength [Apical] Respiratory Rate 20 15 Respiratory Effort / Characteristics Respiratory Depth Respiratory Pattern Blood Pressure 113/85 Blood Pressure [Right Arm] 113/85 Blood Pressure Mean 94 Blood Pressure Mean [Right Arm] 94 Blood Pressure Position [Right Arm] Pulse Oximetry 93 95 Oxygen Delivery Method Sepsis Recent Fever Within 48 Hours Sepsis New/Unexplained Change in Mental Status Sepsis Action Taken by Nursing 12/12/22 21:00 12/12/22 21:10 12/12/22 21:15 Temperature Temperature Source Pulse Rate 98 H 98 H Pulse Rate [Apical] Pulse Rate from SpO2 Sensor 97 H 98 H Pulse Rhythm Pulse Rhythm [Apical] Pulse Strength [Apical] Respiratory Rate 17 23 Respiratory Effort / Characteristics Respiratory Depth Respiratory Pattern Blood Pressure 116/72 Blood Pressure [Right Arm] Blood Pressure Mean 86 Blood Pressure Mean [Right Arm] Blood Pressure Position [Right Arm] Pulse Oximetry 96 93 Oxygen Delivery Method Sepsis Recent Fever Within 48 Hours Sepsis New/Unexplained Change in Mental Status Sepsis Action Taken by Nursing 12/12/22 21:15 12/12/22 21:20 12/12/22 21:30 Temperature Temperature Source Pulse Rate 98 H 98 H Pulse Rate [Apical] Pulse Rate from SpO2 Sensor 98 H 98 H Pulse Rhythm Pulse Rhythm [Apical] Pulse Strength [Apical] Respiratory Rate 19 21 Respiratory Effort / Characteristics Respiratory Depth Respiratory Pattern Blood Pressure 118/70 Blood Pressure [Right Arm] Blood Pressure Mean 86 Blood Pressure Mean [Right Arm] Blood Pressure Position [Right Arm] Pulse Oximetry 94 93 Oxygen Delivery Method Sepsis Recent Fever Within 48 Hours Sepsis New/Unexplained Change in Mental Status Sepsis Action Taken by Nursing 12/12/22 21:30 12/12/22 21:40 12/12/22 22:00 Temperature Temperature Source Pulse Rate 99 H 96 H Pulse Rate [Apical] 94 H Pulse Rate from SpO2 Sensor 100 H 96 H Pulse Rhythm Pulse Rhythm [Apical] Pulse Strength [Apical] Respiratory Rate 18 18 Respiratory Effort / Characteristics Non-Labored Respiratory Depth Normal Respiratory Pattern Blood Pressure Blood Pressure [Right Arm] 112/74 Blood Pressure Mean Blood Pressure Mean [Right Arm] 86 Blood Pressure Position [Right Arm] Pulse Oximetry 94 93 94 Oxygen Delivery Method Sepsis Recent Fever Within 48 Hours Sepsis New/Unexplained Change in Mental Status Sepsis Action Taken by Nursing 12/12/22 23:00 12/13/22 01:00 12/13/22 01:39 Temperature Temperature Source Pulse Rate Pulse Rate [Apical] 92 H 92 H 87 Pulse Rate from SpO2 Sensor Pulse Rhythm Pulse Rhythm [Apical] Regular Regular Pulse Strength [Apical] Normal Normal Respiratory Rate 16 18 Respiratory Effort / Characteristics Non-Labored Spontaneous Non-Labored Spontaneous Respiratory Depth Normal Normal Respiratory Pattern Regular Regular Blood Pressure Blood Pressure [Right Arm] 122/75 106/79 106/79 Blood Pressure Mean Blood Pressure Mean [Right Arm] 90 88 88 Blood Pressure Position [Right Arm] Lying Semi-fowlers Pulse Oximetry 93 93 92 Oxygen Delivery Method Room Air Room Air Room Air Sepsis Recent Fever Within 48 Hours Sepsis New/Unexplained Change in Mental Status Sepsis Action Taken by Nursing 12/13/22 02:00 Temperature Temperature Source Pulse Rate Pulse Rate [Apical] 82 Pulse Rate from SpO2 Sensor Pulse Rhythm Pulse Rhythm [Apical] Regular Pulse Strength [Apical] Normal Respiratory Rate 16 Respiratory Effort / Characteristics Non-Labored Spontaneous Respiratory Depth Normal Respiratory Pattern Regular Blood Pressure Blood Pressure [Right Arm] 100/67 Blood Pressure Mean Blood Pressure Mean [Right Arm] 78 Blood Pressure Position [Right Arm] Semi-fowlers Pulse Oximetry 93 Oxygen Delivery Method Room Air Sepsis Recent Fever Within 48 Hours Sepsis New/Unexplained Change in Mental Status Sepsis Action Taken by Nursing Laboratory Data 12/12/22 20:20 12/12/22 20:20 Lab Results 12/12/22 12/12/22 12/12/22 Range/Units 20:20 20:20 20:20 WBC 17.37 H (4.8-10.8) K/ul RBC 3.67 L (4.63-6.08) M/uL Hgb 11.3 L (14.0-18.0) g/dl Hct 33.7 L (40.1-51.0) % MCV 91.8 (80.0-100.0) fL MCH 30.8 (25.0-34.0) pg MCHC 33.5 (32.0-36.0) g/dL RDW Std Deviation 46.6 H (36.4-46.3) fL RDW Coeff of Asha 13.9 (11.5-14.5) % Plt Count 315 (130-400) K/uL MPV 9.9 (9.4-12.4) fL Immature Gran % (Auto) 0.5 % Neut % (Auto) 89.6 % Lymph % (Auto) 1.3 % [place] % (Auto) 8.0 % Eos % (Auto) 0.5 % Baso % (Auto) 0.1 % Neut # (Auto) 15.57 H (1.4-6.5) K/uL Lymph # (Auto) 0.23 L (1.2-3.4) K/uL [place] # (Auto) 1.39 H (0.24-0.82) K/uL Eos # (Auto) 0.08 (0-0.50) K/uL Baso # (Auto) 0.02 (0-0.2) K/uL Immature Gran # (Auto) 0.08 H (0.00-0.02) K/uL Sodium 140 (136-145) mmol/L Potassium 4.3 (3.5-5.1) mmol/L Chloride 111 H (98-107) mmol/L Carbon Dioxide 20 L (21-32) mmol/L Anion Gap 9 (3-11) BUN 24 H (6-23) mg/dl Creatinine 1.93 H (0.6-1.4) mg/dl Est Cr Clr Drug Dosing 51.0 ml/min Est GFR ( Amer) 45.4 ml/min Est GFR (Non-Af Amer) 39.2 ml/min BUN/Creatinine Ratio 12.4 (10-20) Glucose 131 H (70-99(Fasting)) mg/dl Lactate 0.9 (0.4-2.0) mmol/L Calcium 9.2 (8.5-10.1) mg/dl Magnesium 1.5 L (1.7-2.4) mg/dl Total Bilirubin 1.0 (0.2-1.0) mg/dl Direct Bilirubin 0.2 (0-0.2) mg/dl AST 19 (13-39) U/L ALT 14 (7-52) U/L Alkaline Phosphatase 52 (34-104) U/L Troponin I High Sens 9.8 (0-20) pg/ml Total Protein 7.6 (6.0-8.3) gm/dl Albumin 3.7 (3.4-5.0) gm/dl Globulin 3.9 (2.5-4.0) gm/dl Albumin/Globulin Ratio 0.9 (0.9-2) Lipase 28 (11-82) U/L Procalcitonin (0-0.5) ng/ml SARS-CoV-2 (PCR) (Negative) Influenza Type A (PCR) (Neg) Influenza Type B (PCR) (Neg) RSV (RT-PCR) (Neg) 12/12/22 12/12/22 Range/Units 20:20 20:28 WBC (4.8-10.8) K/ul RBC (4.63-6.08) M/uL Hgb (14.0-18.0) g/dl Hct (40.1-51.0) % MCV (80.0-100.0) fL MCH (25.0-34.0) pg MCHC (32.0-36.0) g/dL RDW Std Deviation (36.4-46.3) fL RDW Coeff of Asha (11.5-14.5) % Plt Count (130-400) K/uL MPV (9.4-12.4) fL Immature Gran % (Auto) % Neut % (Auto) % Lymph % (Auto) % [place] % (Auto) % Eos % (Auto) % Baso % (Auto) % Neut # (Auto) (1.4-6.5) K/uL Lymph # (Auto) (1.2-3.4) K/uL [place] # (Auto) (0.24-0.82) K/uL Eos # (Auto) (0-0.50) K/uL Baso # (Auto) (0-0.2) K/uL Immature Gran # (Auto) (0.00-0.02) K/uL Sodium (136-145) mmol/L Potassium (3.5-5.1) mmol/L Chloride (98-107) mmol/L Carbon Dioxide (21-32) mmol/L Anion Gap (3-11) BUN (6-23) mg/dl Creatinine (0.6-1.4) mg/dl Est Cr Clr Drug Dosing ml/min Est GFR ( Amer) ml/min Est GFR (Non-Af Amer) ml/min BUN/Creatinine Ratio (10-20) Glucose (70-99(Fasting)) mg/dl Lactate (0.4-2.0) mmol/L Calcium (8.5-10.1) mg/dl Magnesium (1.7-2.4) mg/dl Total Bilirubin (0.2-1.0) mg/dl Direct Bilirubin (0-0.2) mg/dl AST (13-39) U/L ALT (7-52) U/L Alkaline Phosphatase (34-104) U/L Troponin I High Sens (0-20) pg/ml Total Protein (6.0-8.3) gm/dl Albumin (3.4-5.0) gm/dl Globulin (2.5-4.0) gm/dl Albumin/Globulin Ratio (0.9-2) Lipase (11-82) U/L Procalcitonin 1.54 H (0-0.5) ng/ml SARS-CoV-2 (PCR) NEGATIVE (Negative) Influenza Type A (PCR) Negative (Neg) Influenza Type B (PCR) Negative (Neg) RSV (RT-PCR) Negative (Neg) Administered Medications Discontinued Medications Heparin Sodium (Porcine) (Heparin Sod (Porcine) 1000 Unit/Ml) 3,000 units IV NOW STA Stop: 12/14/22 00:17 Last Admin: 12/14/22 00:26 Dose: 3,000 units Documented By: EVAN Co-signed By: DEMETRIUS Heparin Sodium/Dextrose (Heparin Iv Adult Wt-Based Standard *No* Bolus Protocol) 1 each IV ONE STA; Protocol Stop: 12/13/22 15:54 Last Admin: 12/13/22 16:52 Dose: 1 each Documented By: LISSA Hydromorphone HCl (Hydromorphone Inj 1 Mg/Ml Syringe) 1 mg IV NOW STA Stop: 12/12/22 23:53 Last Admin: 12/13/22 00:08 Dose: 1 mg Documented By: BINU Sodium Chloride (Nss 1000ml) 1,000 mls @ 999 mls/hr IV .Q1H1M ONE Stop: 12/12/22 20:58 Last Infusion: 12/12/22 21:55 Dose: 0 mls/hr Documented By: Admin: 12/12/22 20:35 Dose: 999 mls/hr Documented By: ONEIDA Piperacillin Sod/Tazobactam Sod (Zosyn) 4.5 gm in 120 mls @ 240 mls/hr IV NOW ONE Stop: 12/12/22 21:28 Last Infusion: 12/12/22 21:55 Dose: 0 mls/hr Documented By: Admin: 12/12/22 21:26 Dose: 240 mls/hr Documented By: ONEIDA Sodium Chloride (Nss) 500 mls @ 125 mls/hr IV .Q4H LIDIA Stop: 01/11/23 23:44 Last Infusion: 12/13/22 03:16 Dose: 0 mls/hr Documented By: Admin: 12/13/22 00:04 Dose: 125 mls/hr Documented By: BINU Sodium Chloride (Nss 1000ml) 1,000 mls @ 125 mls/hr IV .Q8H LIDIA Stop: 01/12/23 01:29 Last Admin: 12/13/22 21:02 Dose: 125 mls/hr Documented By: Infusion: 12/13/22 21:00 Dose: 125 mls/hr Documented By: Admin: 12/13/22 13:00 Dose: 125 mls/hr Documented By: Infusion: 12/13/22 12:27 Dose: 125 mls/hr Documented By: Admin: 12/13/22 04:27 Dose: 125 mls/hr Documented By: HEAVEN Magnesium Sulfate/Dextrose (Magnesium Sulfate / D5w) 1 gm in 100 mls @ 50 mls/hr IV Q2H LIDIA Stop: 12/13/22 09:29 Last Infusion: 12/13/22 11:49 Dose: 0 mls/hr Documented By: Admin: 12/13/22 08:48 Dose: 50 mls/hr Documented By: Infusion: 12/13/22 08:32 Dose: 50 mls/hr Documented By: Admin: 12/13/22 06:32 Dose: 50 mls/hr Documented By: Infusion: 12/13/22 06:27 Dose: 50 mls/hr Documented By: Admin: 12/13/22 04:27 Dose: 50 mls/hr Documented By: Infusion: 12/13/22 03:16 Dose: 0 mls/hr Documented By: Admin: 12/13/22 02:13 Dose: 50 mls/hr Documented By: BINU Heparin Sodium/Dextrose (Heparin Sodium/Dextrose) 25,000 units in 500 mls @ 32 mls/hr IV .[id number] [facility]; Protocol Stop: 01/12/23 16:14 Last Titration: 12/14/22 00:27 Dose: 1,600 units/hr, 32 mls/hr Documented By: EVAN Co-signed By: DEMETRIUS Titration: 12/13/22 19:00 Dose: 1,450 units/hr, 29 mls/hr Documented By: EVAN Co-signed By: LISSA Admin: 12/13/22 17:36 Dose: 1,450 units/hr, 29 mls/hr Documented By: LISSA Co-signed By: YOVANY Ioversol (Optiray 350 100ml) 84 ml IV ONCE ONE Stop: 12/12/22 22:32 Last Admin: 12/12/22 22:32 Dose: 84 ml Documented By: CHARO Ondansetron HCl (Ondansetron Inj 2 Mg/Ml 2 Ml Vial) 4 mg IV NOW STA Stop: 12/12/22 23:53 Last Admin: 12/13/22 00:06 Dose: 4 mg Documented By: BINU Ondansetron HCl (Ondansetron Inj 2 Mg/Ml 2 Ml Vial) 4 mg IV Q6H PRN PRN Reason: Nausea Stop: 01/12/23 01:22 Last Admin: 12/13/22 07:20 Dose: 4 mg Documented By: HEAVEN Imaging Data Radiologist's Impression: Chest X-Ray 12/12/22 19:57 XR chest 1V portable HISTORY: 52 years-old Male Sepsis acute sepsis COMPARISON: Chest CT 12/03/2022 TECHNIQUE: AP view of the chest FINDINGS: Cardiac silhouette is enlarged. Mild subsegmental bibasilar densities. 1.1 cm right infrahilar nodule again noted. Stable left lower lobe solid pulmonary nodule. No pneumothorax, pleural effusion or overt pulmonary edema. Bones appear grossly intact. Right subdiaphragmatic lucency. IMPRESSION: 1. Mild bibasilar densities favoring atelectasis. A mild pneumonitis considered less likely. 2. Bilateral solid pulmonary nodules are redemonstrated. 3. Right subdiaphragmatic lucency. This may be artifactual, however should be correlated with an upright view of the abdomen to exclude pneumoperitoneum. ACT 112: Negative or not required by law. The above report was generated using voice recognition software. It may contain grammatical, syntax or spelling errors. Electronically signed by: Filipe Waters M.D. 12/12/2022 8:59 PM Abdomen/Pelvis CT 12/12/22 21:[address] WITH IV CONTRAST CT DOSE: 695.32 mGy.cm HISTORY: Follow up study in a patient with recent surgery and history of rectal carcinoma. Surgery performed on 09 December diagnostic laparoscopy, liver biopsy, parastomal hernia repair with ileostomy revision. eval for post surgical abscess TECHNIQUE: Multiaxial CT images of the abdomen and pelvis were performed following the IV administration of 84 cc of Optiray, A dose lowering technique was utilized adhering to the principles of ALARA. COMPARISON STUDY: December 03, 2022. FINDINGS: Solid pulmonary nodules of the lung bases appear stable the prior st udy suggestive of metastasis. Linear bibasilar consolidative and groundglass opacities suggest atelectasis. The imaged inferior cardiac chambers are unremarkable. The spleen, pancreas and adrenal glands are unremarkable. Mildly increased attenuation of the gallbladder suggestive of vicarious excretion of contrast. 1.7 cm left hepatic lobe lesion redemonstrated previously noted 1.4 cm lesion of the inferior right hepatic lobe is not definitively seen. No new liver lesions identified. Patent portal vein. Mild right greater than left hydronephrosis has improved from prior study. Mild persistent urothelial thickening. Circumferential urinary bladder wall thickening with intraluminal air. Similar to prior. Prostamegaly. No abdominal aortic aneurysm or lymphadenopathy. Small fat filled inguinal hernias. Unchanged borderline enlarged retroperitoneal lymph node on image 237. Unchanged 9 mm perirectal lymph node on image 3 5. Stable 2.8 cm area of mucosal thickening in volving the right side of the residual rectum. Postoperative changes of prior subtotal colectomy with right lower quadrant ileostomy again noted. Moderate pneumoperitoneum is new from prior lung with subcutaneous emphysema of the anterior abdominal wall. High-grade small bowel obstruction with dilated air and fluid-filled loops of small bowel measuring up to 5.1 cm. Transition point is present within the abdominal right lower quadrant on image 291 series 3 with focal kinking of the small bowel. Decompressed distal loops of small bowel. Inflammatory stranding with fluid is noted within the periumbilical and parastomal tissues. Decreased size of the parastomal hernia status post repair. Mild twisting/swelling of the right lower quadrant mesentery. No acute fracture. ORIF changes of the left proximal femur. No new bony disease identified. Lumbar levoscoliosis. IMPRESSION: 1. Prior subtotal colectomy with right lower quadrant ileostomy. Interval development of a high-grade small bowel obstruction with transition point within the abdominal right lower quadrant. Findings may be secondary to an internal hernia. 2. Interval postoperative changes of the abdomen with repair of the parastomal hernia. Fluid and edema surrounding the ileostomy site are likely expected postoperative changes. 3. Moderate pneumoperitoneum may be secondary to the aforementioned recent surgery. A perforated viscus could have a similar appearance. 4. Basilar solid pulmonary nodules with hypodense left hepatic lobe lesion again noted suspicious for metastatic disease. 5. 2.8 cm soft tissue thickening within the rectum is suspicious for malignancy. 6. Persistent urothelial thickening which could be correlated with urinalysis. 7. Unchanged borderline enlarged retroperitoneal lymph node with subcentimeter perirectal lymph node. Attention at follow-up recommended to exclude lymphatic metastasis.. ACT 112: Negative or not required by law. The above report was generated using voice recognition software. It may contain grammatical, syntax or spelling errors. Electronically signed by: Filipe Waters M.D. 12/12/2022 11:15 PM Discharge Plan Visit Data Chief Complaint: Abdominal Pain Stated Complaint: ABDOMINAL SURGERY TUES, FEVER, VOMITING ED Provider: Angelica Colunga Discharge Problem: Small bowel obstruction Patient Disposition: Admitted As Inpatient Condition: Good Discharge Instructions Interventions: ED Discharge Assessment Last Done: 12/13/22 03:24
[2022-12-12 20:39] LABS: Basophils # (auto) 0.02 K/uL (0-0.2); Basophils % (auto) 0.1 %; Eosinophils # (auto) 0.08 K/uL (0-0.50); Eosinophils % (auto) 0.5 %; Hematocrit (blood only) 33.7 % (40.1-51.0); Hemoglobin 11.3 g/dl (14.0-18.0); Immature Granulocytes # (auto) 0.08 K/uL (0.00-0.02); Immature Granulocytes % (auto) 0.5 %; Lymphocytes # (auto) 0.23 K/uL (1.2-3.4); Lymphocytes % (auto) 1.3 %; Mean Corpuscular Hemoglobin 30.8 pg (25.0-34.0); Mean Corpuscular Hgb Conc 33.5 g/dL (32.0-36.0); Mean Corpuscular Volume 91.8 fL (80.0-100.0); Mean Platelet Volume 9.9 fL (9.4-12.4); Monocytes # (auto) 1.39 K/uL (0.24-0.82); Neutrophils # (auto) 15.57 K/uL (1.4-6.5); Neutrophils % (auto) 89.6 %; Platelet Count 315 K/uL (130-400); RDW Coefficient of Variation 13.9 % (11.5-14.5); RDW Standard Deviation 46.6 fL (36.4-46.3); Red Blood Count 3.67 M/uL (4.63-6.08); White Blood Count 17.37 K/ul (4.8-10.8)
[2022-12-12] MEDS ORDERED: PIPERACILLIN/TAZOBACTAM 4.5 GM/120 ML BAG IV ONE (20:59)
--- NOTE | 2022-12-12 21:00 | XRay Report ---
XR chest 1V portable HISTORY: 52 years-old Male Sepsis acute sepsis COMPARISON: Chest CT 12/03/2022 TECHNIQUE: AP view of the chest FINDINGS: Cardiac silhouette is enlarged. Mild subsegmental bibasilar densities. 1.1 cm right infrahilar nodule again noted. Stable left lower lobe solid pulmonary nodule. No pneumothorax, pleural effusion or ove rt pulmonary edema. Bones appear grossly intact. Right subdiaphragmatic lucency. IMPRESSION: 1. Mild bibasilar densities favoring atelectasis. A mild pneumonitis considered less likely. 2. Bilateral solid pulmonary nodules are redemonstrated. 3. Right subdiaphragmatic lucency. This may be artifactual, however should be correlated with an upri ght view of the abdomen to exclude pneumoperitoneum. ACT 112: Negative or not required by law. The above report was generated using voice recognition software. It may contain grammatical, syntax o r spelling errors. Electronically signed by: Filipe Waters M.D. 12/12/2022 8:59 PM
[2022-12-12 21:01] LABS: Albumin Globulin Ratio 0.9 (0.9-2); Albumin Level 3.7 gm/dl (3.4-5.0); BUN Creatinine Ratio 12.4 (10-20); Bilirubin Direct 0.2 mg/dl (0-0.2); Calcium 9.2 mg/dl (8.5-10.1); Est GFR (African American) 45.4 ml/min; Est GFR (Non-African American) 39.2 ml/min; Globulin 3.9 gm/dl (2.5-4.0); Magnesium 1.5 mg/dl (1.7-2.4); Potassium 4.3 mmol/L (3.5-5.1); Total Protein 7.6 gm/dl (6.0-8.3)
[2022-12-12 21:08] LABS: Troponin I High Sensitivity 9.8 pg/ml (0-20)
[2022-12-12 21:22] LABS: Influenza A virus by PCR Negative (Neg); Influenza B virus by PCR Negative (Neg); RSV by PCR Negative (Neg); SARS CoV2 RNA(COVID-19) Ceph NEGATIVE (Negative)
[2022-12-12] MEDS ORDERED: OPTIRAY 350 100ml IV ONE (22:31)
--- NOTE | 2022-12-12 23:17 | CT Scan Report ---
ABDOMEN AND PELVIS CT WITH IV CONTRAST CT DOSE: 695.32 mGy.cm HISTORY: Follow up study in a patient with recent surgery and history of rectal carcinoma. Surgery pe rformed on 09 December diagnostic laparoscopy, liver biopsy, parastomal hernia repair with ileostomy r evision. eval for post surgical abscess TECHNIQUE: Multiaxial CT images of the abdomen and pelvis were performed following the IV administrat ion of 84 cc of Optiray, A dose lowering technique was utilized adhering to the principles of ALARA. COMPARISON STUDY: December 03, 2022. FINDINGS: Solid pulmonary nodules of the lung bases appear stable the prior study suggestive of metas tasis. Linear bibasilar consolidative and groundglass opacities suggest atelectasis. The imaged infer ior cardiac chambers are unremarkable. The spleen, pancreas and adrenal glands are unremarkable. Mild ly increased attenuation of the gallbladder suggestive of vicarious excretion of contrast. 1.7 cm lef t hepatic lobe lesion redemonstrated previously noted 1.4 cm lesion of the inferior right hepatic lob e is not definitively seen. No new liver lesions identified. Patent portal vein. Mild right greater than left hydronephrosis has improved from prior study. Mild persistent urothelial thickening. Circumferential urinary bladder wall thickening with intraluminal air. Similar to prior. Prostamegaly. No abdominal aortic aneurysm or lymphadenopathy. Small fat filled inguinal hernias. Un changed borderline enlarged retroperitoneal lymph node on image 237. Unchanged 9 mm perirectal lymph node on image 3 5. Stable 2.8 cm area of mucosal thickening involving the right side of the residual rectum. Postoperative changes of prior subtotal colectomy with right lower quadrant ileostomy again n oted. Moderate pneumoperitoneum is new from prior lung with subcutaneous emphysema of the anterior ab dominal wall. High-grade small bowel obstruction with dilated air and fluid-filled loops of small bow el measuring up to 5.1 cm. Transition point is present within the abdominal right lower quadrant on i mage 291 series 3 with focal kinking of the small bowel. Decompressed distal loops of small bowel. In flammatory stranding with fluid is noted within the periumbilical and parastomal tissues. Decreased s ize of the parastomal hernia status post repair. Mild twisting/swelling of the right lower quadrant m esentery. No acute fracture. ORIF changes of the left proximal femur. No new bony disease identified. Lumbar le voscoliosis. IMPRESSION: 1. Prior subtotal colectomy with right lower quadrant ileostomy. Interval development of a high-grade small bowel obstruction with transition point within the abdominal right lower quadrant. Findings ma y be secondary to an internal hernia. 2. Interval postoperative changes of the abdomen with repair of the parastomal hernia. Fluid and genevieve a surrounding the ileostomy site are likely expected postoperative changes. 3. Moderate pneumoperitoneum may be secondary to the aforementioned recent surgery. A perforated visc us could have a similar appearance. 4. Basilar solid pulmonary nodules with hypodense left hepatic lobe lesion again noted suspicious for metastatic disease. 5. 2.8 cm soft tissue thickening within the rectum is suspicious for malignancy. 6. Persistent urothelial thickening which could be correlated with urinalysis. 7. Unchanged borderline enlarged retroperitoneal lymph node with subcentimeter perirectal lymph node. Attention at follow-up recommended to exclude lymphatic metastasis.. ACT 112: Negative or not required by law. The above report was generated using voice recognition software. It may contain grammatical, syntax o r spelling errors. Electronically signed by: Filipe Waters M.D. 12/12/2022 11:15 PM
[2022-12-12] MEDS ORDERED: SODIUM CHLORIDE 0.9% 500 ML IV SCH (23:45)
[2022-12-12] MEDS ORDERED: HYDROmorphone INJ 1 MG/ML SYRINGE IV STA (23:52)
[2022-12-12] MEDS ORDERED: ONDANSETRON INJ 2 MG/ML 2 ML VIAL IV STA (23:52)
--- NOTE | 2022-12-13 01:05 | History & Physical Report ---
Date of Service December 13, 2022 Assessment & Plan (1) Small bowel obstruction: Plan: 52 yo M with PMH rectal cancer, Crohn's colitis s/p colectomy with Rylie procedure, CKD3, previous pulmonary emboli on Coumadin and recent [facility] hospitalization 12/09 - 12/12 for parastomal hernia repair with ileostomy revision presenting with acute abdominal pain, nausea and vomiting. High grade small bowel obstruction -Postoperative SBO with transition point in RLQ after ileostomy revision -CTAP- prior subtotal colectomy with RLQ ileostomy, high-grade SBO with RLQ transition point, postoperative changes after parastomal hernia repair including fluid and edema around ostomy site -Surgery consulted -Continue NSS IVF 125 cc/hr, bowel rest, NG tube in place -Zofran PRN, morphine PRN pain -Pt reportedly accepted for transfer back to [facility] Rectal malignancy with hepatic metastasis -S/p radiation therapy completion on 09/19 -Intraoperative findings at [place] and liver biopsy included left lateral segment liver lesion positive for adenocarcinoma, was recommended to have CT chest for further staging -CTAP- 2.8 cm soft tissue thickening concerning for rectal malignancy, enlarged retroperitoneal lymph node, basilar solid pulmonary nodules, hypodense L hepatic lobe lesion -Oncology consulted for AM Crohn's colitis -Does not appear to be on any suppressive medication at home, previous intolerance with infliximab -I do not suspect an acute flare at this time, deferring steroids Chronic anticoagulation with history of previous DVT and PE, active malignancy -Pt is on warfarin- 12.5 mg S/S/M/T, 10 mg W/R/ -PT/INR ordered for AM -Anticipate potential need for heparin, deferring anticoagulation at present until INR results Hypomagnesemia -1.5 on admission -Currently repleting -Mg level ordered for AM HTN -Holding home losartan -BP stable at present FENGI: NPO Code status: Full DVT ppx: SCDs at present Isolation: None Dispo: Medical/surgical with telemetry (2) Rectal cancer: (3) Chronic anticoagulation: History of Present Illness Chief Complaint: Abdominal pain, nausea, vomiting Primary Care Provider: Harsha Omer MD 52 yo M with PMH rectal cancer, Crohn's colitis s/p colectomy with Rylie procedure, CKD3, previous pulmonary emboli on Coumadin and recent [facility] hospitalization presenting with acute abdominal pain, nausea and vomiting. Pt was hospitalized at [facility] from 12/09 to 12/12 due to parastomal hernia. He underwent liver biopsy, parastomal hernia repair, ileostomy revision with intraoperative findings which later confirmed liver metastasis. The surgery was otherwise uncomplicated and he had a standard postoperative course. Discharged home on 12/12 in stable condition. Unfortunately about 20 minutes after leaving hospital, pt began to have NBNB emesis with fever shortly afterward. Emesis continued with multiple episodes over the day with fever and he arrived to [facility] for evaluation. ED labs significant for WBC 17, Hgb 11, INR 2.8, Cr 1.93 (at baseline), Mg 1.5, procalcitonin 1.54. CT findings of high grade SBO with transition point in RLQ, postoperative changes of abdomen with repair of parastomal hernia including fluid and edema, moderate pneumoperitoneum, soft tissue thickening within rectum. He did receive IV fluids, Zosyn, Zofran and Dilaudid in ED. On my evaluation, pt denies any current abdominal pain, nausea and vomiting. I saw him shortly after NG tube placement, and f/u KUB confirmed appropriate placement. Allergies Allergy/AdvReac Type Severity Reaction Status Date / Time infliximab [From Remicade] AdvReac Severe BODY Verified 12/12/22 20:43 ACHES, COULDN'T SLEEP Home Medications Medication Instructions Recorded Confirmed Type ferrous sulfate 325 mg (65 mg 325 mg PO QAM 05/22/21 12/12/22 History iron) tablet cholecalciferol (vitamin D3) 50 50 mcg PO QPM 12/11/21 12/12/22 History mcg (2,000 unit) capsule losartan 25 mg tablet 25 mg PO QAM 05/21/22 12/12/22 History warfarin 10 mg tablet 10 mg PO 4XWK #60 tabs 06/20/22 12/12/22 Rx warfarin 1 mg tablet 0.5 mg PO 3XWK #30 tabs 08/11/22 12/12/22 Rx warfarin 6 mg tablet 12 mg PO 3XWK #24 tabs 08/21/22 12/12/22 Rx calcitriol 0.25 mcg capsule 0.25 mcg PO 3XWK 12/12/22 12/12/22 History Past Med/Surg History Medical History (Updated 12/13/22 @ 01:16 by Jewel Mtz MD) Adenocarcinoma, colon MARK (acute kidney injury) RECENT [facility] ADMISSION 04/28/22 Carpal tunnel syndrome on both sides Closed fracture of neck of left femur Closed left hip fracture Deep vein thrombosis in leg 15yrs ago DVT (deep venous thrombosis) Dysplastic nevus GI bleed HX History of DVT (deep vein thrombosis) Hyperlipidemia Pulmonary embolism Rectal cancer Secondary hypercoagulable state Small bowel obstruction Ulcerative colitis Vitamin D deficiency Surgical History (Updated 12/13/22 @ 13:02 by Luis Ge DO, FACS) History of colectomy (2019) Total Abdominal Colectomy with End Ileostomy at [facility] History of colonoscopy 12/27/2018 02/11/2019 ([facility]) 05/28/2022 ([facility]) 06/17/2022 ([facility]) History of hernia repair History of ileostomy revision and parastomal hernia repair [address] Cheema, [facility] Family History Mother Hypertension Bone cancer Amputation below knee Father No problems noted. Brother No problems noted. Other Has no children No family history of adverse response to anesthesia Denies family history of Ovarian cancer Prostate cancer Myocardial infarction Breast cancer Colorectal cancer Social History Smoking Status: Never smoker Second Hand Exposure: No; Hx Alcohol Use: No Hx Substance Use: No Preferred Language: Chinese Communication Ability: Effective Visual Impairment: Limited Hearing Ability: Normal Health And Wellness Coordinator Required: No Beliefs That Will Affect Care: None marital status: Current Living Situation: Spouse current occupational status: employed current occupation: [employer] Operator How many Children do You have: 1 How many Children do You have Comment: step daughter Feels Safe at Home: Yes Safety Concerns: Feels Safe At This Time Childhood Exposure to Second-Hand Smoke: No caffeine: Yes (soda sometimes ) Dental Care, Regularly: Yes Physical Activity Frequency: Daily 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 Use: always Assistive Devices: None Review of Systems Review of Systems: Per HPI Physical Exam Physical Exam: General: uncomfortable appearing, NG tube in place, no acute distress HEENT: moist mucous membranes CV: RRR, normal S1 and S2, no murmurs noted Resp: CTAB, unlabored respirations Abd: soft, distended, well-healing surgical scar above umbilicus, ostomy bag in place with normal output, tender to RUQ + RLQ and epigastrium without rebound or guarding, high-pitched proximal bowel sounds Ext: no peripheral edema, good capillary refill with normal pedal pulses b/l Results & Data Results & Data [facility] Vital Signs (Past 12 Hours) Vital Signs Temp Pulse Pulse Resp BP BP Pulse Ox 12/12/22 23:00 92 H 16 122/75 93 12/12/22 22:00 94 H 18 112/74 94 12/12/22 21:40 96 H 93 12/12/22 21:30 99 H 18 94 12/12/22 21:30 118/70 12/12/22 21:20 98 H 21 93 12/12/22 21:15 98 H 19 94 12/12/22 21:15 116/72 12/12/22 21:10 98 H 23 93 12/12/22 21:00 98 H 17 96 12/12/22 21:00 113/85 12/12/22 20:51 95 H 15 95 12/12/22 21:00 98 H 20 113/85 93 12/12/22 20:34 102 H 20 123/90 95 12/12/22 20:30 102 H 18 94 12/12/22 19:29 38.1 C H 122 H 20 121/73 94 O2 Del Method 12/12/22 23:00 Room Air 12/12/22 22:00 12/12/22 21:40 12/12/22 21:30 12/12/22 21:30 12/12/22 21:20 12/12/22 21:15 12/12/22 21:15 12/12/22 21:10 12/12/22 21:00 12/12/22 21:00 12/12/22 20:51 12/12/22 21:00 12/12/22 20:34 12/12/22 20:30 Room Air 12/12/22 19:29 Room Air Supervising Physician Co-Signing Physician Notes Attending addendum: I have physically seen this patient, have supervised the medical residents activities, and agree with the H&P unless as otherwise noted. Assessment and Plan: High-grade small bowel obstruction- NPO NG tube to low intermittent suction NSS at high 25 mils per hour Zofran 4 mg IV every 6 hours as needed Famotidine 20 mg IV every 12 hours Morphine sulfate 2 mg IV every 4 hours as needed severe pain General surgery consult Rectal malignancy with liver metastases- Recently underwent liver biopsy prior to potential colon resection, and when found to have metastases to liver, resection was canceled and ileostomy alone was performed Consult oncology Crohn's colitis- No signs of flare at this time Chronic anticoagulation/DVT and PE history/active malignancy- Patient had been restarted on warfarin and INR is therapeutic Repeat INR in a.m., and is less than 2, begin heparin IV Remaining orders and notations as noted Resident Activity Tracking Resident Involvement: Resident Care Provided Care Provided: Adult [facility] Medicine
[2022-12-13] MEDS ORDERED: ONDANSETRON INJ 2 MG/ML 2 ML VIAL IV PRN ×2 (01:23→03:47)
[2022-12-13] MEDS ORDERED: POLYETHYLENE (MIRALAX) 17 GM PACK PO PRN (01:23)
[2022-12-13] MEDS ORDERED: ALUMINUM/MAGNESIUM SUSP 30 ML UDC PO PRN (01:23)
[2022-12-13] MEDS: MAGNESIUM SULFATE / D5W 1 GM/100 ML BAG IV SCH ×4 (02:13→08:48)
[2022-12-13] MEDS ORDERED: MoRPHine SULFATE 2 MG/ML CARP IV PRN (03:47)
[2022-12-13] MEDS ORDERED: SODIUM CHLORIDE 0.9% 1000ML 1,000 ML IV SCH (03:47)
[2022-12-13 04:19] LABS: Appearance Urine Clear (Clear); Bacteria Urine Automated Negative (Negative); Bilirubin Urine Negative (Negative); Blood Urine 1+ (Negative); Color Urine Yellow; Glucose Urine UA Negative (Negative); Ketones Urine Negative (Negative); Leukocyte Esterase Urine Trace (Negative); Nitrite Urine Negative (Negative); Protein Urine Negative (Negative); RBC Urine Automated 0-4 /hpf (0-4); Specific Gravity Urine 1.041 (1.000-1.030); Urobilinogen Urine Negative (Negative); pH Urine 5.5 (4.5-7.5)
[2022-12-13] MEDS: SODIUM CHLORIDE 0.9% 1000ML 1,000 ML IV SCH ×3 (04:27→21:02)
[2022-12-13 05:07] LABS: Basophils # (auto) 0.04 K/uL (0-0.2); Basophils % (auto) 0.3 %; Eosinophils # (auto) 0.26 K/uL (0-0.50); Eosinophils % (auto) 1.9 %; Hematocrit (blood only) 31.5 % (40.1-51.0); Hemoglobin 10.3 g/dl (14.0-18.0); Immature Granulocytes # (auto) 0.07 K/uL (0.00-0.02); Immature Granulocytes % (auto) 0.5 %; Lymphocytes # (auto) 0.51 K/uL (1.2-3.4); Lymphocytes % (auto) 3.8 %; Mean Corpuscular Hemoglobin 30.5 pg (25.0-34.0); Mean Corpuscular Hgb Conc 32.7 g/dL (32.0-36.0); Mean Corpuscular Volume 93.2 fL (80.0-100.0); Monocytes # (auto) 1.38 K/uL (0.24-0.82); Monocytes % (auto) 10.3 %; Neutrophils # (auto) 11.14 K/uL (1.4-6.5); Neutrophils % (auto) 83.2 %; Platelet Count 293 K/uL (130-400); RDW Standard Deviation 47.6 fL (36.4-46.3); Red Blood Count 3.38 M/uL (4.63-6.08)
[2022-12-13 05:20] LABS: INR 1.1 (0.9-1.1); Prothrombin Time 11.7 Seconds (9.0-12.0)
[2022-12-13 05:27] LABS: Albumin Level 3.4 gm/dl (3.4-5.0); Bilirubin,Total 1.1 mg/dl (0.2-1.0); Calcium 8.8 mg/dl (8.5-10.1); Magnesium 2.1 mg/dl (1.7-2.4); Potassium 4.3 mmol/L (3.5-5.1)
[2022-12-13 05:33] LABS: BUN Creatinine Ratio 12.8 (10-20); Creatinine Clr Calc Pharmacy 48.5 ml/min; Est GFR (African American) 42.7 ml/min; Est GFR (Non-African American) 36.9 ml/min; Globulin 3.3 gm/dl (2.5-4.0); Total Protein 6.7 gm/dl (6.0-8.3)
--- NOTE | 2022-12-13 07:36 | Hospitalist Progress Note ---
Date of Service December 13, 2022 Assessment & Plan (1) Small bowel obstruction: Plan: 52 yo M with PMH rectal cancer, Crohn's colitis s/p colectomy with Rylie procedure, CKD3, previous pulmonary emboli on Coumadin and recent [facility] hospitalization 12/09 - 12/12 for parastomal hernia repair with ileostomy revision presenting with acute abdominal pain, nausea and vomiting secondary to high- grade SBO. He is currently accepted for transfer to [facility]. High grade small bowel obstruction -Postoperative high-grade SBO with transition point in RLQ after ileostomy revision -CTAP: prior subtotal colectomy with RLQ ileostomy, high-grade SBO with RLQ transition point, postoperative changes after parastomal hernia -Surgery consulted: appreciate aid in management (patient is accepted for transfer to [facility]) -Continue NSS IVF 125 cc/hr, NPO, NGT on LIS -Zofran, morphine PRN pain Rectal malignancy with hepatic metastasis -s/p radiation therapy completion on 09/19 -Intraoperative findings at [facility] and liver bx included left lateral segment liver lesion positive for adenocarcinoma, was recommended to have CT chest for further staging -CTAP- 2.8 cm thickening concerning for rectal malignancy, retroperitoneal LAD, basilar solid pulmonary nodules, hypodense L hepatic lobe lesion -Will require outpatient oncology consult Crohn's colitis -Does not appear to be on any suppressive medication at home, previous intolerance with infliximab -Will need GI f/u as outpatient Chronic anticoagulation with history of previous DVT and PE, active malignancy -Pt is on warfarin- 12.5 mg S/S/M/T, 10 mg W/R- hold for now -PT/INR ordered for AM -Anticipate potential need for heparin, deferring anticoagulation at present until INR results Hypomagnesemia -1.5 on admission -- replete and recheck HTN -Holding home losartan, BP stable FENGI: NPO, +NGT Code status: Full DVT ppx: hold warfarin, SCDs, start heparin when appropriate Isolation: None Dispo: MST (2) Rectal cancer: (3) Chronic anticoagulation: Admission and Anticipated Discharge Date Admission Date: December 13, 2022 Supervising Physician Co-Signing Physician Notes I personally examined the patient and verified all santillan points of history and exam, discussed case, and agree with decision making with Dr Murillo. Feeling okay with NG tube in. Just informed he has a bed at [place]. Anticipates leaving tonight. Vitals noted, in general he is awake and alert pleasant no distress. NG draining light yellow-green clear drainage. Skin shows no rashes no pallor or icterus. Neuro without focal deficits. Complicated small bowel obstruction in the context of rectal cancer and recent abdominal surgeryis excepted and pending transfer to [place]. Continue NG drainage. Otherwise as above Subjective NAEO. Understandably spirits aren't great being back in the hospital. Denies n/v/d. Denies abdominal pain. Breathing is fine. Review of Systems Review of Systems: as per HPI Physical Exam Physical Exam: General: 52-year old male who is alert, oriented, and appears in no acute distress. HEENT: NCAT. - Eyes - Sclera are white, anicteric, and without injection. - Mouth - MMM; Nose- NGT in place. - Neck - supple, no appreciable JVD Cardiac: Normal rate and regular rhythm; S1 and S2 present with no murmurs, rubs, or gallops. Pulmonary: Good respiratory effort with symmetric expansion of the chest. No use of accessory muscles. Lungs were clear to auscultation bilaterally with no crackles or wheezes. Abdominal: Hypoactive bowel sounds. Ostomy bag in place, area c/d/i. Abdomen was soft, nondistended, and non-tender to palpation. Extremities: Upper and lower extremities are warm and well perfused. No peripheral edema in the lower extremities bilaterally Results & Data Results & Data ([facility]) Vital Signs (Past 12 Hours) Vital Signs Temp Pulse Pulse Resp BP BP Pulse Ox 12/13/22 03:47 36.8 C 81 20 134/81 92 12/13/22 03:00 80 19 122/74 94 12/13/22 02:00 82 16 100/67 93 12/13/22 01:39 87 106/79 92 12/13/22 01:00 92 H 18 106/79 93 12/12/22 23:00 92 H 16 122/75 93 12/12/22 22:00 94 H 18 112/74 94 12/12/22 21:40 96 H 93 12/12/22 21:30 99 H 18 94 12/12/22 21:30 118/70 12/12/22 21:20 98 H 21 93 12/12/22 21:15 98 H 19 94 12/12/22 21:15 116/72 12/12/22 21:10 98 H 23 93 12/12/22 21:00 98 H 17 96 12/12/22 21:00 113/85 12/12/22 20:51 95 H 15 95 12/12/22 21:00 98 H 20 113/85 93 12/12/22 20:34 102 H 20 123/90 95 12/12/22 20:30 102 H 18 94 O2 Del Method 12/13/22 03:47 Room Air 12/13/22 03:00 Room Air 12/13/22 02:00 Room Air 12/13/22 01:39 Room Air 12/13/22 01:00 Room Air 12/12/22 23:00 Room Air 12/12/22 22:00 12/12/22 21:40 12/12/22 21:30 12/12/22 21:30 12/12/22 21:20 12/12/22 21:15 12/12/22 21:15 12/12/22 21:10 12/12/22 21:00 12/12/22 21:00 12/12/22 20:51 12/12/22 21:00 12/12/22 20:34 12/12/22 20:30 Room Air Resident Activity Tracking Resident Involvement: Resident Care Provided Care Provided: Adult Hospital Medicine
--- NOTE | 2022-12-13 11:37 | XRay Report ---
XR KUB/Abdomen 1 view CLINICAL HISTORY: Post NG placement TECHNIQUE: 1 view of the abdomen was obtained. Comparison: Comparison is made to CT abdomen pelvis 12/12/2022 FINDINGS: Enteric tube terminates in the stomach. Degenerative changes are seen in the visualized skeleton. Mul tiple gas-distended loops of small bowel are again seen measuring up to 57 mm in diameter. IMPRESSION: Satisfactory position of enteric tube. Redemonstration of small bowel obstruction. ACT 112: Negative or not required by law. Electronically signed by: Ponce Coello M.D. 12/13/2022 11:36 AM
--- NOTE | 2022-12-13 13:04 | Surgery Consultation ---
Date of Consultation December 13, 2022 Assessment & Plan (1) Small bowel obstruction: 52-year-old male with early postop small bowel obstruction. His symptoms appear to be improved with the NG tube. We will repeat a KUB as he is now having some ostomy output. If his symptoms worsen or fail to improve, he would likely need transfer to . Continue nonoperative management for now. Surgery will continue to follow while in house. (2) Rectal cancer: (3) History of hernia repair: History of Present Illness Reason for Consultation: Bowel obstruction Attending Physician: Liam Leach DO History of Present Illness 52-year-old male POD #4 laparoscopic ileostomy revision and parastomal hernia repair along with biopsies of metastatic implants at by Dr. Cheema, admitted for small bowel obstruction. He had a surgery on Thursday and his diet was advanced and he was doing well. He was discharged from the hospital yesterday in the late morning and started vomiting by the time he was leaving the parking lot. He continued to have nausea and emesis on his trip back to [place]. He then developed chills and had a fever and reported to the emergency department. CT scan showed some expected postoperative changes and had evidence of a small bowel obstruction with possible internal hernia along with some pneumoperitoneum that may be postsurgical but could not rule out a perforated viscus. Patient was discussed with the surgeons back in [place] and they were willing to accept the patient however there were no beds available. He was admitted to the medicine service and general surgery was consulted for assistance with management. During his visit this morning he is feeling much better, he has gas and succus in his ileostomy. He denies any nausea or vomiting at this time. Allergies Allergy/AdvReac Type Severity Reaction Status Date / Time infliximab [From Remicade] AdvReac Severe BODY Verified 12/12/22 20:43 ACHES, COULDN'T SLEEP Home Medications Medication Instructions Recorded Confirmed Type ferrous sulfate 325 mg (65 mg 325 mg PO QAM 05/22/21 12/12/22 History iron) tablet cholecalciferol (vitamin D3) 50 50 mcg PO QPM 12/11/21 12/12/22 History mcg (2,000 unit) capsule losartan 25 mg tablet 25 mg PO QAM 05/21/22 12/12/22 History warfarin 10 mg tablet 10 mg PO 4XWK #60 tabs 06/20/22 12/12/22 Rx warfarin 1 mg tablet 0.5 mg PO 3XWK #30 tabs 08/11/22 12/12/22 Rx warfarin 6 mg tablet 12 mg PO 3XWK #24 tabs 08/21/22 12/12/22 Rx calcitriol 0.25 mcg capsule 0.25 mcg PO 3XWK 12/12/22 12/12/22 History Patient History Medical History (Updated 12/13/22 @ 01:16 by Jewel Mtz MD) Adenocarcinoma, colon MARK (acute kidney injury) RECENT [facility] ADMISSION 04/28/22 Carpal tunnel syndrome on both sides Closed fracture of neck of left femur Closed left hip fracture Deep vein thrombosis in leg 15yrs ago DVT (deep venous thrombosis) Dysplastic nevus GI bleed HX History of DVT (deep vein thrombosis) Hyperlipidemia Pulmonary embolism Rectal cancer Secondary hypercoagulable state Small bowel obstruction Ulcerative colitis Vitamin D deficiency Surgical History (Updated 12/13/22 @ 13:02 by Luis Ge DO, FACS) History of colectomy (2019) Total Abdominal Colectomy with End Ileostomy at [facility] [place] History of colonoscopy 12/27/2018 02/11/2019 ([facility]) 05/28/2022 ([facility]) 06/17/2022 ([facility]) History of hernia repair History of ileostomy revision and parastomal hernia repair [address] Cheema, Family History Mother Hypertension Bone cancer Amputation below knee Father No problems noted. Brother No problems noted. 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 How many Children do You have: 1 How many Children do You have Comment: step daughter Feels Safe at Home: Yes Safety Concerns: Feels Safe At This Time Childhood Exposure to Second-Hand Smoke: No caffeine: Yes (soda sometimes ) Dental Care, Regularly: Yes Physical Activity Frequency: Daily 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 Use: always Assistive Devices: None Review of Systems Review of Systems: All systems reviewed & are unremarkable except as noted in HPI & below Physical Exam Constitutional: WD/WN, vitals as above no acute distress Gastrointestinal (Abdomen): normal bowel sounds, soft, nontender, no hepatosplenomegaly Inspection/Auscultation: + abdomen distended (Mild), + abdominal surgical scar and + abdominal surgical incision Ileostomy with succus and gas Results & Data ([facility]) Vital Signs (Past 12 Hours) Vital Signs Temp Pulse Pulse Resp BP BP Pulse Ox 12/13/22 08:00 80 12/13/22 11:19 36.7 C 78 16 131/83 95 12/13/22 08:00 12/13/22 09:19 12/13/22 07:39 36.8 C 81 18 122/87 93 12/13/22 03:47 36.8 C 81 20 134/81 92 12/13/22 03:00 80 19 122/74 94 12/13/22 02:00 82 16 100/67 93 12/13/22 01:39 87 106/79 92 12/13/22 01:00 92 H 18 106/79 93 Pulse Ox O2 Del Method O2 Del Method 12/13/22 08:00 12/13/22 11:19 Room Air 12/13/22 08:00 93 Room Air 12/13/22 09:19 Room Air 12/13/22 07:39 Room Air 12/13/22 03:47 Room Air 12/13/22 03:00 Room Air 12/13/22 02:00 Room Air 12/13/22 01:39 Room Air 12/13/22 01:00 Room Air Laboratory Results Laboratory Results - last 24 hr 12/12/22 12/12/22 12/12/22 20:20 20:20 20:20 WBC 17.37 H RBC 3.67 L Hgb 11.3 L Hct 33.7 L MCV 91.8 MCH 30.8 MCHC 33.5 RDW Std Deviation 46.6 H RDW Coeff of Asha 13.9 Plt Count 315 MPV 9.9 Immature Gran % (Auto) 0.5 Neut % (Auto) 89.6 Lymph % (Auto) 1.3 [place] % (Auto) 8.0 Eos % (Auto) 0.5 Baso % (Auto) 0.1 Neut # (Auto) 15.57 H Lymph # (Auto) 0.23 L Boone # (Auto) 1.39 H Eos # (Auto) 0.08 Baso # (Auto) 0.02 Immature Gran # (Auto) 0.08 H PT INR Sodium 140 Potassium 4.3 Chloride 111 H Carbon Dioxide 20 L Anion Gap 9 BUN 24 H Creatinine 1.93 H Est Cr Clr Drug Dosing 51.0 Est GFR ( Amer) 45.4 Est GFR (Non-Af Amer) 39.2 BUN/Creatinine Ratio 12.4 Glucose 131 H Lactate 0.9 Calcium 9.2 Magnesium 1.5 L Total Bilirubin 1.0 Direct Bilirubin 0.2 AST 19 ALT 14 Alkaline Phosphatase 52 Troponin I High Sens 9.8 Total Protein 7.6 Albumin 3.7 Globulin 3.9 Albumin/Globulin Ratio 0.9 Lipase 28 Procalcitonin Urine Color Urine Appearance Urine pH Ur Specific [place] Urine Protein Urine Glucose (UA) Urine Ketones Urine Blood Urine Nitrite Urine Bilirubin Urine Urobilinogen Ur Leukocyte Esterase Urine WBC (Auto) Urine RBC (Auto) U Hyaline Cast (Auto) U Epithel Cells (Auto) Urine Bacteria (Auto) SARS-CoV-2 (PCR) Influenza Type A (PCR) Influenza Type B (PCR) RSV (RT-PCR) 12/12/22 12/12/22 12/13/22 20:20 20:28 04:00 WBC RBC Hgb Hct MCV MCH MCHC RDW Std Deviation RDW Coeff of Asha Plt Count MPV Immature Gran % (Auto) Neut % (Auto) Lymph % (Auto) [place] % (Auto) Eos % (Auto) Baso % (Auto) Neut # (Auto) Lymph # (Auto) [place] # (Auto) Eos # (Auto) Baso # (Auto) Immature Gran # (Auto) PT INR Sodium Potassium Chloride Carbon Dioxide Anion Gap BUN Creatinine Est Cr Clr Drug Dosing Est GFR ( Amer) Est GFR (Non-Af Amer) BUN/Creatinine Ratio Glucose Lactate Calcium Magnesium Total Bilirubin Direct Bilirubin AST ALT Alkaline Phosphatase Troponin I High Sens Total Protein Albumin Globulin Albumin/Globulin Ratio Lipase Procalcitonin 1.54 H Urine Color Yellow Urine Appearance Clear Urine pH 5.5 Ur Specific [place] 1.041 H Urine Protein Negative Urine Glucose (UA) Negative Urine Ketones Negative Urine Blood 1+ H Urine Nitrite Negative Urine Bilirubin Negative Urine Urobilinogen Negative Ur Leukocyte Esterase Trace H Urine WBC (Auto) 10-30 H Urine RBC (Auto) 0-4 U Hyaline Cast (Auto) 1-5 U Epithel Cells (Auto) 10-20 H Urine Bacteria (Auto) Negative SARS-CoV-2 (PCR) NEGATIVE Influenza Type A (PCR) Negative Influenza Type B (PCR) Negative RSV (RT-PCR) Negative 12/13/22 12/13/22 12/13/22 04:36 04:36 04:36 WBC 13.40 H RBC 3.38 L Hgb 10.3 L Hct 31.5 L MCV 93.2 MCH 30.5 MCHC 32.7 RDW Std Deviation 47.6 H RDW Coeff of Asha 14.0 Plt Count 293 MPV 10.0 Immature Gran % (Auto) 0.5 Neut % (Auto) 83.2 Lymph % (Auto) 3.8 [place] % (Auto) 10.3 Eos % (Auto) 1.9 Baso % (Auto) 0.3 Neut # (Auto) 11.14 H Lymph # (Auto) 0.51 L Bo[place] # (Auto) 1.38 H Eos # (Auto) 0.26 Baso # (Auto) 0.04 Immature Gran # (Auto) 0.07 H PT 11.7 INR 1.1 Sodium 140 Potassium 4.3 Chloride 111 H Carbon Dioxide 23 Anion Gap 6 BUN 26 H Creatinine 2.03 H Est Cr Clr Drug Dosing 48.5 Est GFR ( Amer) 42.7 Est GFR (Non-Af Amer) 36.9 BUN/Creatinine Ratio 12.8 Glucose 109 H Lactate Calcium 8.8 Magnesium 2.1 Total Bilirubin 1.1 H Direct Bilirubin AST 26 ALT 19 Alkaline Phosphatase 49 Troponin I High Sens Total Protein 6.7 Albumin 3.4 Globulin 3.3 Albumin/Globulin Ratio 1.0 Lipase Procalcitonin Urine Color Urine Appearance Urine pH Ur Specific [place] Urine Protein Urine Glucose (UA) Urine Ketones Urine Blood Urine Nitrite Urine Bilirubin Urine Urobilinogen Ur Leukocyte Esterase Urine WBC (Auto) Urine RBC (Auto) U Hyaline Cast (Auto) U Epithel Cells (Auto) Urine Bacteria (Auto) SARS-CoV-2 (PCR) Influenza Type A (PCR) Influenza Type B (PCR) RSV (RT-PCR) Diagnostic Findings CT scan personally viewed and interpreted and agree with the assessment of small bowel obstruction with a transition point in the mid small bowel, unable to determine whether this can truly represent internal hernia. Expected free air following surgery. No ischemia. ABDOMEN AND PELVIS CT WITH IV CONTRAST CT DOSE: 695.32 mGy.cm HISTORY: Follow up study in a patient with recent surgery and history of rectal carcinoma. Surgery performed on 09 December diagnostic laparoscopy, liver biopsy, parastomal hernia repair with ileostomy revision. eval for post surgical abscess TECHNIQUE: Multiaxial CT images of the abdomen and pelvis were performed following the IV administration of 84 cc of Optiray, A dose lowering technique was utilized adhering to the principles of ALARA. COMPARISON STUDY: December 03, 2022. FINDINGS: Solid pulmonary nodules of the lung bases appear stable the prior study suggestive of metastasis. Linear bibasilar consolidative and groundglass opacities suggest atelectasis. The imaged inferior cardiac chambers are unremarkable. The spleen, pancreas and adrenal glands are unremarkable. Mildly increased attenuation of the gallbladder suggestive of vicarious excretion of contrast. 1.7 cm left hepatic lobe lesion redemonstrated previously noted 1.4 cm lesion of the inferior right hepatic lobe is not definitively seen. No new liver lesions identified. Patent portal vein. Mild right greater than left hydronephrosis has improved from prior study. Mild persistent urothelial thickening. Circumferential urinary bladder wall thickening with intraluminal air. Similar to prior. Prostamegaly. No abdominal aortic aneurysm or lymphadenopathy. Small fat filled inguinal hernias. Unchanged borderline enlarged retroperitoneal lymph node on image 237. Unchanged 9 mm perirectal lymph node on image 3 5. Stable 2.8 cm area of mucosal thickening involving the right side of the residual rectum. Postoperative changes of prior subtotal colectomy with right lower quadrant ileostomy again noted. Moderate pneumoperitoneum is new from prior lung with subcutaneous emphysema of the anterior abdominal wall. High-grade small bowel obstruction with dilated air and fluid-filled loops of small bowel measuring up to 5.1 cm. Transition point is present within the abdominal right lower quadrant on image 291 series 3 with focal kinking of the small bowel. Decompressed distal loops of small bowel. I nflammatory stranding with fluid is noted within the periumbilical and parastomal tissues. Decreased size of the parastomal hernia status post repair. Mild twisting/swelling of the right lower quadrant mesentery. No acute fracture. ORIF changes of the left proximal femur. No new bony disease identified. Lumbar levoscoliosis. IMPRESSION: 1. Prior subtotal colectomy with right lower quadrant ileostomy. Interval development of a high-grade small bowel obstruction with transition point within the abdominal right lower quadrant. Findings may be secondary to an internal hernia. 2. Interval postoperative changes of the abdomen with repair of the parastomal hernia. Fluid and edema surrounding the ileostomy site are likely expected postoperative changes. 3. Moderate pneumoperitoneum may be secondary to the aforementioned recent surgery. A perforated viscus could have a similar appearance. 4. Basilar solid pulmonary nodules with hypodense left hepatic lobe lesion again noted suspicious for metastatic disease. 5. 2.8 cm soft tissue thickening within the rectum is suspicious for malignancy. 6. Persistent urothelial thickening which could be correlated with urinalysis. 7. Unchanged borderline enlarged retroperitoneal lymph node with subcentimeter perirectal lymph node. Attention at follow-up recommended to exclude lymphatic metastasis.. PG Care Time/CCT Total # of Minutes Spent Total Time Spent with Patient: Total time spent is greater than 50% in coordination of care (as documented) at patient's floor/unit and/or counseling patient: Coding Level of Care Code INP/OBS CONSULT LVL 3, 45 MIN Diagnoses Small bowel obstruction K56.609 Rectal cancer C20 History of hernia repair Z98.890; Z87.19
--- NOTE | 2022-12-13 15:05 | Electrocardiogram Report ---
Test Reason : Blood Pressure : / mmHG Vent. Rate : 108 BPM Atrial Rate : 108 BPM P-R Int : 150 ms QRS Dur : 080 ms QT Int : 312 ms P-R-T Axes : 015 026 -10 degrees QTc Int : 418 ms Sinus tachycardia Otherwise normal ECG When compared with ECG of 27-APR-2022 22:54, Non-specific change in ST segment in Inferior leads Confirmed by Mayank Ayers ([id number]) on 12/13/2022 3:05:00 PM Referred By: REFERRED SELF Confirmed By:Mayank Ayers
--- NOTE | 2022-12-13 15:48 | XRay Report ---
XR KUB/Abdomen 1 view CLINICAL HISTORY: high grade SBO TECHNIQUE: 1 view of the abdomen was obtained. Comparison: Comparison is made to abdomen radiograph 12/13/[address] abdomen pelvis 09/11/2023 FINDINGS: Enteric tube terminates in the stomach. Degenerative changes are seen in the visualized skeleton. Mul tiple distended loops of bowel are again seen measuring up to 68 mm. A moderate amount of stool is no angela within the large bowel. IMPRESSION: Multiple gas-distended loops of small bowel are seen, likely slightly enlarged from prior exam. Findi ngs are compatible with small bowel obstruction. ACT 112: Negative or not required by law. Electronically signed by: Ponce Coello M.D. 12/13/2022 3:46 PM
[2022-12-13] MEDS ORDERED: Heparin IV Adult Wt-Based Standard *NO* Bolus Protocol IV STA (15:53)
[2022-12-13] MEDS ORDERED: HEPARIN SODIUM/DEXTROSE 25,000 UNITS/500 ML BAG IV SCH (16:15)
[2022-12-13 17:16] LABS: Basophils # (auto) 0.02 K/uL (0-0.2); Basophils % (auto) 0.2 %; Eosinophils # (auto) 0.51 K/uL (0-0.50); Eosinophils % (auto) 6.1 %; Hematocrit (blood only) 31.5 % (40.1-51.0); Hemoglobin 10.3 g/dl (14.0-18.0); Immature Granulocytes # (auto) 0.03 K/uL (0.00-0.02); Immature Granulocytes % (auto) 0.4 %; Lymphocytes # (auto) 0.59 K/uL (1.2-3.4); Lymphocytes % (auto) 7.1 %; Mean Corpuscular Hemoglobin 30.7 pg (25.0-34.0); Mean Corpuscular Hgb Conc 32.7 g/dL (32.0-36.0); Mean Platelet Volume 9.7 fL (9.4-12.4); Monocytes # (auto) 1.06 K/uL (0.24-0.82); Monocytes % (auto) 12.7 %; Neutrophils # (auto) 6.14 K/uL (1.4-6.5); Neutrophils % (auto) 73.5 %; Platelet Count 259 K/uL (130-400); RDW Coefficient of Variation 13.9 % (11.5-14.5); RDW Standard Deviation 47.6 fL (36.4-46.3); Red Blood Count 3.35 M/uL (4.63-6.08); White Blood Count 8.35 K/ul (4.8-10.8)
[2022-12-13 17:28] LABS: INR 1.1 (0.9-1.1); Partial Thromboplastin Time 27.5 Seconds (21.0-31.0); Prothrombin Time 11.8 Seconds (9.0-12.0)
--- NOTE | 2022-12-13 18:16 | Billing Data ---
Date of Service December 13, 2022 Coding Level of Care Code HOSP INP/OBS DISCH 30 MIN/LESS
--- NOTE | 2022-12-13 22:21 | Billing Data ---
Date of Service December 13, 2022 Coding Level of Care Code 45291 INT INP/OBS CARE
--- NOTE | 2022-12-13 22:21 | Billing Data ---
Date of Service December 13, 2022 Coding Level of Care Code 57261 INT INP/OBS CARE
[2022-12-13 23:09] VITALS: BP 120/78; PULSE 80; TEMP 97.5
[2022-12-14 00:08] LABS: Partial Thromboplastin Ratio 1.3; Partial Thromboplastin Time 35.5 Seconds (21.0-31.0)
[2022-12-14] MEDS ORDERED: HEPARIN SOD (PORCINE) 1000 UNIT/ML IV STA (00:16)
--- NOTE | 2022-12-14 00:34 | Discharge Summary ---
Date of Service December 14, 2022 Admission HPI Per Admitting Provider 52 yo M with PMH rectal cancer, Crohn's colitis s/p colectomy with Rylie procedure, CKD3, previous pulmonary emboli on Coumadin and [place] [facility] [place] presenting with acute abdominal pain, nausea and vomiting. Pt was hospitalized at [facility] from 12/09 to 12/12 due to parastomal hernia. He underwent liver biopsy, parastomal hernia repair, ileostomy revision with intraoperative findings which later confirmed liver metastasis. The surgery was otherwise uncomplicated and he had a standard postoperative course. Discharged home on 12/12 in stable condition. Unfortunately about 20 minutes after leaving hospital, pt began to have NBNB emesis with fever shortly afterward. Emesis continued with multiple episodes over the day with fever and he arrived to [facility] for evaluation. ED labs significant for WBC 17, Hgb 11, INR 2.8, Cr 1.93 (at baseline), Mg 1.5, procalcitonin 1.54. CT findings of high grade SBO with transition point in RLQ, postoperative changes of abdomen with repair of parastomal hernia including fluid and edema, moderate pneumoperitoneum, soft tissue thickening within rectum. He did receive IV fluids, Zosyn, Zofran and Dilaudid in ED. On my evaluation, pt denies any current abdominal pain, nausea and vomiting. I saw him shortly after NG tube placement, and f/u KUB confirmed appropriate placement. Admission Exam Per Admitting Provider General: uncomfortable appearing, NG tube in place, no acute distress HEENT: moist mucous membranes CV: RRR, normal S1 and S2, no murmurs noted Resp: CTAB, unlabored respirations Abd: soft, distended, well-healing surgical scar above umbilicus, ostomy bag in place with normal output, tender to RUQ + RLQ and epigastrium without rebound or guarding, high-pitched proximal bowel sounds Ext: no peripheral edema, good capillary refill with normal pedal pulses b/l Principal Diagnosis High-grade SBO Discharge Exam General: 52-year old male who is alert, oriented, and appears in no acute distress. HEENT: NCAT. - Eyes - Sclera white, anicteric, and wi thout injection. - Mouth - MMM; Nose- NGT in place. - Neck - supple, no appreciable JVD Cardiac: Normal rate and regular rhythm; S1 and S2 present with no murmurs, rubs, or gallops. Pulmonary: Good respiratory effort with symmetric expansion of the chest. No use of accessory muscles. Lungs were clear to auscultation bilaterally with no crackles or wheezes. Abdominal: Hypoactive bowel sounds. Ostomy bag in place, area c/d/i. Abdomen was soft, nondistended, and non-tender to palpation. Extremities: Upper and lower extremities are warm and well perfused. No peripheral edema in the lower extremities bilaterally Discharge Data Allergies Allergy/AdvReac Type Severity Reaction Status Date / Time infliximab [From Remicade] AdvReac Severe BODY Verified 12/12/22 20:43 ACHES, COULDN'T SLEEP Consultations 12/13/22 00:05 ED Decision to Admit Stat 12/13/22 01:23 Consult General Surgery Routine 12/13/22 03:47 Consult General Surgery Routine Ordered Studies 12/12/22 21:59 CT Abd and Pelvis [CT abd pelvis IV con only] Stat Hospital Course (1) Small bowel obstruction: 52 yo M with PMH rectal cancer, Crohn's colitis s/p colectomy with Rylie procedure, CKD3, previous pulmonary emboli on Coumadin and recent [facility] [place] 12/09 - 12/12 for parastomal hernia repair with ileostomy revision presenting with acute abdominal pain, nausea and vomiting secondary to high- grade SBO. He is currently accepted for transfer to [facility]. High grade small bowel obstruction -Postoperative high-grade SBO with transition point in RLQ after ileostomy revision -CTAP: prior subtotal colectomy with RLQ ileostomy, high-grade SBO with RLQ transition point, postoperative changes after parastomal hernia -Surgery consulted: appreciate aid in management (patient is accepted for transfer to [facility] -Continue NSS IVF 125 cc/hr, NPO, NGT on LIS -Zofran, morphine PRN pain Rectal malignancy with hepatic metastasis -s/p radiation therapy completion on 09/19 -Intraoperative findings at [facility] and liver bx included left lateral segment liver lesion positive for adenocarcinoma, was recommended to have CT chest for further staging -CTAP- 2.8 cm thickening concerning for rectal malignancy, retroperitoneal LAD, basilar solid pulmonary nodules, hypodense L hepatic lobe lesion -Will require outpatient oncology consult Crohn's colitis -Does not appear to be on any suppressive medication at home, previous intolerance with infliximab -Will need GI f/u as outpatient Chronic anticoagulation with history of previous DVT and PE, active malignancy -Pt is on warfarin- 12.5 mg S/S/M/T, 10 mg W/R- hold for now -PT/INR ordered for AM -Anticipate potential need for heparin, deferring anticoagulation at present until INR results Hypomagnesemia -1.5 on admission -- replete and recheck HTN -Holding home losartan, BP stable (2) Rectal cancer: (3) Chronic anticoagulation: Total Time Total Time Spent Total Time Spent (In Minutes): Please see attending attestation Discharge Plan Discharge Items Patient Disposition: Transfer Acute Care Hospital Reason For Visit: ABD PAIN, N / V Discharge Diagnosis: postoperative SBO Condition on Discharge: Good Activity: Per Instructions section Non-emergency contact: Surgeon Call non-emergency contact if: your symptoms worsen, your pain is not controlled, your pain is worsening, your pain is unusual for you, your temperature is above 101, your wound has increased redness, your wound has increased drainage and your wound pain has increased Follow-up/Referrals: Harsha Omer MD [Primary Care Provider] - Diet: Regular Addtl Attending Provider Instructions: 52 yo M with PMH rectal cancer, Crohn's colitis s/p colectomy with Rylie procedure, CKD3, previous pulmonary emboli on Coumadin and recent [facility] [place] 12/09 - 12/12 for parastomal hernia repair with ileostomy revision presenting with acute abdominal pain, nausea and vomiting secondary to high- grade SBO. He is accepted for transfer to [facility]. High grade small bowel obstruction -Postoperative high-grade SBO with transition point in RLQ after ileostomy revision -CTAP: prior subtotal colectomy with RLQ ileostomy, high-grade SBO with RLQ transition point, postoperative changes after parastomal hernia -Surgery consulted: appreciate aid in management (patient is accepted for [facility]ley sfer to [facility] -Continue NSS IVF 125 cc/hr, NPO -NGT on LIS -Zofran, morphine PRN pain Rectal malignancy with hepatic metastasis -s/p radiation therapy completion on 09/19 -Intraoperative findings at [facility] and liver bx included left lateral segment liver lesion positive for adenocarcinoma, was recommended to have CT chest for further staging -CTAP- 2.8 cm thickening concerning for rectal malignancy, retroperitoneal LAD, basilar solid pulmonary nodules, hypodense L hepatic lobe lesion -Will require outpatient oncology f/u Crohn's colitis -Does not appear to be on any suppressive medication at home, previous intolerance with infliximab -Will need GI f/u as outpatient Chronic anticoagulation with history of previous DVT and PE, active malignancy -Pt is on warfarin- 12.5 mg S/S/M/T, 10 mg W/R; INR 1.1 on arrival -Heparin gtt until stability w/ plan is ensured -Hold warfarin Hypomagnesemia -1.5 on admission -- replete and recheck HTN -Holding home losartan, BP stable FENGI: NPO, +NGT Code status: Full DVT ppx: heparin gtt in place of warfarin Isolation: None Dispo: MST Pending Studies at Discharge: No Stand-Alone Forms: My [facility] Skilled Items Patient informed of condition?: Yes DNR: No Discharge Level of Care: Other Communicable Disease: No Discharge Prognosis: Improving Lines: Peripheral IV Urinary Catheter: No Medications and DC Order Prescriptions: Continued cholecalciferol (vitamin D3) 50 mcg (2,000 unit) capsule 50 mcg PO QPM warfarin 10 mg tablet 10 mg PO 4XWK Qty: 60 5RF Protocol: Dose Management Condition: Thursday Dose/Route: 12.5 mg Instruction: 12.5 x 1 mg tablets Condition: Thursday Dose/Route: 12.5 mg Instruction: 12.5 x 1 mg tablets Condition: Thursday Dose/Route: 10 mg Instruction: 1 x 10 mg tablet Condition: Thursday Dose/Route: 10 mg Instruction: 1 x 10 mg tablet Condition: Dose/Route: 10 mg Instruction: 1 x 10 mg tablet Condition: Thursday Dose/Route: 10 mg Instruction: 1 x 10 mg tablet Condition: Thursday Dose/Route: 12.5 mg Instruction: 12.5 x 1 mg tablets Protocol Text: Adjustment Start Date: Thursday08/27/22 INR Value: 2.4 INR Date: 08/26/22 Recheck Date: 09/26/22 Rx Instructions: 10 mg daily; TAKES THU, THU, , & THU. warfarin 1 mg tablet 0.5 mg PO 3XWK Qty: 30 5RF Protocol: Dose Management Condition: Thursday Dose/Route: 12.5 mg Instruction: 12.5 x 1 mg tablets Condition: Thursday Dose/Route: 12.5 mg Instruction: 12.5 x 1 mg tablets Condition: Thursday Dose/Route: 10 mg Instruction: 1 x 10 mg tablet Condition: Thursday Dose/Route: 10 mg Instruction: 1 x 10 mg tablet Condition: Dose/Route: 10 mg Instruction: 1 x 10 mg tablet Condition: Thursday Dose/Route: 10 mg Instruction: 1 x 10 mg tablet Condition: Thursday Dose/Route: 12.5 mg Instruction: 12.5 x 1 mg tablets Protocol Text: Adjustment Start Date: Thursday08/27/22 INR Value: 2.4 INR Date: 08/26/22 Recheck Date: 09/26/22 Rx Instructions: take daily on thursday,sundays,mondays with 12mg = 12.5 mg total dose warfarin 6 mg tablet 12 mg PO 3XWK Qty: 24 3RF Protocol: Dose Management Condition: Thursday Dose/Route: 12.5 mg Instruction: 12.5 x 1 mg tablets Condition: Thursday Dose/Route: 12.5 mg Instruction: 12.5 x 1 mg tablets Condition: Thursday Dose/Route: 10 mg Instruction: 1 x 10 mg tablet Condition: Thursday Dose/Route: 10 mg Instruction: 1 x 10 mg tablet Condition: Dose/Route: 10 mg Instruction: 1 x 10 mg tablet Condition: Thursday Dose/Route: 10 mg Instruction: 1 x 10 mg tablet Condition: Thursday Dose/Route: 12.5 mg Instruction: 12.5 x 1 mg tablets Protocol Text: Adjustment Start Date: Thursday08/27/22 INR Value: 2.4 INR Date: 08/26/22 Recheck Date: 09/26/22 Rx Instructions: take 2 tablets daily with 0.5 mg on thursday,sundays,mondays = 12.5 mg total dose ferrous sulfate 325 mg (65 mg iron) tablet 325 mg PO QAM losartan 25 mg Tablet 25 mg PO QAM calcitriol 0.25 mcg capsule 0.25 mcg PO 3XWK Discharge Orders: Discharge Order (Routine); Ordered 12/14/22 Ordered By: Renard Moon Admission Data Admit Date/Time: 12/13/22 01:49 Attending Provider: Liam Leach Admit Provider: Jewel Mtz Primary Care Provider: Harsha Omer Other Providers: Luis Ge ; Checo Viera Other Interventions: Discharge Summary Assessment (RN) Last Done: 12/14/22 00:35 Supervising Physician Co-Signing Physician Notes Attending addendum: I have physically seen this patient, have supervised the medical residents activities, and agree with the H&P unless as otherwise noted. Assessment and Plan: High-grade small bowel obstruction- NPO NG tube to low intermittent suction NSS at high 25 mils per hour Zofran 4 mg IV every 6 hours as needed Famotidine 20 mg IV every 12 hours Morphine sulfate 2 mg IV every 4 hours as needed severe pain General surgery consult Rectal malignancy with liver metastases- Recently underwent liver biopsy prior to potential colon resection, and when found to have metastases to liver, resection was canceled and ileostomy alone was performed Consult oncology Crohn's colitis- No signs of flare at this time Chronic anticoagulation/DVT and PE history/active malignancy- Patient had been restarted on warfarin and INR is therapeutic Repeat INR in a.m., and is less than 2, begin heparin IV Remaining orders and notations as noted Resident Activity Tracking Resident Involvement: Resident Care Provided Care Provided: Adult [facility]
[2022-12-14 00:42] VITALS: O2SAT 92
== END 2022-12-14 01:00 | disposition short-term general hospital (02) | DRG 389 ==
LOC: ED 19:19 → 1E 12-13 01:49 → SUATTDRO 12-13 01:49 → 1E 12-13 03:24 → 2N 12-13 16:53